=== PATIENT | male | born 1940 | race Caucasian/White ===

== ENCOUNTER 2016-12-11 10:53 | Inpatient (IN) | payer MEDICARE ==
[2016-12-11] MEDS ORDERED: ALBUTEROL SULFATE (0.083%) 2.5 MG/3 ML NEB INH PRN (16:28)
[2016-12-11] MEDS ORDERED: LORAZEPAM 0.5 MG TABLET PO PRN (16:29)
[2016-12-11] MEDS: PANTOPRAZOLE SODIUM 40 MG TABLET PO SCH (17:42)
[2016-12-11] MEDS: GLIPIZIDE 5 MG TABLET PO SCH (17:42)
[2016-12-11] MEDS: SIMVASTATIN 20 MG TABLET PO SCH (22:00)
[2016-12-11] MEDS: DONEPEZIL HCL 5 MG TABLET PO SCH (22:00)
[2016-12-11] MEDS: TEMAZEPAM 15 MG CAPSULE PO PRN (22:06)
[2016-12-12] MEDS: PANTOPRAZOLE SODIUM 40 MG TABLET PO SCH ×2 (06:55→18:24)
[2016-12-12] MEDS: GLIPIZIDE 5 MG TABLET PO SCH ×2 (06:55→18:24)
--- NOTE | 2016-12-12 07:18 | History & Physical ---
History of Present Illness - Date Date of Service for History & Physical: 12/12/16 - History of Present Illness Admitting Diagnosis: Deconditioning due to syncope History of Present Illness: 76 yo male admitted for weakness. PMHx of COPD, a fib, HTN, DM, mild dementia and anxiety. Patient presented to [facility] after syncopal episode. This was thought to be related to orthostatic BP. ECHO performed during admission which demonstrated EF of 60-65 % w/ impaired relaxation. Patient thought to be medically stable, however would benefit from ARMINDA. 12/12/16: This morning, patient feels well. He denies any concerns. No dizziness , confusion, fever, chill, n/v, abd pain, cp, sob, headache, rash, diarrhea, or change in urination. Home: Lives with significant other, Shasha. One story home. three steps into the home with railing. States he has a walk in shower and a tub. Typically stays on the main floor and does not go to the basement. PCP: Tyrone Reyes D.O. General - Cognitive Patterns Orientation: Oriented x3 - Communication Preferred Language?: Spanish Staff Electronic Warfare Officer Required: No Level of Education: Grade 9-11 Preferred Method of Learning: Seeing, Doing Comprehension Ability: No Impairment Able to Read: Yes Able to Write: Yes Select best description of speech pattern: Clear Speech Ability to express ideas and wants: Understood Understanding verbal content: Understands - Psychosocial Well-Being Usual Living Arrangement: Spouse - Physical Functioning Activity Level: Up with assist x1 Turning: With partial assist ROM Ability: Within Normal Limits Assistive Devices: 2 Wheel Walker Ambulation Ability: Needs Assist Bed Mobility: Needs Assist Transfer Ability: Needs Assist Bathing Ability: Needs Assist Personal Hygiene: Needs Assist Dressing Ability: Needs Assist Eating (Feeding) Ability: Needs Assist Toileting Ability: Needs Assist Administer Own Medication: Needs Assist - Continence Bowel Pattern: Normal for Patient - Dental Status Unable to examine: No Broken or loosely fitting full or partial dentures: No No natural teeth or tooth fragment(s) (edentulous): Yes Abnormal mouth tissue (ulcers, masses, oral lesions, etc.): No Obvious or likely cavity or broken natural teeth: No Inflamed or bleeding gums or loose natural teeth: No Mouth/facial pain, discomfort or difficulty chewing: No - Nutrition Screening Poor oral intake > 1 week: No Unplanned weight loss in specified time frame: No Nutrition Support via tube feedings or parenteral nutrition: No Pressure Ulcer: No Significantly underweight define as BMI <18.5 kg/m2: No Albumin <2.5mg/dL: No Persistent nausea/vomiting/diarrhea >3 days: No Difficulty chewing/swallowing/mouth sores: No Admitting Diagnosis: No Nutrition Risk Score: Low Risk Review of Systems Constitutional: Reports: Weakness. Denies: Chills, Fever, Malaise, Night sweats ENT: Reports: Hearing loss. Denies: Congestion, Ear pain Respiratory: Denies: Cough, Dyspnea, Wheezes Cardiovascular: Denies: Chest pain, Dyspnea on exertion, Edema, Palpitations, Paroxysmal nocturnal dyspnea Endocrine: Denies: Fatigue Gastrointestinal: Denies: Abdominal pain, Constipation, Diarrhea, Nausea, Vomiting Genitourinary: Denies: Dysuria, Frequency, Hematuria Musculoskeletal: Denies: Back pain, Joint swelling, Myalgia Skin: Denies: Change in color, Rash Neurological: Denies: Abnormal gait, Confusion, Headache Psychiatric: Denies: Anxiety, Depression Hematological/Lymphatic: Denies: Anemia Past Medical History - SOCIAL HISTORY Smoking Status: Former smoker Alcohol Use: None - SURGICAL HISTORY Past Surgical History: left eye surgery. rt groin stent attempt. prostate surgery - RESPIRATORY Hx Respiratory Disorders: Yes Hx Bronchitis: Yes Hx COPD: Yes Hx Pneumonia: Yes - CARDIOVASCULAR Hx Hypertension: Yes - NEURO Hx Neuro Disorders: Yes Hx Dementia: Yes Hx Neuropathy: Yes Comment:: occasional stutter - GI Hx GI Disorders: Yes Hx Abdominal Pain: Yes Hx Reflux: Yes - Hx Genitourinary Disorders: Yes Hx Prostate Problems: Yes - ENDOCRINE Hx Endocrine Disorders: Yes Hx Diabetes: Yes - MUSCULOSKELETAL Hx Musculoskeletal Disorders: Yes Hx Arthritis: Yes - PSYCH Hx Psych Problems: Yes Hx Depression: Yes - HEMATOLOGY/ONCOLOGY Hx Hematology/Oncology Disorders: No Family Medical History Any Significant Family History?: Yes Hx Alcohol Use: Children Hx Cancer: Mother Hx Diabetes: Grandparents Hx Heart Disease: Father, Mother *Heart Comment: aneurysm Hx Resp Disorders: Grandparents H&P Meds/Allergies - Allergies Allergies: Allergies Allergy/AdvReac Type Severity Reaction Status Date / Time No Known Drug Allergies Allergy Verified 12/11/16 12:52 - Home Medications Home Medications Medication Instructions Recorded Confirmed Last Taken Albuterol Sulfate [Proventil Hfa] 3 ml NEB Q4H PRN 12/11/16 12/11/16 Unknown Aspirin Chewable 81 mg PO DAILY 12/11/16 12/11/16 Unknown Cholecalciferol (Vitamin D3) 2,000 unit PO DAILY 12/11/16 12/11/16 Unknown [Vitamin D3] Donepezil HCl 20 mg PO QHS 12/11/16 12/11/16 Unknown Fluoxetine HCl 20 mg PO DAILY 12/11/16 12/11/16 Unknown Fluticasone/Salmeterol [Advair 2 puff INH BID 12/11/16 12/11/16 Unknown 100-50 Diskus] Fluticasone/Vilanterol 100/25 1 puff INH RESP.DAILY 12/11/16 12/11/16 Unknown [Breo Ellipta 100-25 Mcg INH] Glipizide [Glucotrol] 5 mg PO BIDAC 12/11/16 12/11/16 Unknown Hydrochlorothiazide 25 mg PO DAILY 12/11/16 12/11/16 Unknown Linagliptin [Tradjenta] 5 mg PO DAILY 12/11/16 12/11/16 Unknown Lisinopril [Lisinopril] 2.5 mg PO DAILY 12/11/16 12/11/16 Unknown Lorazepam [Ativan] 0.5 mg PO DAILY 12/11/16 12/11/16 Unknown Omeprazole [Omeprazole] 20 mg PO BIDAC 12/11/16 12/11/16 Unknown Simvastatin [Simvastatin] 40 mg PO QHS 12/11/16 12/11/16 Unknown Sitagliptin Phosphate [Januvia] 100 mg PO DAILY 12/11/16 12/11/16 Unknown Temazepam [Temazepam] 30 mg PO QHS 12/11/16 12/11/16 Unknown Umeclidinium [place] [Incruse 1 puff INH DAILY 12/11/16 12/11/16 Unknown Ellipta] - Active Medications Active Medications: Current Medications Albuterol Sulfate () 2.5 mg INH Q4H PRN PRN Reason: WHEEZING Aspirin (Ecotrin (Ec)) 81 mg PO DAILY ERYN Donepezil HCl (Aricept) 20 mg PO QHS [facility] Last Admin: 12/11/16 22:00 Dose: 20 mg Fluoxetine HCl (Prozac) 20 mg PO DAILY ERYN Glipizide (Glucotrol) 5 mg PO BIDAC [facility] Last Admin: 12/12/16 06:55 Dose: 5 mg Hydrochlorothiazide (Hctz 25mg) 25 mg PO DAILY [facility] Lisinopril (Zestril) 2.5 mg PO DAILY [facility] Lorazepam (Ativan) 0.5 mg PO DAILY PRN PRN Reason: ANXIETY Pantoprazole Sodium (Protonix) 40 mg PO BIDAC [facility] Last Admin: 12/12/16 06:55 Dose: 40 mg Simvastatin (Zocor) 40 mg PO QHS ERYN Last Admin: 12/11/16 22:00 Dose: 40 mg Temazepam (Restoril) 15 mg PO QHS PRN PRN Reason: SLEEP Last Admin: 12/11/16 22:06 Dose: 15 mg Vitamin D (Vitamin D3) 2,000 unit PO DAILY [facility] Physical Exam - Vital Signs Vital Signs: Vital Signs - Last 24 Hrs Temp Pulse Resp BP Pulse Ox 12/11/16 20:00 97.7 F 70 16 131/66 98 12/11/16 16:48 98.0 F 61 16 109/48 99 - General General Appearance: Alert, Oriented x3, Cooperative, No acute distress Limitations: No limitations - Head Head exam: Atraumatic, Normocephalic, Normal inspection - Eye Eye exam: Normal appearance - ENT ENT exam: Normal exam - Neck Neck exam: Normal inspection, Full ROM - Respiratory Respiratory exam: Normal lung sounds bilaterally. negative: Accessory muscle use, Decreased breath sounds, Respiratory distress, Wheezes - Cardiovascular Cardiovascular Exam: Regular rate, Normal rhythm, Normal heart sounds - GI/Abdominal GI/Abdominal exam: Soft, Normal bowel sounds - Rectal Rectal exam: Deferred - exam: Deferred - Extremities Extremities exam: negative: Pedal edema - Back Back exam: Reports: Normal inspection - Neurological Neurological exam: Alert, Oriented X3 - Psychiatric Psychiatric exam: Normal affect, Normal mood H&P Results - Labs Labs Last 24 Hours: Laboratory Results - last 24 hr 12/11/16 12/11/16 12/12/16 17:43 21:50 07:01 POC Glucose 101 105 99 Discharge Potential - Discharge Needs Patient Discharge Plan Description: Return Home Community Services Needed at Discharge: Occupational Therapy, Physical Therapy Discharge Needs Comment: [facility] prior to 2 weeks ago Plan - Swing Bed Certification Initial Certification Due: 12/11/16 14 Day Re-Cert Due: 12/25/16 44 Day Re-Cert Due: 01/24/17 74 Day Re-Cert Due: 02/23/17 - Detailed Diagnosis and Plan (1) Physical deconditioning Current Visit: Yes Status: Acute Base Code: R53.81 - OTHER MALAISE Comment : 12/12/16: - unremarkable CBC, CMP 12/10/16 - continue home medications - PT/OT to help build physical strength and functioning. (2) Full code status Current Visit: Yes Status: Acute Base Code: Z78.9 - OTHER SPECIFIED HEALTH STATUS Comment: 12/12/16: pt is full code
[2016-12-12] MEDS: UMECLIDINIUM BROMIDE (INCRUSE) 62.5MCG IH SCH (09:19)
[2016-12-12] MEDS: BREO (FLUTICASONE/VILANTEROL) 100MCG/25MCG INHALER INH SCH (09:19)
[2016-12-12] MEDS: FLUOXETINE HCL 20 MG CAPSULE PO SCH (09:34)
[2016-12-12] MEDS: HYDROCHLOROTHIAZIDE 25 MG TABLET PO SCH (09:34)
[2016-12-12] MEDS: LISINOPRIL 5 MG TABLET PO SCH (09:34)
[2016-12-12] MEDS: ASPIRIN 81 MG TABEC PO SCH (09:35)
[2016-12-12] MEDS: CHOLECALCIFEROL 1,000 UNIT TABLET PO SCH (09:35)
--- NOTE | 2016-12-12 10:17 | Rehab Evaluation ---
Patient Information - Patient Information Diagnosis: deconditioning due to syncope Ordered Treatment: OT Evaluate and Treat Status: Initial Evaluation Surgery: No History: Detail (Pt admitted to swing bed from [facility] due to deconditioning.) Past Medical/Surgical Hx: PAST MEDICAL/SURGICAL HISTORY Past Surgical History left eye surgery rt groin stent attempt prostate surgery PMH - Respiratory Hx Respiratory Disorders Yes Hx Bronchitis Yes Hx Chronic Obstructive Yes Pulmonary Disease (COPD) Hx Pneumonia Yes PMH - Cardiovascular Hx Hypertension Yes PMH - Neuro Hx Neurological Disorders Yes Hx Dementia Yes Hx Neuropathy Yes Hx Syncope Yes Comment: occasional stutter PMH - GI Hx Gastrointestinal Disorders Yes Hx Abdominal Pain Yes Hx Gastroesophageal Reflux Yes PMH - Hx Genitourinary Disorders Yes Hx Prostate Problems Yes PMH - Endocrine Hx Endocrine Disorders Yes Hx Diabetes Yes PMH - Musculoskeletal Hx Musculoskeletal Disorders Yes Hx Arthritis Yes PMH - Psych Hx Psychiatric Problems Yes Hx Depression Yes PMH - Hematology/Oncology Hx Hematology/Oncology No Disorders Premorbid Status: Detail (Pt reports he lives with his significant other, Shasha. They have a 1 story house with a basement, 3 steps and vdial handrailings at the entrance, a tub/shower combination with a tub seat and grab bar and a standard height toilet with a riser. He has a 4 wheeled walker, 2-2 wheeled walkers, a straight cane and [place] He uses oxygen as needed at home. He reports having assistance from Shasha for dressing and cooking, a home health aide helps him shower 1 x per week and someone who completes yard work.) Precautions: [place], Fall - Time With Patient Total Time Spent With Patient (Min): 40 Treatment Procedures: Detail (OT eval low complexity) Subjective Information - Subjective Information Per Patient Objective Data - Pain Pain Present: No (Pt reports no pain currently although he has low back pain and pain in his toes at times.) - Mental Status Patient Orientation: Oriented x3 - Visual Perception Appears within normal limits for therapeutic activities (Pt reports he wears glasses at all times and 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 a year.) - Transfers Needs Assist (SBA for sit to stand from EOB.) - Balance Balance Sitting: Fair Balance Standing: Fair - Sensation Intact (Pt reports vidal fingertip numbness occasionally.) - Gait Detail (Pt able to ambulate in hallway with 2 wheeled walker and SBA although he became fatigued easily.) - ADL's/IADL's Detail (Nursing assisting with self cares and toileting at this time.) Therapy Assessment - Therapy Assessment Detail (Pt presents with decreased endurance, decreased Ind and safety with self cares and functional mobility needed to return home with S.O.) Problem List - Problem List Occupational Therapy Problem List: Detail (1. Decreased Ind with total body dressing 2. Decreased Ind with showering 3. Decreased endurance needed for safe and Ind self cares 4. Decreased functional mobility needed for safe and Ind self cares) Goals - Goals Occupational Therapy Goals: 1. Pt will be safe and Ind with total body dressing with use of adaptive equipment as needed. 2. Pt will be safe and Ind with showering in sitting with use of grab bars and adaptive equipment as needed. 3. Pt will be safe and Ind with functional mobility needed for self care activities. 4. Pt will demonstrate improved endurance needed for safe ADLs. Prognosis - Prognosis Good Plan - Plan Occupational Therapy Plan: OT 2-4 days per week to address self cares, functional mobility and endurance needed for safe and Ind return home.
--- NOTE | 2016-12-12 10:28 | Rehab Evaluation ---
Patient Information - Patient Information Diagnosis: Deconditioning due to syncope Ordered Treatment: PT Evaluate and Treat Status: Initial Evaluation History: Detail (The patient was transferred to [facility] to [facility] Swing Bed Unit for rehabilitation.) Past Medical/Surgical Hx: PAST MEDICAL/SURGICAL HISTORY Past Surgical History left eye surgery rt groin stent attempt prostate surgery PMH - Respiratory Hx Respiratory Disorders Yes Hx Bronchitis Yes Hx Chronic Obstructive Yes Pulmonary Disease (COPD) Hx Pneumonia Yes PMH - Cardiovascular Hx Hypertension Yes PMH - Neuro Hx Neurological Disorders Yes Hx Dementia Yes Hx Neuropathy Yes Hx Syncope Yes Comment: occasional stutter PMH - GI Hx Gastrointestinal Disorders Yes Hx Abdominal Pain Yes Hx Gastroesophageal Reflux Yes PMH - Hx Genitourinary Disorders Yes Hx Prostate Problems Yes PMH - Endocrine Hx Endocrine Disorders Yes Hx Diabetes Yes PMH - Musculoskeletal Hx Musculoskeletal Disorders Yes Hx Arthritis Yes PMH - Psych Hx Psychiatric Problems Yes Hx Depression Yes PMH - Hematology/Oncology Hx Hematology/Oncology No Disorders Premorbid Status: Detail (The patient was ambulating with wheeled walker and using scooter when in the community.) Social History: Detail (The patient lives with significant other in a one story home with a basement. The home has 3 steps at the enterance with 2 railings. The patient's bathroom has a tub/shower combination with a tub bench and grabs and an elevated toilet seat. The patient has a 4 wheeled walker, 2 wheeled walker, standard cane, scooter and lift chair. The patient has a aide who assist with his bathing one time a week and his assists with putting on his socks and shoes. The patient reports he has boat hoist operator helper for yardwork and housekeeping.) Precautions: [place], Fall - Time With Patient Total Time Spent With Patient (Min): 30 Treatment Procedures: Detail (Initial Evaluation.) Subjective Information - Subjective Information Per Patient (The patient has no current complaints of pain. The patient reports he does have a history of low back pain, bilateral toe pain and intermittent numbness and tingling in bilateral LE's. The patient also complains of LE's "giving out" and occasional falls.) Objective Data - Mental Status Patient Orientation: Oriented x3 - Visual Perception Appears within normal limits for therapeutic activities, Other ( Patient had an accident 41 years ago in which he lost sight in one eye.) - ROM Within normal limits, Not within normal limits (The patient's LE AROM is WNL except for bilateral knee extension which is aproximately -15 degrees ( lacking 15 degrees of full extension).) - Strength/Tone Not within normal limits (The patient's LE strength is 4- to 4/5 throughout.) - Bed Mobility Independent (Independent supine to and from sit transfer.) - Transfers Independent (The patient was independent with sit to stand transfer with increased use of UE's noted .) - Balance Balance Sitting: Good Balance Standing: Fair (The patient's balance using the Tinetti Balance Assessment Tool is 15 which is in the high risk for falls category.) - Gait Detail (The patient ambulated with wheeled walker 100 feet x 1 with CG and minimal shortness of breath. The patient's gait pattern was characterized by occasional R foot drag. LE tremoring was noted with fatigue.) Therapy Assessment - Therapy Assessment Detail (The patient exhibited LE weakness, decreased balance and decreased ability to complete prolonged activity. Feel the patient is a good rehabilitation candidate and anticipate a sucessful discharge to home environment.) Problem List - Problem List Physical Therapy Problem List: Detail (1) Decreased balance 2) Decreased LE strength 3) Decreased ability to complete sustained physical activity.) Goals - Goals Physical Therapy Goals: 1) The patient will ambulate with assistive devices distances of 200 feet plus independently with minimal shortness of breath. 2) The patient will ambulate on stairs with railing and supervision for safety. 3 ) The patient will be independent with all transfers. 4) Increase LE strength 1 /3 muscle grade Plan - Plan Physical Therapy Plan: PT one to two times a day M-F for gait training, transfer training , balance and LE strengthening exercises.
[2016-12-12] MEDS: TEMAZEPAM 15 MG CAPSULE PO PRN (22:02)
[2016-12-12] MEDS: DONEPEZIL HCL 5 MG TABLET PO SCH (22:03)
[2016-12-12] MEDS: SIMVASTATIN 20 MG TABLET PO SCH (22:04)
[2016-12-13] MEDS: PANTOPRAZOLE SODIUM 40 MG TABLET PO SCH ×2 (07:56→17:03)
[2016-12-13] MEDS: GLIPIZIDE 5 MG TABLET PO SCH ×2 (07:56→17:03)
[2016-12-13] MEDS: FLUOXETINE HCL 20 MG CAPSULE PO SCH (09:04)
[2016-12-13] MEDS: LISINOPRIL 5 MG TABLET PO SCH (09:04)
[2016-12-13] MEDS: ASPIRIN 81 MG TABEC PO SCH (09:04)
[2016-12-13] MEDS: HYDROCHLOROTHIAZIDE 25 MG TABLET PO SCH (09:04)
[2016-12-13] MEDS: CHOLECALCIFEROL 1,000 UNIT TABLET PO SCH (09:04)
[2016-12-13] MEDS: UMECLIDINIUM BROMIDE (INCRUSE) 62.5MCG IH SCH (10:02)
[2016-12-13] MEDS: BREO (FLUTICASONE/VILANTEROL) 100MCG/25MCG INHALER INH SCH (10:02)
--- NOTE | 2016-12-13 11:30 | Physical Therapy Tx Note ---
Physical Therapy Tx Note - Treatment Note Tolerated: Good Total Time Spent With Patient: 35 Physical Therapy Tx Note: Detail (Patient states feeling good today. Patient transferred sit to and from stand CGA x1. Patient ambulated 212 feet with wheeled walker SBA x1. Patient performed the following exercises x10-15 reps each: seated heel raises, seated toe raises, seated marching, LAQ, hamstring curls with red theraband, seated hip abduction with red theraband, and adductor squeezes. Patient transferred sit to and from stand x2 CGA x1. Patient performed the following balance exercises x30 seconds: feet together, DLS with eyes closed, and DLS with pertubations. Patient transferred sit to sidelying independently. Patient tolerated treatment well. Patient displays decreased strength and endurance with ambulation, standing balance exercises, and LAQ. Patient displays decreased balance with feet together, and DLS with pertubations. Patient reports fatigued after treatment. Patient was left sidelying in bed with call light within reach.) Physical Therapy Problem List: Detail (1) Decreased balance 2) Decreased LE strength 3) Decreased ability to complete sustained physical activity.) Physical Therapy Goals: 1) The patient will ambulate with assistive devices distances of 200 feet plus independently with minimal shortness of breath. 2) The patient will ambulate on stairs with railing and supervision for safety. 3 ) The patient will be independent with all transfers. 4) Increase LE strength 1 /3 muscle grade Prognosis: Good Physical Therapy Plan: PT one to two times a day M-F for gait training, transfer training , balance and LE strengthening exercises.
--- NOTE | 2016-12-13 14:24 | Physical Therapy Tx Note ---
Physical Therapy Tx Note - Treatment Note Tolerated: Good Total Time Spent With Patient: 30 Physical Therapy Tx Note: Detail (Patient states no new complaints. Patient transferred sit to and from stand CGA x1. Patient ambulated 11 feet with wheeled walker CGA x1. Patient transferred sit to and from stand CGA x1. Patient performed the following exercises x15 reps each with yellow theraband: seated shoulder rowing, shoulder extension, shoulder internal rotation, shoulder external rotation, bicep curls, tricep extension, and shoulder horizontal abduction. Patient transferred sit to and from stand CGA x1. Patient performed the following balance exercises x30 seconds each: DLS with looking side to side, and stride stance bilateral. Patient transferred sit to and from stand CGA x1. Patient ambulated 11 feet with wheeled walker CGA x1. Patient tolerated treatment well. Patient displays decreased strength and endurance with exercises. Patient required rest breaks with standing balance exercises and shoulder exercises due to fatigue. Patient was left seated on edge of bed with call light within reach.) Physical Therapy Problem List: Detail (1) Decreased balance 2) Decreased LE strength 3) Decreased ability to complete sustained physical activity.) Physical Therapy Goals: 1) The patient will ambulate with assistive devices distances of 200 feet plus independently with minimal shortness of breath. 2) The patient will ambulate on stairs with railing and supervision for safety. 3 ) The patient will be independent with all transfers. 4) Increase LE strength 1 /3 muscle grade Prognosis: Good Physical Therapy Plan: PT one to two times a day M-F for gait training, transfer training , balance and LE strengthening exercises.
[2016-12-13] MEDS: TEMAZEPAM 15 MG CAPSULE PO PRN (22:01)
[2016-12-13] MEDS: DONEPEZIL HCL 5 MG TABLET PO SCH (22:02)
[2016-12-13] MEDS: SIMVASTATIN 20 MG TABLET PO SCH (22:02)
[2016-12-14] MEDS: GLIPIZIDE 5 MG TABLET PO SCH ×2 (07:33→17:13)
[2016-12-14] MEDS: PANTOPRAZOLE SODIUM 40 MG TABLET PO SCH ×2 (07:33→17:13)
[2016-12-14] MEDS: ASPIRIN 81 MG TABEC PO SCH (10:15)
[2016-12-14] MEDS: CHOLECALCIFEROL 1,000 UNIT TABLET PO SCH (10:15)
[2016-12-14] MEDS: HYDROCHLOROTHIAZIDE 25 MG TABLET PO SCH (10:15)
[2016-12-14] MEDS: FLUOXETINE HCL 20 MG CAPSULE PO SCH (10:15)
[2016-12-14] MEDS: LISINOPRIL 5 MG TABLET PO SCH (10:16)
[2016-12-14] MEDS: UMECLIDINIUM BROMIDE (INCRUSE) 62.5MCG IH SCH (10:19)
[2016-12-14] MEDS: BREO (FLUTICASONE/VILANTEROL) 100MCG/25MCG INHALER INH SCH (10:20)
--- NOTE | 2016-12-14 10:30 | Occupational Therapy Tx Note ---
Occupational Therapy Tx Note - Treatment Note Tolerated: Good Total Time Spent With Patient: 50 (ther ex) Occupational Therapy Treatment Note: Detail (S: Pt pleasant and ready for therapy. O: Sit to stand from EOB Ind and amb from room to waiting room with 2 wheeled walker and SBA. Pt reports his arms became fatigued. He was able to propel the remaining distance to the rehab gym. Pt completed louis UE strengthening/endurance activities including resisted clothespins with 1# wrist weight (all on right, yellow-blue on left). Tooth Polisher test - right 55#, 62#, left 52 #, 48#. Provided red theraband and written HEP - pt completed 10 reps each louis shoulder flexion, horiz. abduction, elbow flexion and elbow extension. Pt provided green theraputty and written HEP and completed 5 min of potato seed cutter strengthening. Pt transported back to room and left up in wheelchair. A: Pt will require ongoing teaching for HEP, arms were fatigued after exercise, victor hugo shoulders.) Occupational Therapy Problem List: Detail (1. Decreased Ind with total body dressing 2. Decreased Ind with showering 3. Decreased endurance needed for safe and Ind self cares 4. Decreased functional mobility needed for safe and Ind self cares) Occupational Therapy Goals: 1. Pt will be safe and Ind with total body dressing with use of adaptive equipment as needed. 2. Pt will be safe and Ind with showering in sitting with use of grab bars and adaptive equipment as needed. 3. Pt will be safe and Ind with functional mobility needed for self care activities. 4. Pt will demonstrate improved endurance needed for safe ADLs. Prognosis: Good Occupational Therapy Plan: OT 2-4 days per week to address self cares, functional mobility and endurance needed for safe and Ind return home.
[2016-12-14] MEDS: ACETAMINOPHEN 500 MG TABLET PO PRN (12:57)
--- NOTE | 2016-12-14 14:29 | Physical Therapy Tx Note ---
Physical Therapy Tx Note - Treatment Note Tolerated: Good Total Time Spent With Patient: 30 Physical Therapy Tx Note: Detail (The patient was in bed, sleeping when PT arrived. The patient complained of fatigue.The patient completed LE strengthening exercises including: gluteal sets, ankle pumps, hip marching, hip adductor sets, Band Exercises: LAQ, hip abduction all x 10 reps. The patient completed balance exercises: standing with varying bases of support, reaching for objects in both sitting and standing, with support of walker squats x 10. The patient had increased LE tremoring today.) Physical Therapy Problem List: Detail (1) Decreased balance 2) Decreased LE strength 3) Decreased ability to complete sustained physical activity.) Physical Therapy Goals: 1) The patient will ambulate with assistive devices distances of 200 feet plus independently with minimal shortness of breath. 2) The patient will ambulate on stairs with railing and supervision for safety. 3 ) The patient will be independent with all transfers. 4) Increase LE strength 1 /3 muscle grade Physical Therapy Plan: PT one to two times a day M-F for gait training, transfer training , balance and LE strengthening exercises.
[2016-12-14] MEDS: SIMVASTATIN 20 MG TABLET PO SCH (21:35)
[2016-12-14] MEDS: TEMAZEPAM 15 MG CAPSULE PO PRN (21:35)
[2016-12-14] MEDS: DONEPEZIL HCL 5 MG TABLET PO SCH (21:36)
[2016-12-15] MEDS: PANTOPRAZOLE SODIUM 40 MG TABLET PO SCH ×2 (06:36→16:41)
[2016-12-15] MEDS: GLIPIZIDE 5 MG TABLET PO SCH ×2 (06:36→16:42)
[2016-12-15] MEDS: ACETAMINOPHEN 500 MG TABLET PO PRN ×2 (08:31→16:42)
[2016-12-15] MEDS: UMECLIDINIUM BROMIDE (INCRUSE) 62.5MCG IH SCH (09:25)
[2016-12-15] MEDS: BREO (FLUTICASONE/VILANTEROL) 100MCG/25MCG INHALER INH SCH (09:26)
[2016-12-15] MEDS: ASPIRIN 81 MG TABEC PO SCH (09:39)
[2016-12-15] MEDS: HYDROCHLOROTHIAZIDE 25 MG TABLET PO SCH (09:39)
[2016-12-15] MEDS: CHOLECALCIFEROL 1,000 UNIT TABLET PO SCH (09:40)
[2016-12-15] MEDS: FLUOXETINE HCL 20 MG CAPSULE PO SCH (09:40)
[2016-12-15] MEDS: LISINOPRIL 5 MG TABLET PO SCH (09:41)
[2016-12-15] MEDS: DONEPEZIL HCL 5 MG TABLET PO SCH (21:04)
[2016-12-15] MEDS: SIMVASTATIN 20 MG TABLET PO SCH (21:05)
[2016-12-15] MEDS: TEMAZEPAM 15 MG CAPSULE PO PRN (21:05)
[2016-12-16] MEDS: GLIPIZIDE 5 MG TABLET PO SCH ×2 (06:37→16:49)
[2016-12-16] MEDS: PANTOPRAZOLE SODIUM 40 MG TABLET PO SCH ×2 (06:37→16:49)
[2016-12-16] MEDS: ACETAMINOPHEN 500 MG TABLET PO PRN ×2 (08:31→20:11)
[2016-12-16] MEDS: CHOLECALCIFEROL 1,000 UNIT TABLET PO SCH (09:18)
[2016-12-16] MEDS: LISINOPRIL 5 MG TABLET PO SCH (09:19)
[2016-12-16] MEDS: ASPIRIN 81 MG TABEC PO SCH (09:19)
[2016-12-16] MEDS: HYDROCHLOROTHIAZIDE 25 MG TABLET PO SCH (09:19)
[2016-12-16] MEDS: FLUOXETINE HCL 20 MG CAPSULE PO SCH (09:19)
[2016-12-16] MEDS: UMECLIDINIUM BROMIDE (INCRUSE) 62.5MCG IH SCH (10:00)
[2016-12-16] MEDS: BREO (FLUTICASONE/VILANTEROL) 100MCG/25MCG INHALER INH SCH (10:01)
[2016-12-16] MEDS: SIMVASTATIN 20 MG TABLET PO SCH (22:27)
[2016-12-16] MEDS: DONEPEZIL HCL 5 MG TABLET PO SCH (22:27)
[2016-12-16] MEDS: TEMAZEPAM 15 MG CAPSULE PO PRN (22:27)
[2016-12-17 06:22] LABS: HEMATOCRIT 37.9 % (42.0-52.0); HEMOGLOBIN 12.9 gm/dl (14.0-18.0); MEAN CELL VOLUME 92.7 fl (81-97); MEAN CORPUSCULAR HEMOGLOBIN 31.5 pg (27-33); MEAN PLATELET VOLUME 9.8 fl (7.4-10.4); PLATELET COUNT 228 K/uL (130-400); RED BLOOD COUNT 4.09 M/uL (4.40-5.70); WHITE BLOOD COUNT W/O DIFF 9.7 K/uL (4.2-12.2)
[2016-12-17 06:38] LABS: ALB/GLOB RATIO 1.2 (1.1-1.8); ALBUMIN 3.6 gm/dL (3.5-5.0); ANION GAP 9.5 (7-16); BILIRUBIN,TOTAL 0.77 mg/dL (0.2-1.3); CARBON DIOXIDE 26.5 mmol/L (22-30); CREATININE 1.3 mg/dL (0.66-1.25); TOTAL PROTEIN 6.7 gm/dL (6.3-8.2)
[2016-12-17] MEDS: GLIPIZIDE 5 MG TABLET PO SCH ×2 (06:38→16:42)
[2016-12-17] MEDS: PANTOPRAZOLE SODIUM 40 MG TABLET PO SCH ×2 (06:38→16:42)
[2016-12-17] MEDS: ACETAMINOPHEN 500 MG TABLET PO PRN ×2 (09:51→16:44)
[2016-12-17] MEDS: CHOLECALCIFEROL 1,000 UNIT TABLET PO SCH (09:51)
[2016-12-17] MEDS: FLUOXETINE HCL 20 MG CAPSULE PO SCH (09:51)
[2016-12-17] MEDS: LISINOPRIL 5 MG TABLET PO SCH (09:51)
[2016-12-17] MEDS: ASPIRIN 81 MG TABEC PO SCH (09:52)
[2016-12-17] MEDS: HYDROCHLOROTHIAZIDE 25 MG TABLET PO SCH (09:52)
[2016-12-17] MEDS: UMECLIDINIUM BROMIDE (INCRUSE) 62.5MCG IH SCH (10:45)
[2016-12-17] MEDS: BREO (FLUTICASONE/VILANTEROL) 100MCG/25MCG INHALER INH SCH (10:46)
--- NOTE | 2016-12-17 11:21 | Occupational Therapy Tx Note ---
Occupational Therapy Tx Note - Treatment Note Tolerated: Fair Total Time Spent With Patient: 45 (ADL) Occupational Therapy Treatment Note: Detail (S: Pt up in chair, ready for showering. O: Sit to stand with min assist to walker. Amb to shower bench with 2 wheeled walker and SBA. Doffed shorts, briefs, slippers and shirt Indly in sitting and standing. Pt sat on bench and completed showering with min assist and use of grab bars and walker for standing, while wash buttocks and cody area. Pt dried self Indly. Min assist for sit to stand and amb to toilet with walker. Toileted in standing and amb to chair with 2 wheeled walker and SBA. Pt donned shirt with min assist to orient correctly, briefs, shorts and slippers Indly with min assist for sit to stand when pulling up pants. A: Pt c /o back pain and was short of breath with showering and dressing activity. Min assist needed for sit to stand, victor hugo from lower surface.) Occupational Therapy Problem List: Detail (1. Decreased Ind with total body dressing 2. Decreased Ind with showering 3. Decreased endurance needed for safe and Ind self cares 4. Decreased functional mobility needed for safe and Ind self cares) Occupational Therapy Goals: 1. Pt will be safe and Ind with total body dressing with use of adaptive equipment as needed. 2. Pt will be safe and Ind with showering in sitting with use of grab bars and adaptive equipment as needed. 3. Pt will be safe and Ind with functional mobility needed for self care activities. 4. Pt will demonstrate improved endurance needed for safe ADLs. Prognosis: Good Occupational Therapy Plan: OT 2-4 days per week to address self cares, functional mobility and endurance needed for safe and Ind return home.
--- NOTE | 2016-12-17 17:00 | Physical Therapy Tx Note ---
Physical Therapy Tx Note - Treatment Note Tolerated: Good Total Time Spent With Patient: 35 Physical Therapy Tx Note: Detail (The patient was ambulating with wheeled walker to bathroom when PT arrived. The patient was independent with toilet transfer with use of grab bar. The patient ambulated on 3 steps with 2 railings and CG of 1 for safety x 2. The patient used his feet to feel for the steps.( Patient reported he could see depth of steps.) The patient completed balance exercises including standing with varying bases of support and standing on a foam surface. The patient requires CG when standing with narrow base of support. The patient completed the following LE strengthening exercises: standing squats, standing hip extension x 10 reps, seated with red band marching , hip abduction both x 15 reps, LAQ, hamstring curls x10 reps and hip adductor squeezes. The patient ambulated back to bed with wheeled walker 13 feet x1 with supervision. The patient required moderate PA of 1 for sit to stand from lower surface and verbal cues to turn and sit with walker and not leave walker to the side.) Physical Therapy Problem List: Detail (1) Decreased balance 2) Decreased LE strength 3) Decreased ability to complete sustained physical activity.) Physical Therapy Goals: 1) The patient will ambulate with assistive devices distances of 200 feet plus independently with minimal shortness of breath. 2) The patient will ambulate on stairs with railing and supervision for safety. 3 ) The patient will be independent with all transfers. 4) Increase LE strength 1 /3 muscle grade Physical Therapy Plan: PT one to two times a day M-F for gait training, transfer training , balance and LE strengthening exercises.
[2016-12-17] MEDS: DONEPEZIL HCL 5 MG TABLET PO SCH (22:43)
[2016-12-17] MEDS: TEMAZEPAM 15 MG CAPSULE PO PRN (22:44)
[2016-12-17] MEDS: SIMVASTATIN 20 MG TABLET PO SCH (22:45)
[2016-12-18] MEDS: GLIPIZIDE 5 MG TABLET PO SCH ×2 (06:48→16:52)
[2016-12-18] MEDS: PANTOPRAZOLE SODIUM 40 MG TABLET PO SCH ×2 (06:48→16:52)
[2016-12-18] MEDS: ACETAMINOPHEN 500 MG TABLET PO PRN (07:51)
[2016-12-18] MEDS: BREO (FLUTICASONE/VILANTEROL) 100MCG/25MCG INHALER INH SCH (09:34)
[2016-12-18] MEDS: UMECLIDINIUM BROMIDE (INCRUSE) 62.5MCG IH SCH (09:35)
--- NOTE | 2016-12-18 09:43 | Physical Therapy Tx Note ---
Physical Therapy Tx Note - Treatment Note Tolerated: Good Total Time Spent With Patient: 30 Physical Therapy Tx Note: Detail (The patient was sitting in chair when PT arrived. The patient ambulated with wheeled walker 13 feet x 1 with supervision for safety. The patient completed a tub transfer to tub chair with minimal assistance to lift LE's over tub . The patient was unable to stand and step over but was able to sit on tub chair and then lift LE's with assistance. The patient then ambulated with wheeled walker 27 feet x 1 with supervision. Patient completed toilet transfer with supervision. The patient completed the following exercises: seated hip marching until fatigued, hip adductor squeezes, LAQ, with red band hamstring curls, hip abduction all x 15 reps, standing squats x 10 reps, standing balance with normal base of support, reaching for objects, lifting arms overhead, marching in place with support of walker , passive hamstring stretch, seated. The patient states he still feels a little shaky at times. The patient ambulates with increased trunk flexion but is able to stand tall when cued.) Physical Therapy Problem List: Detail (1) Decreased balance 2) Decreased LE strength 3) Decreased ability to complete sustained physical activity.) Physical Therapy Goals: 1) The patient will ambulate with assistive devices distances of 200 feet plus independently with minimal shortness of breath. 2) The patient will ambulate on stairs with railing and supervision for safety. 3 ) The patient will be independent with all transfers. 4) Increase LE strength 1 /3 muscle grade Physical Therapy Plan: PT one to two times a day M-F for gait training, transfer training , balance and LE strengthening exercises.
[2016-12-18] MEDS: CHOLECALCIFEROL 1,000 UNIT TABLET PO SCH (09:44)
[2016-12-18] MEDS: ASPIRIN 81 MG TABEC PO SCH (09:44)
[2016-12-18] MEDS: FLUOXETINE HCL 20 MG CAPSULE PO SCH (09:44)
[2016-12-18] MEDS: HYDROCHLOROTHIAZIDE 25 MG TABLET PO SCH (09:44)
[2016-12-18] MEDS: LISINOPRIL 5 MG TABLET PO SCH (09:45)
--- NOTE | 2016-12-18 14:10 | Occupational Therapy Tx Note ---
Occupational Therapy Tx Note - Treatment Note Tolerated: Good Total Time Spent With Patient: 50 (ther ex) Occupational Therapy Treatment Note: Detail (S: Pt resting in room, ready for therapy. O: Supine to sit Indly, sit to stand and amb to rehab gym with 2 wheeled walker and SBA. Pt reports shoulder fatigue due to pushing on walker. Pt completed vidal hand strengthening with blue theraputty x 5 min, vidal UE strengthening with 5# free weights for biceps, shoulder flexion, shoulder abduction - 10 reps x 2 sets. Vidal overhead reaching activity with resisted clothespins, all completed with right UE, 12 completed with left due to fatigue. Walker height lowered 1 notch and pt amb with less c/o shoulder discomfort. Pt transported back to room via wheelchair and left up with S/O. A : UE strength/endurance improving although weakness continues left worse than right) Occupational Therapy Problem List: Detail (1. Decreased Ind with total body dressing 2. Decreased Ind with showering 3. Decreased endurance needed for safe and Ind self cares 4. Decreased functional mobility needed for safe and Ind self cares) Occupational Therapy Goals: 1. Pt will be safe and Ind with total body dressing with use of adaptive equipment as needed. 2. Pt will be safe and Ind with showering in sitting with use of grab bars and adaptive equipment as needed. 3. Pt will be safe and Ind with functional mobility needed for self care activities. 4. Pt will demonstrate improved endurance needed for safe ADLs. Prognosis: Good Occupational Therapy Plan: OT 2-4 days per week to address self cares, functional mobility and endurance needed for safe and Ind return home.
[2016-12-18] MEDS: TEMAZEPAM 15 MG CAPSULE PO PRN (21:55)
[2016-12-18] MEDS: SIMVASTATIN 20 MG TABLET PO SCH (21:56)
[2016-12-18] MEDS: DONEPEZIL HCL 5 MG TABLET PO SCH (21:56)
[2016-12-19] MEDS: PANTOPRAZOLE SODIUM 40 MG TABLET PO SCH ×2 (06:52→17:05)
[2016-12-19] MEDS: GLIPIZIDE 5 MG TABLET PO SCH ×2 (06:52→17:05)
[2016-12-19] MEDS: UMECLIDINIUM BROMIDE (INCRUSE) 62.5MCG IH SCH (09:18)
[2016-12-19] MEDS: BREO (FLUTICASONE/VILANTEROL) 100MCG/25MCG INHALER INH SCH (09:19)
[2016-12-19] MEDS: HYDROCHLOROTHIAZIDE 25 MG TABLET PO SCH (09:57)
[2016-12-19] MEDS: ASPIRIN 81 MG TABEC PO SCH (09:57)
[2016-12-19] MEDS: CHOLECALCIFEROL 1,000 UNIT TABLET PO SCH (09:57)
[2016-12-19] MEDS: FLUOXETINE HCL 20 MG CAPSULE PO SCH (09:57)
[2016-12-19] MEDS: LISINOPRIL 5 MG TABLET PO SCH (09:58)
--- NOTE | 2016-12-19 11:07 | Physical Therapy Tx Note ---
Physical Therapy Tx Note - Treatment Note Tolerated: Good Total Time Spent With Patient: 45 Physical Therapy Tx Note: Detail (The patient ambulated with wheeled walker with supervision 75 feet x 1. The patient complained of upper back and right shoulder pain and requested to rest. The patient was taken to the PT department in a wheelchair and completed the following exercises: Nu step (LE's only) x 5 minutes, bridging , resisted hip abduction, adduction and bilateral SAQ all x 10 reps. Lower back stretching exercises: trunk rotation, knee to chest stretch, hamstring stretch all supine 2-5 reps , 15 to 30 second holds, seated anterior/posterior tilt x 5 reps, prayer stretch one repetition for 30 seconds. The patent also ambulated with wheeled walker in Rehab Gym x 60 feet with supervision for safety. The patient complained of LE fatigue following exercises.) Physical Therapy Problem List: Detail (1) Decreased balance 2) Decreased LE strength 3) Decreased ability to complete sustained physical activity.) Physical Therapy Goals: 1) The patient will ambulate with assistive devices distances of 200 feet plus independently with minimal shortness of breath. 2) The patient will ambulate on stairs with railing and supervision for safety. 3 ) The patient will be independent with all transfers. 4) Increase LE strength 1 /3 muscle grade Physical Therapy Plan: PT one to two times a day M-F for gait training, transfer training , balance and LE strengthening exercises.
--- NOTE | 2016-12-19 11:31 | Physician Progress Note ---
Subjective - Date Date of Progress Note: 12/19/16 - Admitting Diagnosis Diagnosis: Not able to be as active as once was - Subjective Events since last encounter: Care conference today. Therapy reports in amb 300 ft independently but still needs assist with tub transfer and stairs. Does have diabetic neuropathy and has a hard time feeling the stairs beneath his feet. 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 Complains of chronic back pain from an injury in the 60's. Pain has been worse since beginning therapy, unable to stand for long periods of time without needing to sit down due to pain. Pain radiates down right leg, mild numbness. reports he has taken Lyrica before for back pain and had side effects of dizziness, change cognition. Feet feel tingly and as if being stung by bees. Has had a 2lb weight loss in 6 days but reports has been more active since admission as compared to his usual activity at home. Dietary to increase his caloir intake and add bedtime snack, will weight twice weekly to monitor. Vitals review shows trending low BP, is asymptomatic Nursing Care Plan Problem List Activity Intolerance (Swing Bed) Start: 12/11/16 12: 49 Freq: Status: Active Created 12/11/16 12:49 [facility] (Rec: 12/11/16 12:49 [facility] [id number]) Knowledge Deficit (Swing Bed) Start: 12/11/16 12: 49 Freq: Status: Active Created 12/11/16 12:49 [facility] (Rec: 12/11/16 12:49 [facility] [id number]) Pain (Swing Bed) Start: 12/11/16 16: 29 Freq: Status: Active Created 12/11/16 16:29 [facility] (Rec: 12/11/16 16:29 [facility] [id number]) Risk For Falls (Swing Bed) Start: 12/11/16 12: 49 Freq: Status: Active Created 12/11/16 12:49 [facility] (Rec: 12/11/16 12:49 [facility] [id number]) General - Cognitive Patterns Speech: Normal Thought Process: Intact Thought Content: Normal - Communication Select best description of speech pattern: Clear Speech Ability to express ideas and wants: Understood Understanding verbal content: Understands - Mood and Behavior Patterns Appearance: Well Groomed Mood: Normal Attitude: Cooperative Motor Activity: Calm Affect: Appropriate Hallucinations: Denies - Physical Functioning Activity Level: Up with assist x1 Turning: With partial assist ROM Ability: Moves all extremities Assistive Devices: 2 Wheel Walker Ambulation Ability: Needs Assist Bed Mobility: Needs Assist Transfer Ability: Independent Bathing Ability: Independent Personal Hygiene: Independent Dressing Ability: Independent Eating (Feeding) Ability: Independent Toileting Ability: Independent Administer Own Medication: Needs Assist - Continence Bowel Pattern: Normal for Patient Bladder Pattern: Dribbling Meds/Allergies - Allergies Allergies Allergy/AdvReac Type Severity Reaction Status Date / Time No Known Drug Allergies Allergy Verified 12/11/16 12:52 - Active Medications Current Medications Acetaminophen (Tylenol 500mg Tab) 1,000 mg PO Q8H PRN PRN Reason: Pain - Mild (1-4) Last Admin: 12/18/16 07:51 Dose: 1,000 mg Albuterol Sulfate () 2.5 mg INH Q4H PRN PRN Reason: WHEEZING Aspirin (Ecotrin (Ec)) 81 mg PO DAILY COUNTS INCLUDE 234 BEDS AT THE [facility] Last Admin: 12/19/16 09:57 Dose: 81 mg Donepezil HCl (Aricept) 20 mg PO QHS COUNTS INCLUDE 234 BEDS AT THE [facility] Last Admin: 12/18/16 21:56 Dose: 20 mg Fluoxetine HCl (Prozac) 20 mg PO DAILY COUNTS INCLUDE 234 BEDS AT THE [facility] Last Admin: 12/19/16 09:57 Dose: 20 mg Glipizide (Glucotrol) 5 mg PO BIDAC COUNTS INCLUDE 234 BEDS AT THE [facility] Last Admin: 12/19/16 06:52 Dose: 5 mg Hydrochlorothiazide (Hctz 12.5mg) 12.5 mg PO DAILY COUNTS INCLUDE 234 BEDS AT THE [facility] Lisinopril (Zestril) 2.5 mg PO DAILY COUNTS INCLUDE 234 BEDS AT THE [facility] Last Admin: 12/19/16 09:58 Dose: Not Given Lorazepam (Ativan) 0.5 mg PO DAILY PRN PRN Reason: ANXIETY Pantoprazole Sodium (Protonix) 40 mg PO BIDAC COUNTS INCLUDE 234 BEDS AT THE [facility] Last Admin: 12/19/16 06:52 Dose: 40 mg Simvastatin (Zocor) 40 mg PO QHS COUNTS INCLUDE 234 BEDS AT THE [facility] Last Admin: 12/18/16 21:56 Dose: 40 mg Temazepam (Restoril) 15 mg PO QHS PRN PRN Reason: SLEEP Last Admin: 12/18/16 21:55 Dose: 15 mg Tramadol HCl (Ultram) 50 mg PO Q6H PRN PRN Reason: Pain - Moderate (5-7) Vitamin D (Vitamin D3) 2,000 unit PO DAILY COUNTS INCLUDE 234 BEDS AT THE [facility] Last Admin: 12/19/16 09:57 Dose: 2,000 unit Objective - Vital Signs Vital Signs: Vital Signs - Last 24 Hrs Temp Pulse Pulse Resp BP BP Pulse Ox 12/19/16 09:48 103/55 12/19/16 09:20 67 15 97 12/19/16 08:27 97.7 F 129/61 12/19/16 08:00 70 16 98/53 97 12/18/16 20:00 97.7 F 90 18 129/61 95 - General General Appearance: Alert, Oriented x3, Cooperative, No acute distress Limitations: No limitations - Head Head exam: Atraumatic, Normocephalic, Normal inspection - Eye Eye exam: Normal appearance - ENT ENT exam: Normal exam - Neck Neck exam: Normal inspection, Full ROM - Respiratory Respiratory exam: Normal lung sounds bilaterally. negative: Accessory muscle use, Decreased breath sounds, Respiratory distress, Wheezes - Cardiovascular Cardiovascular Exam: Regular rate, Normal rhythm, Normal heart sounds Peripheral Pulses: 2+: Dorsalis Pedis (R), Dorsalis Pedis (L) - GI/Abdominal GI/Abdominal exam: Soft, Normal bowel sounds - Rectal Rectal exam: Deferred - exam: Deferred - Extremities Extremities exam: Normal inspection, Normal capillary refill. negative: Pedal edema - Back Back exam: Reports: Normal inspection, Tenderness (right lumbar paraspinal musculature) - Neurological Neurological exam: Alert, Oriented X3 - Psychiatric Psychiatric exam: Normal affect, Normal mood - Other Other Exam Information: decrease in light sensation bilat plantar aspects of feet, + sharp sensation intact H&P Results - Labs Result Diagrams: 12/17/16 06:10 12/17/16 06:10 Labs Last 24 Hours: Laboratory Results - last 24 hr 12/18/16 12/19/16 16:33 07:04 POC Glucose 115 H 97 Discharge Potential - Discharge Needs Community Services Used Prior to Admission: Home Health Nurse Patient Discharge Plan Description: Return Home, Visiting Nurse Community Services Needed at Discharge: Home Health Aide, Home Health Nurse, Occupational Therapy, Physical Therapy Discharge Needs Comment: [facility] prior to 2 weeks ago Plan - Swing Bed Certification Initial Certification Due: 12/11/16 14 Day Re-Cert Due: 12/25/16 44 Day Re-Cert Due: 01/24/17 74 Day Re-Cert Due: 02/23/17 - Detailed Diagnosis and Plan (1) Physical deconditioning Current Visit: Yes Status: Acute Base Code: R53.81 - OTHER MALAISE Comment : 12/19/16: - repeat CBC/CMP in 2 days to trend slight anemia and decreased renal function - continue home medications - lower than usual BP, is still having some weakness, will decrease HCTZ to 12.5mg QD - PT/OT to help build physical strength and functioning, doing well working towards discharge goals (2) Chronic low back pain Current Visit: Yes Status: Acute Base Code: M54.5 - LOW BACK PAIN; G89.29 - OTHER CHRONIC PAIN Comment: 12/19/16- acute on chronic low back pain - continue Tylenol as needed for pain - Ultram added for breakthrough pain or pain not relieved by Tylenol - continue PT/OT (3) Diabetic neuropathy Current Visit: Yes Status: Acute Base Code: E11.40 - TYPE 2 DIABETES MELLITUS WITH DIABETIC NEUROPATHY, UNSP Comment: 12/19/16- blood sugars controlled, 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 Sensation to feet intact to sharp object, decreased sensation with light pressure/touch - Pt continue to work on stair management and safety - Did not previously tolerate Lyrica - Will manage with PRN Ultram (4) Full code status Current Visit: Yes Status: Acute Base Code: Z78.9 - OTHER SPECIFIED HEALTH STATUS Comment: 12/19/16: pt is full code
[2016-12-19] MEDS: TRAMADOL HCL 50 MG TABLET PO PRN ×2 (11:51→22:30)
--- NOTE | 2016-12-19 15:05 | Occupational Therapy Tx Note ---
Occupational Therapy Tx Note - Treatment Note Tolerated: Good Total Time Spent With Patient: 35 (ADL) Occupational Therapy Treatment Note: Detail (S: Pt feeling good, hoping to shower. O: Supine to sit Indly, amb to shower with 2 wheeled walker and SBA. Pt doffed shirt, shorts, briefs and slippers Indly although had difficulty with doffing slippers due to sitting on higher surface. Pt completed shower in sitting and standing with hand held shower and use of grab bars. Pt required CG assist for static standing and with use of grab bars. Pt dried self Indly. Pt donned shirt with min assist to orient shirt due to decreased vision, Ind with donning brief, shorts and slippers in sitting at EOB. Sit to supine Indly. A: Pt reports back pain during ADLs, fatigue and increased tremors noted, LE weakness continues with static standing.) Occupational Therapy Problem List: Detail (1. Decreased Ind with total body dressing 2. Decreased Ind with showering 3. Decreased endurance needed for safe and Ind self cares 4. Decreased functional mobility needed for safe and Ind self cares) Occupational Therapy Goals: 1. Pt will be safe and Ind with total body dressing with use of adaptive equipment as needed. 2. Pt will be safe and Ind with showering in sitting with use of grab bars and adaptive equipment as needed. 3. Pt will be safe and Ind with functional mobility needed for self care activities. 4. Pt will demonstrate improved endurance needed for safe ADLs. Prognosis: Good Occupational Therapy Plan: OT 2-4 days per week to address self cares, functional mobility and endurance needed for safe and Ind return home.
[2016-12-19] MEDS: SIMVASTATIN 20 MG TABLET PO SCH (22:29)
[2016-12-19] MEDS: DONEPEZIL HCL 5 MG TABLET PO SCH (22:30)
[2016-12-19] MEDS: TEMAZEPAM 15 MG CAPSULE PO PRN (22:30)
[2016-12-20] MEDS: GLIPIZIDE 5 MG TABLET PO SCH ×2 (08:07→17:40)
[2016-12-20] MEDS: TRAMADOL HCL 50 MG TABLET PO PRN ×3 (08:07→21:34)
[2016-12-20] MEDS: PANTOPRAZOLE SODIUM 40 MG TABLET PO SCH ×2 (08:07→17:40)
[2016-12-20] MEDS: UMECLIDINIUM BROMIDE (INCRUSE) 62.5MCG IH SCH (10:25)
[2016-12-20] MEDS: BREO (FLUTICASONE/VILANTEROL) 100MCG/25MCG INHALER INH SCH (10:25)
[2016-12-20] MEDS: ASPIRIN 81 MG TABEC PO SCH (10:39)
[2016-12-20] MEDS: FLUOXETINE HCL 20 MG CAPSULE PO SCH (10:39)
[2016-12-20] MEDS: CHOLECALCIFEROL 1,000 UNIT TABLET PO SCH (10:39)
[2016-12-20] MEDS: LISINOPRIL 5 MG TABLET PO SCH (10:39)
[2016-12-20] MEDS: HYDROCHLOROTHIAZIDE 12.5 MG CAPSULE PO SCH (10:39)
--- NOTE | 2016-12-20 13:10 | Physical Therapy Tx Note ---
Physical Therapy Tx Note - Treatment Note Tolerated: Fair Total Time Spent With Patient: 20 Physical Therapy Tx Note: Detail (Patient states entire body is achy today, and nauseated. Patient reports feeling more nausous with attempting to transfer supine to sit. Patient performed the following exercises x10 reps each supine in bed: ankle pumps, quad sets, glut squeezes, bridges, hip abduction with red theraband, isometric hip adduction, and bent knee leg lifts. Patient reports continued nausea with exercises, feels like he's going to vomit. Patient was left supine in bed with call light within reach.) Physical Therapy Problem List: Detail (1) Decreased balance 2) Decreased LE strength 3) Decreased ability to complete sustained physical activity.) Physical Therapy Goals: 1) The patient will ambulate with assistive devices distances of 200 feet plus independently with minimal shortness of breath. 2) The patient will ambulate on stairs with railing and supervision for safety. 3 ) The patient will be independent with all transfers. 4) Increase LE strength 1 /3 muscle grade Prognosis: Good Physical Therapy Plan: PT one to two times a day M-F for gait training, transfer training , balance and LE strengthening exercises.
--- NOTE | 2016-12-20 14:30 | Physical Therapy Tx Note ---
Physical Therapy Tx Note - Treatment Note Tolerated: Good Total Time Spent With Patient: 40 Physical Therapy Tx Note: Detail (Patient states right LE and UEs still painful this afternoon. Patient transferred supine to sit independently. Patient transferred sit to and from stand SBA x1. Patient ambulated 7.5 feet x2 with wheeled walker SBA x1. Patient performed the following exercises x10 reps each : seated marching, LAQ, hamstring curls with red theraband, seated hip abduction with red theraband, seated isometric hip adduction, standing heel raises, standing toe raises, standing marching, bicep curls with red theraband, rowing with red theraband, shoulder extension with red theraband, shoulder flexion, shoulder external rotation with red theraband, and shoulder horiztonal abduction with red theraband. Patient transferred sit to and from stand SBA x1. Patient ambulated 5 feet with wheeled walker SBA x1. Patient transferred sit to supine independently. Patient tolerated treatment well. Patient displays decreased strength and endurance with standing marching, standing toe raises, standing heel raises, shoulder flexion, shoulder external rotation with theraband, shoulder horizontal abduction with theraband, and ambulation. Patient reports fatigued after treatment. Patient was left supine in bed with call light within reach.) Physical Therapy Problem List: Detail (1) Decreased balance 2) Decreased LE strength 3) Decreased ability to complete sustained physical activity.) Physical Therapy Goals: 1) The patient will ambulate with assistive devices distances of 200 feet plus independently with minimal shortness of breath. 2) The patient will ambulate on stairs with railing and supervision for safety. 3 ) The patient will be independent with all transfers. 4) Increase LE strength 1 /3 muscle grade Prognosis: Good Physical Therapy Plan: PT one to two times a day M-F for gait training, transfer training , balance and LE strengthening exercises.
[2016-12-20] MEDS: DONEPEZIL HCL 5 MG TABLET PO SCH (21:34)
[2016-12-20] MEDS: TEMAZEPAM 15 MG CAPSULE PO PRN (21:35)
[2016-12-20] MEDS: SIMVASTATIN 20 MG TABLET PO SCH (21:35)
[2016-12-21] MEDS: GLIPIZIDE 5 MG TABLET PO SCH ×2 (06:25→16:59)
[2016-12-21] MEDS: TRAMADOL HCL 50 MG TABLET PO PRN ×2 (06:25→21:32)
[2016-12-21 06:26] LABS: ALB/GLOB RATIO 1.2 (1.1-1.8); ALBUMIN 3.7 gm/dL (3.5-5.0); ANION GAP 9.5 (7-16); BILIRUBIN,TOTAL 1.07 mg/dL (0.2-1.3); CARBON DIOXIDE 26.5 mmol/L (22-30); CREATININE 1.4 mg/dL (0.66-1.25); TOTAL PROTEIN 6.7 gm/dL (6.3-8.2)
[2016-12-21] MEDS: PANTOPRAZOLE SODIUM 40 MG TABLET PO SCH ×2 (06:26→16:59)
[2016-12-21 07:29] LABS: HEMATOCRIT 39.1 % (42.0-52.0); MEAN CELL VOLUME 93.5 fl (81-97); MEAN CORPUSCULAR HEMOGLOBIN 31.1 pg (27-33); MEAN CORPUSCULAR HGB CONC 33.2 g/dl (32-36); PLATELET COUNT 214 K/uL (130-400); RED BLOOD COUNT 4.18 M/uL (4.40-5.70); RED CELL DISTRIBUTION WIDTH 14.9 % (11.5-14.5); WHITE BLOOD COUNT W/O DIFF 10.2 K/uL (4.2-12.2)
[2016-12-21 07:31] LABS: PLATELET ESTIMATE NORMAL (NORMAL)
[2016-12-21] MEDS: ONDANSETRON 4 MG ODT TABLET SL PRN (08:41)
[2016-12-21] MEDS: ASPIRIN 81 MG TABEC PO SCH (09:21)
[2016-12-21] MEDS: HYDROCHLOROTHIAZIDE 12.5 MG CAPSULE PO SCH (09:22)
[2016-12-21] MEDS: CHOLECALCIFEROL 1,000 UNIT TABLET PO SCH (09:22)
[2016-12-21] MEDS: FLUOXETINE HCL 20 MG CAPSULE PO SCH (09:22)
[2016-12-21] MEDS: LISINOPRIL 5 MG TABLET PO SCH (09:23)
[2016-12-21] MEDS: MAGNESIUM HYDROXIDE 30 ML UDC PO PRN (09:24)
[2016-12-21] MEDS: UMECLIDINIUM BROMIDE (INCRUSE) 62.5MCG IH SCH (09:58)
[2016-12-21] MEDS: BREO (FLUTICASONE/VILANTEROL) 100MCG/25MCG INHALER INH SCH (09:58)
--- NOTE | 2016-12-21 11:00 | Physical Therapy Tx Note ---
Physical Therapy Tx Note - Treatment Note Tolerated: Good Total Time Spent With Patient: 15 Physical Therapy Tx Note: Detail (The patient was feeling nauseated and lightheaded. The patient refused to ambulate. The patient transferred from bed to chair with use of walker with CG of 1 for safety. The patient completed LE strengthening exercises including seated: marching, knee raises/toe raises, LAQ , hip adductor squeezes, red T-band hamstring curls, hip abduction all x 10 to 15 reps. The patient was reclined in chair ,call light and water within reach. Nursing staff was notified.) Physical Therapy Problem List: Detail (1) Decreased balance 2) Decreased LE strength 3) Decreased ability to complete sustained physical activity.) Physical Therapy Goals: 1) The patient will ambulate with assistive devices distances of 200 feet plus independently with minimal shortness of breath. 2) The patient will ambulate on stairs with railing and supervision for safety. 3 ) The patient will be independent with all transfers. 4) Increase LE strength 1 /3 muscle grade Physical Therapy Plan: PT one to two times a day M-F for gait training, transfer training , balance and LE strengthening exercises.
--- NOTE | 2016-12-21 13:19 | Occupational Therapy Tx Note ---
Occupational Therapy Tx Note - Treatment Note Occupational Therapy Treatment Note: Detail (Pt not feeling well this afternoon and requesting to hold OT today. Reminded pt to complete theraputty and theraband exercises on his own, he is agreeable.) Occupational Therapy Problem List: Detail (1. Decreased Ind with total body dressing 2. Decreased Ind with showering 3. Decreased endurance needed for safe and Ind self cares 4. Decreased functional mobility needed for safe and Ind self cares) Occupational Therapy Goals: 1. Pt will be safe and Ind with total body dressing with use of adaptive equipment as needed. 2. Pt will be safe and Ind with showering in sitting with use of grab bars and adaptive equipment as needed. 3. Pt will be safe and Ind with functional mobility needed for self care activities. 4. Pt will demonstrate improved endurance needed for safe ADLs. Occupational Therapy Plan: OT 2-4 days per week to address self cares, functional mobility and endurance needed for safe and Ind return home.
[2016-12-21] MEDS: SIMVASTATIN 20 MG TABLET PO SCH (21:32)
[2016-12-21] MEDS: DOCUSATE SODIUM 100 MG CAPSULE PO SCH (21:32)
[2016-12-21] MEDS: DONEPEZIL HCL 5 MG TABLET PO SCH (21:33)
[2016-12-22] MEDS ORDERED: ZINC OXIDE 28.35 GM TUBE TOP PRN (03:12)
[2016-12-22] MEDS: ONDANSETRON 4 MG ODT TABLET SL PRN (03:49)
[2016-12-22] MEDS: GLIPIZIDE 5 MG TABLET PO SCH ×2 (06:50→16:54)
[2016-12-22] MEDS: PANTOPRAZOLE SODIUM 40 MG TABLET PO SCH ×2 (06:50→16:54)
[2016-12-22] MEDS: UMECLIDINIUM BROMIDE (INCRUSE) 62.5MCG IH SCH (09:51)
[2016-12-22] MEDS: BREO (FLUTICASONE/VILANTEROL) 100MCG/25MCG INHALER INH SCH (09:51)
[2016-12-22] MEDS: CHOLECALCIFEROL 1,000 UNIT TABLET PO SCH (10:03)
[2016-12-22] MEDS: HYDROCHLOROTHIAZIDE 12.5 MG CAPSULE PO SCH (10:03)
[2016-12-22] MEDS: FLUOXETINE HCL 20 MG CAPSULE PO SCH (10:03)
[2016-12-22] MEDS: LISINOPRIL 5 MG TABLET PO SCH (10:03)
[2016-12-22] MEDS: ASPIRIN 81 MG TABEC PO SCH (10:03)
[2016-12-22] MEDS: DOCUSATE SODIUM 100 MG CAPSULE PO SCH ×2 (10:09→21:27)
[2016-12-22] MEDS: DONEPEZIL HCL 5 MG TABLET PO SCH (21:26)
[2016-12-22] MEDS: SIMVASTATIN 20 MG TABLET PO SCH (21:27)
[2016-12-22] MEDS: TEMAZEPAM 15 MG CAPSULE PO PRN (22:13)
[2016-12-23] MEDS: GLIPIZIDE 5 MG TABLET PO SCH ×2 (06:54→17:15)
[2016-12-23] MEDS: PANTOPRAZOLE SODIUM 40 MG TABLET PO SCH ×2 (06:54→17:15)
[2016-12-23] MEDS: TRAMADOL HCL 50 MG TABLET PO PRN ×2 (07:40→10:14)
[2016-12-23] MEDS: LISINOPRIL 5 MG TABLET PO SCH (10:04)
[2016-12-23] MEDS: DOCUSATE SODIUM 100 MG CAPSULE PO SCH ×2 (10:05→21:10)
[2016-12-23] MEDS: ASPIRIN 81 MG TABEC PO SCH (10:05)
[2016-12-23] MEDS: MAGNESIUM HYDROXIDE 30 ML UDC PO PRN (10:05)
[2016-12-23] MEDS: FLUOXETINE HCL 20 MG CAPSULE PO SCH (10:05)
[2016-12-23] MEDS: CHOLECALCIFEROL 1,000 UNIT TABLET PO SCH (10:05)
[2016-12-23] MEDS: HYDROCHLOROTHIAZIDE 12.5 MG CAPSULE PO SCH (10:05)
[2016-12-23] MEDS: UMECLIDINIUM BROMIDE (INCRUSE) 62.5MCG IH SCH (10:13)
[2016-12-23] MEDS: BREO (FLUTICASONE/VILANTEROL) 100MCG/25MCG INHALER INH SCH (10:13)
[2016-12-23] MEDS: DONEPEZIL HCL 5 MG TABLET PO SCH (21:10)
[2016-12-23] MEDS: SIMVASTATIN 20 MG TABLET PO SCH (21:10)
[2016-12-23 23:32] LABS: URINE APPEARANCE CLEAR; URINE BILIRUBIN NEGATIVE (NEGATIVE); URINE BLOOD NEGATIVE (NEGATIVE); URINE COLOR YELLOW; URINE GLUCOSE (UA) NEGATIVE (NEGATIVE); URINE KETONE NEGATIVE (NEGATIVE); URINE LEUKOCYTE ESTERASE NEGATIVE (NEGATIVE); URINE NITRITE NEGATIVE (NEGATIVE); URINE PROTEIN NEGATIVE (NEGATIVE); URINE UROBILINOGEN 0.2 E.U./dL (0.20 - 1.00)
[2016-12-24] MEDS: PANTOPRAZOLE SODIUM 40 MG TABLET PO SCH ×2 (06:52→16:37)
[2016-12-24] MEDS: GLIPIZIDE 5 MG TABLET PO SCH ×2 (06:52→16:37)
[2016-12-24] MEDS: ASPIRIN 81 MG TABEC PO SCH (10:05)
[2016-12-24] MEDS: DOCUSATE SODIUM 100 MG CAPSULE PO SCH ×2 (10:05→21:13)
[2016-12-24] MEDS: CHOLECALCIFEROL 1,000 UNIT TABLET PO SCH (10:06)
[2016-12-24] MEDS: BREO (FLUTICASONE/VILANTEROL) 100MCG/25MCG INHALER INH SCH (10:06)
[2016-12-24] MEDS: FLUOXETINE HCL 20 MG CAPSULE PO SCH (10:06)
[2016-12-24] MEDS: HYDROCHLOROTHIAZIDE 12.5 MG CAPSULE PO SCH (10:06)
[2016-12-24] MEDS: UMECLIDINIUM BROMIDE (INCRUSE) 62.5MCG IH SCH (10:06)
[2016-12-24] MEDS: LISINOPRIL 5 MG TABLET PO SCH (10:07)
[2016-12-24 10:14] LABS: HEMATOCRIT 39.2 % (42.0-52.0); HEMOGLOBIN 13.2 gm/dl (14.0-18.0); MEAN CELL VOLUME 94.2 fl (81-97); MEAN CORPUSCULAR HEMOGLOBIN 31.7 pg (27-33); MEAN CORPUSCULAR HGB CONC 33.7 g/dl (32-36); MEAN PLATELET VOLUME 9.7 fl (7.4-10.4); PLATELET COUNT 243 K/uL (130-400); RED BLOOD COUNT 4.16 M/uL (4.40-5.70); RED CELL DISTRIBUTION WIDTH 14.9 % (11.5-14.5); WHITE BLOOD COUNT W/O DIFF 11.3 K/uL (4.2-12.2)
[2016-12-24 10:32] LABS: PLATELET ESTIMATE NORMAL (NORMAL)
--- NOTE | 2016-12-24 10:46 | RADIOLOGY REPORT ---
EXAM: CHEST, TWO VIEWS HISTORY: COUGH. TECHNIQUE: Frontal and lateral views of the chest were performed. FINDINGS: The heart size is normal. The lungs are hyperinflated. There is chronic underlying interstitial lung disease. IMPRESSION: HYPERINFLATED LUNGS. CHRONIC UNDERLYING INTERSTITIAL LUNG DISEASE. NO SUPERIMPOSED INFILTRATE OR PLEURAL EFFUSION. JOB NUMBER: [id number] MTDD
--- NOTE | 2016-12-24 11:26 | Occupational Therapy Tx Note ---
Occupational Therapy Tx Note - Treatment Note Tolerated: Fair Total Time Spent With Patient: 35 (ther ex) Occupational Therapy Treatment Note: Detail (S: Pt up in chair, not feeling well all weekend. O: Sit to stand with min assist x 1 and amb to bathroom with 2 wheeled walker and CG assist. Pt toileted with SBA to pull down/up pants and briefs. Pt amb 25 feet with 2 wheeled walker and CG assist. Pt fatigued very easily. Propelled self 50 feet in wheelchair and then complained of shoulder fatigue. Transported to rehab gym and completed louis UE strengthening with resistive clothespins, right able to complete all, left fatigued after 6 clothespins. Pt transported to x-ray. A: Pt more fatigued today and complains of stomach not feeling well.) Occupational Therapy Problem List: Detail (1. Decreased Ind with total body dressing 2. Decreased Ind with showering 3. Decreased endurance needed for safe and Ind self cares 4. Decreased functional mobility needed for safe and Ind self cares) Occupational Therapy Goals: 1. Pt will be safe and Ind with total body dressing with use of adaptive equipment as needed. 2. Pt will be safe and Ind with showering in sitting with use of grab bars and adaptive equipment as needed. 3. Pt will be safe and Ind with functional mobility needed for self care activities. 4. Pt will demonstrate improved endurance needed for safe ADLs. Prognosis: Good Occupational Therapy Plan: OT 2-4 days per week to address self cares, functional mobility and endurance needed for safe and Ind return home.
--- NOTE | 2016-12-24 14:05 | Physical Therapy Tx Note ---
Physical Therapy Tx Note - Treatment Note Tolerated: Good Total Time Spent With Patient: 35 Physical Therapy Tx Note: Detail (Patient states bilateral feet painful today. Patient transferred sit to and from stand SBA x1. Patient ambulated 100 feet with wheeled walker SBA x1. Patient transferred sit to and from stand SBA x1. Patient ambulated 15 feet with wheeled walker SBA x1. Patient performed the following exercises x10 reps each: seated marching, LAQ, hamstring curls with red theraband, seated hip abduction with red theraband, isometric hip adduction , abdominal isometrics, glut squeezes, squats, and standing marching. Patient tolerated treatment well. Patient displays decreased strength and endurance with standing marching, squats, and ambulation. Patient displayed some loss of balance with ambulation. Patient reports fatigued after treatment. Patient was left seated in chair with call light within reach.) Physical Therapy Problem List: Detail (1) Decreased balance 2) Decreased LE strength 3) Decreased ability to complete sustained physical activity.) Physical Therapy Goals: 1) The patient will ambulate with assistive devices distances of 200 feet plus independently with minimal shortness of breath. 2) The patient will ambulate on stairs with railing and supervision for safety. 3 ) The patient will be independent with all transfers. 4) Increase LE strength 1 /3 muscle grade Prognosis: Good Physical Therapy Plan: PT one to two times a day M-F for gait training, transfer training , balance and LE strengthening exercises.
[2016-12-24] MEDS: SIMVASTATIN 20 MG TABLET PO SCH (21:10)
[2016-12-24] MEDS: DONEPEZIL HCL 5 MG TABLET PO SCH (21:12)
[2016-12-24] MEDS: TEMAZEPAM 15 MG CAPSULE PO PRN (21:12)
[2016-12-24] MEDS: POLYETHYLENE GLY 17 GM PACKET PO SCH (21:13)
[2016-12-25] MEDS: PANTOPRAZOLE SODIUM 40 MG TABLET PO SCH ×2 (06:43→17:08)
[2016-12-25] MEDS: GLIPIZIDE 5 MG TABLET PO SCH ×2 (06:43→17:07)
[2016-12-25] MEDS: UMECLIDINIUM BROMIDE (INCRUSE) 62.5MCG IH SCH (09:48)
[2016-12-25] MEDS: BREO (FLUTICASONE/VILANTEROL) 100MCG/25MCG INHALER INH SCH (09:48)
[2016-12-25] MEDS: DOCUSATE SODIUM 100 MG CAPSULE PO SCH ×2 (10:03→21:47)
[2016-12-25] MEDS: HYDROCHLOROTHIAZIDE 12.5 MG CAPSULE PO SCH (10:03)
[2016-12-25] MEDS: LISINOPRIL 5 MG TABLET PO SCH (10:03)
[2016-12-25] MEDS: FLUOXETINE HCL 20 MG CAPSULE PO SCH (10:03)
[2016-12-25] MEDS: ASPIRIN 81 MG TABEC PO SCH (10:04)
[2016-12-25] MEDS: CHOLECALCIFEROL 1,000 UNIT TABLET PO SCH (10:06)
[2016-12-25] MEDS: POLYETHYLENE GLY 17 GM PACKET PO SCH ×2 (10:08→21:47)
--- NOTE | 2016-12-25 11:01 | Physical Therapy Tx Note ---
Physical Therapy Tx Note - Treatment Note Tolerated: Good Total Time Spent With Patient: 35 Physical Therapy Tx Note: Detail (The patient reported he felt better today. The patient ambulated with wheeled walker a distance of 315 feet with supervision for safety. The patient ambulated on 3 steps with use of 2 railings with supervision/CG of 1 for safety. The patient felt with feet when going down stairs. The patient completed balance exercises : standing on blue, standing with varying bases of support and LE strengthening exercises: squats, hip abduction and hip extension all x 10 reps. The patient did well this am. The patient was independent with sit to stand transfer from both high and low surfaces.) Physical Therapy Problem List: Detail (1) Decreased balance 2) Decreased LE strength 3) Decreased ability to complete sustained physical activity.) Physical Therapy Goals: 1) The patient will ambulate with assistive devices distances of 200 feet plus independently with minimal shortness of breath. 2) The patient will ambulate on stairs with railing and supervision for safety. 3 ) The patient will be independent with all transfers. 4) Increase LE strength 1 /3 muscle grade Physical Therapy Plan: PT one to two times a day M-F for gait training, transfer training , balance and LE strengthening exercises.
--- NOTE | 2016-12-25 14:22 | Physical Therapy Tx Note ---
Physical Therapy Tx Note - Treatment Note Tolerated: Good Total Time Spent With Patient: 35 Physical Therapy Tx Note: Detail (Pt was seated in chair upon arrival and alert and eager to do PT this afternoon. Pt states legs feel weak but no pain. Pt ambulated with wheeled walker x 340 ft. from room to elevator and then to exercise bikes with contact guard assist. Pt was independent with all transfers with contact guard. Pt completed ex's of HS curl, seated marches, seated ankle DF and PF, hip adduction with ball, hip abduction with theraband (green). all x 10 bilaterally each. Standing squats at rail x 10. Pt was wheeled in wheelchair back to room and transferred to chair independently. Pt was left with call light and assembler billiard table in room to do an assessment. Pt states fatigued after treatment but states no pain.) Physical Therapy Problem List: Detail (1) Decreased balance 2) Decreased LE strength 3) Decreased ability to complete sustained physical activity.) Physical Therapy Goals: 1) The patient will ambulate with assistive devices distances of 200 feet plus independently with minimal shortness of breath. 2) The patient will ambulate on stairs with railing and supervision for safety. 3 ) The patient will be independent with all transfers. 4) Increase LE strength 1 /3 muscle grade Prognosis: Good Physical Therapy Plan: PT one to two times a day M-F for gait training, transfer training , balance and LE strengthening exercises.
[2016-12-25] MEDS: SIMVASTATIN 20 MG TABLET PO SCH (21:45)
[2016-12-25] MEDS: DONEPEZIL HCL 5 MG TABLET PO SCH (21:45)
[2016-12-25] MEDS: TEMAZEPAM 15 MG CAPSULE PO PRN (21:45)
[2016-12-26] MEDS: ONDANSETRON 4 MG ODT TABLET SL PRN (04:43)
[2016-12-26] MEDS: PANTOPRAZOLE SODIUM 40 MG TABLET PO SCH ×2 (06:27→21:06)
[2016-12-26] MEDS: GLIPIZIDE 5 MG TABLET PO SCH ×2 (06:28→21:06)
[2016-12-26] MEDS: DOCUSATE SODIUM 100 MG CAPSULE PO SCH ×2 (10:48→21:11)
[2016-12-26] MEDS: ASPIRIN 81 MG TABEC PO SCH (10:54)
[2016-12-26] MEDS: FLUOXETINE HCL 20 MG CAPSULE PO SCH (10:54)
--- NOTE | 2016-12-26 10:54 | Physical Therapy Tx Note ---
Physical Therapy Tx Note - Treatment Note Tolerated: Good Total Time Spent With Patient: 35 Physical Therapy Tx Note: Detail (The patient complained of right knee pain and LE weakness. The patient was taken to rehab department. The patient completed the following LE exercises: Nu step x 8 minutes,(without arms), standing squats x 10, seated hip abduction and hamstring curls with green theraband x 15 reps, hip adductor squeezes and marching x 15 reps, LAQ x 10 reps, heel toe raises x 15 reps. The patient aslo stood with varying bases of support. The patient required minimal assist to stand from lower surfaces today.) Physical Therapy Problem List: Detail (1) Decreased balance 2) Decreased LE strength 3) Decreased ability to complete sustained physical activity.) Physical Therapy Goals: 1) The patient will ambulate with assistive devices distances of 200 feet plus independently with minimal shortness of breath. 2) The patient will ambulate on stairs with railing and supervision for safety. 3 ) The patient will be independent with all transfers. 4) Increase LE strength 1 /3 muscle grade Physical Therapy Plan: PT one to two times a day M-F for gait training, transfer training , balance and LE strengthening exercises.
[2016-12-26] MEDS: CHOLECALCIFEROL 1,000 UNIT TABLET PO SCH (10:55)
[2016-12-26] MEDS: POLYETHYLENE GLY 17 GM PACKET PO SCH ×2 (10:55→21:12)
[2016-12-26] MEDS: BREO (FLUTICASONE/VILANTEROL) 100MCG/25MCG INHALER INH SCH (10:59)
[2016-12-26] MEDS: UMECLIDINIUM BROMIDE (INCRUSE) 62.5MCG IH SCH (11:00)
[2016-12-26] MEDS: HYDROCHLOROTHIAZIDE 12.5 MG CAPSULE PO SCH (11:21)
[2016-12-26] MEDS: LISINOPRIL 5 MG TABLET PO SCH (11:21)
--- NOTE | 2016-12-26 12:04 | Discharge Summary ---
Providers Discharge Summary Date: 12/26/16 Date of admission: 12/11/16 16:10 Expected Date of Discharge: 12/26/16 Attending physician: MARTA HAHN Primary care physician: JAGJIT HYLTON D.O. Physical Exam - Vital Signs Vital Signs: Vital Signs - Last 24 Hrs Temp Pulse Pulse Resp BP Pulse Ox 12/26/16 11:04 75 15 95 12/25/16 19:49 98.1 F 65 12 121/71 94 L - General General Appearance: Alert, Oriented x3, Cooperative, No acute distress Limitations: No limitations - Head Head exam: Atraumatic, Normocephalic, Normal inspection - Eye Eye exam: Normal appearance - ENT ENT exam: Normal exam - Neck Neck exam: Normal inspection, Full ROM - Respiratory Respiratory exam: Normal lung sounds bilaterally. negative: Accessory muscle use, Decreased breath sounds, Respiratory distress, Wheezes - Cardiovascular Cardiovascular Exam: Regular rate, Normal rhythm, Normal heart sounds Peripheral Pulses: 2+: Dorsalis Pedis (R), Dorsalis Pedis (L) - GI/Abdominal GI/Abdominal exam: Soft, Normal bowel sounds - Rectal Rectal exam: Deferred - exam: Deferred - Extremities Extremities exam: Normal inspection, Normal capillary refill. negative: Pedal edema - Back Back exam: Reports: Normal inspection, Tenderness (right lumbar paraspinal musculature) - Neurological Neurological exam: Alert, Oriented X3 - Psychiatric Psychiatric exam: Normal affect, Normal mood Hospitalization - Hospitalization Admission Diagnosis: Not able to be as active as once was - Problem List (1) Physical deconditioning Current Visit: Yes Status: Acute Base Code: R53.81 - OTHER MALAISE Comment : 12/26/16: - repeat CBC/CMP in 2 days to trend slight anemia and decreased renal function - continue home medications - lower than usual BP, is still having some weakness, will decrease HCTZ to 12.5mg QD - PT/OT to help build physical strength and functioning, doing well working towards discharge goals (2) Chronic low back pain Current Visit: Yes Status: Acute Base Code: M54.5 - LOW BACK PAIN; G89.29 - OTHER CHRONIC PAIN Comment: 12/19/16- acute on chronic low back pain - continue Tylenol as needed for pain - Ultram added for breakthrough pain or pain not relieved by Tylenol - continue PT/OT (3) Diabetic neuropathy Current Visit: Yes Status: Acute Base Code: E11.40 - TYPE 2 DIABETES MELLITUS WITH DIABETIC NEUROPATHY, UNSP Comment: 12/19/16- blood sugars controlled, 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 Sensation to feet intact to sharp object, decreased sensation with light pressure/touch - Pt continue to work on stair management and safety - Did not previously tolerate Lyrica - Will manage with PRN Ultram (4) Full code status Current Visit: Yes Status: Acute Base Code: Z78.9 - OTHER SPECIFIED HEALTH STATUS Comment: 12/26/16: pt is full code - Hospitalization Course Procedures: Imaging and X-Rays 12/24/16 09:00 CHEST 2 VIEWS [RAD] Stat Abnormal Labs: Abnormal Lab Results 12/12/16 12/13/16 12/14/16 Range/Units 18:01 17:00 17:20 RBC (4.40-5.70) M/uL Hgb (14.0-18.0) gm/dl Hct (42.0-52.0) % RDW (11.5-14.5) % Monocytes (0-9) % Eosinophil Count (0-6) % BUN (9-20) mg/dL Creatinine (0.66-1.25) mg/dL POC Glucose 126 H 162 H 148 H (70-110) mg/dL 12/15/16 12/16/16 12/16/16 Range/Units 16:58 06:41 17:00 RBC (4.40-5.70) M/uL Hgb (14.0-18.0) gm/dl Hct (42.0-52.0) % RDW (11.5-14.5) % Monocytes (0-9) % Eosinophil Count (0-6) % BUN (9-20) mg/dL Creatinine (0.66-1.25) mg/dL POC Glucose 134 H 112 H 152 H (70-110) mg/dL 12/17/16 12/17/16 12/18/16 Range/Units 06:10 06:10 16:33 RBC 4.09 L (4.40-5.70) M/uL Hgb 12.9 L (14.0-18.0) gm/dl Hct 37.9 L (42.0-52.0) % RDW 15.0 H (11.5-14.5) % Monocytes (0-9) % Eosinophil Count 21.0 H (0-6) % BUN 22 H (9-20) mg/dL Creatinine 1.3 H (0.66-1.25) mg/dL POC Glucose 115 H (70-110) mg/dL 12/20/16 12/20/16 12/21/16 Range/Units 07:18 16:51 06:08 RBC 4.18 L (4.40-5.70) M/uL Hgb 13.0 L (14.0-18.0) gm/dl Hct 39.1 L (42.0-52.0) % RDW 14.9 H (11.5-14.5) % Monocytes (0-9) % Eosinophil Count 13.0 H (0-6) % BUN (9-20) mg/dL Creatinine (0.66-1.25) mg/dL POC Glucose 122 H 120 H (70-110) mg/dL 12/21/16 12/21/16 12/22/16 Range/Units 06:08 16:45 16:42 RBC (4.40-5.70) M/uL Hgb (14.0-18.0) gm/dl Hct (42.0-52.0) % RDW (11.5-14.5) % Monocytes (0-9) % Eosinophil Count (0-6) % BUN (9-20) mg/dL Creatinine 1.4 H (0.66-1.25) mg/dL POC Glucose 144 H 111 H (70-110) mg/dL 12/24/16 12/24/16 12/25/16 Range/Units 10:04 16:35 16:30 RBC 4.16 L (4.40-5.70) M/uL Hgb 13.2 L (14.0-18.0) gm/dl Hct 39.2 L (42.0-52.0) % RDW 14.9 H (11.5-14.5) % Monocytes 11.0 H (0-9) % Eosinophil Count 14.0 H (0-6) % BUN (9-20) mg/dL Creatinine (0.66-1.25) mg/dL POC Glucose 155 H 156 H (70-110) mg/dL Discharge Medications - Discharge Medications Home Medications: Ambulatory Orders Albuterol Sulfate [Proventil Hfa] 3 ml NEB Q4H PRN 12/11/16 [Last Taken Unknown] Aspirin Chewable 81 mg PO DAILY 12/11/16 [Last Taken Unknown] Cholecalciferol (Vitamin D3) [Vitamin D3] 2,000 unit PO DAILY 12/11/16 [Last Taken Unknown] Donepezil HCl 20 mg PO QHS 12/11/16 [Last Taken Unknown] Fluoxetine HCl 20 mg PO DAILY 12/11/16 [Last Taken Unknown] Fluticasone/Vilanterol 100/25 [Breo Ellipta 100-25 Mcg INH] 1 puff INH RESP.DAILY 12/11/16 [Last Taken Unknown] Glipizide [Glucotrol] 5 mg PO BIDAC 12/11/16 [Last Taken Unknown] Hydrochlorothiazide 25 mg PO DAILY 12/11/16 [Last Taken Unknown] Linagliptin [Tradjenta] 5 mg PO DAILY 12/11/16 [Last Taken Unknown] Lisinopril [Lisinopril] 2.5 mg PO DAILY 12/11/16 [Last Taken Unknown] Lorazepam [Ativan] 0.5 mg PO DAILY 12/11/16 [Last Taken Unknown] Omeprazole [Omeprazole] 20 mg PO BIDAC 12/11/16 [Last Taken Unknown] Simvastatin [Simvastatin] 40 mg PO QHS 12/11/16 [Last Taken Unknown] Sitagliptin Phosphate [Januvia] 100 mg PO DAILY 12/11/16 [Last Taken Unknown] Temazepam [Temazepam] 30 mg PO QHS 12/11/16 [Last Taken Unknown] Umeclidinium [place] [Incruse Ellipta] 1 puff INH DAILY 12/11/16 [Last Taken Unknown] Discharge Plan - Discharge Instructions Additional Instructions: Follow up with Dr. Jagjit Hylton, [address] [place] [address]; [phone] in 1 week following discharge from [place].
[2016-12-26] MEDS ORDERED: RANITIDINE HCL 150 MG TABLET PO PRN (12:20)
--- NOTE | 2016-12-26 12:24 | Physician Progress Note ---
Subjective - Date Date of Progress Note: 12/26/16 - Admitting Diagnosis Diagnosis: Not able to be as active as once was - Subjective Nursing Care Plan Problem List Activity Intolerance (Swing Bed) Start: 12/11/16 12: 49 Freq: Status: Active Created 12/11/16 12:49 [facility] (Rec: 12/11/16 12:49 [facility] [id number]) Knowledge Deficit (Swing Bed) Start: 12/11/16 12: 49 Freq: Status: Complete Created 12/11/16 12:49 [facility] (Rec: 12/11/16 12:49 [facility] [id number]) Edit Status 12/20/16 11:24 [facility] (Rec: 12/20/16 11:24 [facility] [id number]) Active=>Complete Pain (Swing Bed) Start: 12/11/16 16: 29 Freq: Status: Active Created 12/11/16 16:29 [facility] (Rec: 12/11/16 16:29 [facility] [id number]) Risk For Falls (Swing Bed) Start: 12/11/16 12: 49 Freq: Status: Complete Created 12/11/16 12:49 [facility] (Rec: 12/11/16 12:49 [facility] [id number]) Edit Status 12/20/16 11:24 [facility] (Rec: 12/20/16 11:24 [facility] [id number]) Active=>Complete Subjective: 12/26/16- patient sates he is feeling pretty good overall. he has had some heartburn in the morning for the past few days but otherwise is doing well. still tolerating normal diet and having normal BM. appetite has been good. Says he is doing well in PT/OT and plan is to go home on Saturday the General - Cognitive Patterns Speech: Normal Thought Process: Intact Thought Content: Normal - Communication Select best description of speech pattern: Clear Speech Ability to express ideas and wants: Understood Understanding verbal content: Understands - Mood and Behavior Patterns Appearance: Well Groomed Mood: Normal Attitude: Cooperative Motor Activity: Calm Affect: Appropriate Hallucinations: Denies - Physical Functioning Activity Level: Up with assist x1 Turning: With partial assist ROM Ability: Moves all extremities Assistive Devices: 2 Wheel Walker Activity Level Comment: pt up in recliner Ambulation Ability: Needs Assist Bed Mobility: Needs Assist Transfer Ability: Needs Assist Bathing Ability: Needs Assist Personal Hygiene: Needs Assist Dressing Ability: Needs Assist Eating (Feeding) Ability: Independent Toileting Ability: Needs Assist Administer Own Medication: Needs Assist - Continence Bowel Pattern: Normal for Patient, Constipated Bladder Pattern: Normal, Dribbling Urinary Incontinence: Urge Meds/Allergies - Allergies Allergies Allergy/AdvReac Type Severity Reaction Status Date / Time No Known Drug Allergies Allergy Verified 12/11/16 12:52 - Active Medications Current Medications Acetaminophen (Tylenol 500mg Tab) 1,000 mg PO Q8H PRN PRN Reason: Pain - Mild (1-4) Last Admin: 12/18/16 07:51 Dose: 1,000 mg Albuterol Sulfate () 2.5 mg INH Q4H PRN PRN Reason: WHEEZING Aspirin (Ecotrin (Ec)) 81 mg PO DAILY [facility] Last Admin: 12/26/16 10:54 Dose: 81 mg Docusate Sodium (Colace) 100 mg PO BID [facility] Last Admin: 12/26/16 10:48 Dose: Not Given Donepezil HCl (Aricept) 20 mg PO QHS [facility] Last Admin: 12/25/16 21:45 Dose: 20 mg Fluoxetine HCl (Prozac) 20 mg PO DAILY [facility] Last Admin: 12/26/16 10:54 Dose: 20 mg Glipizide (Glucotrol) 5 mg PO BIDAC [facility] Last Admin: 12/26/16 06:28 Dose: 5 mg Hydrochlorothiazide (Hctz 12.5mg) 12.5 mg PO DAILY [facility] Last Admin: 12/26/16 11:21 Dose: 12.5 mg Lisinopril (Zestril) 2.5 mg PO DAILY [facility] Last Admin: 12/26/16 11:21 Dose: 2.5 mg Lorazepam (Ativan) 0.5 mg PO DAILY PRN PRN Reason: ANXIETY Ondansetron HCl (Zofran Odt) 4 mg SL Q8H PRN PRN Reason: NAUSEA/VOMITING Last Admin: 12/26/16 04:43 Dose: 4 mg Pantoprazole Sodium (Protonix) 40 mg PO BIDAC [facility] Last Admin: 12/26/16 06:27 Dose: 40 mg Polyethylene Glycol (Miralax) 17 gm PO BID [facility] Last Admin: 12/26/16 10:55 Dose: Not Given Simvastatin (Zocor) 40 mg PO QHS [facility] Last Admin: 12/25/16 21:45 Dose: 40 mg Temazepam (Restoril) 15 mg PO QHS PRN PRN Reason: SLEEP Last Admin: 12/25/16 21:45 Dose: 15 mg Tramadol HCl (Ultram) 50 mg PO Q6H PRN PRN Reason: Pain - Moderate (5-7) Last Admin: 12/23/16 07:40 Dose: 50 mg Vitamin D (Vitamin D3) 2,000 unit PO DAILY [facility] Last Admin: 12/26/16 10:55 Dose: 2,000 unit Zinc Oxide (Desitin) 28.35 gm TOP BID PRN PRN Reason: RASH Last Admin: 12/22/16 03:49 Dose: 28.35 gm Objective - Vital Signs Vital Signs: Vital Signs - Last 24 Hrs Temp Pulse Pulse Resp BP Pulse Ox 12/26/16 11:04 75 15 95 12/25/16 19:49 98.1 F 65 12 121/71 94 L - General General Appearance: Alert, Oriented x3, Cooperative, No acute distress Limitations: No limitations - Head Head exam: Atraumatic, Normocephalic, Normal inspection - Eye Eye exam: Normal appearance - ENT ENT exam: Normal exam - Neck Neck exam: Normal inspection, Full ROM - Respiratory Respiratory exam: Normal lung sounds bilaterally. negative: Accessory muscle use, Decreased breath sounds, Respiratory distress, Wheezes - Cardiovascular Cardiovascular Exam: Regular rate, Normal rhythm, Normal heart sounds Peripheral Pulses: 2+: Dorsalis Pedis (R), Dorsalis Pedis (L) - GI/Abdominal GI/Abdominal exam: Soft, Normal bowel sounds - Rectal Rectal exam: Deferred - exam: Deferred - Extremities Extremities exam: Normal inspection, Normal capillary refill. negative: Pedal edema - Back Back exam: Reports: Normal inspection, Tenderness (right lumbar paraspinal musculature) - Neurological Neurological exam: Alert, Oriented X3 - Psychiatric Psychiatric exam: Normal affect, Normal mood H&P Results - Labs Result Diagrams: 12/24/16 10:04 12/21/16 06:08 Labs Last 24 Hours: Laboratory Results - last 24 hr 12/25/16 16:30 POC Glucose 156 H Discharge Potential - Discharge Needs Community Services Used Prior to Admission: Home Health Nurse Patient Discharge Plan Description: Return Home, Visiting Nurse Community Services Needed at Discharge: Home Health Aide, Home Health Nurse, Occupational Therapy, Physical Therapy Discharge Needs Comment: [facility] prior to 2 weeks ago Plan - Swing Bed Certification Initial Certification Due: 12/11/16 14 Day Re-Cert Due: 12/25/16 44 Day Re-Cert Due: 01/24/17 74 Day Re-Cert Due: 02/23/17 - Detailed Diagnosis and Plan (1) Physical deconditioning Current Visit: Yes Status: Acute Base Code: R53.81 - OTHER MALAISE Comment : 12/26/16: - repeat CBC/CMP to trend slight anemia and decreased renal function - continue home medications - continue to monitor BP and consider discontinuing the HCTZ since BP has been very well controlled - PT/OT to help build physical strength and functioning, doing well working towards discharge goals (2) Chronic low back pain Current Visit: Yes Status: Acute Base Code: M54.5 - LOW BACK PAIN; G89.29 - OTHER CHRONIC PAIN Comment: 12/26/16- acute on chronic low back pain - continue Tylenol as needed for pain - Ultram added for breakthrough pain or pain not relieved by Tylenol. 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 Sensation to feet intact to sharp object, decreased sensation with light pressure/touch - Pt continue to work on stair management and safety - Did not previously tolerate Lyrica - Will manage with PRN Ultram (4) Full code status Current Visit: Yes Status: Acute Base Code: Z78.9 - OTHER SPECIFIED HEALTH STATUS Comment: 12/26/16: pt is full code
--- NOTE | 2016-12-26 16:10 | Occupational Therapy Tx Note ---
Occupational Therapy Tx Note - Treatment Note Tolerated: Good Total Time Spent With Patient: 45 Occupational Therapy Treatment Note: Detail (Pt SS EOB w/ nsg upon arrival. Not wanting to ambulate to rehab gym but willing to go if pushed in w/c. Pt completed resistive clothes pins (all) table top level Vidal hands. Completed hand helper 1R 2G rubber bands 35x each hand. Bicep curls vidal 25x w/ 3# weight. Pt taken outside for a little while per pt request. Asked for help filling out menu for tomorrow and was assited in completing the form.) Occupational Therapy Problem List: Detail (1. Decreased Ind with total body dressing 2. Decreased Ind with showering 3. Decreased endurance needed for safe and Ind self cares 4. Decreased functional mobility needed for safe and Ind self cares) Occupational Therapy Goals: 1. Pt will be safe and Ind with total body dressing with use of adaptive equipment as needed. 2. Pt will be safe and Ind with showering in sitting with use of grab bars and adaptive equipment as needed. 3. Pt will be safe and Ind with functional mobility needed for self care activities. 4. Pt will demonstrate improved endurance needed for safe ADLs. Prognosis: Good Occupational Therapy Plan: OT 2-4 days per week to address self cares, functional mobility and endurance needed for safe and Ind return home.
[2016-12-26] MEDS: SIMVASTATIN 20 MG TABLET PO SCH (21:05)
[2016-12-26] MEDS: DONEPEZIL HCL 5 MG TABLET PO SCH (21:05)
[2016-12-26] MEDS: TEMAZEPAM 15 MG CAPSULE PO PRN (22:30)
[2016-12-27] MEDS: PANTOPRAZOLE SODIUM 40 MG TABLET PO SCH ×2 (06:33→17:59)
[2016-12-27] MEDS: GLIPIZIDE 5 MG TABLET PO SCH ×2 (06:33→17:59)
[2016-12-27 06:55] LABS: HEMATOCRIT 37.2 % (42.0-52.0); HEMOGLOBIN 12.2 gm/dl (14.0-18.0); MEAN CELL VOLUME 94.4 fl (81-97); MEAN CORPUSCULAR HGB CONC 32.8 g/dl (32-36); MEAN PLATELET VOLUME 9.8 fl (7.4-10.4); PLATELET COUNT 256 K/uL (130-400); RED BLOOD COUNT 3.94 M/uL (4.40-5.70); RED CELL DISTRIBUTION WIDTH 14.7 % (11.5-14.5); WHITE BLOOD COUNT W/O DIFF 9.2 K/uL (4.2-12.2)
[2016-12-27 07:06] LABS: MEAN CORPUSCULAR HEMOGLOBIN 30.9 pg (27-33)
[2016-12-27 07:10] LABS: ALB/GLOB RATIO 1.3 (1.1-1.8); ALBUMIN 3.5 gm/dL (3.5-5.0); ANION GAP 10.4 (7-16); BILIRUBIN,TOTAL 0.66 mg/dL (0.2-1.3); CARBON DIOXIDE 27.6 mmol/L (22-30); CREATININE 1.3 mg/dL (0.66-1.25); TOTAL PROTEIN 6.3 gm/dL (6.3-8.2)
[2016-12-27 08:31] LABS: PLATELET ESTIMATE NORMAL (NORMAL)
[2016-12-27] MEDS: UMECLIDINIUM BROMIDE (INCRUSE) 62.5MCG IH SCH (09:40)
[2016-12-27] MEDS: BREO (FLUTICASONE/VILANTEROL) 100MCG/25MCG INHALER INH SCH (09:41)
[2016-12-27] MEDS: ASPIRIN 81 MG TABEC PO SCH (09:57)
[2016-12-27] MEDS: CHOLECALCIFEROL 1,000 UNIT TABLET PO SCH (09:57)
[2016-12-27] MEDS: DOCUSATE SODIUM 100 MG CAPSULE PO SCH ×2 (09:57→22:39)
[2016-12-27] MEDS: HYDROCHLOROTHIAZIDE 12.5 MG CAPSULE PO SCH (09:57)
[2016-12-27] MEDS: FLUOXETINE HCL 20 MG CAPSULE PO SCH (09:57)
[2016-12-27] MEDS: LISINOPRIL 5 MG TABLET PO SCH (09:57)
[2016-12-27] MEDS: POLYETHYLENE GLY 17 GM PACKET PO SCH ×2 (10:00→22:00)
--- NOTE | 2016-12-27 11:55 | Physical Therapy Tx Note ---
Physical Therapy Tx Note - Treatment Note Tolerated: Good Total Time Spent With Patient: 40 Physical Therapy Tx Note: Detail (Patient states feeling good today. Patient transferred sit to and from stand SBA x1. Patient ambulated 341 feet with wheeled walker SBA x1. Patient performed the following exercises x15 reps each : seated marching, LAQ, hamstring curls with red theraband, seated heel raises, and seated toe raises. Patient transferred sit to supine independently. Patient performed physioball DKTC with quad set x10 reps, LTR with physioball x10 reps, SLR x10, and bridges x10 reps. Patient transferred supine to sit min assist x1. Patient transferred sit to and from stand SBA x1. Patient tolerated treatment well. Patient displays decreased strength and endurance with SLR, bridges, and LAQ. Patient displays decreased knee extension ROM with physioball DKTC. Patient reports tired after treatment. Patient was left seated in chair with call light within reach.) Physical Therapy Problem List: Detail (1) Decreased balance 2) Decreased LE strength 3) Decreased ability to complete sustained physical activity.) Physical Therapy Goals: 1) The patient will ambulate with assistive devices distances of 200 feet plus independently with minimal shortness of breath. 2) The patient will ambulate on stairs with railing and supervision for safety. 3 ) The patient will be independent with all transfers. 4) Increase LE strength 1 /3 muscle grade Prognosis: Good Physical Therapy Plan: PT one to two times a day M-F for gait training, transfer training , balance and LE strengthening exercises.
--- NOTE | 2016-12-27 14:24 | Physical Therapy Tx Note ---
Physical Therapy Tx Note - Treatment Note Tolerated: Good Total Time Spent With Patient: 35 Physical Therapy Tx Note: Detail (Patient states tired this afternoon. Patient transferred supine to sit independently. Patient transferred sit to and from stand SBA x1. Patient ambulated 332 feet with wheeled walker SBA x1. Patient transferred sit to and from stand SBA x1. Patient ambulated 13 feet with wheeled walker SBA x1 Patient performed the following exercises x10-15 reps each: seated marching with red theraband, seated hip abduction with red theraband, hamstring curls with red theraband, bicep curls with red theraband, shoulder horizontal abduction, shoulder PNF D1 and D2 flexion diagonals with red theraband, standing marching, standing hip abduction, standing hip abduction , and standing hamstring curls. Patient tolerated treatment well. Patient displays decreased strength and endurance with standing marching, standing hip abduction, standing hip extension, standing hamstring curls, shoulder PNF D1 and D2 diagonals, and shoulder horizontal abduction. Patient reports fatigued after treatment. Patient was left seated in chair with call light within reach. ) Physical Therapy Problem List: Detail (1) Decreased balance 2) Decreased LE strength 3) Decreased ability to complete sustained physical activity.) Physical Therapy Goals: 1) The patient will ambulate with assistive devices distances of 200 feet plus independently with minimal shortness of breath. 2) The patient will ambulate on stairs with railing and supervision for safety. 3 ) The patient will be independent with all transfers. 4) Increase LE strength 1 /3 muscle grade Prognosis: Good Physical Therapy Plan: PT one to two times a day M-F for gait training, transfer training , balance and LE strengthening exercises.
[2016-12-27] MEDS: DONEPEZIL HCL 5 MG TABLET PO SCH (22:38)
[2016-12-27] MEDS: TEMAZEPAM 15 MG CAPSULE PO PRN (22:38)
[2016-12-27] MEDS: SIMVASTATIN 20 MG TABLET PO SCH (22:39)
[2016-12-28] MEDS: GLIPIZIDE 5 MG TABLET PO SCH ×2 (07:05→17:16)
[2016-12-28] MEDS: PANTOPRAZOLE SODIUM 40 MG TABLET PO SCH ×2 (07:05→17:16)
[2016-12-28] MEDS: BREO (FLUTICASONE/VILANTEROL) 100MCG/25MCG INHALER INH SCH (09:00)
[2016-12-28] MEDS: UMECLIDINIUM BROMIDE (INCRUSE) 62.5MCG IH SCH (09:00)
--- NOTE | 2016-12-28 10:07 | Physical Therapy Tx Note ---
Physical Therapy Tx Note - Treatment Note Tolerated: Good Total Time Spent With Patient: 35 Physical Therapy Tx Note: Detail (The patient was up in chair when PT arrived. The patient ambulated 250 feet with wheeled walker and supervision for safety. The patient's LE strength was generally 4 to 4+/5 . The patient completed Nu step, LE's only x 6 minutes, balance exercises: standing with varying bases of support on regular floor and foam and squats while hanging onto bar for support x 10. Patient at times required verbal cues for sit to stand ie: not turning walker to sit down.) Physical Therapy Problem List: Detail (1) Decreased balance 2) Decreased LE strength 3) Decreased ability to complete sustained physical activity.) Physical Therapy Goals: 1) The patient will ambulate with assistive devices distances of 200 feet plus independently with minimal shortness of breath. 2) The patient will ambulate on stairs with railing and supervision for safety. 3 ) The patient will be independent with all transfers. 4) Increase LE strength 1 /3 muscle grade Physical Therapy Plan: PT one to two times a day M-F for gait training, transfer training , balance and LE strengthening exercises.
[2016-12-28] MEDS: HYDROCHLOROTHIAZIDE 12.5 MG CAPSULE PO SCH (10:13)
[2016-12-28] MEDS: FLUOXETINE HCL 20 MG CAPSULE PO SCH (10:13)
[2016-12-28] MEDS: LISINOPRIL 5 MG TABLET PO SCH (10:13)
[2016-12-28] MEDS: DOCUSATE SODIUM 100 MG CAPSULE PO SCH ×2 (10:13→22:15)
[2016-12-28] MEDS: ASPIRIN 81 MG TABEC PO SCH (10:14)
[2016-12-28] MEDS: CHOLECALCIFEROL 1,000 UNIT TABLET PO SCH (10:14)
[2016-12-28] MEDS: POLYETHYLENE GLY 17 GM PACKET PO SCH ×2 (10:16→22:17)
--- NOTE | 2016-12-28 13:53 | Physical Therapy Tx Note ---
Physical Therapy Tx Note - Treatment Note Tolerated: Good Total Time Spent With Patient: 30 Physical Therapy Tx Note: Detail (Patient states doing good this afternoon. Patient transferred sit to and from stand x3 SBA x1. Patient ambulated 93 feet , 115 feet, and 208 feet with wheeled walker SBA x1. Patient performed the following exercises x15 reps each: LAQ, hamstring curls with red theraband, seated hip abduction with red theraband, seated marching, seated heel raises, and seated toe raises. Patient tolerated treatment well. Patient required several seated rest breaks with ambulation due to fatigue. Patient reports fatigued after treatment. Patient was left seated in chair with call light within reach.) Physical Therapy Problem List: Detail (1) Decreased balance 2) Decreased LE strength 3) Decreased ability to complete sustained physical activity.) Physical Therapy Goals: 1) The patient will ambulate with assistive devices distances of 200 feet plus independently with minimal shortness of breath. 2) The patient will ambulate on stairs with railing and supervision for safety. 3 ) The patient will be independent with all transfers. 4) Increase LE strength 1 /3 muscle grade Prognosis: Good Physical Therapy Plan: PT one to two times a day M-F for gait training, transfer training , balance and LE strengthening exercises.
[2016-12-28] MEDS: SIMVASTATIN 20 MG TABLET PO SCH (22:13)
[2016-12-28] MEDS: TEMAZEPAM 15 MG CAPSULE PO PRN (22:14)
[2016-12-28] MEDS: DONEPEZIL HCL 5 MG TABLET PO SCH (22:15)
[2016-12-29] MEDS: PANTOPRAZOLE SODIUM 40 MG TABLET PO SCH ×2 (06:40→17:22)
[2016-12-29] MEDS: GLIPIZIDE 5 MG TABLET PO SCH ×2 (06:41→17:22)
[2016-12-29] MEDS: BREO (FLUTICASONE/VILANTEROL) 100MCG/25MCG INHALER INH SCH (09:08)
[2016-12-29] MEDS: UMECLIDINIUM BROMIDE (INCRUSE) 62.5MCG IH SCH (09:09)
[2016-12-29] MEDS: ASPIRIN 81 MG TABEC PO SCH (10:10)
[2016-12-29] MEDS: DOCUSATE SODIUM 100 MG CAPSULE PO SCH ×2 (10:10→22:11)
[2016-12-29] MEDS: HYDROCHLOROTHIAZIDE 12.5 MG CAPSULE PO SCH (10:10)
[2016-12-29] MEDS: FLUOXETINE HCL 20 MG CAPSULE PO SCH (10:11)
[2016-12-29] MEDS: CHOLECALCIFEROL 1,000 UNIT TABLET PO SCH (10:11)
[2016-12-29] MEDS: LISINOPRIL 5 MG TABLET PO SCH (10:11)
[2016-12-29] MEDS: POLYETHYLENE GLY 17 GM PACKET PO SCH ×2 (10:12→22:00)
[2016-12-29] MEDS: TEMAZEPAM 15 MG CAPSULE PO PRN (22:11)
[2016-12-29] MEDS: DONEPEZIL HCL 5 MG TABLET PO SCH (22:11)
[2016-12-29] MEDS: SIMVASTATIN 20 MG TABLET PO SCH (22:12)
[2016-12-30] MEDS: PANTOPRAZOLE SODIUM 40 MG TABLET PO SCH ×2 (06:45→17:26)
[2016-12-30] MEDS: GLIPIZIDE 5 MG TABLET PO SCH ×2 (06:45→17:26)
[2016-12-30] MEDS: CHOLECALCIFEROL 1,000 UNIT TABLET PO SCH (09:48)
[2016-12-30] MEDS: POLYETHYLENE GLY 17 GM PACKET PO SCH ×2 (09:48→22:30)
[2016-12-30] MEDS: ASPIRIN 81 MG TABEC PO SCH (09:48)
[2016-12-30] MEDS: LISINOPRIL 5 MG TABLET PO SCH (09:49)
[2016-12-30] MEDS: HYDROCHLOROTHIAZIDE 12.5 MG CAPSULE PO SCH (09:49)
[2016-12-30] MEDS: FLUOXETINE HCL 20 MG CAPSULE PO SCH (09:49)
[2016-12-30] MEDS: DOCUSATE SODIUM 100 MG CAPSULE PO SCH ×2 (09:49→22:23)
[2016-12-30] MEDS: UMECLIDINIUM BROMIDE (INCRUSE) 62.5MCG IH SCH (10:08)
[2016-12-30] MEDS: BREO (FLUTICASONE/VILANTEROL) 100MCG/25MCG INHALER INH SCH (10:09)
[2016-12-30] MEDS: TEMAZEPAM 15 MG CAPSULE PO PRN (22:23)
[2016-12-30] MEDS: SIMVASTATIN 20 MG TABLET PO SCH (22:24)
[2016-12-30] MEDS: DONEPEZIL HCL 5 MG TABLET PO SCH (22:24)
[2016-12-31] MEDS: PANTOPRAZOLE SODIUM 40 MG TABLET PO SCH (08:12)
[2016-12-31] MEDS: GLIPIZIDE 5 MG TABLET PO SCH (08:13)
[2016-12-31] MEDS: BREO (FLUTICASONE/VILANTEROL) 100MCG/25MCG INHALER INH SCH (09:03)
[2016-12-31] MEDS: UMECLIDINIUM BROMIDE (INCRUSE) 62.5MCG IH SCH (09:04)
--- NOTE | 2016-12-31 09:40 | Discharge Summary ---
Providers Discharge Summary Date: 12/31/16 Date of admission: 12/11/16 16:10 Expected Date of Discharge: 12/31/16 Attending physician: MARTA HAHN Primary care physician: JAGJIT HYLTON D.O. Physical Exam - Vital Signs Vital Signs: Vital Signs - Last 24 Hrs Temp Pulse Resp BP Pulse Ox 12/31/16 08:00 98.7 F 60 18 120/60 98 12/30/16 20:00 98.7 F 74 19 117/68 95 - General General Appearance: Alert, Oriented x3, Cooperative, No acute distress Limitations: No limitations - Head Head exam: Atraumatic, Normocephalic, Normal inspection - Eye Eye exam: Normal appearance - ENT ENT exam: Normal exam - Neck Neck exam: Normal inspection, Full ROM - Respiratory Respiratory exam: Normal lung sounds bilaterally. negative: Accessory muscle use, Decreased breath sounds, Respiratory distress, Wheezes - Cardiovascular Cardiovascular Exam: Regular rate, Normal rhythm, Normal heart sounds Peripheral Pulses: 2+: Dorsalis Pedis (R), Dorsalis Pedis (L) - GI/Abdominal GI/Abdominal exam: Soft, Normal bowel sounds - Rectal Rectal exam: Deferred - exam: Deferred - Extremities Extremities exam: Normal inspection, Normal capillary refill. negative: Pedal edema - Back Back exam: Reports: Normal inspection, Tenderness (right lumbar paraspinal musculature) - Neurological Neurological exam: Alert, Oriented X3 - Psychiatric Psychiatric exam: Normal affect, Normal mood Hospitalization - Hospitalization Admission Diagnosis: Not able to be as active as once was - Problem List (1) Physical deconditioning Current Visit: Yes Status: Acute Base Code: R53.81 - OTHER MALAISE Comment : 12/31/16- Patient's strength and physical funcntioning improved following ARMINDA therapy. - patient will continue home therapy with home healht set up by Social work - continue home medications. BP and blood glucose very well controlled. -hgb and renal function stable. will just need outpatient monitoring periodically. has follow up with pcp scheduled for 01/07/17 (2) Chronic low back pain Current Visit: Yes Status: Acute Base Code: M54.5 - LOW BACK PAIN; G89.29 - OTHER CHRONIC PAIN Comment: 12/31/16- acute on chronic low back pain - continue Tylenol as needed for pain - will do script for tramadol 50mg po qdaily as needed for severe pain. Patient states he has only needed to use this medication once in the past 5 days. Says it is nice to have just in case his pain gets severe. -continue pt/ot (3) Full code status Current Visit: Yes Status: Acute Base Code: Z78.9 - OTHER SPECIFIED HEALTH STATUS Comment: 12/31/16: pt is full code - Hospitalization Course Disposition: Home Health Service Hospital Course: 76 yo male admitted for weakness. PMHx of COPD, a fib, HTN, DM, mild dementia and anxiety. Patient presented to [facility] after syncopal episode. This was thought to be related to orthostatic BP. ECHO performed during admission which demonstrated EF of 60-65 % w/ impaired relaxation. Patient thought to be medically stable, however would benefit from ARMINDA. 12/12/16: This morning, patient feels well. He denies any concerns. No dizziness , confusion, fever, chill, n/v, abd pain, cp, sob, headache, rash, diarrhea, or change in urination. Home: Lives with significant other, Shasha. One story home. three steps into the home with railing. States he has a walk in shower and a tub. Typically stays on the main floor and does not go to the basement. 12/19/16- Care conference today. Therapy reports in amb 300 ft independently but still needs assist with tub transfer and stairs. Does have diabetic neuropathy and has a hard time feeling the stairs beneath his feet. 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 Complains of chronic back pain from an injury in the 60's. Pain has been worse since beginning therapy, unable to stand for long periods of time without needing to sit down due to pain. Pain radiates down right leg, mild numbness. reports he has taken Lyrica before for back pain and had side effects of dizziness, change cognition. Feet feel tingly and as if being stung by bees. Has had a 2lb weight loss in 6 days but reports has been more active since admission as compared to his usual activity at home. Dietary to increase his caloir intake and add bedtime snack, will weight twice weekly to monitor. Vitals review shows trending low BP, is asymptomatic 12/26/16- patient sates he is feeling pretty good overall. he has had some heartburn in the morning for the past few days but otherwise is doing well. still tolerating normal diet and having normal BM. appetite has been good. Says he is doing well in PT/OT and plan is to go home on Saturday the 12/31/16- Patient states he continues to do well. His back pain has been controlled with tylenol. He has had to use the ultram once for break through pain in the last 5 days. He says that did seem to help. PT/OT seems to be helping as well. He will have home therapy set up and has follow up with his pcp set up in 1 week. Procedures: Imaging and X-Rays 12/24/16 09:00 CHEST 2 VIEWS [RAD] Stat Abnormal Labs: Abnormal Lab Results 12/12/16 12/13/16 12/14/16 Range/Units 18:01 17:00 17:20 RBC (4.40-5.70) M/uL Hgb (14.0-18.0) gm/dl Hct (42.0-52.0) % RDW (11.5-14.5) % Monocytes (0-9) % Eosinophil Count (0-6) % BUN (9-20) mg/dL Creatinine (0.66-1.25) mg/dL POC Glucose 126 H 162 H 148 H (70-110) mg/dL AST (17-59) U/L 12/15/16 12/16/16 12/16/16 Range/Units 16:58 06:41 17:00 RBC (4.40-5.70) M/uL Hgb (14.0-18.0) gm/dl Hct (42.0-52.0) % RDW (11.5-14.5) % Monocytes (0-9) % Eosinophil Count (0-6) % BUN (9-20) mg/dL Creatinine (0.66-1.25) mg/dL POC Glucose 134 H 112 H 152 H (70-110) mg/dL AST (17-59) U/L 12/17/16 12/17/16 12/18/16 Range/Units 06:10 06:10 16:33 RBC 4.09 L (4.40-5.70) M/uL Hgb 12.9 L (14.0-18.0) gm/dl Hct 37.9 L (42.0-52.0) % RDW 15.0 H (11.5-14.5) % Monocytes (0-9) % Eosinophil Count 21.0 H (0-6) % BUN 22 H (9-20) mg/dL Creatinine 1.3 H (0.66-1.25) mg/dL POC Glucose 115 H (70-110) mg/dL AST (17-59) U/L 12/20/16 12/20/16 12/21/16 Range/Units 07:18 16:51 06:08 RBC 4.18 L (4.40-5.70) M/uL Hgb 13.0 L (14.0-18.0) gm/dl Hct 39.1 L (42.0-52.0) % RDW 14.9 H (11.5-14.5) % Monocytes (0-9) % Eosinophil Count 13.0 H (0-6) % BUN (9-20) mg/dL Creatinine (0.66-1.25) mg/dL POC Glucose 122 H 120 H (70-110) mg/dL AST (17-59) U/L 12/21/16 12/21/16 12/22/16 Range/Units 06:08 16:45 16:42 RBC (4.40-5.70) M/uL Hgb (14.0-18.0) gm/dl Hct (42.0-52.0) % RDW (11.5-14.5) % Monocytes (0-9) % Eosinophil Count (0-6) % BUN (9-20) mg/dL Creatinine 1.4 H (0.66-1.25) mg/dL POC Glucose 144 H 111 H (70-110) mg/dL AST (17-59) U/L 12/24/16 12/24/16 12/25/16 Range/Units 10:04 16:35 16:30 RBC 4.16 L (4.40-5.70) M/uL Hgb 13.2 L (14.0-18.0) gm/dl Hct 39.2 L (42.0-52.0) % RDW 14.9 H (11.5-14.5) % Monocytes 11.0 H (0-9) % Eosinophil Count 14.0 H (0-6) % BUN (9-20) mg/dL Creatinine (0.66-1.25) mg/dL POC Glucose 155 H 156 H (70-110) mg/dL AST (17-59) U/L 12/27/16 12/27/16 12/27/16 Range/Units 06:24 06:24 16:30 RBC 3.94 L (4.40-5.70) M/uL Hgb 12.2 L (14.0-18.0) gm/dl Hct 37.2 L (42.0-52.0) % RDW 14.7 H (11.5-14.5) % Monocytes (0-9) % Eosinophil Count 23.0 H (0-6) % BUN 21 H (9-20) mg/dL Creatinine 1.3 H (0.66-1.25) mg/dL POC Glucose 160 H (70-110) mg/dL AST 15 L (17-59) U/L 12/29/16 12/29/16 12/29/16 Range/Units 06:33 17:00 21:44 RBC (4.40-5.70) M/uL Hgb (14.0-18.0) gm/dl Hct (42.0-52.0) % RDW (11.5-14.5) % Monocytes (0-9) % Eosinophil Count (0-6) % BUN (9-20) mg/dL Creatinine (0.66-1.25) mg/dL POC Glucose 126 H 171 H 160 H (70-110) mg/dL AST (17-59) U/L 12/30/16 12/30/16 Range/Units 06:48 16:45 RBC (4.40-5.70) M/uL Hgb (14.0-18.0) gm/dl Hct (42.0-52.0) % RDW (11.5-14.5) % Monocytes (0-9) % Eosinophil Count (0-6) % BUN (9-20) mg/dL Creatinine (0.66-1.25) mg/dL POC Glucose 117 H 131 H (70-110) mg/dL AST (17-59) U/L Condition at Discharge: (2) Stable Discharge Medications - Discharge Medications Prescriptions: Tramadol HCl [Ultram] 50 mg PO DAILY PRN #15 tab PRN Reason: Pain - Moderate (5-7) Home Medications: Ambulatory Orders Albuterol Sulfate [Proventil Hfa] 3 ml NEB Q4H PRN 12/11/16 [Last Taken Unknown] Aspirin Chewable 81 mg PO DAILY 12/11/16 [Last Taken Unknown] Cholecalciferol (Vitamin D3) [Vitamin D3] 2,000 unit PO DAILY 12/11/16 [Last Taken Unknown] Donepezil HCl 20 mg PO QHS 12/11/16 [Last Taken Unknown] Fluoxetine HCl 20 mg PO DAILY 12/11/16 [Last Taken Unknown] Fluticasone/Vilanterol 100/25 [Breo Ellipta 100-25 Mcg INH] 1 puff INH RESP.DAILY 12/11/16 [Last Taken Unknown] Glipizide [Glucotrol] 5 mg PO BIDAC 12/11/16 [Last Taken Unknown] Linagliptin [Tradjenta] 5 mg PO DAILY 12/11/16 [Last Taken Unknown] Lisinopril 2.5 mg PO DAILY 12/11/16 [Last Taken Unknown] Lorazepam [Ativan] 0.5 mg PO DAILY 12/11/16 [Last Taken Unknown] Omeprazole 20 mg PO BIDAC 12/11/16 [Last Taken Unknown] Simvastatin 40 mg PO QHS 12/11/16 [Last Taken Unknown] Sitagliptin Phosphate [Januvia] 100 mg PO DAILY 12/11/16 [Last Taken Unknown] Temazepam 30 mg PO QHS 12/11/16 [Last Taken Unknown] Umeclidinium [place] [Incruse Ellipta] 1 puff INH DAILY 12/11/16 [Last Taken Unknown] Hydrochlorothiazide 12.5 mg PO DAILY #0 12/31/16 [Last Taken Unknown] Tramadol HCl [Ultram] 50 mg PO DAILY PRN #15 tab 12/31/16 [Last Taken Unknown] Discharge Plan - Discharge Instructions Activity at Discharge: As Per Physical Therapy Diet at Discharge: Diabetic Diet Additional Instructions: Follow up with Dr. Jagjit Hylton, [address] [place] [address]; [phone] in 1 week following discharge from [place].....January Continue home therapy with home health services May use tramadol 50mg up to once daily for severe pain uncontrolled with tylenol Please call with any questions or concerns
[2016-12-31] MEDS: LISINOPRIL 5 MG TABLET PO SCH (09:46)
[2016-12-31] MEDS: DOCUSATE SODIUM 100 MG CAPSULE PO SCH (09:46)
[2016-12-31] MEDS: HYDROCHLOROTHIAZIDE 12.5 MG CAPSULE PO SCH (09:46)
[2016-12-31] MEDS: FLUOXETINE HCL 20 MG CAPSULE PO SCH (09:46)
[2016-12-31] MEDS: CHOLECALCIFEROL 1,000 UNIT TABLET PO SCH (09:46)
[2016-12-31] MEDS: ASPIRIN 81 MG TABEC PO SCH (09:46)
[2016-12-31] MEDS: POLYETHYLENE GLY 17 GM PACKET PO SCH (09:48)
--- NOTE | 2016-12-31 10:09 | Rehab Discharge Summary ---
Patient Information - Patient Information Diagnosis: Deconditioning due to syncope Ordered Treatment: PT Evaluate and Treat Surgery: No History: Detail (The patient was transferred to [facility] to [facility] Swing Bed Unit for rehabilitation.) Past Medical/Surgical Hx: PAST MEDICAL/SURGICAL HISTORY Past Surgical History left eye surgery rt groin stent attempt prostate surgery PMH - Respiratory Hx Respiratory Disorders Yes Hx Bronchitis Yes Hx Chronic Obstructive Yes Pulmonary Disease (COPD) Hx Pneumonia Yes PMH - Cardiovascular Hx Hypertension Yes PMH - Neuro Hx Neurological Disorders Yes Hx Dementia Yes Hx Neuropathy Yes Hx Syncope Yes Comment: occasional stutter PMH - GI Hx Gastrointestinal Disorders Yes Hx Abdominal Pain Yes Hx Gastroesophageal Reflux Yes PMH - Hx Genitourinary Disorders Yes Hx Prostate Problems Yes PMH - Endocrine Hx Endocrine Disorders Yes Hx Diabetes Yes PMH - Musculoskeletal Hx Musculoskeletal Disorders Yes Hx Arthritis Yes PMH - Psych Hx Psychiatric Problems Yes Hx Depression Yes PMH - Hematology/Oncology Hx Hematology/Oncology No Disorders Premorbid Status: Detail (The patient was ambulating with wheeled walker and using scooter when in the community.) Social History: Detail (The patient lives with significant other in a one story home with a basement. The home has 3 steps at the enterance with 2 railings. The patient's bathroom has a tub/shower combination with a tub bench and grabs and an elevated toilet seat. The patient has a 4 wheeled walker, 2 wheeled walker, standard cane, scooter and lift chair. The patient has a aide who assist with his bathing one time a week and his assists with putting on his socks and shoes. The patient reports he has dye room helper for yardwork and housekeeping.) Precautions: [place], Fall Subjective Information - Subjective Information Per Patient (The patient has occasional complaints of lower back pain. The patient continues to complain of LE weakness.) Objective Data - Mental Status Patient Orientation: Oriented x3 - Visual Perception Deficit (The patient has visual deficits especially noted when descending the stairs ( patient feels for step with his foot.)) - ROM Not within normal limits (The patient continues to have limitations with full knee extension bilaterally ( aprox 10 to 15 degrees from neutral).) - Strength/Tone Not within normal limits (The patient's LE strength is generally 4 to 4+/5. With weakness noted in L hip flexors, bilateral quads and hamstrings ( all 4/5). ) - Bed Mobility Independent (The patient is independent with bed mobility ie: supine to and from sit and scooting up in bed.) - Transfers Independent (The patient was independent with sit to and from stand transfer, with occasional minimal PA from a low surface. The patient was independent with toilet transfer. The patient required minimal PA to lift LE's for tub transfer using a tub chair.) - Balance Balance Sitting: Good Balance Standing: Fair (The patient's balance using the [place] Balance Scale was 18/28 which is still in the high risk for fall category. ( Initially the patient's balance was 15/28).) - Gait Detail (The patient ambulated with wheeled walker 300 feet plus independently. The patient ambulated on 3 steps with use of 2 railings with supervision for safety. The patient feels with his feet for step when descending stairs.) Therapy Assessment - Therapy Assessment Detail (The patient has improved LE strength and increased independence with mobility. Ongoing home PT is recommended for assessment of patient's mobility in home environment and continued balance and LE stregtheing exercises.) Patient Education - Patient Education Teaching Topic: Exercise/Activity (LE strengthening exercises.) Response: Return Demonstration Teaching Method: Handout Teaching Recipient: Patient Barriers To Learning: Age Related Problem List - Problem List Physical Therapy Problem List: Detail (1) Decreased balance 2) Decreased LE strength 3) Decreased ability to complete sustained physical activity.) Occupational Therapy Problem List: Detail (1. Decreased Ind with total body dressing 2. Decreased Ind with showering 3. Decreased endurance needed for safe and Ind self cares 4. Decreased functional mobility needed for safe and Ind self cares) Goals - Goals Physical Therapy Goals: GOALS MET: 1) The patient will ambulate with assistive devices distances of 200 feet plus independently with minimal shortness of breath. 2) The patient will ambulate on stairs with railing and supervision for safety. 3) The patient will be independent with all transfers. 4) Increase LE strength 1/3 muscle grade Occupational Therapy Goals: 1. Pt will be safe and Ind with total body dressing with use of adaptive equipment as needed. 2. Pt will be safe and Ind with showering in sitting with use of grab bars and adaptive equipment as needed. 3. Pt will be safe and Ind with functional mobility needed for self care activities. 4. Pt will demonstrate improved endurance needed for safe ADLs. Plan - Plan Physical Therapy Plan: The patient is discharged from [facility] to home and is to receive home OT and PT for evaluation of safety in home environment. Occupational Therapy Plan: OT 2-4 days per week to address self cares, functional mobility and endurance needed for safe and Ind return home.
--- NOTE | 2016-12-31 13:37 | Rehab Discharge Summary ---
Patient Information - Patient Information Diagnosis: Deconditioning due to syncope Ordered Treatment: OT Evaluate and Treat Surgery: No History: Detail (The patient was transferred to [facility] to [facility] Swing Bed Unit for rehabilitation.) Past Medical/Surgical Hx: PAST MEDICAL/SURGICAL HISTORY Past Surgical History left eye surgery rt groin stent attempt prostate surgery PMH - Respiratory Hx Respiratory Disorders Yes Hx Bronchitis Yes Hx Chronic Obstructive Yes Pulmonary Disease (COPD) Hx Pneumonia Yes PMH - Cardiovascular Hx Hypertension Yes PMH - Neuro Hx Neurological Disorders Yes Hx Dementia Yes Hx Neuropathy Yes Hx Syncope Yes Comment: occasional stutter PMH - GI Hx Gastrointestinal Disorders Yes Hx Abdominal Pain Yes Hx Gastroesophageal Reflux Yes PMH - Hx Genitourinary Disorders Yes Hx Prostate Problems Yes PMH - Endocrine Hx Endocrine Disorders Yes Hx Diabetes Yes PMH - Musculoskeletal Hx Musculoskeletal Disorders Yes Hx Arthritis Yes PMH - Psych Hx Psychiatric Problems Yes Hx Depression Yes PMH - Hematology/Oncology Hx Hematology/Oncology No Disorders Premorbid Status: Detail (The patient was ambulating with wheeled walker and using scooter when in the community.) Social History: Detail (Pt reports he lives with his significant other, Shasha. They have a 1 story house with a basement, 3 steps and vidal handrailings at the entrance, a tub/shower combination with a tub seat and a grab bar and a standard height toilet with a riser. He has a 4 wheeled walker, 2-2 wheeled walkers, a straight cane and [place] He uses oxygen as needed at home. 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 He does demonstrate decreased depth perception at times due to loss of eye.) - ROM Within normal limits (Vidal UE AROM WNL) - Strength/Tone Within normal limits (Vidal UE MMT grossly 4 to 4+/5 throughout. Overall UE endurance is improved and functional for ADLs.) - Coordination Appears within normal limits for therapeutic activities - Bed Mobility Independent - Transfers Independent - Balance Balance Sitting: Good Balance Standing: Fair - Sensation Intact - Gait Detail (Ambulating household distances with 2 wheeled walker.) - ADL's/IADL's Detail (Pt Ind with total body dressing, grooming/hygiene, he is able to shower in sitting and standing with SBA for standing.) Therapy Assessment - Therapy Assessment Detail (Pt demonstrates Ind with functional mobility, he requires SBA for standing for showering but is otherwise Ind with self cares.) Problem List - Problem List Physical Therapy Problem List: Detail (1) Decreased balance 2) Decreased LE strength 3) Decreased ability to complete sustained physical activity.) Occupational Therapy Problem List: Detail (1. Decreased Ind with total body dressing 2. Decreased Ind with showering 3. Decreased endurance needed for safe and Ind self cares 4. Decreased functional mobility needed for safe and Ind self cares) Goals - Goals Physical Therapy Goals: GOALS MET: 1) The patient will ambulate with assistive devices distances of 200 feet plus independently with minimal shortness of breath. 2) The patient will ambulate on stairs with railing and supervision for safety. 3) The patient will be independent with all transfers. 4) Increase LE strength 1/3 muscle grade Occupational Therapy Goals: Goals Met: 1. Pt will be safe and Ind with total body dressing with use of adaptive equipment as needed. 4. Pt will demonstrate improved endurance needed for safe ADLs. Goals Partially met: 2. Pt will be safe and Ind with showering in sitting with use of grab bars and adaptive equipment as needed. 3. Pt will be safe and Ind with functional mobility needed for self care activities. Prognosis - Prognosis Good Plan - Plan Physical Therapy Plan: The patient is discharged from [facility] to home and is to receive home OT and PT for evaluation of safety in home environment. Occupational Therapy Plan: Pt discharged home with home OT and PT to assess needs in the home setting.
== END 2016-12-31 13:30 | disposition home health service (06) | DRG 948 ==
LOC: MEDSURG 16:10
PROVIDERS: ADMIT Family Medicine; ATTEND Family Medicine
DX: R53.81 Other malaise (principal); M54.5 Low back pain; E11.40 Type 2 diabetes mellitus with diabetic neuropathy, unspecified; I48.2 Chronic atrial fibrillation; I10 Essential (primary) hypertension
CPT/HCPCS: 36416; 71020; 80053; 81003; 82948; 85027; 94640; 97110; 97165; 97530; 97535; 99306; 99309; 99316

== ENCOUNTER 2017-02-21 12:05 | Inpatient (IN) | payer MEDICARE ==
[2017-02-21] MEDS ORDERED: PNEUM 23-VAL ADULT IM ONE (16:14)
[2017-02-21] MEDS ORDERED: FLU VAC QS 2017-18 (INPT, 6MO+) 60MCG/0.5ML IM ONE (16:14)
[2017-02-21] MEDS ORDERED: ALBUTEROL SULFATE (0.083%) 2.5 MG/3 ML NEB INH PRN (16:19)
[2017-02-21] MEDS ORDERED: GLIPIZIDE 5 MG TABLET PO SCH (16:30)
[2017-02-21] MEDS: PANTOPRAZOLE SODIUM 40 MG TABLET PO SCH (17:35)
[2017-02-21] MEDS: TEMAZEPAM 15 MG CAPSULE PO PRN (21:05)
[2017-02-21] MEDS: DONEPEZIL HCL 5 MG TABLET PO SCH (21:06)
[2017-02-21] MEDS ORDERED: CIPROFLOXACIN HCL 500 MG TABLET PO SCH (22:00)
[2017-02-22] MEDS: PANTOPRAZOLE SODIUM 40 MG TABLET PO SCH ×2 (06:07→16:50)
[2017-02-22] MEDS: GLIPIZIDE 5 MG TABLET PO SCH ×2 (08:35→16:50)
[2017-02-22] MEDS: BREO (FLUTICASONE/VILANTEROL) 100MCG/25MCG INHALER INH SCH (09:31)
[2017-02-22] MEDS: UMECLIDINIUM BROMIDE (INCRUSE) 62.5MCG IH SCH (09:32)
[2017-02-22] MEDS: DOXYCYCLINE HYCLATE 100 MG CAPSULE PO SCH ×2 (10:13→21:33)
[2017-02-22] MEDS: CHOLECALCIFEROL 1,000 UNIT TABLET PO SCH (10:14)
[2017-02-22] MEDS: ASPIRIN 81 MG TABEC PO SCH (10:14)
[2017-02-22] MEDS: LORAZEPAM 0.5 MG TABLET PO SCH (10:14)
[2017-02-22] MEDS: FLUOXETINE HCL 20 MG CAPSULE PO SCH (10:15)
[2017-02-22] MEDS: LEVOFLOXACIN 500 MG TABLET PO SCH (10:15)
--- NOTE | 2017-02-22 10:18 | Rehab Evaluation ---
Patient Information - Patient Information Diagnosis: Deconditioning due to COPD exacerbation Ordered Treatment: OT Evaluate and Treat Status: Initial Evaluation Surgery: No History: Detail (Pt was here recently in December and familiar with [facility] pgm. He reports being in the bathroom and feeling like his knees were going to give out. Pt's significant other called ambulance and he was taken to [facility]. Pt was admitted to [facility] on 02/21/17.) Past Medical/Surgical Hx: PAST MEDICAL/SURGICAL HISTORY Past Surgical History left eye surgery rt groin stent attempt prostate surgery PMH - Respiratory Hx Respiratory Disorders Yes Hx Bronchitis Yes Hx Chronic Obstructive Yes Pulmonary Disease (COPD) Hx Pneumonia Yes PMH - Cardiovascular Hx Hypertension Yes PMH - Neuro Hx Neurological Disorders Yes Hx Dementia Yes Hx Neuropathy Yes Hx Syncope Yes Comment: occasional stutter PMH - GI Hx Gastrointestinal Disorders Yes Hx Abdominal Pain Yes Hx Gastroesophageal Reflux Yes PMH - Hx Genitourinary Disorders Yes Hx Prostate Problems Yes PMH - Endocrine Hx Endocrine Disorders Yes Hx Diabetes Yes PMH - Musculoskeletal Hx Musculoskeletal Disorders Yes Hx Arthritis Yes PMH - Psych Hx Psychiatric Problems Yes Hx Depression Yes PMH - Hematology/Oncology Hx Hematology/Oncology No Disorders Premorbid Status: Detail (Pt has help for dressing (shoes and socks when his lower back has increased pain) and cooking from his significant other, Shasha. Pt also has a home health aide that assists in showers 1x/week. Pt has helper animal laboratory for yard work.) Social History: Detail (Pt lives in a 1-story house with a basement, 3-steps and vidal hand railings at entrance. He has a tub/shower combination with tub seat and grab bars and a standard height toilet seat w/ riser. Grab bars also around toilet. Available equipment includes: 4WW, (2) 2WW, straight cane, and a scooter that is used at [employer]. Pt does not have a manager reporting but states "I might need one." Wears proctologist socks at home not shoes. Pt reports that when back is in increased pain, he needs assist w/ socks and shoes, otherwise he is able to don these Ind.) Precautions: [place], Fall - Time With Patient Total Time Spent With Patient (Min): 25 (Eval completed w/ PT) Treatment Procedures: Detail (OT eval LOW) Subjective Information - Subjective Information Per Patient Objective Data - Pain Pain Present: Yes Pain Intensity: 7 (Lower back) Pain Scale Used: Numeric (1 - 10) - Mental Status Patient Orientation: Oriented x3 - Visual Perception Appears within normal limits for therapeutic activities (Pt wears glasses. He lost his left eye 41 years ago.) - ROM Within normal limits (Vidal UE AROM WNL. Vidal shld flex/abd to 150 deg.) - Strength/Tone Within normal limits (grossly 4+/5 MMT Vidal UE's. Decreased endurance as evidenced by muscle shaking during sit<>stand t/f. Weakness greatest in Vidal triceps. Pt reports Vidal shld soreness/pain when using walker for ambulation.) - Coordination Appears within normal limits for therapeutic activities - Bed Mobility Independent - Transfers Independent - Sensation Deficit (Numbness and tingling all digits bilaterally due to diabetic neuropathy.) - ADL's/IADL's Detail (Nsg assisting w/ toileting and self care at this time.) Therapy Assessment - Therapy Assessment Detail (Patient presents w/ weakness BUE's, decreased ind. w/ self care, and decreased knowledge of ADL equipment for ind w/ drsg during periods of increased back pain. Pt shows decreased endurance and fatigue w/ ambulating household distances.) Problem List - Problem List Occupational Therapy Problem List: Detail (1. Decreased ind. with LB drsg 2. Decreased knowledge of ADL equipment for Ind with drsg. 3. Decreased endurance for self care and amb household distances safely.) Goals - Goals Occupational Therapy Goals: 1. Pt to be ind. w/ LB drsg using ADL equipment if needed. 2. Pt to be able to verbalize & demonstrate drsg technique using manager reporting to don underpants/pants ind. 3. Pt will present w/ increased endurance for self care and for ambulating household distances safely. Prognosis - Prognosis Good Plan - Plan Occupational Therapy Plan: OT to treat 2-4x per week M-F to address decreased ind. w/ self cares, instruction on ADL equipment, and for increased endurance needed for functional mobility.
--- NOTE | 2017-02-22 12:20 | History & Physical ---
History of Present Illness - Date Date of Service for History & Physical: 02/22/17 - History of Present Illness Admitting Diagnosis: Deconditioning d/t COPD Exac History of Present Illness: 76yo male admitted to [facility] for deconditioning, generalized weakness. He has history of COPD, dementia, t2dm, htn, bph, hld, and arthritis. He has a 60 pack year smoking history as well. Patient has had several hospital admissions in the past few months for recurring COPD exacerbations. He presented to [facility] on 02/18/17 with generalized weakness, dyspnea and hiccups. He had head CT of the head, neck, chest and upper abdomen. CT chest revealed mucus plug vs neoplasm. No other neurologic etiology found for generalized weakness. He was found to have B12 deficiency and was started on injections. Statin was discontinued and PT was initiated for the weakness. Pulmonary team was consulted for bronchoscopy which revealed a lesion in the superior segment of the right upper lobe. Biopsy was sent to pathology. 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 His antibiotics were transitioned to levaquin 750mg daily and doxycycline 100mg bid. He had improvement in weakness in dyspnea and was discharged to [facility]. 02/22/17- patient states he is feeling better overall. He says his shortness of breath has improved significantly since being admitted this past saturday to [facility]. Says he is no longer short of breath at rest. Only gets winded with prolonged activity. feels like albuterol treatments are working well. He denies chest pain , worsening cough. Says his weakness has improved some since being admitted but continues to feel easily fatigued. Patient is supposed to follow up with Dr. Schilling, pulmonology, in 2-3 weeks and with oncology when biopsy results are available. Pulmonary also felt he would benefit from outpatient PFT and pulmonary rehab. pcp: Dr. Reyes General - Cognitive Patterns Orientation: Oriented x3 - Communication Preferred Language?: Dutch Sample Tailor Required: No Level of Education: Grade 9-11 Preferred Method of Learning: Seeing, Doing Comprehension Ability: No Impairment Able to Read: Yes Able to Write: Yes Select best description of speech pattern: Clear Speech Ability to express ideas and wants: Understood Understanding verbal content: Understands - Psychosocial Well-Being Usual Living Arrangement: Spouse - Physical Functioning Activity Level: Up with assist x1 Turning: With partial assist ROM Ability: Moves all extremities Assistive Devices: 2 Wheel Walker Ambulation Ability: Needs Assist Bed Mobility: Needs Assist Transfer Ability: Needs Assist Bathing Ability: Needs Assist Personal Hygiene: Needs Assist Dressing Ability: Needs Assist Eating (Feeding) Ability: Independent Toileting Ability: Needs Assist Administer Own Medication: Needs Assist - Continence Bowel Pattern: Normal for Patient Bladder Pattern: Normal - Dental Status Unable to examine: No Broken or loosely fitting full or partial dentures: No No natural teeth or tooth fragment(s) (edentulous): Yes Abnormal mouth tissue (ulcers, masses, oral lesions, etc.): No Obvious or likely cavity or broken natural teeth: No Inflamed or bleeding gums or loose natural teeth: No Mouth/facial pain, discomfort or difficulty chewing: No - Nutrition Screening Poor oral intake > 1 week: No Unplanned weight loss in specified time frame: No Nutrition Support via tube feedings or parenteral nutrition: No Pressure Ulcer: No Significantly underweight define as BMI <18.5 kg/m2: No Albumin <2.5mg/dL: No Persistent nausea/vomiting/diarrhea >3 days: No Difficulty chewing/swallowing/mouth sores: No Admitting Diagnosis: Yes Nutrition Risk Score: Low Risk Past Medical History - SOCIAL HISTORY Smoking Status: Former smoker - SURGICAL HISTORY Past Surgical History: left eye surgery. rt groin stent attempt. prostate surgery - RESPIRATORY Hx Respiratory Disorders: Yes Hx Bronchitis: Yes Hx COPD: Yes Hx Pneumonia: Yes - CARDIOVASCULAR Hx Hypertension: Yes - NEURO Hx Neuro Disorders: Yes Hx Dementia: Yes Hx Neuropathy: Yes Comment:: occasional stutter - GI Hx GI Disorders: Yes Hx Abdominal Pain: Yes Hx Reflux: Yes - Hx Genitourinary Disorders: Yes Hx Prostate Problems: Yes - ENDOCRINE Hx Endocrine Disorders: Yes Hx Diabetes: Yes - MUSCULOSKELETAL Hx Musculoskeletal Disorders: Yes Hx Arthritis: Yes - PSYCH Hx Psych Problems: Yes Hx Depression: Yes - HEMATOLOGY/ONCOLOGY Hx Hematology/Oncology Disorders: No Family Medical History Any Significant Family History?: Yes Hx Alcohol Use: Children Hx Cancer: Mother Hx Diabetes: Grandparents Hx Heart Disease: Father, Mother *Heart Comment: aneurysm Hx Resp Disorders: Grandparents H&P Meds/Allergies - Allergies Allergies: Allergies Allergy/AdvReac Type Severity Reaction Status Date / Time No Known Drug Allergies Allergy Verified 12/11/16 12:52 - Home Medications Previous Rx's Medication Instructions Recorded Hydrochlorothiazide 12.5 mg PO DAILY #0 12/31/16 Tramadol HCl [Ultram] 50 mg PO DAILY PRN #15 tab 12/31/16 - Active Medications Active Medications: Current Medications Albuterol Sulfate () 2.5 mg INH Q4H PRN PRN Reason: SHORTNESS OF BREATH Aspirin (Ecotrin (Ec)) 81 mg PO DAILY [facility] Last Admin: 02/22/17 10:14 Dose: 81 mg Donepezil HCl (Aricept) 20 mg PO QHS [facility] Last Admin: 02/21/17 21:06 Dose: 20 mg Doxycycline Hyclate (Vibramycin) 100 mg PO BID [facility] Stop: 02/28/17 22:01 Last Admin: 02/22/17 10:13 Dose: 100 mg Fluoxetine HCl (Prozac) 20 mg PO DAILY [facility] Last Admin: 02/22/17 10:15 Dose: 20 mg Glipizide (Glucotrol) 5 mg PO 0730,1630 [facility] Last Admin: 02/22/17 08:35 Dose: 5 mg Levofloxacin (Levaquin Tab) 750 mg PO DAILY [facility] Stop: 02/28/17 10:01 Last Admin: 02/22/17 10:15 Dose: 750 mg Lorazepam (Ativan) 0.5 mg PO DAILY [facility] Last Admin: 02/22/17 10:14 Dose: 0.5 mg Pantoprazole Sodium (Protonix) 40 mg PO BIDAC [facility] Last Admin: 02/22/17 06:07 Dose: 40 mg Temazepam (Restoril) 15 mg PO QHS PRN PRN Reason: INSOMNIA Last Admin: 02/21/17 21:05 Dose: 15 mg Vitamin D (Vitamin D3) 3,000 unit PO DAILY [facility] Last Admin: 02/22/17 10:14 Dose: 3,000 unit Physical Exam - Vital Signs Vital Signs: Vital Signs - Last 24 Hrs Temp Pulse Resp BP BP Pulse Ox 02/22/17 10:30 97.5 F L 107/72 02/22/17 08:00 97.5 F L 67 18 107/72 94 L 02/21/17 20:00 97.5 F L 60 16 107/50 93 L 02/21/17 16:29 98.2 F 72 18 120/58 95 - General General Appearance: Alert, Oriented x3, Cooperative, No acute distress - Head Head exam: Normal inspection - Respiratory Respiratory exam: Decreased breath sounds (throughout). negative: Accessory muscle use - Cardiovascular Cardiovascular Exam: Regular rate, Normal rhythm, Normal heart sounds - GI/Abdominal GI/Abdominal exam: Soft, Normal bowel sounds. negative: Tenderness - Extremities Extremities exam: Normal inspection, Full ROM, Normal capillary refill. negative: Tenderness - Neurological Neurological exam: Alert, Oriented X3, Reflexes normal - Psychiatric Psychiatric exam: Normal affect, Normal mood H&P Results - Labs Result Diagrams: 02/23/17 06:05 02/23/17 06:05 Labs Last 24 Hours: Laboratory Results - last 24 hr 02/21/17 02/22/17 02/22/17 21:10 07:50 11:50 POC Glucose 107 89 101 Discharge Potential - Discharge Needs Community Services Used Prior to Admission: None Patient Discharge Plan Description: Return Home Community Services Needed at Discharge: Occupational Therapy, Physical Therapy Plan - Swing Bed Certification Initial Certification Due: 02/21/17 14 Day Re-Cert Due: 03/07/17 44 Day Re-Cert Due: 04/06/17 74 Day Re-Cert Due: 05/06/17 - Detailed Diagnosis and Plan (1) Physical deconditioning Current Visit: No Status: Acute Base Code: R53.81 - OTHER MALAISE Comment : 02/22/17- deconditioned 2/2 prolonged hospitalizations for COPD. - pt/ot M-F to improve strenght and physical functioning (2) COPD exacerbation Current Visit: Yes Status: Acute Base Code: J44.1 - CHRONIC OBSTRUCTIVE PULMONARY DISEASE W (ACUTE) EXACERBATION Comment: 02/22/17- Patient completed steroid course and had bronchial culture positive for pseudomonas. -complete course of doxycycline 100mg po bid through 02/26/17 -complete levaquin 750mg po daily through 03/01/17 -continue albuterol q4H prn SOB -continue home medications/inhalers (3) Lesion of bronchus Current Visit: Yes Status: Acute Base Code: J98.09 - OTHER DISEASES OF BRONCHUS, NOT ELSEWHERE CLASSIFIED Comment: 02/22/17- bronchoscopy done on 02/21 at [facility] by pulm team showed endobronchial lesion in the superior segment of the right upper lobe. -patient is supposed to follow up with oncology once biopsy results are available. -will need to contact [facility] next week (02/25/17) to check on path results (4) Diabetes Current Visit: Yes Status: Acute Qualifiers: Diabetes mellitus type: type 2 Diabetes mellitus complication status: with unspecified complications Diabetes mellitus senior living insulin use: without senior living use Qualified Code(s): E11.8 - Type 2 diabetes mellitus with unspecified complications Base Code: E11.9 - TYPE 2 DIABETES MELLITUS WITHOUT COMPLICATIONS Comment: - Patient's blood glucose very well controlled at 102 with glucotrol 5mg po bid. He is not currently on the ADA diet. -will continue accuchecks and may discontinue the glucotrol if BG remains low. -will continue regular diet for now. had expressed concerns that he was losing a good deal of weight on the ADA diet (5) Hypertension Current Visit: Yes Status: Acute Base Code: I10 - ESSENTIAL (PRIMARY) HYPERTENSION Comment: 02/22/17- had previously been on lisinopril for HTN. BP has been normal to low without medication that was discontinued while at [facility] -will continue monitoring blood pressure and holding lisinopril for now (6) Full code status Current Visit: No Status: Acute Base Code: Z78.9 - OTHER SPECIFIED HEALTH STATUS Comment: 02/22/17: pt is full code
--- NOTE | 2017-02-22 13:20 | Rehab Evaluation ---
Patient Information - Patient Information Diagnosis: Deconditioning due to COPD exacerbation Ordered Treatment: PT Evaluate and Treat Status: Initial Evaluation Surgery: No History: Detail (Pt was here recently in December and familiar with [facility]. He reports being in the bathroom and feeling like his knees were going to give out. Pt's significant other called ambulance and he was taken to [facility]. Pt was admitted to [facility] on 02/21/17.) Past Medical/Surgical Hx: PAST MEDICAL/SURGICAL HISTORY Past Surgical History left eye surgery rt groin stent attempt prostate surgery PMH - Respiratory Hx Respiratory Disorders Yes Hx Bronchitis Yes Hx Chronic Obstructive Yes Pulmonary Disease (COPD) Hx Pneumonia Yes PMH - Cardiovascular Hx Hypertension Yes PMH - Neuro Hx Neurological Disorders Yes Hx Dementia Yes Hx Neuropathy Yes Hx Syncope Yes Comment: occasional stutter PMH - GI Hx Gastrointestinal Disorders Yes Hx Abdominal Pain Yes Hx Gastroesophageal Reflux Yes PMH - Hx Genitourinary Disorders Yes Hx Prostate Problems Yes PMH - Endocrine Hx Endocrine Disorders Yes Hx Diabetes Yes PMH - Musculoskeletal Hx Musculoskeletal Disorders Yes Hx Arthritis Yes PMH - Psych Hx Psychiatric Problems Yes Hx Depression Yes PMH - Hematology/Oncology Hx Hematology/Oncology No Disorders Premorbid Status: Detail (Pt has help for dressing (shoes and socks when his lower back has increased pain) and cooking from his significant other, Shasha. Pt also has a home health aide that assists in showers 1x/week. Pt has ship painter helper for yard work.) Social History: Detail (Pt lives in a 1-story house with a basement, 3-steps and louis hand railings at entrance. He has a tub/shower combination with tub seat and grab bars and a standard height toilet seat w/ riser. Grab bars also around toilet. Available equipment includes: 4WW, (2) 2WW, straight cane, and a scooter that is used at [employer]. Pt does not have a thermal engineer but states "I might need one." Wears clammer socks at home not shoes. Pt reports that when back is in increased pain, he needs assist w/ socks and shoes, otherwise he is able to don these Ind.) Precautions: [place], Fall - Time With Patient Total Time Spent With Patient (Min): 30 Treatment Procedures: Detail (Initial Evaluation) Subjective Information - Subjective Information Per Patient (The patient had complaints of lower back pain.) Objective Data - Pain Pain Present: Yes Pain Intensity: 7 Pain Scale Used: Numeric (1 - 10) - Mental Status Patient Orientation: Oriented x3 - Visual Perception Deficit - ROM Within normal limits (LE AROM was WNL in hips and ankles.), Not within normal limits (bilateral knee extension aproximately -15 degrees( lacking 15 degrees of extension).) - Strength/Tone Not within normal limits (The patient's LE hip strength bilaterally is 4+ to 5/5 , knee extensors R 4-/5, L 4/5, bilateral knee flexors 4/5, R ankle musculature 4-/5, L 4 to 4+/5.) - Bed Mobility Independent (Independent supine to and from sit transfer.) - Transfers Independent (Independent sit to and from stand transfer.) - Balance Balance Sitting: Good Balance Standing: Fair (The patient scored 19/28 using the Tinetti Assessment Tool wihich is in the moderate for at risk fall category.) - Gait Detail (The patient ambulates with wheeled walker a distance 134 feet x 1 with supervision for safety. The patient exhibits R foot drop with fatigue. The patient had shortness of breath with ambulation.) Therapy Assessment - Therapy Assessment Detail (The patient exhibits decreased ability to complete sustained physical activity and decreased balance as measured by the Tinetti Assessment Tool. The patient exhibits R foot drop with ambulation with fatigue. Feel the patient will do well with short term rehab.) Problem List - Problem List Physical Therapy Problem List: Detail (1) Decreased standing balance, moderate risk for fall as rated by the Tinetti assessment Tool. 2) Decreased ability to complete sustained physical activity. 3) shortness of breath and R foot drop when fatigued.) Occupational Therapy Problem List: Detail (1. Decreased ind. with LB drsg 2. Decreased knowledge of ADL equipment for Ind with drsg. 3. Decreased endurance for self care and amb household distances safely.) Goals - Goals Physical Therapy Goals: 1) The patient will ambulate on stairs with supervision for safety only. 2) The patient will tolerate 30 minutes of physical activity with one rest period. 3) The patient's balance will improve 3 to 4 points using Tinetti Assessment Tool. 4) The patient will ambulate 200 feet plus with assistive device with minimal to nor shortness of breat and no R foot drop. 4) Occupational Therapy Goals: 1. Pt to be ind. w/ LB drsg using ADL equipment if needed. 2. Pt to be able to verbalize & demonstrate drsg technique using thermal engineer to don underpants/pants ind. 3. Pt will present w/ increased endurance for self care and for ambulating household distances safely. Plan - Plan Occupational Therapy Plan: OT to treat 2-4x per week M-F to address decreased ind. w/ self cares, instruction on ADL equipment, and for increased endurance needed for functional mobility.
[2017-02-22] MEDS: CYANOCOBALAMIN 1000 MCG/ML VIAL SC SCH (15:07)
[2017-02-22] MEDS: DONEPEZIL HCL 5 MG TABLET PO SCH (21:32)
[2017-02-22] MEDS: TEMAZEPAM 15 MG CAPSULE PO PRN (21:33)
[2017-02-23 06:18] LABS: HEMATOCRIT 38.6 % (42.0-52.0); HEMOGLOBIN 13.3 gm/dl (14.0-18.0); MEAN CELL VOLUME 92.8 fl (81-97); MEAN CORPUSCULAR HGB CONC 34.5 g/dl (32-36); MEAN PLATELET VOLUME 9.4 fl (7.4-10.4); PLATELET COUNT 272 K/uL (130-400); RED BLOOD COUNT 4.16 M/uL (4.40-5.70); RED CELL DISTRIBUTION WIDTH 13.1 % (11.5-14.5); WHITE BLOOD COUNT W/O DIFF 12.5 K/uL (4.2-12.2)
[2017-02-23 06:26] LABS: MEAN CORPUSCULAR HEMOGLOBIN 31.9 pg (27-33)
[2017-02-23 06:30] LABS: ALB/GLOB RATIO 1.4 (1.1-1.8); ALBUMIN 3.4 g/dL (4.0-5.0); ALKALINE PHOSPHATASE 67 U/L (40-129); ALT/SGPT 29 U/L (<41); AST/SGOT 14 U/L (10.0-50.0); BLOOD UREA NITROGEN 23 mg/dL (8-23); CREATININE 1.2 mg/dL (0.7-1.2); EST GLOMERULAR FILTRATION RATE > 60 mL/min; GLUCOSE,RANDOM 113 mg/dL (74-109); TOTAL PROTEIN 5.9 g/dL (6.6-8.7)
[2017-02-23 06:47] LABS: PLATELET ESTIMATE NORMAL (NORMAL)
[2017-02-23] MEDS: PANTOPRAZOLE SODIUM 40 MG TABLET PO SCH ×2 (06:57→17:13)
[2017-02-23] MEDS: GLIPIZIDE 5 MG TABLET PO SCH ×2 (06:57→17:14)
[2017-02-23] MEDS: UMECLIDINIUM BROMIDE (INCRUSE) 62.5MCG IH SCH (09:26)
[2017-02-23] MEDS: BREO (FLUTICASONE/VILANTEROL) 100MCG/25MCG INHALER INH SCH (09:28)
[2017-02-23] MEDS: LEVOFLOXACIN 500 MG TABLET PO SCH (10:01)
[2017-02-23] MEDS: CHOLECALCIFEROL 1,000 UNIT TABLET PO SCH (10:01)
[2017-02-23] MEDS: FLUOXETINE HCL 20 MG CAPSULE PO SCH (10:01)
[2017-02-23] MEDS: DOXYCYCLINE HYCLATE 100 MG CAPSULE PO SCH ×2 (10:02→21:59)
[2017-02-23] MEDS: LORAZEPAM 0.5 MG TABLET PO SCH (10:02)
[2017-02-23] MEDS: ASPIRIN 81 MG TABEC PO SCH (10:02)
[2017-02-23] MEDS: CYANOCOBALAMIN 1000 MCG/ML VIAL SC SCH (10:02)
[2017-02-23] MEDS: TEMAZEPAM 15 MG CAPSULE PO PRN (21:58)
[2017-02-23] MEDS: DONEPEZIL HCL 5 MG TABLET PO SCH (21:59)
[2017-02-24] MEDS: GLIPIZIDE 5 MG TABLET PO SCH ×2 (07:38→17:37)
[2017-02-24] MEDS: PANTOPRAZOLE SODIUM 40 MG TABLET PO SCH ×2 (07:38→17:37)
[2017-02-24] MEDS: BREO (FLUTICASONE/VILANTEROL) 100MCG/25MCG INHALER INH SCH (09:21)
[2017-02-24] MEDS: UMECLIDINIUM BROMIDE (INCRUSE) 62.5MCG IH SCH (09:22)
[2017-02-24] MEDS: ASPIRIN 81 MG TABEC PO SCH (09:25)
[2017-02-24] MEDS: DOXYCYCLINE HYCLATE 100 MG CAPSULE PO SCH ×2 (09:25→21:34)
[2017-02-24] MEDS: LORAZEPAM 0.5 MG TABLET PO SCH (09:25)
[2017-02-24] MEDS: FLUOXETINE HCL 20 MG CAPSULE PO SCH (09:25)
[2017-02-24] MEDS: LEVOFLOXACIN 500 MG TABLET PO SCH (09:25)
[2017-02-24] MEDS: CHOLECALCIFEROL 1,000 UNIT TABLET PO SCH (09:25)
[2017-02-24] MEDS: CYANOCOBALAMIN 1000 MCG/ML VIAL SC SCH (09:26)
[2017-02-24] MEDS: DONEPEZIL HCL 5 MG TABLET PO SCH (21:34)
[2017-02-24] MEDS: TEMAZEPAM 15 MG CAPSULE PO PRN (21:36)
[2017-02-25] MEDS: PANTOPRAZOLE SODIUM 40 MG TABLET PO SCH ×2 (06:25→18:36)
[2017-02-25] MEDS: GLIPIZIDE 5 MG TABLET PO SCH ×2 (07:19→17:51)
[2017-02-25] MEDS: LEVOFLOXACIN 500 MG TABLET PO SCH (09:47)
[2017-02-25] MEDS: DOXYCYCLINE HYCLATE 100 MG CAPSULE PO SCH ×2 (09:48→22:06)
[2017-02-25] MEDS: CHOLECALCIFEROL 1,000 UNIT TABLET PO SCH (09:48)
[2017-02-25] MEDS: ASPIRIN 81 MG TABEC PO SCH (09:49)
[2017-02-25] MEDS: FLUOXETINE HCL 20 MG CAPSULE PO SCH (09:49)
[2017-02-25] MEDS: CYANOCOBALAMIN 1000 MCG/ML VIAL SC SCH (09:49)
[2017-02-25] MEDS: LORAZEPAM 0.5 MG TABLET PO SCH (09:49)
[2017-02-25] MEDS: BREO (FLUTICASONE/VILANTEROL) 100MCG/25MCG INHALER INH SCH (09:53)
[2017-02-25] MEDS: UMECLIDINIUM BROMIDE (INCRUSE) 62.5MCG IH SCH (09:54)
--- NOTE | 2017-02-25 12:15 | Occupational Therapy Tx Note ---
Occupational Therapy Tx Note - Treatment Note Tolerated: Good Total Time Spent With Patient: 40 Occupational Therapy Treatment Note: Detail (Pt toileting in bathroom w/ nsg upon arrival. CGA amb into shower w/ 2WW. Pt completed showering w/ setup and max A for feet and back washing. Pt ind. w/ arms, perineal area, abdomen, hair, and BLE's down to ankle. Pt did demonstrate unsteadiness when standing to clean buttocks area. Pt refused donning glasses and required assistance when ends of shirt for don over head. Ind after this to don shirt. Max A to thread briefs/shorts over feet then ind to pull above knee. SBA t/f sit<> stand for pulling pants over hip ind. Amb from bathroom to bedside chair with CGA. Ind. don of deodorant once in sitting. Pt currently receiving help from health aid at home 1x a week and do not anticipate much change in showering status. Due to this, focus of OT will be on strengthening BUE's and increasing endurance in order for safe completion of ADLs.) Occupational Therapy Problem List: Detail (1. Decreased ind. with LB drsg 2. Decreased knowledge of ADL equipment for Ind with drsg. 3. Decreased endurance for self care and amb household distances safely.) Occupational Therapy Goals: 1. Pt to be ind. w/ LB drsg using ADL equipment if needed. 2. Pt to be able to verbalize & demonstrate drsg technique using carpet cleaner to don underpants/pants ind. 3. Pt will present w/ increased endurance for self care and for ambulating household distances safely. Prognosis: Good Occupational Therapy Plan: OT to treat 2-4x per week M-F to address decreased ind. w/ self cares, instruction on ADL equipment, and for increased endurance needed for functional mobility.
--- NOTE | 2017-02-25 17:09 | Physical Therapy Tx Note ---
Physical Therapy Tx Note - Treatment Note Tolerated: Fair Total Time Spent With Patient: 30 Physical Therapy Tx Note: Detail (The patient ambulated with wheeled walker a distance of 67 feet x 1 with CG for safety. The patient also ambulated on 3 steps with use of one railing, stepping sideways with CG of one. The patient experienced shortness of breath with stairclimbing and was returned to his room via wheelchair. The patient completed LE strengthening exercises seated: with red T-band LAQ, hamstring curls, hip abduction all x 15 reps, hip adductor squeezes x 15 reps.) Physical Therapy Problem List: Detail (1) Decreased standing balance, moderate risk for fall as rated by the Tinetti assessment Tool. 2) Decreased ability to complete sustained physical activity. 3) shortness of breath and R foot drop when fatigued.) Physical Therapy Goals: 1) The patient will ambulate on stairs with supervision for safety only. 2) The patient will tolerate 30 minutes of physical activity with one rest period. 3) The patient's balance will improve 3 to 4 points using Tinetti Assessment Tool. 4) The patient will ambulate 200 feet plus with assistive device with minimal to nor shortness of breat and no R foot drop. 4)
--- NOTE | 2017-02-25 21:23 | Physician Progress Note ---
Subjective - Date Date of Progress Note: 02/25/17 - Admitting Diagnosis Diagnosis: Deconditioning d/t COPD Exac - Subjective Nursing Care Plan Problem List Activity Intolerance (Swing Bed) Start: 02/21/17 16: 13 Freq: Status: Active Created 02/21/17 16:14 KM (Rec: 02/21/17 16:14 [facility] [id number]) Anxiety Start: 02/21/17 16: 58 Freq: Status: Active Created 02/21/17 16:58 KM (Rec: 02/21/17 16:58 [facility] [id number]) Ineffective Breathing Pattern Start: 02/21/17 16: 58 Freq: Status: Active Created 02/21/17 16:58 [facility] (Rec: 02/21/17 [id number] Knowledge Deficit (Swing Bed) Start: 02/21/17 16: 14 Freq: Status: Active Created 02/21/17 16:14 KM (Rec: 02/21/17 16:14 [facility] [id number]) Pain (Swing Bed) Start: 02/21/17 16: 14 Freq: Status: Active Created 02/21/17 16:14 KM (Rec: 02/21/17 16:14 [facility] [id number]) Subjective: 02/25/17- Patient states he is feeling ok today. he worked with Pt/ot and was a little fatigued. His appetite has been good. He denies any worsening shortness of breath or cough. Overall, feels much better since admission at [facility] General - Cognitive Patterns Speech: Normal Thought Process: Intact Thought Content: Normal - Communication Select best description of speech pattern: Clear Speech Ability to express ideas and wants: Understood Understanding verbal content: Understands - Mood and Behavior Patterns Appearance: Disheveled Mood: Normal Attitude: Cooperative Motor Activity: Calm Affect: Appropriate Hallucinations: Denies - Physical Functioning Activity Level: Up with assist x1 Turning: With partial assist ROM Ability: Moves all extremities Assistive Devices: 2 Wheel Walker Ambulation Ability: Needs Assist Bed Mobility: Needs Assist Transfer Ability: Needs Assist Bathing Ability: Needs Assist Personal Hygiene: Needs Assist Dressing Ability: Needs Assist Eating (Feeding) Ability: Independent Toileting Ability: Needs Assist Administer Own Medication: Needs Assist - Continence Bowel Pattern: Normal for Patient Bladder Pattern: Normal Meds/Allergies - Allergies Allergies Allergy/AdvReac Type Severity Reaction Status Date / Time No Known Drug Allergies Allergy Verified 12/11/16 12:52 - Active Medications Current Medications Albuterol Sulfate () 2.5 mg INH Q4H PRN PRN Reason: SHORTNESS OF BREATH Aspirin (Ecotrin (Ec)) 81 mg PO DAILY [facility] Last Admin: 02/25/17 09:49 Dose: 81 mg Cyanocobalamin (Vitamin B-12) 1,000 mcg SC DAILY [facility] Stop: 03/06/17 13:01 Last Admin: 02/25/17 09:49 Dose: 1,000 mcg Donepezil HCl (Aricept) 20 mg PO QHS [facility] Last Admin: 02/24/17 21:34 Dose: 20 mg Doxycycline Hyclate (Vibramycin) 100 mg PO BID [facility] Stop: 02/28/17 22:01 Last Admin: 02/25/17 09:48 Dose: 100 mg Fluoxetine HCl (Prozac) 20 mg PO DAILY [facility] Last Admin: 02/25/17 09:49 Dose: 20 mg Glipizide (Glucotrol) 5 mg PO 0730,1630 [facility] Last Admin: 02/25/17 17:51 Dose: 5 mg Levofloxacin (Levaquin Tab) 750 mg PO DAILY [facility] Stop: 02/28/17 10:01 Last Admin: 02/25/17 09:47 Dose: 750 mg Loperamide HCl (Immodium) 2 mg PO Q4H PRN PRN Reason: Diarrhea Lorazepam (Ativan) 0.5 mg PO DAILY [facility] Last Admin: 02/25/17 09:49 Dose: 0.5 mg Pantoprazole Sodium (Protonix) 40 mg PO BIDAC [facility] Last Admin: 02/25/17 18:36 Dose: 40 mg Temazepam (Restoril) 15 mg PO QHS PRN PRN Reason: INSOMNIA Last Admin: 02/24/17 21:36 Dose: 15 mg Vitamin D (Vitamin D3) 3,000 unit PO DAILY [facility] Last Admin: 02/25/17 09:48 Dose: 3,000 unit Objective - Vital Signs Vital Signs: Vital Signs - Last 24 Hrs Temp Pulse Resp BP BP Pulse Ox 02/25/17 09:29 98.3 F 126/74 02/25/17 07:49 98.3 F 65 16 126/74 94 L - General General Appearance: Alert, Oriented x3, Cooperative, No acute distress - Respiratory Respiratory exam: Decreased breath sounds (throughout). negative: Wheezes - Cardiovascular Cardiovascular Exam: Regular rate, Normal rhythm, Normal heart sounds - Extremities Extremities exam: Normal inspection, Full ROM, Normal capillary refill. negative: Tenderness H&P Results - Labs Result Diagrams: 02/23/17 06:05 02/23/17 06:05 Labs Last 24 Hours: Laboratory Results - last 24 hr 02/24/17 02/25/17 02/25/17 21:51 06:51 16:45 POC Glucose 123 H 116 H 189 H Discharge Potential - Discharge Needs Community Services Used Prior to Admission: None Patient Discharge Plan Description: Return Home Community Services Needed at Discharge: Occupational Therapy, Physical Therapy Discharge Needs Comment: Current with [facility], will need order to continue services. Plan - Swing Bed Certification Initial Certification Due: 02/21/17 14 Day Re-Cert Due: 03/07/17 44 Day Re-Cert Due: 04/06/17 74 Day Re-Cert Due: 05/06/17 - Detailed Diagnosis and Plan (1) Physical deconditioning Current Visit: No Status: Acute Base Code: R53.81 - OTHER MALAISE Comment : 02/25/17- deconditioned 2/2 prolonged hospitalizations for COPD. - pt/ot M-F to improve strenght and physical functioning (2) COPD exacerbation Current Visit: Yes Status: Acute Base Code: J44.1 - CHRONIC OBSTRUCTIVE PULMONARY DISEASE W (ACUTE) EXACERBATION Comment: 02/25/17- Improving. Patient completed steroid course and had bronchial culture positive for pseudomonas. -complete course of doxycycline 100mg po bid through 02/26/17 -complete levaquin 750mg po daily through 03/01/17 -continue albuterol q4H prn SOB -continue home medications/inhalers (3) Lesion of bronchus Current Visit: Yes Status: Acute Base Code: J98.09 - OTHER DISEASES OF BRONCHUS, NOT ELSEWHERE CLASSIFIED Comment: 02/25/17- bronchoscopy done on 02/21 at [facility] by pulm team showed endobronchial lesion in the superior segment of the right upper lobe. Biopsy results returned today consistent with Squamous Cell Carcinoma -patient is scheduled with oncology on 03/11/17 to follow up these results -I spent 30 minutes discussing these results with patient and significant other. I did offer to place referral for further counseling which patient will think about. (4) Diabetes Current Visit: Yes Status: Acute Qualifiers: Diabetes mellitus type: type 2 Diabetes mellitus complication status: with unspecified complications Diabetes mellitus long-term insulin use: without long-term use Qualified Code(s): E11.8 - Type 2 diabetes mellitus with unspecified complications Base Code: E11.9 - TYPE 2 DIABETES MELLITUS WITHOUT COMPLICATIONS Comment: - Patient's blood glucose remains well controlled with glucotrol 5mg po bid. -will continue accuchecks -will continue regular diet for now. had expressed concerns that he was losing a good deal of weight on the ADA diet. May consult nutrition once he has seen oncology and treatment plan is established (5) Hypertension Current Visit: Yes Status: Acute Qualifiers: Hypertension type: essential hypertension Qualified Code(s): I10 - Essential (primary) hypertension Base Code: I10 - ESSENTIAL (PRIMARY) HYPERTENSION Comment: 02/25/17- BP has been normal to low without medication that was discontinued while at [facility] [place] -will continue monitoring blood pressure and holding lisinopril for now (6) Full code status Current Visit: No Status: Acute Base Code: Z78.9 - OTHER SPECIFIED HEALTH STATUS Comment: 02/25/17: pt is full code
[2017-02-25] MEDS: TEMAZEPAM 15 MG CAPSULE PO PRN (22:06)
[2017-02-25] MEDS: DONEPEZIL HCL 5 MG TABLET PO SCH (22:07)
[2017-02-26] MEDS: PANTOPRAZOLE SODIUM 40 MG TABLET PO SCH ×2 (06:43→15:59)
[2017-02-26] MEDS: GLIPIZIDE 5 MG TABLET PO SCH ×2 (06:43→15:58)
[2017-02-26] MEDS: BREO (FLUTICASONE/VILANTEROL) 100MCG/25MCG INHALER INH SCH (09:51)
[2017-02-26] MEDS: UMECLIDINIUM BROMIDE (INCRUSE) 62.5MCG IH SCH (09:51)
[2017-02-26] MEDS: DOXYCYCLINE HYCLATE 100 MG CAPSULE PO SCH ×2 (10:04→22:24)
[2017-02-26] MEDS: LEVOFLOXACIN 500 MG TABLET PO SCH (10:04)
[2017-02-26] MEDS: FLUOXETINE HCL 20 MG CAPSULE PO SCH (10:04)
[2017-02-26] MEDS: LORAZEPAM 0.5 MG TABLET PO SCH (10:05)
[2017-02-26] MEDS: CHOLECALCIFEROL 1,000 UNIT TABLET PO SCH (10:05)
[2017-02-26] MEDS: ASPIRIN 81 MG TABEC PO SCH (10:05)
[2017-02-26] MEDS: CYANOCOBALAMIN 1000 MCG/ML VIAL SC SCH (10:06)
--- NOTE | 2017-02-26 11:16 | Physical Therapy Tx Note ---
Physical Therapy Tx Note - Treatment Note Tolerated: Good Total Time Spent With Patient: 35 Physical Therapy Tx Note: Detail (The patient was in bed when PT arrived. The patient ambulated with wheeled walker 115 feet x 1 with supervision for safety. The patient ambulated on 3 steps with 2 railings with CG of 1 for safety and verbal cues for foot placement on stairs. The patient also completed the following LE strengthening exercises: nu step x 3 minutes, LE strengthening exercises : with red T-band hip abduction, marching, LAQ and hamstring curls all x 20 reps, adductor squeezes x 10 reps, standing balance: standing with varying bases of support. The patient complained of fatigue following exercises. The patient was returned to his room and left with the respiratory therapist.) Physical Therapy Problem List: Detail (1) Decreased standing balance, moderate risk for fall as rated by the Tinetti assessment Tool. 2) Decreased ability to complete sustained physical activity. 3) shortness of breath and R foot drop when fatigued.) Physical Therapy Goals: 1) The patient will ambulate on stairs with supervision for safety only. 2) The patient will tolerate 30 minutes of physical activity with one rest period. 3) The patient's balance will improve 3 to 4 points using Tinetti Assessment Tool. 4) The patient will ambulate 200 feet plus with assistive device with minimal to nor shortness of breat and no R foot drop. 4) Physical Therapy Plan: PT M-F, 1-2 times a day for LE strengthening exercises, gait training and balance training.
--- NOTE | 2017-02-26 14:08 | Occupational Therapy Tx Note ---
Occupational Therapy Tx Note - Treatment Note Tolerated: Fair (Pt. required 3-4 rest breaks and exhibited some SOB that subsided with rest.) Total Time Spent With Patient: 40 Occupational Therapy Treatment Note: Detail (Pt. was wheeled to/from therapy gym for tx to conserve energy. Pt. educ. provided & demo. BUE PRE's using red theraband 1 set of 10-15 reps ea. of shd flex, abd/add, ER/IR, elbow flex & ext. Dynamic sitting balance activities (balloon toss upper & lower extremities , & reaching for cones) to increase safety and endurance with LB dressing. Pt. declined standing activities. Pt. required CGA and occasional min A for sit<> stand transitions w/c<>walker (became fatigued towards end of session).) Occupational Therapy Problem List: Detail (1. Decreased ind. with LB drsg 2. Decreased knowledge of ADL equipment for Ind with drsg. 3. Decreased endurance for self care and amb household distances safely.) Occupational Therapy Goals: 1. Pt to be ind. w/ LB drsg using ADL equipment if needed. 2. Pt to be able to verbalize & demonstrate drsg technique using special education preschool teacher to don underpants/pants ind. 3. Pt will present w/ increased endurance for self care and for ambulating household distances safely. Occupational Therapy Plan: OT to treat 2-4x per week M- to address decreased ind. w/ self cares, instruction on ADL equipment, and for increased endurance needed for functional mobility.
[2017-02-26] MEDS: TRAMADOL HCL 50 MG TABLET PO PRN (16:56)
[2017-02-26] MEDS: TEMAZEPAM 15 MG CAPSULE PO PRN (22:24)
[2017-02-26] MEDS: DONEPEZIL HCL 5 MG TABLET PO SCH (22:24)
[2017-02-27] MEDS: PANTOPRAZOLE SODIUM 40 MG TABLET PO SCH ×2 (06:46→16:45)
[2017-02-27] MEDS: GLIPIZIDE 5 MG TABLET PO SCH ×2 (06:46→17:49)
[2017-02-27] MEDS: LEVOFLOXACIN 500 MG TABLET PO SCH (09:26)
[2017-02-27] MEDS: CHOLECALCIFEROL 1,000 UNIT TABLET PO SCH (09:27)
[2017-02-27] MEDS: DOXYCYCLINE HYCLATE 100 MG CAPSULE PO SCH ×2 (09:27→21:35)
[2017-02-27] MEDS: CYANOCOBALAMIN 1000 MCG/ML VIAL SC SCH (09:28)
[2017-02-27] MEDS: LORAZEPAM 0.5 MG TABLET PO SCH (09:28)
[2017-02-27] MEDS: FLUOXETINE HCL 20 MG CAPSULE PO SCH (09:28)
[2017-02-27] MEDS: ASPIRIN 81 MG TABEC PO SCH (09:28)
[2017-02-27] MEDS: TRAMADOL HCL 50 MG TABLET PO PRN ×2 (09:32→16:45)
[2017-02-27] MEDS: BREO (FLUTICASONE/VILANTEROL) 100MCG/25MCG INHALER INH SCH (10:08)
[2017-02-27] MEDS: UMECLIDINIUM BROMIDE (INCRUSE) 62.5MCG IH SCH (10:09)
--- NOTE | 2017-02-27 12:05 | Occupational Therapy Tx Note ---
Occupational Therapy Tx Note - Treatment Note Tolerated: Good Total Time Spent With Patient: 40 Occupational Therapy Treatment Note: Detail (Pt. stood for 5 mins. at counter with unilateral support on walker and SBA while simulating reaching for objects in cupboards at head height with no LOB. BUE PRE's: 1.5 wrist weights SL ER & abd/add, & supine ABC's (shd flex w/ endurance). CGA to Min A with sit<>stand transitions x5. Pt. fatigued towards end of session, but kelly. and participated well.) Occupational Therapy Problem List: Detail (1. Decreased ind. with LB drsg 2. Decreased knowledge of ADL equipment for Ind with drsg. 3. Decreased endurance for self care and amb household distances safely.) Occupational Therapy Goals: 1. Pt to be ind. w/ LB drsg using ADL equipment if needed. 2. Pt to be able to verbalize & demonstrate drsg technique using manager global to don underpants/pants ind. 3. Pt will present w/ increased endurance for self care and for ambulating household distances safely. Occupational Therapy Plan: OT to treat 2-4x per week M-F to address decreased ind. w/ self cares, instruction on ADL equipment, and for increased endurance needed for functional mobility.
--- NOTE | 2017-02-27 13:16 | Physical Therapy Tx Note ---
Physical Therapy Tx Note - Treatment Note Physical Therapy Tx Note: Detail (The patient refused PT due to not feeling well.) Physical Therapy Problem List: Detail (1) Decreased standing balance, moderate risk for fall as rated by the Tinetti assessment Tool. 2) Decreased ability to complete sustained physical activity. 3) shortness of breath and R foot drop when fatigued.) Physical Therapy Goals: 1) The patient will ambulate on stairs with supervision for safety only. 2) The patient will tolerate 30 minutes of physical activity with one rest period. 3) The patient's balance will improve 3 to 4 points using Tinetti Assessment Tool. 4) The patient will ambulate 200 feet plus with assistive device with minimal to nor shortness of breat and no R foot drop. 4) Physical Therapy Plan: PT M-F, 1-2 times a day for LE strengthening exercises, gait training and balance training.
[2017-02-27] MEDS ORDERED: ZINC OXIDE 28.35 GM TUBE TOP PRN (20:46)
[2017-02-27] MEDS: DONEPEZIL HCL 5 MG TABLET PO SCH (21:35)
[2017-02-27] MEDS: TEMAZEPAM 15 MG CAPSULE PO PRN (21:35)
[2017-02-28] MEDS: GLIPIZIDE 5 MG TABLET PO SCH ×2 (06:47→17:17)
[2017-02-28] MEDS: PANTOPRAZOLE SODIUM 40 MG TABLET PO SCH ×2 (06:47→17:16)
[2017-02-28] MEDS: UMECLIDINIUM BROMIDE (INCRUSE) 62.5MCG IH SCH (09:37)
[2017-02-28] MEDS: BREO (FLUTICASONE/VILANTEROL) 100MCG/25MCG INHALER INH SCH (09:38)
[2017-02-28] MEDS: LORAZEPAM 0.5 MG TABLET PO SCH (09:41)
[2017-02-28] MEDS: CYANOCOBALAMIN 1000 MCG/ML VIAL SC SCH (09:41)
[2017-02-28] MEDS: FLUOXETINE HCL 20 MG CAPSULE PO SCH (09:41)
[2017-02-28] MEDS: LEVOFLOXACIN 500 MG TABLET PO SCH (09:41)
[2017-02-28] MEDS: ASPIRIN 81 MG TABEC PO SCH (09:41)
[2017-02-28] MEDS: CHOLECALCIFEROL 1,000 UNIT TABLET PO SCH (09:41)
[2017-02-28] MEDS: DOXYCYCLINE HYCLATE 100 MG CAPSULE PO SCH ×2 (09:41→22:13)
--- NOTE | 2017-02-28 10:31 | Physical Therapy Tx Note ---
Physical Therapy Tx Note - Treatment Note Tolerated: Good Total Time Spent With Patient: 25 Physical Therapy Tx Note: Detail (Patient states doing good this morning. Patient transferred sit to and from stand SBA x1. Patient ambulated 280 feet with wheeled walker CGA/SBA x1. Patient performed the following exercises x10- 15 reps each: seated marching, LAQ, hamstring curls with red theraband, seated heel raises, seated toe raises, seated hip abduction with red theraband, isometric hip adduction, and hamstring stretch 2 x20 seconds. Patient tolerated treatment well. Patient required several standing rest breaks with ambulation due to fatigue. Patient reports being tired after treatment. Patient was left seated in chair with call light within reach.) Physical Therapy Problem List: Detail (1) Decreased standing balance, moderate risk for fall as rated by the Tinetti assessment Tool. 2) Decreased ability to complete sustained physical activity. 3) shortness of breath and R foot drop when fatigued.) Physical Therapy Goals: 1) The patient will ambulate on stairs with supervision for safety only. 2) The patient will tolerate 30 minutes of physical activity with one rest period. 3) The patient's balance will improve 3 to 4 points using Tinetti Assessment Tool. 4) The patient will ambulate 200 feet plus with assistive device with minimal to nor shortness of breat and no R foot drop. 4) Prognosis: Good Physical Therapy Plan: PT M-F, 1-2 times a day for LE strengthening exercises, gait training and balance training.
--- NOTE | 2017-02-28 14:27 | Physical Therapy Tx Note ---
Physical Therapy Tx Note - Treatment Note Tolerated: Good Total Time Spent With Patient: 35 Physical Therapy Tx Note: Detail (Patient was reclined in chair when SEALER SANDER arrived. Patient states no new complaints. Patient transferred sit to and from stand SBA x1. Patient ambulated 176 feet x2 with wheeled walker SBA x1. Patient performed the following exercises x12-20 reps each: rowing with red theraband, tricep extension with red theraband, bicep curls with red theraband, shoulder horizontal abduction with red theraband, shoulder external rotation with red theraband, shoulder PNF D1 and D2 extension diagonals, and shoulder PNF D1 flexion diagonals. Patient tolerated treatment well. Patient reports complaints of shoulders "giving out" with ambulation. Patient required verbal cueing to keep walker closer to body with ambulation. Patient displays decreased strength and endurance with exercises. Patient reports fatigued after treatment. Patient was left reclined in chair with call light within reach.) Physical Therapy Problem List: Detail (1) Decreased standing balance, moderate risk for fall as rated by the Tinetti assessment Tool. 2) Decreased ability to complete sustained physical activity. 3) shortness of breath and R foot drop when fatigued.) Physical Therapy Goals: 1) The patient will ambulate on stairs with supervision for safety only. 2) The patient will tolerate 30 minutes of physical activity with one rest period. 3) The patient's balance will improve 3 to 4 points using Tinetti Assessment Tool. 4) The patient will ambulate 200 feet plus with assistive device with minimal to nor shortness of breat and no R foot drop. 4) Prognosis: Good Physical Therapy Plan: PT M-F, 1-2 times a day for LE strengthening exercises, gait training and balance training.
[2017-02-28] MEDS: TRAMADOL HCL 50 MG TABLET PO PRN (17:49)
[2017-02-28] MEDS: TEMAZEPAM 15 MG CAPSULE PO PRN (22:13)
[2017-02-28] MEDS: DONEPEZIL HCL 5 MG TABLET PO SCH (22:13)
[2017-03-01] MEDS: PANTOPRAZOLE SODIUM 40 MG TABLET PO SCH ×2 (06:16→16:20)
[2017-03-01] MEDS: GLIPIZIDE 5 MG TABLET PO SCH ×2 (07:50→16:20)
[2017-03-01] MEDS: ASPIRIN 81 MG TABEC PO SCH (10:04)
[2017-03-01] MEDS: FLUOXETINE HCL 20 MG CAPSULE PO SCH (10:04)
[2017-03-01] MEDS: CHOLECALCIFEROL 1,000 UNIT TABLET PO SCH (10:04)
[2017-03-01] MEDS: CYANOCOBALAMIN 1000 MCG/ML VIAL SC SCH (10:04)
[2017-03-01] MEDS: LORAZEPAM 0.5 MG TABLET PO SCH (10:04)
[2017-03-01] MEDS: TRAMADOL HCL 50 MG TABLET PO PRN (10:11)
[2017-03-01] MEDS: BREO (FLUTICASONE/VILANTEROL) 100MCG/25MCG INHALER INH SCH (10:34)
[2017-03-01] MEDS: UMECLIDINIUM BROMIDE (INCRUSE) 62.5MCG IH SCH (10:34)
--- NOTE | 2017-03-01 13:10 | Occupational Therapy Tx Note ---
Occupational Therapy Tx Note - Treatment Note Tolerated: Good Total Time Spent With Patient: 20 Occupational Therapy Treatment Note: Detail (Pt leaving at 10am today for doctors appointment. Pt dressed and finishing coffee then willing to participate in OT treatment session. Pt amb w/ 2WW SBA from bedroom to surgical waiting room. Pt transported the rest of the way in w/c to rehab gym. Pt completed resistive clothespins louis hands (R hand = yellow, red, black; L hand = yellow, blue). Pt much weaker in L hand vs R hand. 20 reps of hand helper 3 red and 1 green rubber band louis. Increased difficulty when completing hand helper with L hand. Pt would benefit from further UE strengthening. Transported back to pt's room in w/c and left w/ nsg in preperation for dr's appt.) Occupational Therapy Problem List: Detail (1. Decreased ind. with LB drsg 2. Decreased knowledge of ADL equipment for Ind with drsg. 3. Decreased endurance for self care and amb household distances safely.) Occupational Therapy Goals: 1. Pt to be ind. w/ LB drsg using ADL equipment if needed. 2. Pt to be able to verbalize & demonstrate drsg technique using tile sorter to don underpants/pants ind. 3. Pt will present w/ increased endurance for self care and for ambulating household distances safely. Prognosis: Good Occupational Therapy Plan: OT to treat 2-4x per week M- to address decreased ind. w/ self cares, instruction on ADL equipment, and for increased endurance needed for functional mobility.
[2017-03-01] MEDS: DONEPEZIL HCL 5 MG TABLET PO SCH (21:08)
[2017-03-01] MEDS: TEMAZEPAM 15 MG CAPSULE PO PRN (21:11)
[2017-03-02] MEDS: PANTOPRAZOLE SODIUM 40 MG TABLET PO SCH ×2 (06:11→17:21)
[2017-03-02] MEDS: GLIPIZIDE 5 MG TABLET PO SCH ×2 (08:02→17:21)
[2017-03-02] MEDS: CHOLECALCIFEROL 1,000 UNIT TABLET PO SCH (09:31)
[2017-03-02] MEDS: LORAZEPAM 0.5 MG TABLET PO SCH (09:31)
[2017-03-02] MEDS: ASPIRIN 81 MG TABEC PO SCH (09:31)
[2017-03-02] MEDS: FLUOXETINE HCL 20 MG CAPSULE PO SCH (09:31)
[2017-03-02] MEDS: CYANOCOBALAMIN 1000 MCG/ML VIAL SC SCH (09:32)
[2017-03-02] MEDS: UMECLIDINIUM BROMIDE (INCRUSE) 62.5MCG IH SCH (09:57)
[2017-03-02] MEDS: BREO (FLUTICASONE/VILANTEROL) 100MCG/25MCG INHALER INH SCH (09:58)
[2017-03-02] MEDS: TRAMADOL HCL 50 MG TABLET PO PRN ×2 (10:35→21:22)
[2017-03-02] MEDS: DONEPEZIL HCL 5 MG TABLET PO SCH (21:19)
[2017-03-02] MEDS: TEMAZEPAM 15 MG CAPSULE PO PRN (21:22)
[2017-03-03] MEDS: PANTOPRAZOLE SODIUM 40 MG TABLET PO SCH ×2 (06:08→17:29)
[2017-03-03] MEDS: LORAZEPAM 0.5 MG TABLET PO SCH (08:59)
[2017-03-03] MEDS: ASPIRIN 81 MG TABEC PO SCH (09:00)
[2017-03-03] MEDS: CHOLECALCIFEROL 1,000 UNIT TABLET PO SCH (09:00)
[2017-03-03] MEDS: GLIPIZIDE 5 MG TABLET PO SCH ×2 (09:00→17:28)
[2017-03-03] MEDS: FLUOXETINE HCL 20 MG CAPSULE PO SCH (09:00)
[2017-03-03] MEDS: CYANOCOBALAMIN 1000 MCG/ML VIAL SC SCH (09:01)
[2017-03-03] MEDS: TRAMADOL HCL 50 MG TABLET PO PRN ×2 (09:02→17:23)
[2017-03-03] MEDS: BREO (FLUTICASONE/VILANTEROL) 100MCG/25MCG INHALER INH SCH (09:49)
[2017-03-03] MEDS: UMECLIDINIUM BROMIDE (INCRUSE) 62.5MCG IH SCH (09:50)
[2017-03-03] MEDS: DONEPEZIL HCL 5 MG TABLET PO SCH (21:00)
[2017-03-03] MEDS: TEMAZEPAM 15 MG CAPSULE PO PRN (21:00)
[2017-03-04] MEDS: PANTOPRAZOLE SODIUM 40 MG TABLET PO SCH ×2 (06:07→16:39)
[2017-03-04] MEDS: GLIPIZIDE 5 MG TABLET PO SCH ×2 (08:00→16:39)
[2017-03-04] MEDS: ASPIRIN 81 MG TABEC PO SCH (11:09)
[2017-03-04] MEDS: CHOLECALCIFEROL 1,000 UNIT TABLET PO SCH (11:10)
[2017-03-04] MEDS: LORAZEPAM 0.5 MG TABLET PO SCH (11:10)
[2017-03-04] MEDS: FLUOXETINE HCL 20 MG CAPSULE PO SCH (11:10)
[2017-03-04] MEDS: CYANOCOBALAMIN 1000 MCG/ML VIAL SC SCH (11:11)
[2017-03-04] MEDS: BREO (FLUTICASONE/VILANTEROL) 100MCG/25MCG INHALER INH SCH (11:17)
[2017-03-04] MEDS: UMECLIDINIUM BROMIDE (INCRUSE) 62.5MCG IH SCH (11:18)
--- NOTE | 2017-03-04 13:02 | Occupational Therapy Tx Note ---
Occupational Therapy Tx Note - Treatment Note Tolerated: Good Total Time Spent With Patient: 45 Occupational Therapy Treatment Note: Detail (Pt sleeping upon arrival but willing to participate. Independent bed mob side lying > SS EOB. Ind t/f sit<> stand. Amb from room to surgical waiting room w/ 2WW CGA. Transported the rest of the way to rehab gym in w/c. Increased shakiness noticed in RUE today making completion of ex's more difficult. Pt completed resistive clothespins Vidal. ( yellow, green, blue, black) seated at table. Hand helper for gross grasp 35x vidal. 3 red, 1 green. Bicep curls 20x vidal w/ 3# wt then completed 15x vidal w/ 4# wt. Red theraband for elbow ext. 20x vidal. Shld flex 15x vidal 3# wt. Pt amb from surgical waiting room>pt's room w/ 2WW CGA. Pt sitting in bedside chair w/ tray table and call light in reach upon leaving. Pt issued hand helper and HEP for increased grasp strength to be completed in pt's room.) Occupational Therapy Problem List: Detail (1. Decreased ind. with LB drsg 2. Decreased knowledge of ADL equipment for Ind with drsg. 3. Decreased endurance for self care and amb household distances safely.) Occupational Therapy Goals: 1. Pt to be ind. w/ LB drsg using ADL equipment if needed. 2. Pt to be able to verbalize & demonstrate drsg technique using wool carder to don underpants/pants ind. 3. Pt will present w/ increased endurance for self care and for ambulating household distances safely. Prognosis: Good Occupational Therapy Plan: OT to treat 2-4x per week M-F to address decreased ind. w/ self cares, instruction on ADL equipment, and for increased endurance needed for functional mobility.
--- NOTE | 2017-03-04 13:52 | Physical Therapy Tx Note ---
Physical Therapy Tx Note - Treatment Note Physical Therapy Tx Note: Detail (Patient was not seen for treatment due to patient leaving for appointment when EDGE CUTTING MACHINE OPERATOR arrived.) Physical Therapy Problem List: Detail (1) Decreased standing balance, moderate risk for fall as rated by the Tinetti assessment Tool. 2) Decreased ability to complete sustained physical activity. 3) shortness of breath and R foot drop when fatigued.) Physical Therapy Goals: 1) The patient will ambulate on stairs with supervision for safety only. 2) The patient will tolerate 30 minutes of physical activity with one rest period. 3) The patient's balance will improve 3 to 4 points using Tinetti Assessment Tool. 4) The patient will ambulate 200 feet plus with assistive device with minimal to nor shortness of breat and no R foot drop. 4) Physical Therapy Plan: PT M-F, 1-2 times a day for LE strengthening exercises, gait training and balance training.
[2017-03-04] MEDS: TRAMADOL HCL 50 MG TABLET PO PRN (16:42)
[2017-03-04] MEDS: DONEPEZIL HCL 5 MG TABLET PO SCH (21:22)
[2017-03-04] MEDS: TEMAZEPAM 15 MG CAPSULE PO PRN (21:22)
[2017-03-05] MEDS: PANTOPRAZOLE SODIUM 40 MG TABLET PO SCH ×2 (06:51→17:11)
[2017-03-05] MEDS: TRAMADOL HCL 50 MG TABLET PO PRN (09:27)
[2017-03-05] MEDS: CYANOCOBALAMIN 1000 MCG/ML VIAL SC SCH (09:27)
[2017-03-05] MEDS: FLUOXETINE HCL 20 MG CAPSULE PO SCH (09:27)
[2017-03-05] MEDS: CHOLECALCIFEROL 1,000 UNIT TABLET PO SCH (09:28)
[2017-03-05] MEDS: GLIPIZIDE 5 MG TABLET PO SCH ×2 (09:28→17:11)
[2017-03-05] MEDS: ASPIRIN 81 MG TABEC PO SCH (09:28)
[2017-03-05] MEDS: LORAZEPAM 0.5 MG TABLET PO SCH (09:28)
[2017-03-05] MEDS: BREO (FLUTICASONE/VILANTEROL) 100MCG/25MCG INHALER INH SCH (09:42)
[2017-03-05] MEDS: UMECLIDINIUM BROMIDE (INCRUSE) 62.5MCG IH SCH (09:42)
--- NOTE | 2017-03-05 11:53 | Physical Therapy Tx Note ---
Physical Therapy Tx Note - Treatment Note Tolerated: Good Total Time Spent With Patient: 30 Physical Therapy Tx Note: Detail (The patient was up in chair when PT arrived. The patient ambulated with wheeled walker 50 feet x 1. The patient complained of shortness of breath. The patient's balance was retested. The patient remains in the high risk for falling category. The patient loses his balance to the L when sitting on an unsupported surface. The patient completed the following LE strengthening exercises with red T-band: x 20 reps hip abduction, LAQ, hamstring curls and marching, hip adductor squeezes, gluteal and abdominal isometrics x 10 reps. The patient exhibits L LE and L trunk weakness. Will work on the patient's sitting balance as well as standing balance.) Physical Therapy Problem List: Detail (1) Decreased standing balance, moderate risk for fall as rated by the Tinetti assessment Tool. 2) Decreased ability to complete sustained physical activity. 3) shortness of breath and R foot drop when fatigued.) Physical Therapy Goals: 1) The patient will ambulate on stairs with supervision for safety only. 2) The patient will tolerate 30 minutes of physical activity with one rest period. 3) The patient's balance will improve 3 to 4 points using Tinetti Assessment Tool. 4) The patient will ambulate 200 feet plus with assistive device with minimal to nor shortness of breat and no R foot drop. 4) Physical Therapy Plan: PT M-F, 1-2 times a day for LE strengthening exercises, gait training and balance training.
--- NOTE | 2017-03-05 12:21 | Physician Progress Note ---
Subjective - Date Date of Physician Progress Note: 03/05/17 - Subjective Subjective Comment: Patient is awake, alert and oriented on examination this morning. He has no new complaints at this time. Objective - Vital Signs Vital Signs: Vital Signs - Last 24 Hrs Temp Pulse Pulse Resp BP Pulse Ox 03/05/17 09:42 74 16 98 03/05/17 05:40 97.5 F L 82 18 120/66 99 03/04/17 20:00 97.9 F 69 18 109/65 93 L - General General Appearance: Alert, Oriented x3, Cooperative, No acute distress - Head Head exam: Normal inspection - Eye Eye exam: PERRL - Respiratory Respiratory exam: Decreased breath sounds (throughout). negative: Wheezes - Cardiovascular Cardiovascular Exam: Regular rate, Normal rhythm, Normal heart sounds - GI/Abdominal GI/Abdominal exam: Soft, Normal bowel sounds. negative: Tenderness - Extremities Extremities exam: Normal inspection, Full ROM, Normal capillary refill. 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 - pending visit with oncology 03/11 for further planning and completion of workup. Current Visit: Yes Status: Acute Base Code: J98.09 - OTHER DISEASES OF BRONCHUS, NOT ELSEWHERE CLASSIFIED (2) Physical deconditioning Plan: - pt appears cachectic and weak in examination. - still undergoing daily PT/OT for strength and re-conditioning. - fall precautions. Current Visit: No Status: Acute Base Code: R53.81 - OTHER MALAISE Comment : 02/25/17- deconditioned 2/2 prolonged hospitalizations for COPD. - pt/ot M-F to improve strenght and physical functioning (3) COPD exacerbation Plan: - sputum culture + for pseudomonas. Patient completed course of doxycycline and Levaquin. - continue nebs: albuterol Q4H PRN, oxygen per nasal cannula as required. Current Visit: Yes Status: Acute Base Code: J44.1 - CHRONIC OBSTRUCTIVE PULMONARY DISEASE W (ACUTE) EXACERBATION Comment: (4) Diabetes Plan: -cont glycemic control with Glipizide 5mg, and accuchecks Q12H - diabetic diet and nutrition consult. Current Visit: Yes Status: Acute Qualifiers: Diabetes mellitus type: type 2 Diabetes mellitus complication status: with unspecified complications Diabetes mellitus chcf insulin use: without chcf use Qualified Code(s): E11.8 - Type 2 diabetes mellitus with unspecified complications Base Code: E11.9 - TYPE 2 DIABETES MELLITUS WITHOUT COMPLICATIONS (5) Hypertension Plan: - presently normotensive so will continue holding BP meds for now. Patient was on Lisnopril. Current Visit: Yes Status: Acute Qualifiers: Hypertension type: essential hypertension Qualified Code(s): I10 - Essential (primary) hypertension Base Code: I10 - ESSENTIAL (PRIMARY) HYPERTENSION (6) Full code status Plan: FULL CODE Current Visit: No Status: Acute Base Code: Z78.9 - OTHER SPECIFIED HEALTH STATUS Comment: 02/25/17: pt is full code - Disposition Disposition: Patient is improving in terms of his physical conditioning but still requires daily PT/OT. We will also address his DM plan of care over the next few days in anticipation for any potential cancer workup and treatment. Results - Labs Result Diagrams: 02/23/17 06:05 02/23/17 06:05 Labs Last 24 Hours: Laboratory Results - last 24 hr 03/04/17 03/04/17 03/05/17 17:27 21:17 07:34 POC Glucose 165 H 114 H 118 H 03/05/17 12:07 POC Glucose 159 H DVT/PE Assessment - Risk for VTE Risk for VTE: No Risk Level: Very Low Risk Assessment Date: 03/05/17 Risk Assessment Time: 15:48 VTE Orders Placed or Will Be Placed: No VTE Reason for No Prophylaxis: Not Indicated - Active Medicaitons Current Medications: Current Medications Albuterol Sulfate () 2.5 mg INH Q4H PRN PRN Reason: SHORTNESS OF BREATH Aspirin (Ecotrin (Ec)) 81 mg PO DAILY [facility] Last Admin: 03/05/17 09:28 Dose: 81 mg Cyanocobalamin (Vitamin B-12) 1,000 mcg SC DAILY [facility] Stop: 03/06/17 13:01 Last Admin: 03/05/17 09:27 Dose: 1,000 mcg Donepezil HCl (Aricept) 20 mg PO QHS [facility] Last Admin: 03/04/17 21:22 Dose: 20 mg Fluoxetine HCl (Prozac) 20 mg PO DAILY [facility] Last Admin: 03/05/17 09:27 Dose: 20 mg Glipizide (Glucotrol) 5 mg PO 0730,1630 [facility] Last Admin: 03/05/17 09:28 Dose: 5 mg Loperamide HCl (Immodium) 2 mg PO Q4H PRN PRN Reason: Diarrhea Lorazepam (Ativan) 0.5 mg PO DAILY [facility] Last Admin: 03/05/17 09:28 Dose: 0.5 mg Pantoprazole Sodium (Protonix) 40 mg PO BIDAC [facility] Last Admin: 03/05/17 06:51 Dose: 40 mg Temazepam (Restoril) 15 mg PO QHS PRN PRN Reason: INSOMNIA Last Admin: 03/04/17 21:22 Dose: 15 mg Tramadol HCl (Ultram) 50 mg PO Q8H PRN PRN Reason: Pain - Moderate (5-7) Last Admin: 03/05/17 09:27 Dose: 50 mg Vitamin D (Vitamin D3) 3,000 unit PO DAILY [facility] Last Admin: 03/05/17 09:28 Dose: 3,000 unit Zinc Oxide (Desitin) 28.35 gm TOP BID PRN PRN Reason: RASH Last Admin: 02/27/17 20:51 Dose: 28.35 gm AMI Plan - Labs Result Diagrams: 02/23/17 06:05 02/23/17 06:05 Stroke Assessment - Antithrombotic Therapy Reason for Not Ordering Antithrombotic Therapy within 24 Hrs: Not Indicated
--- NOTE | 2017-03-05 12:22 | Physician Progress Note ---
Subjective - Date Date of Physician Progress Note: 03/05/17 Objective - Vital Signs Vital Signs: Vital Signs - Last 24 Hrs Temp Pulse Pulse Resp BP Pulse Ox 03/05/17 09:42 74 16 98 03/05/17 05:40 97.5 F L 82 18 120/66 99 03/04/17 20:00 97.9 F 69 18 109/65 93 L - General General Appearance: Alert, Oriented x3, Cooperative, No acute distress - Head Head exam: Normal inspection - Respiratory Respiratory exam: Decreased breath sounds (throughout). negative: Wheezes - Cardiovascular Cardiovascular Exam: Regular rate, Normal rhythm, Normal heart sounds - GI/Abdominal GI/Abdominal exam: Soft, Normal bowel sounds. negative: Tenderness - Extremities Extremities exam: Normal inspection, Full ROM, Normal capillary refill. negative: Tenderness - Neurological Neurological exam: Alert, Oriented X3, Reflexes normal - Psychiatric Psychiatric exam: Normal affect, Normal mood Results - Labs Result Diagrams: 02/23/17 06:05 02/23/17 06:05 Labs Last 24 Hours: Laboratory Results - last 24 hr 03/04/17 03/04/17 03/05/17 17:27 21:17 07:34 POC Glucose 165 H 114 H 118 H 03/05/17 12:07 POC Glucose 159 H DVT/PE Assessment - Risk for VTE Risk for VTE: No - Active Medicaitons Current Medications: Current Medications Albuterol Sulfate () 2.5 mg INH Q4H PRN PRN Reason: SHORTNESS OF BREATH Aspirin (Ecotrin (Ec)) 81 mg PO DAILY [facility] Last Admin: 03/05/17 09:28 Dose: 81 mg Cyanocobalamin (Vitamin B-12) 1,000 mcg SC DAILY [facility] Stop: 03/06/17 13:01 Last Admin: 03/05/17 09:27 Dose: 1,000 mcg Donepezil HCl (Aricept) 20 mg PO QHS [facility] Last Admin: 03/04/17 21:22 Dose: 20 mg Fluoxetine HCl (Prozac) 20 mg PO DAILY [facility] Last Admin: 03/05/17 09:27 Dose: 20 mg Glipizide (Glucotrol) 5 mg PO 0730,1630 [facility] Last Admin: 03/05/17 09:28 Dose: 5 mg Loperamide HCl (Immodium) 2 mg PO Q4H PRN PRN Reason: Diarrhea Lorazepam (Ativan) 0.5 mg PO DAILY [facility] Last Admin: 03/05/17 09:28 Dose: 0.5 mg Pantoprazole Sodium (Protonix) 40 mg PO BIDAC [facility] Last Admin: 03/05/17 06:51 Dose: 40 mg Temazepam (Restoril) 15 mg PO QHS PRN PRN Reason: INSOMNIA Last Admin: 03/04/17 21:22 Dose: 15 mg Tramadol HCl (Ultram) 50 mg PO Q8H PRN PRN Reason: Pain - Moderate (5-7) Last Admin: 03/05/17 09:27 Dose: 50 mg Vitamin D (Vitamin D3) 3,000 unit PO DAILY [facility] Last Admin: 03/05/17 09:28 Dose: 3,000 unit Zinc Oxide (Desitin) 28.35 gm TOP BID PRN PRN Reason: RASH Last Admin: 02/27/17 20:51 Dose: 28.35 gm AMI Plan - Labs Result Diagrams: 02/23/17 06:05 02/23/17 06:05
--- NOTE | 2017-03-05 15:07 | Physical Therapy Tx Note ---
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 Patient transferred sit to and from stand CGA x1. Patient ambulated 90 feet with wheeled walker SBA x1. Patient transferred sit to and from stand CGA x1. Patient ambulated 10 feet with wheeled walker SBA x1. Patient performed the following exercises seated in chair x10-15 reps each: seated marching, LAQ, hamstring curls with red theraband, seated toe raises, seated heel raises, seated hip abduction with red theraband, isometric hip adduction, abdominal isometrics, and glut squeezes. Patient unable to continue exercises due to patient falling asleep. Patient required standing rest breaks with ambulation due to fatigue and shortness of breath. Patient displays decreased strength and endurance with exercises. Patient was left seated in chair with call light within reach.) Physical Therapy Problem List: Detail (1) Decreased standing balance, moderate risk for fall as rated by the Tinetti assessment Tool. 2) Decreased ability to complete sustained physical activity. 3) shortness of breath and R foot drop when fatigued.) Physical Therapy Goals: 1) The patient will ambulate on stairs with supervision for safety only. 2) The patient will tolerate 30 minutes of physical activity with one rest period. 3) The patient's balance will improve 3 to 4 points using Tinetti Assessment Tool. 4) The patient will ambulate 200 feet plus with assistive device with minimal to nor shortness of breat and no R foot drop. 4) Prognosis: Good Physical Therapy Plan: PT M-F, 1-2 times a day for LE strengthening exercises, gait training and balance training.
[2017-03-05] MEDS: TEMAZEPAM 15 MG CAPSULE PO PRN (21:02)
[2017-03-05] MEDS: DONEPEZIL HCL 5 MG TABLET PO SCH (21:02)
[2017-03-06] MEDS: PANTOPRAZOLE SODIUM 40 MG TABLET PO SCH ×2 (06:54→18:12)
[2017-03-06] MEDS: TRAMADOL HCL 50 MG TABLET PO PRN ×2 (07:58→19:49)
[2017-03-06] MEDS: GLIPIZIDE 5 MG TABLET PO SCH ×2 (07:58→18:12)
[2017-03-06] MEDS: UMECLIDINIUM BROMIDE (INCRUSE) 62.5MCG IH SCH (09:49)
[2017-03-06] MEDS: BREO (FLUTICASONE/VILANTEROL) 100MCG/25MCG INHALER INH SCH (09:49)
[2017-03-06] MEDS: CHOLECALCIFEROL 1,000 UNIT TABLET PO SCH (10:41)
[2017-03-06] MEDS: CYANOCOBALAMIN 1000 MCG/ML VIAL SC SCH (10:42)
[2017-03-06] MEDS: ASPIRIN 81 MG TABEC PO SCH (10:42)
[2017-03-06] MEDS: LORAZEPAM 0.5 MG TABLET PO SCH (10:42)
[2017-03-06] MEDS: FLUOXETINE HCL 20 MG CAPSULE PO SCH (10:42)
--- NOTE | 2017-03-06 11:36 | Occupational Therapy Tx Note ---
Occupational Therapy Tx Note - Treatment Note Tolerated: Good Total Time Spent With Patient: 40 Occupational Therapy Treatment Note: Detail (Pt. expressed concern of "falling over" while dressing while seated EOB, so performed dressing seated EOB to assess. Pt. required min assist to thread feet into pants and mod assist to don socks, exhibiting LOB multiple times when attempting to lift ea. leg. Pt. stated he used to have a treatment specialist tool to assist with dressing but it broke. Pt educ. provided in available AE and options/locations to purchase, and techniques of using treatment specialist were discussed verbally. Pt. verbalized how to use treatment specialist, and stated understanding. Pt. would benefit from a treatment specialist to increase independence with LB dressing. Pt. required intermittent rest breaks with SOB while dressing, demo. decreased endurance and tolerance for ADL activities.) Occupational Therapy Problem List: Detail (1. Decreased ind. with LB drsg 2. Decreased knowledge of ADL equipment for Ind with drsg. 3. Decreased endurance for self care and amb household distances safely.) Occupational Therapy Goals: 1. Pt to be ind. w/ LB drsg using ADL equipment if needed. 2. Pt to be able to verbalize & demonstrate drsg technique using treatment specialist to don underpants/pants ind. 3. Pt will present w/ increased endurance for self care and for ambulating household distances safely. Occupational Therapy Plan: OT to treat 2-4x per week M-F to address decreased ind. w/ self cares, instruction on ADL equipment, and for increased endurance needed for functional mobility.
--- NOTE | 2017-03-06 12:04 | Physical Therapy Tx Note ---
Physical Therapy Tx Note - Treatment Note Tolerated: Good Total Time Spent With Patient: 35 Physical Therapy Tx Note: Detail (The patient was up in chair when PT arrived. The patient ambulated with wheeled walker 282 feet x 1 with CG for safety. The patient ambulated on stairs with 2 railings using a reciprocal gait pattern. The patient completed sitting balance exercises including trunk elongation, trunk leans with blue theraband and throwing and catching ball. The patient did not loose his balance. The patient completed Nu-step x 3 minutes. The patient was returned to room and ambulated to chair. The patient required verbal cues not to sit too soon with stand to sit transfer. The patient was instructed to still call nursing staff when ambulating to bathroom.) Physical Therapy Problem List: Detail (1) Decreased standing balance, moderate risk for fall as rated by the Tinetti assessment Tool. 2) Decreased ability to complete sustained physical activity. 3) shortness of breath and R foot drop when fatigued.) Physical Therapy Goals: 1) The patient will ambulate on stairs with supervision for safety only. 2) The patient will tolerate 30 minutes of physical activity with one rest period. 3) The patient's balance will improve 3 to 4 points using Tinetti Assessment Tool. 4) The patient will ambulate 200 feet plus with assistive device with minimal to nor shortness of breat and no R foot drop. 4) Physical Therapy Plan: PT M-F, 1-2 times a day for LE strengthening exercises, gait training and balance training.
[2017-03-06] MEDS: TEMAZEPAM 15 MG CAPSULE PO PRN (21:34)
[2017-03-06] MEDS: DONEPEZIL HCL 5 MG TABLET PO SCH (21:35)
[2017-03-06] MEDS: LOPERAMIDE 2 MG CAPSULE PO PRN (21:36)
[2017-03-07] MEDS: PANTOPRAZOLE SODIUM 40 MG TABLET PO SCH ×2 (06:34→17:51)
[2017-03-07] MEDS: GLIPIZIDE 5 MG TABLET PO SCH ×2 (08:47→17:51)
[2017-03-07] MEDS: BREO (FLUTICASONE/VILANTEROL) 100MCG/25MCG INHALER INH SCH (09:35)
[2017-03-07] MEDS: UMECLIDINIUM BROMIDE (INCRUSE) 62.5MCG IH SCH (09:38)
[2017-03-07] MEDS: ASPIRIN 81 MG TABEC PO SCH (09:52)
[2017-03-07] MEDS: LORAZEPAM 0.5 MG TABLET PO SCH (09:52)
[2017-03-07] MEDS: FLUOXETINE HCL 20 MG CAPSULE PO SCH (09:52)
[2017-03-07] MEDS: CHOLECALCIFEROL 1,000 UNIT TABLET PO SCH (09:52)
[2017-03-07] MEDS: TRAMADOL HCL 50 MG TABLET PO PRN (11:12)
--- NOTE | 2017-03-07 11:12 | Physical Therapy Tx Note ---
Physical Therapy Tx Note - Treatment Note Tolerated: Fair Total Time Spent With Patient: 20 Physical Therapy Tx Note: Detail (Patient states doesn't feel well today, dizzy with complaints of pain in the bottom of feet. Patient declined ambulation or standing due to dizziness. Patient performed the following exercises x10-15 reps each: seated marching, LAQ, seated hamstring curls with red theraband, seated hip abduction with red theraband, seated isometric hip adduction, seated heel raises, seated toe raises, abdominal isometrics, and glut squeezes. Patient tolerated treatment well. Patient declined further exercises due to not feeling well. Patient was left seated in chair with call light within reach.) Physical Therapy Problem List: Detail (1) Decreased standing balance, moderate risk for fall as rated by the Tinetti assessment Tool. 2) Decreased ability to complete sustained physical activity. 3) shortness of breath and R foot drop when fatigued.) Physical Therapy Goals: 1) The patient will ambulate on stairs with supervision for safety only. 2) The patient will tolerate 30 minutes of physical activity with one rest period. 3) The patient's balance will improve 3 to 4 points using Tinetti Assessment Tool. 4) The patient will ambulate 200 feet plus with assistive device with minimal to nor shortness of breat and no R foot drop. 4) Prognosis: Good Physical Therapy Plan: PT M-F, 1-2 times a day for LE strengthening exercises, gait training and balance training.
--- NOTE | 2017-03-07 14:59 | Physical Therapy Tx Note ---
Physical Therapy Tx Note - Treatment Note Tolerated: Good Total Time Spent With Patient: 30 Physical Therapy Tx Note: Detail (Patient states doing better this afternoon, with no complaints of dizziness. Patient transferred sit to and from stand CGA x1. Patient ambulated 15 feet with wheeled walker CGA x1. Patient transferred sit to and from stand CGA x1. Patient ambulated 74 feet with wheeled walker CGA x1. Patient performed the following exercises x10 reps each: seated marching, LAQ, hamstring curls with red theraband, seated hip abduction with red theraband, seated heel raises, and seated toe raises. Patient tolerated treatment well. Patient displays decreased strength and endurance with exercises, ambulation, and transfers. Patient required verbal cues with ambulation to keep walker close to body, and to stand up straight. Patient reports tired after treatment. Patient was left seated in chair with call light within reach.) Physical Therapy Problem List: Detail (1) Decreased standing balance, moderate risk for fall as rated by the Tinetti assessment Tool. 2) Decreased ability to complete sustained physical activity. 3) shortness of breath and R foot drop when fatigued.) Physical Therapy Goals: 1) The patient will ambulate on stairs with supervision for safety only. 2) The patient will tolerate 30 minutes of physical activity with one rest period. 3) The patient's balance will improve 3 to 4 points using Tinetti Assessment Tool. 4) The patient will ambulate 200 feet plus with assistive device with minimal to nor shortness of breat and no R foot drop. 4) Prognosis: Good Physical Therapy Plan: PT M-F, 1-2 times a day for LE strengthening exercises, gait training and balance training.
[2017-03-07] MEDS: TEMAZEPAM 15 MG CAPSULE PO PRN (22:32)
[2017-03-07] MEDS: DONEPEZIL HCL 5 MG TABLET PO SCH (22:32)
[2017-03-08] MEDS: PANTOPRAZOLE SODIUM 40 MG TABLET PO SCH ×2 (06:32→17:15)
[2017-03-08] MEDS: TRAMADOL HCL 50 MG TABLET PO PRN (08:15)
[2017-03-08] MEDS: GLIPIZIDE 5 MG TABLET PO SCH ×2 (08:15→17:14)
[2017-03-08] MEDS: UMECLIDINIUM BROMIDE (INCRUSE) 62.5MCG IH SCH (10:04)
[2017-03-08] MEDS: BREO (FLUTICASONE/VILANTEROL) 100MCG/25MCG INHALER INH SCH (10:04)
--- NOTE | 2017-03-08 10:26 | Occupational Therapy Tx Note ---
Occupational Therapy Tx Note - Treatment Note Tolerated: Good Total Time Spent With Patient: 50 Occupational Therapy Treatment Note: Detail (Pt up in bedside chair upon arrival. His significant other purchased second facing baster for LB drsg & wanting to trial this. Amb w/ 2WW bedside chair> shower chair SBA. Ind doff of shirt, underwear, pants and socks. Completed showering in sitting. Ind for BUE's, face, & BLE's. Dep for back washing and buttocks. Ind w/ towel off except for back. Completed drsg EOB. Instructed on second facing baster use and LB drsg technique w/ second facing baster. Pt attempted but became quickly frustrated w/ second facing baster and chose to complete drsg w/ o it. Donned pants Ind w/ SBA sit<>stand t/f to pull pants over hips. Ind w/ sock don. Pt at prior functional level w/ drsg and showering. Will focus on UE strengthening and revisit second facing baster use should he struggle w/ LB drsg again.) Occupational Therapy Problem List: Detail (1. Decreased ind. with LB drsg 2. Decreased knowledge of ADL equipment for Ind with drsg. 3. Decreased endurance for self care and amb household distances safely.) Occupational Therapy Goals: 1. Pt to be ind. w/ LB drsg using ADL equipment if needed. 2. Pt to be able to verbalize & demonstrate drsg technique using second facing baster to don underpants/pants ind. 3. Pt will present w/ increased endurance for self care and for ambulating household distances safely. Prognosis: Good Occupational Therapy Plan: OT to treat 2-4x per week M-F to address decreased ind. w/ self cares, instruction on ADL equipment, and for increased endurance needed for functional mobility.
[2017-03-08] MEDS: CHOLECALCIFEROL 1,000 UNIT TABLET PO SCH (10:48)
[2017-03-08] MEDS: FLUOXETINE HCL 20 MG CAPSULE PO SCH (10:49)
[2017-03-08] MEDS: ASPIRIN 81 MG TABEC PO SCH (10:49)
[2017-03-08] MEDS: LORAZEPAM 0.5 MG TABLET PO SCH (10:49)
--- NOTE | 2017-03-08 15:04 | Physical Therapy Tx Note ---
Physical Therapy Tx Note - Treatment Note Tolerated: Good Total Time Spent With Patient: 30 Physical Therapy Tx Note: Detail (The patient was sleeping when PT arrived. The patient reports he is not feeling well today. The patient ambulated with wheeled walker a distance of 100 feet x 1, 60 feet x1 . The patient was independent with sit to stand from high surfce, moderate Pa from lower surface. LE strengthening exercises: seated marching, LAQ, hip adductor squeezes all x 20 reps, Red T band hip abduction and hamstring curls x 20 reps.) Physical Therapy Problem List: Detail (1) Decreased standing balance, moderate risk for fall as rated by the Tinetti assessment Tool. 2) Decreased ability to complete sustained physical activity. 3) shortness of breath and R foot drop when fatigued.) Physical Therapy Goals: 1) The patient will ambulate on stairs with supervision for safety only. 2) The patient will tolerate 30 minutes of physical activity with one rest period. 3) The patient's balance will improve 3 to 4 points using Tinetti Assessment Tool. 4) The patient will ambulate 200 feet plus with assistive device with minimal to nor shortness of breat and no R foot drop. 4) Physical Therapy Plan: PT M-F, 1-2 times a day for LE strengthening exercises, gait training and balance training.
[2017-03-08] MEDS: DONEPEZIL HCL 5 MG TABLET PO SCH (22:05)
[2017-03-08] MEDS: TEMAZEPAM 15 MG CAPSULE PO PRN (22:05)
[2017-03-09] MEDS: PANTOPRAZOLE SODIUM 40 MG TABLET PO SCH ×2 (08:13→17:06)
[2017-03-09] MEDS: GLIPIZIDE 5 MG TABLET PO SCH ×2 (08:13→17:06)
[2017-03-09] MEDS: LORAZEPAM 0.5 MG TABLET PO SCH (09:40)
[2017-03-09] MEDS: ASPIRIN 81 MG TABEC PO SCH (09:40)
[2017-03-09] MEDS: CHOLECALCIFEROL 1,000 UNIT TABLET PO SCH (09:40)
[2017-03-09] MEDS: FLUOXETINE HCL 20 MG CAPSULE PO SCH (09:40)
[2017-03-09] MEDS: BREO (FLUTICASONE/VILANTEROL) 100MCG/25MCG INHALER INH SCH (09:52)
[2017-03-09] MEDS: UMECLIDINIUM BROMIDE (INCRUSE) 62.5MCG IH SCH (09:52)
[2017-03-09] MEDS: TEMAZEPAM 15 MG CAPSULE PO PRN (22:04)
[2017-03-09] MEDS: DONEPEZIL HCL 5 MG TABLET PO SCH (22:04)
[2017-03-10] MEDS: GLIPIZIDE 5 MG TABLET PO SCH ×2 (07:03→17:05)
[2017-03-10] MEDS: PANTOPRAZOLE SODIUM 40 MG TABLET PO SCH ×2 (07:03→17:05)
[2017-03-10] MEDS: ASPIRIN 81 MG TABEC PO SCH (09:32)
[2017-03-10] MEDS: LORAZEPAM 0.5 MG TABLET PO SCH (09:32)
[2017-03-10] MEDS: FLUOXETINE HCL 20 MG CAPSULE PO SCH (09:32)
[2017-03-10] MEDS: CHOLECALCIFEROL 1,000 UNIT TABLET PO SCH (09:32)
[2017-03-10] MEDS: UMECLIDINIUM BROMIDE (INCRUSE) 62.5MCG IH SCH (10:21)
[2017-03-10] MEDS: BREO (FLUTICASONE/VILANTEROL) 100MCG/25MCG INHALER INH SCH (10:21)
[2017-03-10] MEDS: TRAMADOL HCL 50 MG TABLET PO PRN (21:39)
[2017-03-10] MEDS: DONEPEZIL HCL 5 MG TABLET PO SCH (21:44)
[2017-03-10] MEDS: TEMAZEPAM 15 MG CAPSULE PO PRN (21:45)
[2017-03-11] MEDS: PANTOPRAZOLE SODIUM 40 MG TABLET PO SCH ×2 (06:46→17:54)
[2017-03-11] MEDS: LOPERAMIDE 2 MG CAPSULE PO PRN (06:47)
[2017-03-11] MEDS: GLIPIZIDE 5 MG TABLET PO SCH ×2 (06:47→17:54)
[2017-03-11] MEDS: CHOLECALCIFEROL 1,000 UNIT TABLET PO SCH (09:21)
[2017-03-11] MEDS: LORAZEPAM 0.5 MG TABLET PO SCH (09:21)
[2017-03-11] MEDS: ASPIRIN 81 MG TABEC PO SCH (09:22)
[2017-03-11] MEDS: FLUOXETINE HCL 20 MG CAPSULE PO SCH (09:22)
--- NOTE | 2017-03-11 10:24 | Physical Therapy Tx Note ---
Physical Therapy Tx Note - Treatment Note Tolerated: Good Total Time Spent With Patient: 25 Physical Therapy Tx Note: Detail (The patient was in chair when PT arrived. The patient ambulated with wheeled walker a distance of 134 feet x 1 independently with no shortness of breath. The patient completed balance exercises in standing including standing with a wide base of support with perturbations, narrow base of support and stride stance. The patient completed LE strengthening exercises in sitting including with red T- band : hip marching , LAQ, hamstring curls, hip adbduction and hip adductor squeezes all x 20 reps. The patient also completed gluteal sets, abdominal isometrics and anterior/ posterior tilts and lateral tilts for lower back mobility x 10 reps. The patient was left sitting up in chair with call light within reach.) Physical Therapy Problem List: Detail (1) Decreased standing balance, moderate risk for fall as rated by the Tinetti assessment Tool. 2) Decreased ability to complete sustained physical activity. 3) shortness of breath and R foot drop when fatigued.) Physical Therapy Goals: 1) The patient will ambulate on stairs with supervision for safety only. 2) The patient will tolerate 30 minutes of physical activity with one rest period. 3) The patient's balance will improve 3 to 4 points using Tinetti Assessment Tool. 4) The patient will ambulate 200 feet plus with assistive device with minimal to nor shortness of breat and no R foot drop. 4) Physical Therapy Plan: PT M-F, 1-2 times a day for LE strengthening exercises, gait training and balance training.
[2017-03-11] MEDS: BREO (FLUTICASONE/VILANTEROL) 100MCG/25MCG INHALER INH SCH (10:28)
[2017-03-11] MEDS: UMECLIDINIUM BROMIDE (INCRUSE) 62.5MCG IH SCH (10:28)
[2017-03-11] MEDS: TRAMADOL HCL 50 MG TABLET PO PRN (19:33)
[2017-03-11] MEDS: TEMAZEPAM 15 MG CAPSULE PO PRN (22:07)
[2017-03-11] MEDS: DONEPEZIL HCL 5 MG TABLET PO SCH (22:18)
[2017-03-12] MEDS: PANTOPRAZOLE SODIUM 40 MG TABLET PO SCH ×2 (06:21→18:15)
[2017-03-12 07:18] LABS: ALB/GLOB RATIO 1.5 (1.1-1.8); ALBUMIN 3.5 g/dL (4.0-5.0); ALKALINE PHOSPHATASE 62 U/L (40-129); ALT/SGPT 16 U/L (<41); AST/SGOT 11 U/L (10.0-50.0); BLOOD UREA NITROGEN 20 mg/dL (8-23); CREATININE 1.2 mg/dL (0.7-1.2); EST GLOMERULAR FILTRATION RATE > 60 mL/min; GLUCOSE,RANDOM 107 mg/dL (74-109); TOTAL PROTEIN 5.9 g/dL (6.6-8.7)
[2017-03-12] MEDS: UMECLIDINIUM BROMIDE (INCRUSE) 62.5MCG IH SCH (09:48)
[2017-03-12] MEDS: BREO (FLUTICASONE/VILANTEROL) 100MCG/25MCG INHALER INH SCH (09:49)
--- NOTE | 2017-03-12 10:00 | Physical Therapy Tx Note ---
Physical Therapy Tx Note - Treatment Note Tolerated: Good Total Time Spent With Patient: 30 Physical Therapy Tx Note: Detail (The patient was in a chair when PT arrived. The patient ambulated 170 feet x1 with wheeled walker with supervision for safety only. The patient rode the Nu step x 4 minutes. The patient completed sitting balance exercises including anterior/ posterior tilt, lateral weight shift. throwing/catching ball, reaching for cones. The patient was taken back to room with call light in reach. The patient's sitting balance was good today. ) Physical Therapy Problem List: Detail (1) Decreased standing balance, moderate risk for fall as rated by the Tinetti assessment Tool. 2) Decreased ability to complete sustained physical activity. 3) shortness of breath and R foot drop when fatigued.) Physical Therapy Goals: 1) The patient will ambulate on stairs with supervision for safety only. 2) The patient will tolerate 30 minutes of physical activity with one rest period. 3) The patient's balance will improve 3 to 4 points using Tinetti Assessment Tool. 4) The patient will ambulate 200 feet plus with assistive device with minimal to nor shortness of breat and no R foot drop. 4) Physical Therapy Plan: PT M-F, 1-2 times a day for LE strengthening exercises, gait training and balance training.
[2017-03-12] MEDS: GLIPIZIDE 5 MG TABLET PO SCH ×2 (10:18→18:15)
[2017-03-12] MEDS: CHOLECALCIFEROL 1,000 UNIT TABLET PO SCH (10:18)
[2017-03-12] MEDS: ASPIRIN 81 MG TABEC PO SCH (10:18)
[2017-03-12] MEDS: LORAZEPAM 0.5 MG TABLET PO SCH (10:18)
[2017-03-12] MEDS: FLUOXETINE HCL 20 MG CAPSULE PO SCH (10:19)
--- NOTE | 2017-03-12 14:45 | Physical Therapy Tx Note ---
Physical Therapy Tx Note - Treatment Note Tolerated: Good Total Time Spent With Patient: 30 Physical Therapy Tx Note: Detail (Pt was resting upon arrival but was easily aroused and willing to do ex's. Pt states low back is sore and "so are the bottoms of my feet." Pt. completed ex's of LAQ, seated marches, hip abduction with red theraband, HS curls with red theraband, hip adduction with pillow all x 10-15 each. Pt ambulated with front wheeled walker with contact guard assist x 250 ft. with one rest period of about 5 min. Pt stated feeling "winded". Pt returned to room and to recliner. Pt then stated that he had to use the bathroom and was walked into the restroom, used the facilities and then returned to recliner. Pt was given bedside table, and nursing call light. Pt states fatigued after treatment.) Physical Therapy Problem List: Detail (1) Decreased standing balance, moderate risk for fall as rated by the Tinetti assessment Tool. 2) Decreased ability to complete sustained physical activity. 3) shortness of breath and R foot drop when fatigued.) Physical Therapy Goals: 1) The patient will ambulate on stairs with supervision for safety only. 2) The patient will tolerate 30 minutes of physical activity with one rest period. 3) The patient's balance will improve 3 to 4 points using Tinetti Assessment Tool. 4) The patient will ambulate 200 feet plus with assistive device with minimal to nor shortness of breat and no R foot drop. 4) Prognosis: Good Physical Therapy Plan: PT M-F, 1-2 times a day for LE strengthening exercises, gait training and balance training.
[2017-03-12] MEDS: TRAMADOL HCL 50 MG TABLET PO PRN (21:17)
[2017-03-12] MEDS: TEMAZEPAM 15 MG CAPSULE PO PRN (21:17)
[2017-03-12] MEDS: DONEPEZIL HCL 5 MG TABLET PO SCH (21:17)
[2017-03-13] MEDS: PANTOPRAZOLE SODIUM 40 MG TABLET PO SCH ×2 (06:27→17:30)
[2017-03-13] MEDS: GLIPIZIDE 5 MG TABLET PO SCH ×2 (08:21→17:30)
[2017-03-13] MEDS: ASPIRIN 81 MG TABEC PO SCH (09:42)
[2017-03-13] MEDS: CHOLECALCIFEROL 1,000 UNIT TABLET PO SCH (09:42)
[2017-03-13] MEDS: FLUOXETINE HCL 20 MG CAPSULE PO SCH (09:42)
[2017-03-13] MEDS: LORAZEPAM 0.5 MG TABLET PO SCH (09:42)
[2017-03-13] MEDS: BREO (FLUTICASONE/VILANTEROL) 100MCG/25MCG INHALER INH SCH (10:11)
[2017-03-13] MEDS: UMECLIDINIUM BROMIDE (INCRUSE) 62.5MCG IH SCH (10:11)
--- NOTE | 2017-03-13 11:26 | Physical Therapy Tx Note ---
Physical Therapy Tx Note - Treatment Note Tolerated: Good Total Time Spent With Patient: 45 Physical Therapy Tx Note: Detail (Patient states doing good today. Patient transferred sit to and from stand SBA x1. Patient ambulated 300 feet with wheeled walker SBA x1. Patient ascended and descended ramp x10 feet with wheeled walker CGA x1. Patient ambulated 20 feet with wheeled walker SBA x1. Patient propelled self in wheelchair x 60 feet. Patient transferred sit to and from stand SBA x1. Patient performed the following exercises: standing marching x10 reps, standing hip abduction x10 reps, standing hip extension x10 reps, feet together balance x15 seconds, DLS with eyes closed x15 seconds, stride stance balance x15 seconds, and DLS with pertubations x15 seconds. Patient tolerated treatment well. Patient displays decreased balance with feet together balance, stride stance balance, and DLS with pertubations. Patient displays decreased strength and endurance with standing marching, standing hip abduction, and standing hip extension. Patient required seated rest breaks with standing exercises and balance. Patient reports fatigued after treatment. Patient was left seated in chair with call light within reach.) Physical Therapy Problem List: Detail (1) Decreased standing balance, moderate risk for fall as rated by the Tinetti assessment Tool. 2) Decreased ability to complete sustained physical activity. 3) shortness of breath and R foot drop when fatigued.) Physical Therapy Goals: 1) The patient will ambulate on stairs with supervision for safety only. 2) The patient will tolerate 30 minutes of physical activity with one rest period. 3) The patient's balance will improve 3 to 4 points using Tinetti Assessment Tool. 4) The patient will ambulate 200 feet plus with assistive device with minimal to nor shortness of breat and no R foot drop. 4) Prognosis: Good Physical Therapy Plan: PT M-F, 1-2 times a day for LE strengthening exercises, gait training and balance training.
--- NOTE | 2017-03-13 11:28 | Physician Progress Note ---
Subjective - Date Date of Progress Note: 03/13/17 - Admitting Diagnosis Diagnosis: Deconditioning d/t COPD Exac - Subjective Nursing Care Plan Problem List Activity Intolerance (Swing Bed) Start: 02/21/17 16: 13 Freq: Status: Active Created 02/21/17 16:14 KM (Rec: 02/21/17 16:14 [facility] [id number]) Anxiety Start: 02/21/17 16: 58 Freq: Status: Active Created 02/21/17 16:58 [id number] Ineffective Breathing Pattern Start: 02/21/17 16: 58 Freq: Status: Active Created 02/21/17 16:58 [facility] (Rec: [facility]21[facility]17 [id number] Knowledge Deficit (Swing Bed) Start: 02/21/17 16: 14 Freq: Status: Active Created 02/21/17 16:14 KM (Rec: 02/21/17 16:14 [facility] [id number]) Pain (Swing Bed) Start: 02/21/17 16: 14 Freq: Status: Active Created 02/21/17 16:14 [facility] (Rec: 02/21/17 16:14 [facility] [id number]) Subjective: sitting up in chair comfortably. states he's feeling well. normal appetite. tolerating therapy twice daily. no concerns. General - Cognitive Patterns Speech: Normal Thought Process: Intact Thought Content: Normal - Communication Select best description of speech pattern: Clear Speech Ability to express ideas and wants: Understood Understanding verbal content: Understands - Mood and Behavior Patterns Appearance: Disheveled Mood: Normal Attitude: Cooperative Motor Activity: Calm Affect: Appropriate Hallucinations: Denies - Physical Functioning Activity Level: Up with assist x1 Turning: Self ad lenard ROM Ability: Moves all extremities Assistive Devices: 2 Wheel Walker Ambulation Ability: Independent Bed Mobility: Independent Transfer Ability: Needs Assist Bathing Ability: Needs Assist Personal Hygiene: Needs Assist Dressing Ability: Needs Assist Eating (Feeding) Ability: Independent Toileting Ability: Needs Assist Administer Own Medication: Independent Care Ability Comment: Pt much weaker this am-unable to hold himself in the upright position while sitting on the side of the bed. Very shakey when attempting to stand. Needed lifting help. - Continence Bowel Pattern: Normal for Patient Bladder Pattern: Normal Urinary Incontinence: Urge Meds/Allergies - Allergies Allergies Allergy/AdvReac Type Severity Reaction Status Date / Time No Known Drug Allergies Allergy Verified 12/11/16 12:52 - Active Medications Current Medications Albuterol Sulfate () 2.5 mg INH Q4H PRN PRN Reason: SHORTNESS OF BREATH Aspirin (Ecotrin (Ec)) 81 mg PO DAILY [facility] Last Admin: 03/13/17 09:42 Dose: 81 mg Donepezil HCl (Aricept) 20 mg PO QHS [facility] Last Admin: 03/12/17 21:17 Dose: 20 mg Fluoxetine HCl (Prozac) 20 mg PO DAILY [facility] Last Admin: 03/13/17 09:42 Dose: 20 mg Glipizide (Glucotrol) 5 mg PO 0730,1630 [facility] Last Admin: 03/13/17 08:21 Dose: 5 mg Loperamide HCl (Immodium) 2 mg PO Q4H PRN PRN Reason: Diarrhea Last Admin: 03/11/17 06:47 Dose: 2 mg Lorazepam (Ativan) 0.5 mg PO DAILY [facility] Last Admin: 03/13/17 09:42 Dose: 0.5 mg Pantoprazole Sodium (Protonix) 40 mg PO BIDAC [facility] Last Admin: 03/13/17 06:27 Dose: 40 mg Temazepam (Restoril) 15 mg PO QHS PRN PRN Reason: INSOMNIA Last Admin: 03/12/17 21:17 Dose: 15 mg Tramadol HCl (Ultram) 50 mg PO Q8H PRN PRN Reason: Pain - Moderate (5-7) Last Admin: 03/12/17 21:17 Dose: 50 mg Vitamin D (Vitamin D3) 3,000 unit PO DAILY [facility] Last Admin: 03/13/17 09:42 Dose: 3,000 unit Zinc Oxide (Desitin) 28.35 gm TOP BID PRN PRN Reason: RASH Last Admin: 02/27/17 20:51 Dose: 28.35 gm Objective - Vital Signs Vital Signs: Vital Signs - Last 24 Hrs Temp Pulse Pulse Resp BP BP Pulse Ox 03/13/17 10:10 75 16 03/13/17 08:00 97.6 F 68 18 109/43 95 03/12/17 20:00 97.8 F 57 L 18 108/48 95 - General General Appearance: Alert, Oriented x3, Cooperative, No acute distress - Head Head exam: Normal inspection - Eye Eye exam: PERRL - Respiratory Respiratory exam: Decreased breath sounds (throughout). negative: Wheezes - Cardiovascular Cardiovascular Exam: Regular rate, Normal rhythm, Normal heart sounds - GI/Abdominal GI/Abdominal exam: Soft, Normal bowel sounds. negative: Tenderness - Extremities Extremities exam: Normal inspection, Full ROM, Normal capillary refill. negative: Tenderness - Neurological Neurological exam: Alert, Oriented X3, Reflexes normal - Psychiatric Psychiatric exam: Normal affect, Normal mood H&P Results - Labs Result Diagrams: 02/23/17 06:05 03/12/17 06:38 Labs Last 24 Hours: Laboratory Results - last 24 hr 03/12/17 03/12/17 03/12/17 11:30 16:45 22:00 POC Glucose 227 H 148 H 158 H 03/13/17 07:01 POC Glucose 96 Discharge Potential - Discharge Needs Community Services Used Prior to Admission: None Patient Discharge Plan Description: Return Home Community Services Needed at Discharge: Occupational Therapy, Physical Therapy Discharge Needs Comment: Current with [facility], will need order to continue services. Plan - Swing Bed Certification Initial Certification Due: 02/21/17 14 Day Re-Cert Due: 03/07/17 44 Day Re-Cert Due: 04/06/17 74 Day Re-Cert Due: 05/06/17 - Detailed Diagnosis and Plan (1) COPD exacerbation Current Visit: Yes Status: Acute Base Code: J44.1 - CHRONIC OBSTRUCTIVE PULMONARY DISEASE W (ACUTE) EXACERBATION Comment: 03/13- - sputum culture + for pseudomonas. Patient completed course of doxycycline and Levaquin. - continue nebs: albuterol Q4H PRN, oxygen per nasal cannula as required. (2) Diabetes Current Visit: Yes Status: Acute Qualifiers: Diabetes mellitus type: type 2 Diabetes mellitus complication status: with unspecified complications Diabetes mellitus traveling secretary insulin use: without traveling secretary use Qualified Code(s): E11.8 - Type 2 diabetes mellitus with unspecified complications Base Code: E11.9 - TYPE 2 DIABETES MELLITUS WITHOUT COMPLICATIONS Comment: - cont glycemic control with Glipizide 5mg, and accuchecks Q12H - diabetic diet - patient was seen by dietitian during stay. (3) Hypertension Current Visit: Yes Status: Acute Qualifiers: Hypertension type: essential hypertension Qualified Code(s): I10 - Essential (primary) hypertension Base Code: I10 - ESSENTIAL (PRIMARY) HYPERTENSION Comment: 03/13- pt remains hypotensive. will continue to hold lisinopril. (4) Lesion of bronchus Current Visit: Yes Status: Acute Base Code: J98.09 - OTHER DISEASES OF BRONCHUS, NOT ELSEWHERE CLASSIFIED Comment: 03/13- patient will continue to follow oncology's recommendations (5) Full code status Current Visit: No Status: Acute Base Code: Z78.9 - OTHER SPECIFIED HEALTH STATUS Comment: 03/13- pt is full code (6) Physical deconditioning Current Visit: No Status: Acute Base Code: R53.81 - OTHER MALAISE Comment : 03/13- PT/OT to continue to help build patient's physical strength and conditioning. Fall precautions.
--- NOTE | 2017-03-13 15:07 | Physical Therapy Tx Note ---
Physical Therapy Tx Note - Treatment Note Tolerated: Good Total Time Spent With Patient: 30 Physical Therapy Tx Note: Detail (Patient was seated in chair upon LINUX SERVER ENGINEER arrival. Patient states no complaints this afternoon. Patient transferred sit to and from stand SBA x1. Patient ambulated 170 feet with wheeled walker SBA x1. Patient doffed and donned pants, shirt, and socks. Patient transferred sit to and from stand x2 SBA x1. Patient ambulated 20 feet with wheeled walker SBA x1. Patient performed the following exercises x10-15 reps each: seated marching , LAQ, hamstring curls with red theraband, seated hip abduction with red theraband, isometric hip adduction, and ankle pumps. Patient tolerated treatment well. Patient reports fatigued after treatment. Patient reports bilateral feet hurt after treatment. Patient was left seated in chair with call light within reach.) Physical Therapy Problem List: Detail (1) Decreased standing balance, moderate risk for fall as rated by the Tinetti assessment Tool. 2) Decreased ability to complete sustained physical activity. 3) shortness of breath and R foot drop when fatigued.) Physical Therapy Goals: 1) The patient will ambulate on stairs with supervision for safety only. 2) The patient will tolerate 30 minutes of physical activity with one rest period. 3) The patient's balance will improve 3 to 4 points using Tinetti Assessment Tool. 4) The patient will ambulate 200 feet plus with assistive device with minimal to nor shortness of breat and no R foot drop. 4) Prognosis: Good Physical Therapy Plan: PT M-F, 1-2 times a day for LE strengthening exercises, gait training and balance training.
[2017-03-13] MEDS: TRAMADOL HCL 50 MG TABLET PO PRN (21:53)
[2017-03-13] MEDS: DONEPEZIL HCL 5 MG TABLET PO SCH (21:53)
[2017-03-13] MEDS: TEMAZEPAM 15 MG CAPSULE PO PRN (21:54)
[2017-03-14] MEDS: PANTOPRAZOLE SODIUM 40 MG TABLET PO SCH ×3 (05:23→17:38)
[2017-03-14] MEDS: GLIPIZIDE 5 MG TABLET PO SCH ×2 (07:47→17:38)
--- NOTE | 2017-03-14 09:42 | Physical Therapy Tx Note ---
Physical Therapy Tx Note - Treatment Note Tolerated: Good Total Time Spent With Patient: 30 Physical Therapy Tx Note: Detail (Patient states doing well today with no complaints. 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 Patient transferred sit to and from stand SBA x1. Patient ambulated 120 feet x2 with wheeled walker SBA x1. Patient performed the following exercises x15 reps each: seated marching, LAQ, hamstring curls with red theraband, seated hip abduction with red theraband, isometric hip adduction , seated heel raises, and seated toe raises. Patient tolerated treatment well. Patient required cueing during ambulation to stand up straight. Patient reports fatigued after treatment. Patient was left seated in chair with call light within reach.) Physical Therapy Problem List: Detail (1) Decreased standing balance, moderate risk for fall as rated by the Tinetti assessment Tool. 2) Decreased ability to complete sustained physical activity. 3) shortness of breath and R foot drop when fatigued.) Physical Therapy Goals: 1) The patient will ambulate on stairs with supervision for safety only. 2) The patient will tolerate 30 minutes of physical activity with one rest period. 3) The patient's balance will improve 3 to 4 points using Tinetti Assessment Tool. 4) The patient will ambulate 200 feet plus with assistive device with minimal to nor shortness of breat and no R foot drop. 4) Prognosis: Good Physical Therapy Plan: PT M-F, 1-2 times a day for LE strengthening exercises, gait training and balance training.
[2017-03-14] MEDS: BREO (FLUTICASONE/VILANTEROL) 100MCG/25MCG INHALER INH SCH (10:25)
[2017-03-14] MEDS: ASPIRIN 81 MG TABEC PO SCH (10:26)
[2017-03-14] MEDS: UMECLIDINIUM BROMIDE (INCRUSE) 62.5MCG IH SCH (10:26)
[2017-03-14] MEDS: CHOLECALCIFEROL 1,000 UNIT TABLET PO SCH (10:26)
[2017-03-14] MEDS: FLUOXETINE HCL 20 MG CAPSULE PO SCH (10:26)
[2017-03-14] MEDS: LORAZEPAM 0.5 MG TABLET PO SCH (10:26)
--- NOTE | 2017-03-14 14:39 | Physical Therapy Tx Note ---
Physical Therapy Tx Note - Treatment Note Tolerated: Good Total Time Spent With Patient: 35 Physical Therapy Tx Note: Detail (Patient was reclined sleeping upon [employer]OUTE SAL[employer] PERSON arrival. Patient states dizziness upon sitting. Patient transferred sit to and from stand SBA x1. Patient ambulated 232 feet with wheeled walker SBA x1. Patient transferred sit to and from stand SBA x1. Patient ambulated 120 feet with wheeled walker SBA x1. Patient performed the following exercises x15 reps each: bicep curls with red theraband, tricep extension with red theraband, shoulder external rotation with red theraband, shoulder internal rotation with red theraband, rowing with red theraband, and shoulder horizontal abduction with red theraband. Patient transferred sit to and from stand x2 SBA x1. Patient performed the following balance exercises: DLS with looking up and down x30 seconds, DLS with looking side to side x30 seconds, and stride stance x15 seconds bilateral. Patient tolerated treatment well. Patient required seated rest break with ambulation, and standing balance exercises. Patient displays decreased strength and endurance with bicep curls, tricep extension, shoulder rowing, shoulder horizontal abduction, shoulder internal rotation, and shoulder external rotation. Patient displays decreased balance with DLS with looking up and down, and stride stance. Patient reports fatigued after treatment. Patient was left seated in chair with call light within reach.) Physical Therapy Problem List: Detail (1) Decreased standing balance, moderate risk for fall as rated by the Tinetti assessment Tool. 2) Decreased ability to complete sustained physical activity. 3) shortness of breath and R foot drop when fatigued.) Physical Therapy Goals: 1) The patient will ambulate on stairs with supervision for safety only. 2) The patient will tolerate 30 minutes of physical activity with one rest period. 3) The patient's balance will improve 3 to 4 points using Tinetti Assessment Tool. 4) The patient will ambulate 200 feet plus with assistive device with minimal to nor shortness of breat and no R foot drop. 4) Prognosis: Good Physical Therapy Plan: PT M-F, 1-2 times a day for LE strengthening exercises, gait training and balance training.
[2017-03-14] MEDS: TRAMADOL HCL 50 MG TABLET PO PRN (17:37)
[2017-03-14] MEDS: TEMAZEPAM 15 MG CAPSULE PO PRN (21:45)
[2017-03-14] MEDS: DONEPEZIL HCL 5 MG TABLET PO SCH (21:45)
[2017-03-15] MEDS: PANTOPRAZOLE SODIUM 40 MG TABLET PO SCH ×2 (06:35→16:36)
[2017-03-15] MEDS: GLIPIZIDE 5 MG TABLET PO SCH ×2 (06:35→16:36)
[2017-03-15] MEDS: BREO (FLUTICASONE/VILANTEROL) 100MCG/25MCG INHALER INH SCH (09:23)
[2017-03-15] MEDS: UMECLIDINIUM BROMIDE (INCRUSE) 62.5MCG IH SCH (09:23)
[2017-03-15] MEDS: CHOLECALCIFEROL 1,000 UNIT TABLET PO SCH (09:54)
[2017-03-15] MEDS: LORAZEPAM 0.5 MG TABLET PO SCH (09:55)
[2017-03-15] MEDS: TRAMADOL HCL 50 MG TABLET PO PRN (09:55)
[2017-03-15] MEDS: ASPIRIN 81 MG TABEC PO SCH (09:55)
[2017-03-15] MEDS: FLUOXETINE HCL 20 MG CAPSULE PO SCH (09:55)
--- NOTE | 2017-03-15 11:21 | Rehab Discharge Summary ---
Patient Information - Patient Information Diagnosis: Deconditioning due to COPD exacerbation Ordered Treatment: PT Evaluate and Treat Surgery: No History: Detail (Pt was here recently in December and familiar with SB pgm. He reports being in the bathroom and feeling like his knees were going to give out. Pt's significant other called ambulance and he was taken to [facility]. Pt was admitted to [facility] on 02/21/17.) Past Medical/Surgical Hx: PAST MEDICAL/SURGICAL HISTORY Past Surgical History left eye surgery rt groin stent attempt prostate surgery PMH - Respiratory Hx Respiratory Disorders Yes Hx Bronchitis Yes Hx Chronic Obstructive Yes Pulmonary Disease (COPD) Hx Pneumonia Yes PMH - Cardiovascular Hx Hypertension Yes PMH - Neuro Hx Neurological Disorders Yes Hx Dementia Yes Hx Neuropathy Yes Hx Seizures No Hx Syncope Yes Comment: occasional stutter PMH - GI Hx Gastrointestinal Disorders Yes Hx Abdominal Pain Yes Hx Gastroesophageal Reflux Yes PMH - Hx Genitourinary Disorders Yes Hx Prostate Problems Yes PMH - Endocrine Hx Endocrine Disorders Yes Hx Diabetes Yes PMH - Musculoskeletal Hx Musculoskeletal Disorders Yes Hx Arthritis Yes PMH - Psych Hx Psychiatric Problems Yes Hx Depression Yes PMH - Hematology/Oncology Hx Hematology/Oncology No Disorders Premorbid Status: Detail (Pt has help for dressing (shoes and socks when his lower back has increased pain) and cooking from his significant other, Shasha. Pt also has a home health aide that assists in showers 1x/week. Pt has cable splicer helper for yard work.) Social History: Detail (Pt lives in a 1-story house with a basement, 3-steps and louis hand railings at entrance. He has a tub/shower combination with tub seat and grab bars and a standard height toilet seat w/ riser. Grab bars also around toilet. Available equipment includes: 4WW, (2) 2WW, straight cane, and a scooter that is used at [employer]. Pt does not have a institutional aide but states "I might need one." Wears medical practice assistant socks at home not shoes. Pt reports that when back is in increased pain, he needs assist w/ socks and shoes, otherwise he is able to don these Ind.) Precautions: [place], Fall - Time With Patient Total Time Spent With Patient (Min): 15 Treatment Procedures: Detail (No charge Re-Evaluation) Subjective Information - Subjective Information Per Patient (The patient has complaints of dizziness this am. The patient has occasional complaints of back pain.) Objective Data - Mental Status Patient Orientation: Oriented x3 - Visual Perception Deficit - ROM Not within normal limits (The patient has bilateral limitation in knee extension -15 degrees ( lacking 15 degrees of extension).) - Strength/Tone Not within normal limits (The patient's L LE strength throughout is generally 4 to 4+ /5 R LE 4+ to 5/5.) - Bed Mobility Independent - Transfers Independent (The patient requires supervision for safety at times due to symptoms of dizziness. The patient also requires occasional verbal cues to turn completely with stand to sit.) - Balance Balance Sitting: Good (The patient's sitting balance is variable. The patient occasionally loses his balance to the Left. Patient and patient's significant other are aware of this and the recommendation of sitting in a chair with arm support when completing ADL's.) Balance Standing: Fair (The patient's balance using the Tinetti Assessment Tool was 19 which is in the high risk for falling category.) - Gait Detail (The patient ambulates with wheeled walker a distance of 120 feet with supervision for safety. The patient ambulated on 3 stairs with use of 2 railings with supervision for safety. The patient "feels" with his feet when descending stairs. The patient ambulated on a ramp surface with wheeled walker with supervision for safety.) Therapy Assessment - Therapy Assessment Detail (The patient' LE strength has improved and the patient no longer exhibits shortness of breath with activity. The patient's physical status including balance is variable, dependent on fatigue level. The patient is to receive Home PT/OT for evaluation of the patient is home enviroment.) Patient Education - Patient Education Teaching Topic: Exercise/Activity (UE and LE strengthening exercises.) Response: Return Demonstration Teaching Method: Discussion, Handout Teaching Recipient: Patient Barriers To Learning: Age Related Problem List - Problem List Physical Therapy Problem List: Detail (1) Decreased standing balance, moderate risk for fall as rated by the Tinetti assessment Tool. 2) Decreased ability to complete sustained physical activity. 3) shortness of breath and R foot drop when fatigued.) Occupational Therapy Problem List: Detail (1. Decreased ind. with LB drsg 2. Decreased knowledge of ADL equipment for Ind with drsg. 3. Decreased endurance for self care and amb household distances safely.) Goals - Goals Physical Therapy Goals: GOALS MET: 1) The patient will ambulate on stairs with supervision for safety only. 2) The patient will tolerate 30 minutes of physical activity with one rest period. 4) The patient will ambulate 200 feet plus with assistive device with minimal to nor shortness of breat and no R foot drop. GOALS PARTIALLY MET: 3) The patient's balance will improve 3 to 4 points using Tinetti Assessment Tool. Occupational Therapy Goals: 1. Pt to be ind. w/ LB drsg using ADL equipment if needed. 2. Pt to be able to verbalize & demonstrate drsg technique using institutional aide to don underpants/pants ind. 3. Pt will present w/ increased endurance for self care and for ambulating household distances safely. Plan - Plan Physical Therapy Plan: The patient is discharging to home on 03/16/17 with Home PT/OT. Occupational Therapy Plan: OT to treat 2-4x per week M-F to address decreased ind. w/ self cares, instruction on ADL equipment, and for increased endurance needed for functional mobility.
--- NOTE | 2017-03-15 11:42 | Discharge Summary ---
Providers Discharge Summary Date: 03/15/17 Date of admission: 02/21/17 15:11 Expected Date of Discharge: 03/16/17 Attending physician: Magdi Roger Primary care physician: JAGJIT HYLTON D.O. Physical Exam - Vital Signs Vital Signs: Vital Signs - Last 24 Hrs Temp Pulse Pulse Resp BP BP BP 03/15/17 09:26 70 15 03/15/17 07:36 98.1 F 78 18 131/59 03/14/17 20:00 98.5 F 59 L 18 118/57 03/14/17 14:55 97.8 F 112/67 Pulse Ox 03/15/17 09:26 98 03/15/17 07:36 96 03/14/17 20:00 96 03/14/17 14:55 - General General Appearance: Alert, Oriented x3, Cooperative, No acute distress - Head Head exam: Normal inspection - Eye Eye exam: PERRL - Neck Neck exam: Normal inspection - Respiratory Respiratory exam: Decreased breath sounds (throughout). negative: Wheezes - Cardiovascular Cardiovascular Exam: Regular rate, Normal rhythm, Normal heart sounds - GI/Abdominal GI/Abdominal exam: Soft, Normal bowel sounds. negative: Tenderness - Rectal Rectal exam: Deferred - exam: Deferred - Extremities Extremities exam: Normal inspection, Full ROM, Normal capillary refill. negative: Tenderness - Neurological Neurological exam: Alert, Oriented X3, Reflexes normal - Psychiatric Psychiatric exam: Normal affect, Normal mood Hospitalization - Hospitalization Admission Diagnosis: Deconditioning d/t COPD Exac - Problem List (1) COPD exacerbation Status: Acute Base Code: J44.1 - CHRONIC OBSTRUCTIVE PULMONARY DISEASE W ( ACUTE) EXACERBATION Comment: 03/16- sputum culture + for pseudomonas. Patient completed course of doxycycline and Levaquin. - continue pulm medications: albuterol, breo ellipta - follow with oncology as scheduled re pulm lesion (2) Diabetes Status: Acute Discharge Diagnosis: Diabetes mellitus type: type 2 Diabetes mellitus complication status: with unspecified complications Diabetes mellitus prison insulin use: without prison use Qualified Code(s): E11.8 - Type 2 diabetes mellitus with unspecified complications Base Code: E11.9 - TYPE 2 DIABETES MELLITUS WITHOUT COMPLICATIONS Comment: - cont glycemic control with Glipizide 5mg, and accuchecks Q12H - diabetic diet - patient was seen by dietitian during his stay. - will d/c alden fajardo for now. he will follow up with his PCP re diabetic managment. (3) Hypertension Status: Acute Discharge Diagnosis: Hypertension type: essential hypertension Qualified Code(s): I10 - Essential (primary) hypertension Base Code: I10 - ESSENTIAL (PRIMARY) HYPERTENSION Comment: 03/16- BP normal. will continue to hold lisinopril. (4) Lesion of bronchus Status: Acute Base Code: J98.09 - OTHER DISEASES OF BRONCHUS, NOT ELSEWHERE CLASSIFIED Comment: 03/16- patient will continue to follow oncology's recommendations (5) Full code status Status: Acute Base Code: Z78.9 - OTHER SPECIFIED HEALTH STATUS Comment: - pt remained full code (6) Physical deconditioning Status: Acute Base Code: R53.81 - OTHER MALAISE Comment: 03/16- Patient tolerated PT/OT well. Will continue outpatient PT/OT to help continue to build patient's physical strength and conditioning. - Hospitalization Course Disposition: Home Health Service Reason For Discharge/Transfer: Medical Stability Hospital Course: 76yo male admitted to [facility] for deconditioning, generalized weakness. He has history of COPD, dementia, t2dm, htn, bph, hld, and arthritis. He has a 60 pack year smoking history as well. Patient has had several hospital admissions in the past few months for recurring COPD exacerbations. He presented to [facility] [place] with generalized weakness, dyspnea and hiccups. He had head CT of the head, neck, chest and upper abdomen. CT chest revealed mucus plug vs neoplasm. No other neurologic etiology found for generalized weakness. He was found to have B12 deficiency and was started on injections. Statin was discontinued and PT was initiated for the weakness. Pulmonary team was consulted for bronchoscopy which revealed a lesion in the superior segment of the right upper lobe. Biopsy was sent to pathology. 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 His antibiotics were transitioned to levaquin 750mg daily and doxycycline 100mg bid. He had improvement in weakness in dyspnea and was discharged to [facility]. 02/22/17- patient states he is feeling better overall. He says his shortness of breath has improved significantly since being admitted this past saturday to [facility]. Says he is no longer short of breath at rest. Only gets winded with prolonged activity. feels like albuterol treatments are working well. He denies chest pain , worsening cough. Says his weakness has improved some since being admitted but continues to feel easily fatigued. Patient is supposed to follow up with Dr. Schilling, pulmonology, in 2-3 weeks and with oncology when biopsy results are available. Pulmonary also felt he would benefit from outpatient PFT and pulmonary rehab. pcp: Dr. Hylton 02/25/17- Patient states he is feeling ok today. he worked with Pt/ot and was a little fatigued. His appetite has been good. He denies any worsening shortness of breath or cough. Overall, feels much better since admission at [facility] 03/13- sitting up in chair comfortably. states he's feeling well. normal appetite. tolerating therapy twice daily. no concerns. 03/15- patient sitting in chair comfortably. states therapy went well this am. experienced some vertigo after waking up, however this has resolved. reports a long h/o vertigo. ambulating the room w/o difficulty. normal appetite. states he's looking forward to getting home. Abnormal Labs: Abnormal Lab Results 02/23/17 02/23/17 02/23/17 Range/Units 06:05 06:05 11:30 WBC 12.5 H (4.2-12.2) K/uL RBC 4.16 L (4.40-5.70) M/uL Hgb 13.3 L (14.0-18.0) gm/dl Hct 38.6 L (42.0-52.0) % Monocytes 10.0 H (0-9) % POC Glucose 113 H (70-110) mg/dL Random Glucose 113 H (74-109) mg/dL Calcium 8.6 L (8.8-10.2) mg/dL Total Protein 5.9 L (6.6-8.7) g/dL Albumin 3.4 L (4.0-5.0) g/dL 02/23/17 02/23/17 02/24/17 Range/Units 16:58 21:53 07:15 WBC (4.2-12.2) K/uL RBC (4.40-5.70) M/uL Hgb (14.0-18.0) gm/dl Hct (42.0-52.0) % Monocytes (0-9) % POC Glucose 116 H 116 H 116 H (70-110) mg/dL Random Glucose (74-109) mg/dL Calcium (8.8-10.2) mg/dL Total Protein (6.6-8.7) g/dL Albumin (4.0-5.0) g/dL 02/24/17 02/24/17 02/25/17 Range/Units 11:45 21:51 06:51 WBC (4.2-12.2) K/uL RBC (4.40-5.70) M/uL Hgb (14.0-18.0) gm/dl Hct (42.0-52.0) % Monocytes (0-9) % POC Glucose 159 H 123 H 116 H (70-110) mg/dL Random Glucose (74-109) mg/dL Calcium (8.8-10.2) mg/dL Total Protein (6.6-8.7) g/dL Albumin (4.0-5.0) g/dL 02/25/17 02/25/17 02/26/17 Range/Units 16:45 22:00 11:37 WBC (4.2-12.2) K/uL RBC (4.40-5.70) M/uL Hgb (14.0-18.0) gm/dl Hct (42.0-52.0) % Monocytes (0-9) % POC Glucose 189 H 150 H 145 H (70-110) mg/dL Random Glucose (74-109) mg/dL Calcium (8.8-10.2) mg/dL Total Protein (6.6-8.7) g/dL Albumin (4.0-5.0) g/dL 02/26/17 02/26/17 02/27/17 Range/Units 17:00 22:00 11:29 WBC (4.2-12.2) K/uL RBC (4.40-5.70) M/uL Hgb (14.0-18.0) gm/dl Hct (42.0-52.0) % Monocytes (0-9) % POC Glucose 218 H 121 H 118 H (70-110) mg/dL Random Glucose (74-109) mg/dL Calcium (8.8-10.2) mg/dL Total Protein (6.6-8.7) g/dL Albumin (4.0-5.0) g/dL 02/27/17 02/28/17 02/28/17 Range/Units 22:35 11:37 18:17 WBC (4.2-12.2) K/uL RBC (4.40-5.70) M/uL Hgb (14.0-18.0) gm/dl Hct (42.0-52.0) % Monocytes (0-9) % POC Glucose 170 H 173 H 154 H (70-110) mg/dL Random Glucose (74-109) mg/dL Calcium (8.8-10.2) mg/dL Total Protein (6.6-8.7) g/dL Albumin (4.0-5.0) g/dL 03/01/17 03/02/17 03/02/17 Range/Units 21:00 11:50 17:23 WBC (4.2-12.2) K/uL RBC (4.40-5.70) M/uL Hgb (14.0-18.0) gm/dl Hct (42.0-52.0) % Monocytes (0-9) % POC Glucose 119 H 170 H 180 H (70-110) mg/dL Random Glucose (74-109) mg/dL Calcium (8.8-10.2) mg/dL Total Protein (6.6-8.7) g/dL Albumin (4.0-5.0) g/dL 03/03/17 03/03/17 03/03/17 Range/Units 08:55 11:40 17:25 WBC (4.2-12.2) K/uL RBC (4.40-5.70) M/uL Hgb (14.0-18.0) gm/dl Hct (42.0-52.0) % Monocytes (0-9) % POC Glucose 130 H 130 H 117 H (70-110) mg/dL Random Glucose (74-109) mg/dL Calcium (8.8-10.2) mg/dL Total Protein (6.6-8.7) g/dL Albumin (4.0-5.0) g/dL 10/01/17 10/02/17 10/02/17 Range/Units 22:02 07:58 11:50 WBC (4.2-12.2) K/uL RBC (4.40-5.70) M/uL Hgb (14.0-18.0) gm/dl Hct (42.0-52.0) % Monocytes (0-9) % POC Glucose 193 H 120 H 127 H (70-110) mg/dL Random Glucose (74-109) mg/dL Calcium (8.8-10.2) mg/dL Total Protein (6.6-8.7) g/dL Albumin (4.0-5.0) g/dL 03/04/17 03/04/17 03/05/17 Range/Units 17:27 21:17 07:34 WBC (4.2-12.2) K/uL RBC (4.40-5.70) M/uL Hgb (14.0-18.0) gm/dl Hct (42.0-52.0) % Monocytes (0-9) % POC Glucose 165 H 114 H 118 H (70-110) mg/dL Random Glucose (74-109) mg/dL Calcium (8.8-10.2) mg/dL Total Protein (6.6-8.7) g/dL Albumin (4.0-5.0) g/dL 03/05/17 03/06/17 03/07/17 Range/Units 12:07 12:02 11:30 WBC (4.2-12.2) K/uL RBC (4.40-5.70) M/uL Hgb (14.0-18.0) gm/dl Hct (42.0-52.0) % Monocytes (0-9) % POC Glucose 159 H 116 H 209 H (70-110) mg/dL Random Glucose (74-109) mg/dL Calcium (8.8-10.2) mg/dL Total Protein (6.6-8.7) g/dL Albumin (4.0-5.0) g/dL 03/07/17 03/08/17 03/08/17 Range/Units 22:00 11:30 17:15 WBC (4.2-12.2) K/uL RBC (4.40-5.70) M/uL Hgb (14.0-18.0) gm/dl Hct (42.0-52.0) % Monocytes (0-9) % POC Glucose 120 H 142 H 151 H (70-110) mg/dL Random Glucose (74-109) mg/dL Calcium (8.8-10.2) mg/dL Total Protein (6.6-8.7) g/dL Albumin (4.0-5.0) g/dL 03/08/17 03/09/17 03/09/17 Range/Units 22:00 11:21 16:54 WBC (4.2-12.2) K/uL RBC (4.40-5.70) M/uL Hgb (14.0-18.0) gm/dl Hct (42.0-52.0) % Monocytes (0-9) % POC Glucose 149 H 167 H 153 H (70-110) mg/dL Random Glucose (74-109) mg/dL Calcium (8.8-10.2) mg/dL Total Protein (6.6-8.7) g/dL Albumin (4.0-5.0) g/dL 03/10/17 03/10/17 03/10/17 Range/Units 11:30 17:00 22:00 WBC (4.2-12.2) K/uL RBC (4.40-5.70) M/uL Hgb (14.0-18.0) gm/dl Hct (42.0-52.0) % Monocytes (0-9) % POC Glucose 135 H 127 H 160 H (70-110) mg/dL Random Glucose (74-109) mg/dL Calcium (8.8-10.2) mg/dL Total Protein (6.6-8.7) g/dL Albumin (4.0-5.0) g/dL 03/11/17 03/11/17 03/12/17 Range/Units 11:30 22:00 06:38 WBC (4.2-12.2) K/uL RBC (4.40-5.70) M/uL Hgb (14.0-18.0) gm/dl Hct (42.0-52.0) % Monocytes (0-9) % POC Glucose 177 H 138 H (70-110) mg/dL Random Glucose (74-109) mg/dL Calcium (8.8-10.2) mg/dL Total Protein 5.9 L (6.6-8.7) g/dL Albumin 3.5 L (4.0-5.0) g/dL 03/12/17 03/12/17 03/12/17 Range/Units 11:30 16:45 22:00 WBC (4.2-12.2) K/uL RBC (4.40-5.70) M/uL Hgb (14.0-18.0) gm/dl Hct (42.0-52.0) % Monocytes (0-9) % POC Glucose 227 H 148 H 158 H (70-110) mg/dL Random Glucose (74-109) mg/dL Calcium (8.8-10.2) mg/dL Total Protein (6.6-8.7) g/dL Albumin (4.0-5.0) g/dL 03/13/17 03/13/17 03/13/17 Range/Units 11:30 17:00 22:25 WBC (4.2-12.2) K/uL RBC (4.40-5.70) M/uL Hgb (14.0-18.0) gm/dl Hct (42.0-52.0) % Monocytes (0-9) % POC Glucose 196 H 138 H 173 H (70-110) mg/dL Random Glucose (74-109) mg/dL Calcium (8.8-10.2) mg/dL Total Protein (6.6-8.7) g/dL Albumin (4.0-5.0) g/dL 03/14/17 03/14/17 03/14/17 Range/Units 06:56 11:43 23:02 WBC (4.2-12.2) K/uL RBC (4.40-5.70) M/uL Hgb (14.0-18.0) gm/dl Hct (42.0-52.0) % Monocytes (0-9) % POC Glucose 112 H 177 H 193 H (70-110) mg/dL Random Glucose (74-109) mg/dL Calcium (8.8-10.2) mg/dL Total Protein (6.6-8.7) g/dL Albumin (4.0-5.0) g/dL 03/15/17 Range/Units 07:47 WBC (4.2-12.2) K/uL RBC (4.40-5.70) M/uL Hgb (14.0-18.0) gm/dl Hct (42.0-52.0) % Monocytes (0-9) % POC Glucose 128 H (70-110) mg/dL Random Glucose (74-109) mg/dL Calcium (8.8-10.2) mg/dL Total Protein (6.6-8.7) g/dL Albumin (4.0-5.0) g/dL Condition at Discharge: (2) Stable Discharge Medications - Discharge Medications Home Medications: Ambulatory Orders Albuterol Sulfate [Proventil Hfa] 3 ml NEB Q4H PRN 12/11/16 [Last Taken Unknown] Aspirin Chewable 81 mg PO DAILY 12/11/16 [Last Taken Unknown] Cholecalciferol (Vitamin D3) [Vitamin D3] 2,000 unit PO DAILY 12/11/16 [Last Taken Unknown] Donepezil HCl 20 mg PO QHS 12/11/16 [Last Taken Unknown] Fluoxetine HCl 20 mg PO DAILY 12/11/16 [Last Taken Unknown] Fluticasone/Vilanterol 100/25 [Breo Ellipta 100-25 Mcg INH] 1 puff INH RESP.DAILY 12/11/16 [Last Taken Unknown] Glipizide [Glucotrol] 5 mg PO BIDAC 12/11/16 [Last Taken Unknown] Lorazepam [Ativan] 0.5 mg PO DAILY 12/11/16 [Last Taken Unknown] Omeprazole 20 mg PO BIDAC 12/11/16 [Last Taken Unknown] Simvastatin 40 mg PO QHS 12/11/16 [Last Taken Unknown] Temazepam 30 mg PO QHS 12/11/16 [Last Taken Unknown] Umeclidinium [place] [Incruse Ellipta] 1 puff INH DAILY 12/11/16 [Last Taken Unknown] Hydrochlorothiazide 12.5 mg PO DAILY #0 12/31/16 [Last Taken Unknown] Tramadol HCl [Ultram] 50 mg PO DAILY PRN #15 tab 12/31/16 [Last Taken Unknown] Discharge Plan - Discharge Instructions Activity at Discharge: As Per Physical Therapy Diet at Discharge: Diabetic Diet Instructions: How Your Lungs Work (DC), Chronic Lung Disease and Infection Prevention (DC), Nutrition Guidelines for People with COPD (DC) Additional Instructions: 2 Activity: As Per Physical Therapy 2 Diet: Diabetic Diet 2 Consults: [[facility] have been set up to come to your house] 2 Follow Up: [Follow with Oncology as scheduled. See your primary care doctor within one week of discharging from [place].] 2 Dressing/Wound Care: (Type) (Change) 2 Additional: [] Continue home medications. We discontinued Lisinopril, as blood pressure was within normal range without this. We've also discontinued Januvia and Trajenta as your blood sugar was appropriate with Glipizide alone. Albuterol inhaler Q4-6 hours as needed. Continue respiratory inhalers. Follow up with family doctor within 4-6 days of discharge. Return to the ER in the meantime re any new or worsening symptoms.
--- NOTE | 2017-03-15 13:24 | Rehab Discharge Summary ---
Patient Information - Patient Information Diagnosis: Deconditioning due to COPD exacerbation Ordered Treatment: OT Evaluate and Treat Surgery: No History: Detail (Pt was here recently in December and familiar with SB pgm. He reports being in the bathroom and feeling like his knees were going to give out. Pt's significant other called ambulance and he was taken to [facility]. Pt was admitted to [facility] on 02/21/17.) Past Medical/Surgical Hx: PAST MEDICAL/SURGICAL HISTORY Past Surgical History left eye surgery rt groin stent attempt prostate surgery PMH - Respiratory Hx Respiratory Disorders Yes Hx Bronchitis Yes Hx Chronic Obstructive Yes Pulmonary Disease (COPD) Hx Pneumonia Yes PMH - Cardiovascular Hx Hypertension Yes PMH - Neuro Hx Neurological Disorders Yes Hx Dementia Yes Hx Neuropathy Yes Hx Seizures No Hx Syncope Yes Comment: occasional stutter PMH - GI Hx Gastrointestinal Disorders Yes Hx Abdominal Pain Yes Hx Gastroesophageal Reflux Yes PMH - Hx Genitourinary Disorders Yes Hx Prostate Problems Yes PMH - Endocrine Hx Endocrine Disorders Yes Hx Diabetes Yes PMH - Musculoskeletal Hx Musculoskeletal Disorders Yes Hx Arthritis Yes PMH - Psych Hx Psychiatric Problems Yes Hx Depression Yes PMH - Hematology/Oncology Hx Hematology/Oncology No Disorders Premorbid Status: Detail (Pt has help for dressing (shoes and socks when his lower back has increased pain) and cooking from his significant other, Shasha. Pt also has a home health aide that assists with showers 1x/week. Pt has naphthalene operator helper for yard work.) Social History: Detail (Pt lives in a 1-story house with a basement, 3-steps and louis hand railings at entrance. He has a tub/shower combination with tub seat and grab bars and a standard height toilet seat w/ riser. Grab bars also around toilet. Available equipment includes: 4WW, (2) 2WW, straight cane, and a scooter that is used at [employer] Pt does not have a joint special operations but states "I might need one." Wears music professionals socks at home not shoes. Pt reports that when back is in increased pain, he needs assist w/ socks and shoes, otherwise he is able to don these Ind.) Precautions: [place], Fall Subjective Information - Subjective Information Per Patient (Pt states that he feels louis UE strength has improved. He is able to get dressed independently when needed and has assistance available for donning/doffing socks/shoes when his back is in increased pain. Pt understands how to use joint special operations for LB drsg but at this time prefers not to use it. Pt independent with HEP for UE strengthening and gross grasp strengthening. 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 UE's. 4/5 MMT for R elbow ext.) - Coordination Appears within normal limits for therapeutic activities - Bed Mobility Independent - Transfers Independent - ADL's/IADL's Detail (Pt completes showering in sitting but with standing to reach buttocks. Pt able to ind. wash hair, face, BUE's and under arms, and LE's to just below knee. Requires assistance for back, buttocks, and feet but patient receives home health aide assistance for this already 1x a week. Pt is independent w/ UB drsg. He has demonstrated independence w/ LB drsg including socks. He was educated and demo'd understanding of joint special operations use in cases when pt's lower back is in increased pain and limits his ability to thread pants over feet. Pt does not enjoy using joint special operations for drsg but is independent with it when needed.) Therapy Assessment - Therapy Assessment Detail (Overall, patient shows increased BUE strength and endurance for completion of ADLs. He is able to perform UB and LB drsg independently and is knowledgeable on joint special operations use for LB drsg when needed. Pt is at prior functioning level w/ showering and is able to complete most showering tasks independently. There are safety concerns w/ pt standing in shower and enough assistance still needed that patient should continue to have home health assist w/ showering and home OT if possible. Pt is independent w/ UE HEP and gross grasp strengthening exercises and has no further questions regarding this at this time. Pt would benefit from continued UE strengthening (especially triceps) , core strengthening, and further endurance training.) Problem List - Problem List Physical Therapy Problem List: Detail (1) Decreased standing balance, moderate risk for fall as rated by the Tinetti assessment Tool. 2) Decreased ability to complete sustained physical activity. 3) shortness of breath and R foot drop when fatigued.) Occupational Therapy Problem List: Detail (1. Decreased ind. with LB drsg 2. Decreased knowledge of ADL equipment for Ind with drsg. 3. Decreased endurance for self care and amb household distances safely.) Goals - Goals Physical Therapy Goals: GOALS MET: 1) The patient will ambulate on stairs with supervision for safety only. 2) The patient will tolerate 30 minutes of physical activity with one rest period. 4) The patient will ambulate 200 feet plus with assistive device with minimal to nor shortness of breat and no R foot drop. GOALS PARTIALLY MET: 3) The patient's balance will improve 3 to 4 points using Tinetti Assessment Tool. Occupational Therapy Goals: GOALS MET: 1. Pt to be ind. w/ LB drsg using ADL equipment if needed. 2. Pt to be able to verbalize & demonstrate drsg technique using joint special operations to don underpants/pants ind. 3. Pt will present w/ increased endurance for self care and for ambulating household distances safely. Prognosis - Prognosis Good Plan - Plan Physical Therapy Plan: The patient is discharging to home on 03/16/17 with Home PT/OT. Occupational Therapy Plan: The patient is discharging to home on 03/16/17 with Home PT/OT.
--- NOTE | 2017-03-15 14:28 | Physical Therapy Tx Note ---
Physical Therapy Tx Note - Treatment Note Tolerated: Fair Total Time Spent With Patient: 15 Physical Therapy Tx Note: Detail (Patient was sleeping upon MANUFACTURING RECRUITER arrival. Patient states feeling weak today. Patient transferred sit to and from stand SBA x1. Patient ambulated 112 feet with wheeled walker SBA x1. Patient propelled self in wheelchair x50 feet. Patient transferred sit to and from stand CGA x1. Patient declined further exercises due to fatigue. Patient was left seated in chair with call light within reach.) Physical Therapy Problem List: Detail (1) Decreased standing balance, moderate risk for fall as rated by the Tinetti assessment Tool. 2) Decreased ability to complete sustained physical activity. 3) shortness of breath and R foot drop when fatigued.) Physical Therapy Goals: GOALS MET: 1) The patient will ambulate on stairs with supervision for safety only. 2) The patient will tolerate 30 minutes of physical activity with one rest period. 4) The patient will ambulate 200 feet plus with assistive device with minimal to nor shortness of breat and no R foot drop. GOALS PARTIALLY MET: 3) The patient's balance will improve 3 to 4 points using Tinetti Assessment Tool. Prognosis: Good Physical Therapy Plan: The patient is discharging to home on 03/16/17 with Home PT/OT.
[2017-03-15] MEDS: TEMAZEPAM 15 MG CAPSULE PO PRN (21:17)
[2017-03-15] MEDS: DONEPEZIL HCL 5 MG TABLET PO SCH (21:17)
[2017-03-16] MEDS: PANTOPRAZOLE SODIUM 40 MG TABLET PO SCH (06:04)
[2017-03-16] MEDS: GLIPIZIDE 5 MG TABLET PO SCH (07:49)
[2017-03-16] MEDS: ASPIRIN 81 MG TABEC PO SCH (09:27)
[2017-03-16] MEDS: LORAZEPAM 0.5 MG TABLET PO SCH (09:27)
[2017-03-16] MEDS: CHOLECALCIFEROL 1,000 UNIT TABLET PO SCH (09:27)
[2017-03-16] MEDS: FLUOXETINE HCL 20 MG CAPSULE PO SCH (09:28)
[2017-03-16] MEDS: TRAMADOL HCL 50 MG TABLET PO PRN (09:31)
[2017-03-16] MEDS: UMECLIDINIUM BROMIDE (INCRUSE) 62.5MCG IH SCH (09:38)
[2017-03-16] MEDS: BREO (FLUTICASONE/VILANTEROL) 100MCG/25MCG INHALER INH SCH (09:39)
== END 2017-03-16 13:00 | disposition home health service (06) | DRG 948 ==
LOC: MEDSURG 15:11
PROVIDERS: ADMIT Family Medicine; ATTEND Internal Medicine
DX: R53.81 Other malaise (principal); I10 Essential (primary) hypertension; E11.9 Type 2 diabetes mellitus without complications; Z79.84 Long term (current) use of oral hypoglycemic drugs; J98.09 Other diseases of bronchus, not elsewhere classified; Z78.9 Other specified health status; Z72.0 Tobacco use; J44.9 Chronic obstructive pulmonary disease, unspecified
CPT/HCPCS: 36416; 80053; 82948; 85027; 87493; 90686; 90732; 94640; 97110; 97116; 97165; 97530; 97535; 99306; 99308; 99309; 99316

== ENCOUNTER 2017-06-19 08:59 | Inpatient (IN) | payer MEDICARE ==
[2017-06-19] MEDS ORDERED: LOPERAMIDE 2 MG CAPSULE PO PRN (14:09)
[2017-06-19] MEDS ORDERED: LORAZEPAM 0.5 MG TABLET PO PRN (14:09)
[2017-06-19] MEDS ORDERED: ACETAMINOPHEN 325 MG TAB PO PRN (14:09)
--- NOTE | 2017-06-19 14:57 | Rehab Evaluation ---
Patient Information - Patient Information Diagnosis: deconditioning, lung CA, hypoxia Ordered Treatment: PT Evaluate and Treat Status: Initial Evaluation Past Medical/Surgical Hx: PAST MEDICAL/SURGICAL HISTORY Past Surgical History left eye surgery rt groin stent attempt prostate surgery PMH - Respiratory Hx Respiratory Disorders Yes Hx Bronchitis Yes Hx Chronic Obstructive Yes Pulmonary Disease (COPD) Hx Pneumonia Yes PMH - Cardiovascular Hx Hypertension Yes PMH - Neuro Hx Neurological Disorders Yes Hx Dementia Yes Hx Neuropathy Yes Hx Seizures No Hx Syncope Yes Comment: occasional stutter PMH - GI Hx Gastrointestinal Disorders Yes Hx Abdominal Pain Yes Hx Gastroesophageal Reflux Yes PMH - Hx Genitourinary Disorders Yes Hx Prostate Problems Yes PMH - Endocrine Hx Endocrine Disorders Yes Hx Diabetes Yes PMH - Musculoskeletal Hx Musculoskeletal Disorders Yes Hx Arthritis Yes PMH - Psych Hx Psychiatric Problems Yes Hx Depression Yes PMH - Hematology/Oncology Hx Hematology/Oncology No Disorders Social History: Detail (The patient lives with significant other in a one story home with ramp. The patient's balalnce is equipped with a tub/shower combination and seat with grab bars and an elevated toilet seat with grab bars. The patient has a scooter, 4 wheeled walker and 2 wheeled walker with a hospital bed on order.) Precautions: [place], Fall - Time With Patient Total Time Spent With Patient (Min): 30 Treatment Procedures: Detail (PT initial evaluation) Subjective Information - Subjective Information Per Patient (The patient had no complaints of pain.) Objective Data - Mental Status Patient Orientation: Person (The patient knew his birthdate, president and year. The patient did not know month or where he was. The patient was impulsive and had occasional difficulty following simple commands.) - Visual Perception Deficit - ROM Not within normal limits (Knee extension L -17 degrees, R -20 degrees) - Strength/Tone Not within normal limits (LE strength: knee extensors/flexors R 4/5, L 4+/5 bilateral ankle musculature plantar flexors 4-/5, dorsiflexors 4/5, bilateral hip abductors 4/5, hip adductors 4+/5, hip flexors R 4-/5, L 4/5. Refer to OT not for UE strength.) - Bed Mobility Needs Assist (Not assessed.) - Transfers Needs Assist (The patient required minimal PA of 1, moderate PA of 1 with sit to and from stand plus verbal cues for proper technique.) - Balance Balance Sitting: Poor (The patient leans to the L and loses balance to the L if not supported.) Balance Standing: Poor - Gait Detail (The patient ambulated 3 to 4 steps to chair with CG/ minimal PA ( patient leaned posteriorly) with wheeled walker.) Therapy Assessment - Therapy Assessment Detail (The patient required assistance with transfers and ambulation and demonstrated poor sitting and standing balance. Feel the patient is a good rehab candidate.) Problem List - Problem List Physical Therapy Problem List: Detail (1) Decreased balance in sitting and standing 2) Decreased LE strength 3) Assistance with transfers 4) Assistance with ambulation 5) Decreased ability to complete sustained physical activity) Goals - Goals Physical Therapy Goals: 1) The patient will ambulate with assistive device distances of 50 feet with CG/supervision. 2) Assess Bed mobility. 3) Independent with bed mobility. 4) Independent/supervision with transfers. 5) Increase LE strength 1/3 muscle grade to increase stability of gait. 6) The patient will tolerate 30 minutes of physical activity with on rest period Prognosis - Prognosis Moderate Plan - Plan Physical Therapy Plan: PT 1-2 times a day M-F for bed mobility , gait training, transfer training, balance and LE strengthening exercises.
--- NOTE | 2017-06-19 15:06 | Rehab Evaluation ---
Patient Information - Patient Information Diagnosis: deconditioning, lung CA, hypoxia, COPD Ordered Treatment: OT Evaluate and Treat Status: Initial Evaluation Surgery: No Past Medical/Surgical Hx: PAST MEDICAL/SURGICAL HISTORY Past Surgical History left eye surgery rt groin stent attempt prostate surgery PMH - Respiratory Hx Respiratory Disorders Yes Hx Bronchitis Yes Hx Chronic Obstructive Yes Pulmonary Disease (COPD) Hx Pneumonia Yes PMH - Cardiovascular Hx Hypertension Yes PMH - Neuro Hx Neurological Disorders Yes Hx Dementia Yes Hx Neuropathy Yes Hx Seizures No Hx Syncope Yes Comment: occasional stutter PMH - GI Hx Gastrointestinal Disorders Yes Hx Abdominal Pain Yes Hx Gastroesophageal Reflux Yes PMH - Hx Genitourinary Disorders Yes Hx Prostate Problems Yes PMH - Endocrine Hx Endocrine Disorders Yes Hx Diabetes Yes PMH - Musculoskeletal Hx Musculoskeletal Disorders Yes Hx Arthritis Yes PMH - Psych Hx Psychiatric Problems Yes Hx Depression Yes PMH - Hematology/Oncology Hx Hematology/Oncology No Disorders Premorbid Status: Detail (Pt lives with significant other, Shasha, in a 1 story house with basement although he generally stays on the 1st floor. He has a ramp at the entrance. He has a tub/shower combination with a seat and grab bars and an elevated toilet with grab bars. Prior to admission he had an aide assisting with showering and Shasha assisted with dressing as needed. He was ambulating with a 2 wheeled walker. Shasha performs all home mgmt, meal prep and laundry. He has a scooter and 4 wheeled walker.) Social History: Detail (Supportive significant other, Shasha.) Precautions: [place], Fall - Time With Patient Total Time Spent With Patient (Min): 40 Treatment Procedures: Detail (OT eval low complexity) Subjective Information - Subjective Information Per Patient, Other (Per Shasha) Objective Data - Pain Pain Present: No - Mental Status Patient Orientation: Person (Pt oriented to self, birthday, age, president and 2018. He was not oriented to place or month. Pt demonstrates mod impulsivity during evaluation.) - Visual Perception Deficit (Pt is blind in left eye.) - ROM Not within normal limits (Vidal shoulder flexion limited to approx. 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.) - Coordination Appears within normal limits for therapeutic activities - Bed Mobility Independent (Ind with supine to sit.) - Transfers Needs Assist (Sit to stand from EOB with min assist x 1 and mod assist x 1, sit to stand from chair with min assist x 1.) - Balance Balance Sitting: Poor (Pt required mod assist for static sitting at EOB.) Balance Standing: Poor (Pt required assist for static standing due to leaning to rear.) - Sensation Intact - Gait Detail (Pt ambulated several feet with 2 wheeled walker with min assist x 2.) - ADL's/IADL's Detail (Pt reports nursing has been assisting with all self cares since admission.) Therapy Assessment - Therapy Assessment Detail (Pt presents with decreased Ind with self cares, decreased UE strength, decreased overall endurance, impaired cognition and decreased functional mobility.) Problem List - Problem List Occupational Therapy Problem List: Detail (1. Decreased Ind with showering. 2. Decreased Ind with total body dressing. 3. Decreased Ind with functional mobility needed for safe and Ind ADLs. 4. Decreased UE function/strength needed for safe and Ind ADLs.) Goals - Goals Occupational Therapy Goals: 1. Pt will be safe and Ind with showering in sitting. 2. Pt will be safe and Ind with total body dressing. 3. Pt will be Ind with functional mobility needed for safe and Ind self cares. 4. Pt will improve vidal UE strength and endurance to allow Ind with self cares. Prognosis - Prognosis Good Plan - Plan Occupational Therapy Plan: OT 2-4 times per week to address self cares, functional mobility, endurance and UE function to allow safe and Ind return home.
[2017-06-19] MEDS: IPRATROPIUM/ALBUTEROL (0.5MG/3MG) NEB INH SCH ×2 (17:34→21:53)
[2017-06-19] MEDS: GLIPIZIDE 5 MG TABLET PO SCH (17:45)
[2017-06-19] MEDS: PANTOPRAZOLE SODIUM 40 MG TABLET PO SCH (17:45)
--- NOTE | 2017-06-19 18:14 | History & Physical ---
History of Present Illness - Date Date of Service for History & Physical: 06/19/17 - History of Present Illness Admitting Diagnosis: deconditioning d/t hypoxia, lung cancer, copd History of Present Illness: Adan is a 76 year-old male. His history included COPD, lung cancer, ex-smoker, hypertension, diabetes, Alzheimer's disease, depression, PVD , dyslipidemia, and arthritis. His surgical history includes TURP, appendectomy , and left eye removal. He just finished his last radiation treatment on , no chemotherapy to date. On 06/16/17, pt's found him slumped over his walker, weak, and unable to follow commands. She called EMS and he was transported to [facility]. His pulse ox was 85% on room air in the ED and he was admitted for hypoxic respiratory failure secondary to COPD and lung cancer. His ekg showed NSR, rate 61, and right BBB. An acute ab series was done and no acute pathology was identified- no infiltrates or effusions, right upper lobe lung mass not identified radiographically. He was treated with albuterol nebs q4h, levaquin 750mg q48h, and prednisone 40mg daily.. For 2-3 weeks prior to admission, pt's reported that pt. had been experiencing increasing weakness, dyspnea on exertion, and cough with yellow sputum production. Pt. did show improvement in breathing, however, he remained weak and PT/OT recommended ARMINDA. He was discharged from [facility] on 06/19/17 and admitted to [facility] as swing bed for ARMINDA. 06/19/17 1530: Pt. is resting comfortably in his chair. He has used his walker for ambulating to the bathroom here. Pt's significant other (Shasha) is present at this time and she states that he is doing much better overall. She states that some of his medications (prozac and aricept) were not given while he was hospitalized and he is not quite at his normal level of cognitive functioning as a result. PCP: Dr. Reyes Oncologist: General - Cognitive Patterns Speech: Normal Thought Process: Intact Thought Process Comment: decreased short term memory Thought Content: Normal Orientation: Person, Time, Recognizes Familiar Faces or Places Orientation Comment: pt is disoriented at times - Communication Preferred Language?: Romanian Director Of Cloud Services Required: No Level of Education: Grade 1-8 Preferred Method of Learning: Seeing, Doing Comprehension Ability: No Impairment Able to Read: Yes Able to Write: Yes Select best description of speech pattern: Clear Speech Ability to express ideas and wants: Understood Understanding verbal content: Understands - Mood and Behavior Patterns Appearance: Well Groomed Mood: Normal Attitude: Cooperative Motor Activity: Calm Affect: Appropriate Hallucinations: Denies - Psychosocial Well-Being Usual Living Arrangement: Spouse Relationship Status: Life Partner Current and Past Employment History: Retired - Physical Functioning Activity Level: Up with assist x2 Turning: With partial assist ROM Ability: Moves all extremities Assistive Devices: 2 Wheel Walker Ambulation Ability: Needs Assist Bed Mobility: Needs Assist Transfer Ability: Needs Assist Bathing Ability: Needs Assist Personal Hygiene: Needs Assist Dressing Ability: Needs Assist Eating (Feeding) Ability: Independent Toileting Ability: Needs Assist Administer Own Medication: Needs Assist - Continence Bowel Pattern: Normal for Patient Bladder Pattern: Normal - Dental Status Unable to examine: No Broken or loosely fitting full or partial dentures: No No natural teeth or tooth fragment(s) (edentulous): No Abnormal mouth tissue (ulcers, masses, oral lesions, etc.): No Obvious or likely cavity or broken natural teeth: No Inflamed or bleeding gums or loose natural teeth: No Mouth/facial pain, discomfort or difficulty chewing: No - Nutrition Screening Poor oral intake > 1 week: No Unplanned weight loss in specified time frame: No Nutrition Support via tube feedings or parenteral nutrition: No Pressure Ulcer: No Significantly underweight define as BMI <18.5 kg/m2: No Albumin <2.5mg/dL: No Persistent nausea/vomiting/diarrhea >3 days: No Difficulty chewing/swallowing/mouth sores: No Admitting Diagnosis: No Nutrition Risk Score: Low Risk Review of Systems Reviewed: No additional complaints except as noted below Constitutional: Reports: Weakness. Denies: Chills, Fever, Malaise, Night sweats , Weight change Eyes: Reports: As per HPI. Denies: Eye discharge, Eye pain, Photophobia, Vision change ENT: Reports: As per HPI. Denies: Congestion, Dental pain, Ear pain, Epistaxis , Hearing loss, Throat pain Respiratory: Reports: Cough. Denies: Dyspnea, Hemoptysis, Stridor, Wheezes Cardiovascular: Reports: As per HPI. Denies: Arrhythmia, Chest pain, Dyspnea on exertion, Edema, Orthopnea, Palpitations, Paroxysmal nocturnal dyspnea, Rheumatic Fever, Syncope Endocrine: Reports: As per HPI. Denies: Fatigue, Heat or cold intolerance, Polydipsia, Polyuria Gastrointestinal: Reports: As per HPI. Denies: Abdominal pain, Constipation, Diarrhea, Hematemesis, Hematochezia, Melena, Nausea, Vomiting Genitourinary: Reports: As per HPI. Denies: Dysuria, Frequency, Hematuria, Incontinence, Retention, Testicular pain, Testicular mass, Urgency Musculoskeletal: Reports: As per HPI. Denies: Arthralgia, Back pain, Gout, Joint swelling, Myalgia, Neck pain Skin: Reports: As per HPI. Denies: Bruising, Change in color, Change in hair/ nails, Lesions, Pruritus, Rash Neurological: Reports: Confusion. Denies: Abnormal gait, Headache, Numbness, Paresthesias, Seizure, Tingling, Tremors, Vertigo, Weakness Psychiatric: Reports: Other (short-term memory loss ). Denies: Anxiety, Auditory hallucinations, Depression, Homicidal thoughts, Suicidal thoughts, Visual hallucinations Hematological/Lymphatic: Reports: As per HPI. Denies: Anemia, Blood Clots, Easy bleeding, Easy bruising, Swollen glands Past Medical History - SOCIAL HISTORY Smoking Status: Former smoker Alcohol Use: None Drug use: None - SURGICAL HISTORY Past Surgical History: left eye surgery. rt groin stent attempt. TURP. Colonoscopy. Right hand surgery - RESPIRATORY Hx Respiratory Disorders: Yes Hx Bronchitis: Yes Hx COPD: Yes Hx Pneumonia: Yes - CARDIOVASCULAR Hx Hypertension: Yes - NEURO Hx Neuro Disorders: Yes Hx Dementia: Yes (Alzheimer) Hx Seizures: No - GI Hx GI Disorders: Yes Hx Abdominal Pain: Yes Hx Reflux: Yes - Hx Genitourinary Disorders: Yes Hx Prostate Problems: Yes - ENDOCRINE Hx Endocrine Disorders: Yes Hx Diabetes: Yes - MUSCULOSKELETAL Hx Musculoskeletal Disorders: Yes Hx Arthritis: Yes - PSYCH Hx Psych Problems: Yes Hx Depression: Yes - HEMATOLOGY/ONCOLOGY Hx Hematology/Oncology Disorders: Yes Hx Cancer: Yes (lung) Family Medical History Any Significant Family History?: Yes Hx Alcohol Use: Children Hx Cancer: Mother Hx Diabetes: Grandparents Hx Heart Disease: Father, Mother *Heart Comment: aneurysm Hx Resp Disorders: Grandparents H&P Meds/Allergies - Allergies Allergies: Allergies Allergy/AdvReac Type Severity Reaction Status Date / Time No Known Drug Allergies Allergy Verified 12/11/16 12:52 - Home Medications Previous Rx's Medication Instructions Recorded Hydrochlorothiazide 12.5 mg PO DAILY #0 12/31/16 Tramadol HCl [Ultram] 50 mg PO DAILY PRN #15 tab 12/31/16 - Active Medications Active Medications: Current Medications Acetaminophen (Tylenol 325mg) 650 mg PO Q4H PRN PRN Reason: Pain - General Albuterol/Ipratropium (Duoneb) 3 ml INH RESP.Q4H.WA [facility] Last Admin: 06/19/17 17:34 Dose: 3 ml Aspirin (Ecotrin (Ec)) 81 mg PO DAILY [facility] Budesonide (Pulmicort) 0.5 mg INH BID [facility] Donepezil HCl (Aricept) 20 mg PO QHS [facility] Fluoxetine HCl (Prozac) 20 mg PO DAILY [facility] Glipizide (Glucotrol) 5 mg PO 0730,1630 [facility] Last Admin: 06/19/17 17:45 Dose: 5 mg Levofloxacin (Levaquin Tab) 750 mg PO Q48H [facility] Stop: 06/26/17 10:01 Loperamide HCl (Immodium) 2 mg PO Q4H PRN PRN Reason: DIARRHEA Lorazepam (Ativan) 0.5 mg PO DAILY [facility] Lorazepam (Ativan) 0.5 mg PO DAILY PRN PRN Reason: AGITATION/ANXIETY Pantoprazole Sodium (Protonix) 40 mg PO BIDAC [facility] Last Admin: 06/19/17 17:45 Dose: 40 mg Prednisone (Prednisone 20mg) 40 mg PO DAILYWM [facility] Stop: 06/21/17 08:01 Simvastatin (Zocor) 40 mg PO QHS [facility] Temazepam (Restoril) 30 mg PO QHS [facility] Vitamin D (Vitamin D3) 2,000 unit PO DAILY [facility] Physical Exam - Vital Signs Vital Signs: Vital Signs - Last 24 Hrs Temp Pulse Pulse Resp BP Pulse Ox 06/19/17 17:35 66 14 06/19/17 13:09 97.9 F 83 18 127/62 93 L - General General Appearance: Alert, Cooperative, No acute distress, Other (decreased short term memory recall) Limitations: Physical limitation (using walker to ambulate) - Head Head exam: Normal inspection - Eye Eye exam: Normal appearance, Other (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 negative: External canal tenderness Nasal Exam: Normal inspection. negative: Discharge, Sinus tenderness Mouth exam: Normal external inspection, Tongue normal Teeth exam: Normal inspection. negative: Dental caries Throat exam: Normal inspection. negative: Tonsillar erythema, Tonsillar exudate - Neck Neck exam: Normal inspection, Full ROM. negative: Tenderness - Respiratory Respiratory exam: Decreased breath sounds. negative: Accessory muscle use, Rhonchi, Wheezes - Cardiovascular Cardiovascular Exam: Regular rate, Normal rhythm, Systolic murmur Peripheral Pulses: 2+: Dorsalis Pedis (R), Dorsalis Pedis (L), 3+: Radial (R), Radial (L) - GI/Abdominal GI/Abdominal exam: Soft, Normal bowel sounds. negative: Tenderness - Rectal Rectal exam: Deferred - exam: Deferred - Extremities Extremities exam: Normal inspection, Full ROM, Normal capillary refill. negative: Tenderness - Neurological Neurological exam: Alert, Normal gait, Reflexes normal - Psychiatric Psychiatric exam: Normal affect, Normal mood - Skin Skin exam: Dry, Intact, Normal color, Warm H&P Results - Labs Result Diagrams: 06/20/17 06:28 06/20/17 06:28 - Chest X-Ray In Last 90 Days Chest X-Ray Within Last 90 Days: Yes Discharge Potential - Discharge Needs Community Services Used Prior to Admission: Home Health Aide, Home Health Nurse , Physical Therapy Patient Discharge Plan Description: Return Home Community Services Needed at Discharge: Home Health Aide, Home Health Nurse, Occupational Therapy, Physical Therapy Plan - Swing Bed Certification Initial Certification Due: 06/19/17 14 Day Re-Cert Due: 07/03/17 44 Day Re-Cert Due: 08/02/17 74 Day Re-Cert Due: 09/01/17 - Detailed Diagnosis and Plan (1) Physical deconditioning Current Visit: No Status: Acute Base Code: R53.81 - OTHER MALAISE Comment : 06/19/17: Deconditioning and weakness secondary to COPD exacerbation and lung cancer radiation treatments. PT/OT evaluation ordered. Pt. using 2-wheel walker and up with 2x assist. Bed alarm placed. (2) COPD exacerbation Current Visit: No Status: Acute Base Code: J44.1 - CHRONIC OBSTRUCTIVE PULMONARY DISEASE W (ACUTE) EXACERBATION Comment: 06/19/17: CXR negative for infiltrates/effusions. 97% on room air. Continue levaquin 750mg q48h for 7 days, last dose will be 06/26/17. Continue duonebs q4h while awake and prednisone 40mg daily for 3 days total, last dose will be 06/21/17. (3) Lesion of bronchus Current Visit: No Status: Acute Base Code: J98.09 - OTHER DISEASES OF BRONCHUS, NOT ELSEWHERE CLASSIFIED Comment: 06/19/17: Pt. completed last radiation treatment on 05/25/17. Follow up with oncology 1-2 weeks after discharge from [facility]. (4) Full code status Current Visit: No Status: Acute Base Code: Z78.9 - OTHER SPECIFIED HEALTH STATUS Comment: 06/19/17: Pt. is full code status
[2017-06-19] MEDS: SIMVASTATIN 20 MG TABLET PO SCH (21:17)
[2017-06-19] MEDS: DONEPEZIL HCL 5 MG TABLET PO SCH (21:17)
[2017-06-19] MEDS: TEMAZEPAM 15 MG CAPSULE PO SCH (21:17)
[2017-06-19] MEDS: BUDESONIDE 0.5 MG/2 ML INH SCH (21:53)
[2017-06-20] MEDS: IPRATROPIUM/ALBUTEROL (0.5MG/3MG) NEB INH SCH ×5 (05:39→21:25)
[2017-06-20] MEDS: PANTOPRAZOLE SODIUM 40 MG TABLET PO SCH ×2 (06:18→16:30)
[2017-06-20 06:49] LABS: EOS % 1.3 % (0-6); GRAN % 74.6 % (47-80); HEMOGLOBIN 12.7 gm/dl (14.0-18.0); LYMPH % 11.2 % (16-45); MEAN CELL VOLUME 94.8 fl (81-97); MEAN CORPUSCULAR HEMOGLOBIN 31.6 pg (27-33); MEAN CORPUSCULAR HGB CONC 33.4 g/dl (32-36); MEAN PLATELET VOLUME 9.6 fl (7.4-10.4); MONO % 12.9 % (0-9); PLATELET COUNT 196 K/uL (130-400); RED BLOOD COUNT 4.01 M/uL (4.40-5.70); RED CELL DISTRIBUTION WIDTH 12.8 % (11.5-14.5); WHITE BLOOD COUNT W/O DIFF 7.7 K/uL (4.2-12.2)
[2017-06-20 06:59] LABS: CREATININE 1.4 mg/dL (0.7-1.2)
[2017-06-20] MEDS: PREDNISONE 20 MG TAB PO SCH (07:37)
[2017-06-20] MEDS: GLIPIZIDE 5 MG TABLET PO SCH ×2 (07:37→16:30)
[2017-06-20] MEDS: LORAZEPAM 0.5 MG TABLET PO SCH (09:12)
[2017-06-20] MEDS: LEVOFLOXACIN 500 MG TABLET PO SCH (09:13)
[2017-06-20] MEDS: ASPIRIN 81 MG TABEC PO SCH (09:13)
[2017-06-20] MEDS: FLUOXETINE HCL 20 MG CAPSULE PO SCH (09:14)
[2017-06-20] MEDS: CHOLECALCIFEROL 1,000 UNIT TABLET PO SCH (09:15)
[2017-06-20] MEDS: BUDESONIDE 0.5 MG/2 ML INH SCH ×2 (10:08→21:25)
--- NOTE | 2017-06-20 10:58 | Swing Bed Certification/Recert ---
Initial Certification Due: 06/19/17 14 Day Re-Cert Due: 07/03/17 44 Day Re-Cert Due: 08/02/17 74 Day Re-Cert Due: 09/01/17 CERTIFICATION 3 CERTIFICATION OF PATIENT ADMISSION Required at time of admission. Due: 06/19/17 I certify that SNF services are required to be given on an inpatient basis because of the above named patient's need for [facility] care on a continuing basis for the condition(s) for which he/she was receiving inpatient hospital services prior to his/her transfer to the SNF. The patient's current needs for skilled care includes: [PT/OT evaluation and treatment for physical deconditioning, monitoring of COPD exacerbation treatment ] Mine Kay, N.P. 06/19/17
--- NOTE | 2017-06-20 11:42 | Physical Therapy Tx Note ---
Physical Therapy Tx Note - Treatment Note Tolerated: Good Total Time Spent With Patient: 45 Physical Therapy Tx Note: Detail (Pt in bed upon arrival, drowsy, leaning to left w/HOB elevated, but awakened easily and cooperative for therapy. Performed 5 reps each of shoulder flexion, abduction, push/pull, elbow flex/ext B; 10 reps each of heel slides, SAQ, ankle pumps, hip add w/pillow. CGA for bed mobility to come to sitting at edge of bed from sitting up w/HOB elevated. Good unsupported sitting balance. Sit/stand to front wheeled walker w/moderate assist. Ambulated 10 feet to scale, stepped up onto scale and off x 2 for proper weight, then few steps to bedside chair. VCs to approach chair and CGA to sit. Moderate assist to stand again to ambulate to bathroom w/front wheeled walker w/CGA, moderate assist to lower to toilet and to stand again after urinating. Ambulated w/front wheeled walker to bedside chair w/CGA. Turned chair alarm on, placed call light and phone within reach. Notified nrsg that patient is requesting getting cleaned up, up in chair.) Physical Therapy Problem List: Detail (1) Decreased balance in sitting and standing 2) Decreased LE strength 3) Assistance with transfers 4) Assistance with ambulation 5) Decreased ability to complete sustained physical activity) Physical Therapy Goals: 1) The patient will ambulate with assistive device distances of 50 feet with CG/supervision. 2) Assess Bed mobility. 3) Independent with bed mobility. 4) Independent/supervision with transfers. 5) Increase LE strength 1/3 muscle grade to increase stability of gait. 6) The patient will tolerate 30 minutes of physical activity with on rest period Prognosis: Good Physical Therapy Plan: PT 1-2 times a day M-F for bed mobility , gait training, transfer training, balance and LE strengthening exercises.
--- NOTE | 2017-06-20 15:40 | Physical Therapy Tx Note ---
Physical Therapy Tx Note - Treatment Note Tolerated: Good Total Time Spent With Patient: 45 Physical Therapy Tx Note: Detail (Pt sleeping in bed upon arrival; awakened easily and cooperative for therapy. Independently rolled and sat up at side of bed using handrail. Performed 15 reps each of shoulder flexion, abduction, elbow flex/ext sitting unsupported to good sitting balance. Lost balance backward slightly but regained independently. Performed 20 reps each of marching, LAQ, heel raises, toe raises, hip abd/add sitting unsupported at edge of bed. Sit/stand to front wheeled walker w/min assist; ambulated w/CGA and VCs for stride length to nrsg station and back to bed (134 feet). Somewhat short of breath upon sitting; HR 104. Recovered with breathing and HR within 2- 3 minutes. Back into bed and positioned independently. Provided w/fresh water ; call light and bedside table within reach. Nrsg notified.) Physical Therapy Problem List: Detail (1) Decreased balance in sitting and standing 2) Decreased LE strength 3) Assistance with transfers 4) Assistance with ambulation 5) Decreased ability to complete sustained physical activity) Physical Therapy Goals: 1) The patient will ambulate with assistive device distances of 50 feet with CG/supervision. 2) Assess Bed mobility. 3) Independent with bed mobility. 4) Independent/supervision with transfers. 5) Increase LE strength 1/3 muscle grade to increase stability of gait. 6) The patient will tolerate 30 minutes of physical activity with on rest period Prognosis: Good Physical Therapy Plan: PT 1-2 times a day M-F for bed mobility , gait training, transfer training, balance and LE strengthening exercises.
[2017-06-20] MEDS: DONEPEZIL HCL 5 MG TABLET PO SCH (21:08)
[2017-06-20] MEDS: SIMVASTATIN 20 MG TABLET PO SCH (21:09)
[2017-06-20] MEDS: TEMAZEPAM 15 MG CAPSULE PO SCH (21:09)
[2017-06-21] MEDS: PANTOPRAZOLE SODIUM 40 MG TABLET PO SCH ×2 (06:14→17:37)
[2017-06-21] MEDS: IPRATROPIUM/ALBUTEROL (0.5MG/3MG) NEB INH SCH ×5 (06:23→21:14)
[2017-06-21] MEDS: PREDNISONE 20 MG TAB PO SCH (08:06)
[2017-06-21] MEDS: GLIPIZIDE 5 MG TABLET PO SCH ×2 (08:06→17:37)
[2017-06-21] MEDS: BUDESONIDE 0.5 MG/2 ML INH SCH ×2 (09:30→21:14)
[2017-06-21] MEDS: CHOLECALCIFEROL 1,000 UNIT TABLET PO SCH (09:44)
[2017-06-21] MEDS: ASPIRIN 81 MG TABEC PO SCH (09:44)
[2017-06-21] MEDS: FLUOXETINE HCL 20 MG CAPSULE PO SCH (09:45)
[2017-06-21] MEDS: LORAZEPAM 0.5 MG TABLET PO SCH (09:45)
--- NOTE | 2017-06-21 10:20 | Occupational Therapy Tx Note ---
Occupational Therapy Tx Note - Treatment Note Tolerated: Good Total Time Spent With Patient: 60 (ADL) Occupational Therapy Treatment Note: Detail (S: Pt up in chair, ready for OT. O: Sit to stand and amb to shower seat with 2 wheeled walker and CG assist. Pt doffed t-shirt, slippers, pants and briefs with SBA to stand. Pt completed showering in sitting and standing with mod assist for sit to stand using 1 grab bar. Pt dried self Indly. Pt donned t-shirt and briefs with verbal cues for orientation of clothing and pants with min assist to start right foot in pant leg and min assist for sit to stand, Ind with slippers. Pt amb to sink with 2 wheeled walker and CG assist, completed shaving and oral hygiene in sitting with min assist to apply toothpaste to toothbrush due to vision impairment. Pt became short of breath during ADLs but recovered quickly with short rest breaks. Pt amb back to chair with 2 wheeled walker and CG assist. A: Min assist for dressing, oral hygiene tasks, mod assist for sit to stand from shower chair, shortness of breath with activity although improved from initial eval.) Occupational Therapy Problem List: Detail (1. Decreased Ind with showering. 2. Decreased Ind with total body dressing. 3. Decreased Ind with functional mobility needed for safe and Ind ADLs. 4. Decreased UE function/strength needed for safe and Ind ADLs.) Occupational Therapy Goals: 1. Pt will be safe and Ind with showering in sitting. 2. Pt will be safe and Ind with total body dressing. 3. Pt will be Ind with functional mobility needed for safe and Ind self cares. 4. Pt will improve louis UE strength and endurance to allow Ind with self cares. Prognosis: Good Occupational Therapy Plan: OT 2-4 times per week to address self cares, functional mobility, endurance and UE function to allow safe and Ind return home.
--- NOTE | 2017-06-21 14:02 | Physical Therapy Tx Note ---
Physical Therapy Tx Note - Treatment Note Tolerated: Good Total Time Spent With Patient: 40 Physical Therapy Tx Note: Detail (Patient was sitting in chair upon arrival. The patient states that he is feeling good today and more like himself after getting back on his medications that he is prescribed. The patient was able to stand independently from his chair to his walker (2-wheeled walker), and was able to ambulate for 105 ft with contact guard assist, and wheelchair following. The patient needed a rest after ambulation. In sitting, the patient' s sitting balance was improved, in comparison to the intial evaluation where he displayed a left, lateral trunk lean. The patient completed 10 reps of the following exercises in supine: Heel Slides, SAQ, Glut. Bridges, and ankle pumps. He required a rest after each exercise due to fatigue. The patient also completed the Resendez Balance Scale and scored 23/56, which places him in the Medium Fall Risk Category. His quad contractures were measured with the Right at -20 degrees, and left at -17 degrees. The patient tolerated treatment well, and only complained of slight fatigue. The patient was returned to his chair after therapy with his call light in reach.) Physical Therapy Problem List: Detail (1) Decreased balance in sitting and standing 2) Decreased LE strength 3) Assistance with transfers 4) Assistance with ambulation 5) Decreased ability to complete sustained physical activity) Physical Therapy Goals: 1) The patient will ambulate with assistive device distances of 50 feet with CG/supervision - MET. 2) Assess Bed mobility. 3) Independent with bed mobility. 4) Independent/supervision with transfers. 5) Increase LE strength 1/3 muscle grade to increase stability of gait. 6) The patient will tolerate 30 minutes of physical activity with on rest period Prognosis: Good Physical Therapy Plan: PT 1-2 times a day M-F for bed mobility , gait training, transfer training, balance and LE strengthening exercises.
[2017-06-21] MEDS: ACETAMINOPHEN 500 MG TABLET PO PRN (17:38)
[2017-06-21] MEDS: DONEPEZIL HCL 5 MG TABLET PO SCH (21:11)
[2017-06-21] MEDS: TEMAZEPAM 15 MG CAPSULE PO SCH (21:11)
[2017-06-21] MEDS: SIMVASTATIN 20 MG TABLET PO SCH (21:12)
[2017-06-22] MEDS: PANTOPRAZOLE SODIUM 40 MG TABLET PO SCH ×2 (06:00→17:41)
[2017-06-22] MEDS: IPRATROPIUM/ALBUTEROL (0.5MG/3MG) NEB INH SCH ×5 (06:00→21:50)
[2017-06-22] MEDS: GLIPIZIDE 5 MG TABLET PO SCH ×2 (07:59→17:41)
[2017-06-22] MEDS: LEVOFLOXACIN 500 MG TABLET PO SCH (09:32)
[2017-06-22] MEDS: LORAZEPAM 0.5 MG TABLET PO SCH (09:32)
[2017-06-22] MEDS: ASPIRIN 81 MG TABEC PO SCH (09:32)
[2017-06-22] MEDS: FLUOXETINE HCL 20 MG CAPSULE PO SCH (09:32)
[2017-06-22] MEDS: CHOLECALCIFEROL 1,000 UNIT TABLET PO SCH (09:32)
[2017-06-22] MEDS: BUDESONIDE 0.5 MG/2 ML INH SCH ×2 (10:06→21:50)
[2017-06-22] MEDS: DONEPEZIL HCL 5 MG TABLET PO SCH (22:03)
[2017-06-22] MEDS: TEMAZEPAM 15 MG CAPSULE PO SCH (22:03)
[2017-06-22] MEDS: SIMVASTATIN 20 MG TABLET PO SCH (22:03)
[2017-06-23] MEDS: PANTOPRAZOLE SODIUM 40 MG TABLET PO SCH ×2 (06:14→17:20)
[2017-06-23] MEDS: IPRATROPIUM/ALBUTEROL (0.5MG/3MG) NEB INH SCH ×5 (06:19→21:36)
--- NOTE | 2017-06-23 07:50 | Physician Progress Note ---
Subjective - Date Date of Progress Note: 06/24/17 - Admitting Diagnosis Diagnosis: Deconditioning d/t hypoxia, lung cancer, copd - Subjective Events since last encounter: Patient reports difficulty with sleeping last night even after taking sleep aid. He appears to be resting comfortably this morning with no other new concerns. Nursing Care Plan Problem List Activity Intolerance (Swing Bed) Start: 06/19/17 14: 27 Freq: Status: Active Protocol: Created 06/19/17 14:27 [facility] [place] (Rec: 06/19/17 14:27 [facility] [place] [id number]) Knowledge Deficit (Swing Bed) Start: 06/19/17 14: 27 Freq: Status: Active Protocol: Created 06/19/17 14:27 [facility] (Rec: 06/19/17 14:27 [facility] [place] [id number]) Pain (Swing Bed) Start: 06/19/17 13: 30 Freq: Status: Active Protocol: Created 06/19/17 13:30 [facility] [place] (Rec: 06/19/17 13:30 [facility] [place] [id number]) General - Cognitive Patterns Speech: Normal Thought Process: Intact Thought Process Comment: decreased short term memory Thought Content: Normal - Communication Select best description of speech pattern: Clear Speech Ability to express ideas and wants: Understood Understanding verbal content: Understands - Mood and Behavior Patterns Appearance: Well Groomed Mood: Normal Attitude: Cooperative Motor Activity: Calm Affect: Appropriate Hallucinations: Denies - Physical Functioning Activity Level: Up with assist x1 Turning: Self ad lenard ROM Ability: Moves all extremities Assistive Devices: 2 Wheel Walker Ambulation Ability: Independent Bed Mobility: Independent Transfer Ability: Needs Assist Bathing Ability: Needs Assist Personal Hygiene: Needs Assist Dressing Ability: Needs Assist Eating (Feeding) Ability: Independent Toileting Ability: Needs Assist Administer Own Medication: Independent - Continence Bowel Pattern: Normal for Patient Bladder Pattern: Normal Meds/Allergies - Allergies Allergies Allergy/AdvReac Type Severity Reaction Status Date / Time No Known Drug Allergies Allergy Verified 12/11/16 12:52 - Active Medications Current Medications Acetaminophen (Tylenol 500mg Tab) 1,000 mg PO Q8H PRN PRN Reason: Pain - Mild (1-4) Last Admin: 06/21/17 17:38 Dose: 1,000 mg Albuterol/Ipratropium (Duoneb) 3 ml INH RESP.Q4H.WA [facility] Last Admin: 06/23/17 06:19 Dose: 3 ml Aspirin (Ecotrin (Ec)) 81 mg PO DAILY [facility] Last Admin: 06/22/17 09:32 Dose: 81 mg Budesonide (Pulmicort) 0.5 mg INH BID [facility] Last Admin: 06/22/17 21:50 Dose: 0.5 mg Donepezil HCl (Aricept) 20 mg PO QHS [facility] Last Admin: 06/22/17 22:03 Dose: 20 mg Fluoxetine HCl (Prozac) 20 mg PO DAILY [facility] Last Admin: 06/22/17 09:32 Dose: 20 mg Glipizide (Glucotrol) 5 mg PO 0730,1630 [facility] Last Admin: 06/22/17 17:41 Dose: 5 mg Levofloxacin (Levaquin Tab) 750 mg PO Q48H [facility] Stop: 06/26/17 10:01 Last Admin: 06/22/17 09:32 Dose: 750 mg Loperamide HCl (Immodium) 2 mg PO Q4H PRN PRN Reason: DIARRHEA Lorazepam (Ativan) 0.5 mg PO DAILY [facility] Last Admin: 06/22/17 09:32 Dose: 0.5 mg Lorazepam (Ativan) 0.5 mg PO DAILY PRN PRN Reason: AGITATION/ANXIETY Pantoprazole Sodium (Protonix) 40 mg PO BIDAC [facility] Last Admin: 06/23/17 06:14 Dose: 40 mg Simvastatin (Zocor) 40 mg PO QHS [facility] Last Admin: 06/22/17 22:03 Dose: 40 mg Temazepam (Restoril) 30 mg PO QHS [facility] Last Admin: 06/22/17 22:03 Dose: 30 mg Vitamin D (Vitamin D3) 2,000 unit PO DAILY [facility] Last Admin: 06/22/17 09:32 Dose: 2,000 unit Objective - Vital Signs Vital Signs: Vital Signs - Last 24 Hrs Temp Pulse Pulse Resp BP Pulse Ox 06/23/17 06:19 70 20 95 06/23/17 01:48 81 20 122/67 97 06/22/17 21:51 76 16 95 06/22/17 20:00 98.4 F 84 20 114/61 95 06/22/17 18:04 71 17 97 06/22/17 13:41 70 16 98 06/22/17 10:12 65 19 99 - General General Appearance: Alert, Cooperative, No acute distress, Other (decreased short term memory recall) Limitations: Physical limitation (using walker to ambulate) - Head Head exam: Normal inspection - Eye Eye exam: Normal appearance, Other (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 negative: External canal tenderness Nasal Exam: Normal inspection. negative: Discharge, Sinus tenderness Mouth exam: Normal external inspection, Tongue normal Teeth exam: Normal inspection. negative: Dental caries Throat exam: Normal inspection. negative: Tonsillar erythema, Tonsillar exudate - Neck Neck exam: Normal inspection, Full ROM. negative: Tenderness - Respiratory Respiratory exam: Decreased breath sounds. negative: Accessory muscle use, Rhonchi, Wheezes - Cardiovascular Cardiovascular Exam: Regular rate, Normal rhythm, Systolic murmur Peripheral Pulses: 2+: Dorsalis Pedis (R), Dorsalis Pedis (L), 3+: Radial (R), Radial (L) - GI/Abdominal GI/Abdominal exam: Soft, Normal bowel sounds. negative: Tenderness - Rectal Rectal exam: Deferred - exam: Deferred - Extremities Extremities exam: Normal inspection, Full ROM, Normal capillary refill. negative: Tenderness - Neurological Neurological exam: Alert - Psychiatric Psychiatric exam: Normal affect, Normal mood - Skin Skin exam: Dry, Intact, Normal color, Warm H&P Results - Labs Result Diagrams: 06/20/17 06:28 06/20/17 06:28 Labs Last 24 Hours: Laboratory Results - last 24 hr 06/22/17 06/22/17 06/23/17 07:34 17:18 06:29 POC Glucose 115 H 246 H 95 Discharge Potential - Discharge Needs Community Services Used Prior to Admission: Home Health Aide, Home Health Nurse , Physical Therapy Patient Discharge Plan Description: Return Home Community Services Needed at Discharge: Home Health Aide, Home Health Nurse, Occupational Therapy, Physical Therapy Plan - Swing Bed Certification Initial Certification Due: 06/19/17 14 Day Re-Cert Due: 07/03/17 44 Day Re-Cert Due: 08/02/17 74 Day Re-Cert Due: 09/01/17 - Detailed Diagnosis and Plan (1) Physical deconditioning Current Visit: No Status: Acute Base Code: R53.81 - OTHER MALAISE Comment : - Deconditioning and weakness secondary to COPD exacerbation and lung cancer radiation treatments. - Assist with walker/bed alarm active. - Daily PT/OT: recent assessment: 06/21 cont gait/transfer training 1-2 QD M-F. Tolerating well. (2) Diabetes Current Visit: No Status: Acute Qualifiers: Diabetes mellitus type: type 2 Diabetes mellitus complication status: with unspecified complications Diabetes mellitus retirement insulin use: without watermelon harvesting supervisor use Qualified Code(s): E11.8 - Type 2 diabetes mellitus with unspecified complications Base Code: E11.9 - TYPE 2 DIABETES MELLITUS WITHOUT COMPLICATIONS Comment: - fluctuations in serum glucose noted on labs. - cont with Q12H accuchecks, will adjust medications as appropriate. On Glucotrol 5mg daily. On ADA diet. (3) COPD exacerbation Current Visit: No Status: Acute Base Code: J44.1 - CHRONIC OBSTRUCTIVE PULMONARY DISEASE W (ACUTE) EXACERBATION Comment: - CXR - negative for infiltrates - D/C Levaquin on 06/24. 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 - Oncology to follow on d/c from [facility]. (5) Full code status Current Visit: No Status: Acute Base Code: Z78.9 - OTHER SPECIFIED HEALTH STATUS Comment: 06/19/17: Pt. is full code status
[2017-06-23] MEDS: GLIPIZIDE 5 MG TABLET PO SCH ×2 (08:50→17:20)
[2017-06-23] MEDS: BUDESONIDE 0.5 MG/2 ML INH SCH ×2 (09:44→21:36)
[2017-06-23] MEDS: FLUOXETINE HCL 20 MG CAPSULE PO SCH (10:17)
[2017-06-23] MEDS: ASPIRIN 81 MG TABEC PO SCH (10:17)
[2017-06-23] MEDS: LORAZEPAM 0.5 MG TABLET PO SCH (10:17)
[2017-06-23] MEDS: CHOLECALCIFEROL 1,000 UNIT TABLET PO SCH (10:18)
[2017-06-23] MEDS: TEMAZEPAM 15 MG CAPSULE PO SCH (21:45)
[2017-06-23] MEDS: SIMVASTATIN 20 MG TABLET PO SCH (21:45)
[2017-06-23] MEDS: DONEPEZIL HCL 5 MG TABLET PO SCH (21:46)
[2017-06-24] MEDS: PANTOPRAZOLE SODIUM 40 MG TABLET PO SCH ×2 (06:02→17:09)
[2017-06-24] MEDS: IPRATROPIUM/ALBUTEROL (0.5MG/3MG) NEB INH SCH ×5 (06:06→21:29)
[2017-06-24] MEDS: GLIPIZIDE 5 MG TABLET PO SCH ×2 (08:18→17:09)
[2017-06-24] MEDS: BUDESONIDE 0.5 MG/2 ML INH SCH ×2 (09:48→21:29)
[2017-06-24] MEDS: LORAZEPAM 0.5 MG TABLET PO SCH (10:04)
[2017-06-24] MEDS: FLUOXETINE HCL 20 MG CAPSULE PO SCH (10:04)
[2017-06-24] MEDS: CHOLECALCIFEROL 1,000 UNIT TABLET PO SCH (10:05)
[2017-06-24] MEDS: ASPIRIN 81 MG TABEC PO SCH (10:05)
[2017-06-24] MEDS: LEVOFLOXACIN 500 MG TABLET PO SCH (10:05)
--- NOTE | 2017-06-24 11:05 | Physical Therapy Tx Note ---
Physical Therapy Tx Note - Treatment Note Tolerated: Fair Total Time Spent With Patient: 35 Physical Therapy Tx Note: Detail (The patient was sitting in his chair upon arrival. He was able to move from sit to stand from the chair with only supervision. He was able to ambulate 40 feet x 1 with supervision and wheelchair following but had to stop due to fatigue. The patient completed balance activities which included standing at therapy railing without UE support and external perturbations 2x 30 secs, side-stepping for 10 steps x 2. He needed multiple attempts to go from sit to stand, but was able to get up with supervision once he completed. The patient reviewed his previous HEP of glut. sets, LAQ, Heel/Toe raises, and hip add/abduction for 10 reps in sitting. He required frequent breaks due to fatigue. He then ambulated from his wheelchair to his chair (10 feet), and was able to go from stand to sit with supervision only. The patient's sitting balance and bed mobility will be assessed next treatment session.) Physical Therapy Problem List: Detail (1) Decreased balance in sitting and standing 2) Decreased LE strength 3) Assistance with transfers 4) Assistance with ambulation 5) Decreased ability to complete sustained physical activity) Physical Therapy Goals: 1) The patient will ambulate with assistive device distances of 50 feet with CG/supervision - MET. 2) Assess Bed mobility. 3) Independent with bed mobility. 4) Independent/supervision with transfers. 5) Increase LE strength 1/3 muscle grade to increase stability of gait. 6) The patient will tolerate 30 minutes of physical activity with on rest period Prognosis: Moderate Physical Therapy Plan: PT 1-2 times a day M-F for bed mobility , gait training, transfer training, balance and LE strengthening exercises.
[2017-06-24] MEDS: TEMAZEPAM 15 MG CAPSULE PO SCH (21:42)
[2017-06-24] MEDS: SIMVASTATIN 20 MG TABLET PO SCH (21:42)
[2017-06-24] MEDS: DONEPEZIL HCL 5 MG TABLET PO SCH (21:43)
[2017-06-25] MEDS: IPRATROPIUM/ALBUTEROL (0.5MG/3MG) NEB INH SCH ×5 (05:49→22:16)
[2017-06-25] MEDS: PANTOPRAZOLE SODIUM 40 MG TABLET PO SCH ×2 (06:14→16:39)
[2017-06-25] MEDS: GLIPIZIDE 5 MG TABLET PO SCH ×2 (08:01→16:38)
[2017-06-25] MEDS: FLUOXETINE HCL 20 MG CAPSULE PO SCH (09:24)
[2017-06-25] MEDS: ASPIRIN 81 MG TABEC PO SCH (09:24)
[2017-06-25] MEDS: LORAZEPAM 0.5 MG TABLET PO SCH (09:24)
[2017-06-25] MEDS: CHOLECALCIFEROL 1,000 UNIT TABLET PO SCH (09:24)
[2017-06-25] MEDS: BUDESONIDE 0.5 MG/2 ML INH SCH ×2 (09:30→22:16)
--- NOTE | 2017-06-25 11:58 | Occupational Therapy Tx Note ---
Occupational Therapy Tx Note - Treatment Note Tolerated: Good Total Time Spent With Patient: 50 (ther ex) Occupational Therapy Treatment Note: Detail (S: Pt short of breath today but feeling better than yesterday. O: Supine to sit Indly. Donned tennis shoes with moderate difficulty due to breathing and stiffness. Pt amb 65 feet with 2 wheeled walker and CG assist. Propelled wheelchair 50 feet and then transported to rehab gym via wheelchair. Pt completed vidal UE strengthening/ endurance activity with resisted clothespins and overhead reaching. Pt fatigued easily and required several short rest breaks, left worse than right. Vidal doll wig maker rooted hair strengthening with green theraputty, pt educated re: HEP and demonstrates learning. Pt transported back to room via wheelchair. Completed toileting with CG assist and use of grab bar for sit to stand. A: Shortness of breath continues with activity, pt fatigues very easily and cont. with decreased UE endurance.) Occupational Therapy Problem List: Detail (1. Decreased Ind with showering. 2. Decreased Ind with total body dressing. 3. Decreased Ind with functional mobility needed for safe and Ind ADLs. 4. Decreased UE function/strength needed for safe and Ind ADLs.) Occupational Therapy Goals: 1. Pt will be safe and Ind with showering in sitting. 2. Pt will be safe and Ind with total body dressing. 3. Pt will be Ind with functional mobility needed for safe and Ind self cares. 4. Pt will improve vidal UE strength and endurance to allow Ind with self cares. Prognosis: Good Occupational Therapy Plan: OT 2-4 times per week to address self cares, functional mobility, endurance and UE function to allow safe and Ind return home.
--- NOTE | 2017-06-25 14:41 | Physical Therapy Tx Note ---
Physical Therapy Tx Note - Treatment Note Total Time Spent With Patient: 25 Physical Therapy Tx Note: Detail (The patient was laying down in his bed upon arrival. He was able to go from supine to sit independently, and then from sit to stand independently. He then ambulated from his room to the nurse's station with CGA and wheelchair following. He required a break after ambulation, and was pushed in the wheelchair to his room. The patient's sitting balance was tested with external perturbations from all directions, ball (inflated glove) throw/catch x 15 reps. His standing balance was tested with external perturbations for 2 rounds, but was discontinued due to increased fatigue with standing. The patient's sitting balance is improved in comparison to initial evaluation, as he did not show the left direction lean while sitting. Standing without his walker is still difficult for him, as he was able to tolerate 10 seconds without contacting his walker.) Physical Therapy Problem List: Detail (1) Decreased balance in sitting and standing 2) Decreased LE strength 3) Assistance with transfers 4) Assistance with ambulation 5) Decreased ability to complete sustained physical activity) Physical Therapy Goals: 1) The patient will ambulate with assistive device distances of 50 feet with CG/supervision - MET. 2) Assess Bed mobility - MET. 3) Independent with bed mobility - MET. 4) Independent/supervision with transfers. 5) Increase LE strength 1/3 muscle grade to increase stability of gait. 6) The patient will tolerate 30 minutes of physical activity with one rest period Prognosis: Good Physical Therapy Plan: PT 1-2 times a day M-F for bed mobility , gait training, transfer training, balance and LE strengthening exercises.
[2017-06-25] MEDS: TEMAZEPAM 15 MG CAPSULE PO SCH (21:42)
[2017-06-25] MEDS: SIMVASTATIN 20 MG TABLET PO SCH (21:42)
[2017-06-25] MEDS: DONEPEZIL HCL 5 MG TABLET PO SCH (21:43)
[2017-06-26] MEDS: IPRATROPIUM/ALBUTEROL (0.5MG/3MG) NEB INH SCH ×5 (05:56→22:45)
[2017-06-26] MEDS: PANTOPRAZOLE SODIUM 40 MG TABLET PO SCH ×2 (06:04→16:43)
[2017-06-26] MEDS: GLIPIZIDE 5 MG TABLET PO SCH ×2 (07:44→16:43)
[2017-06-26] MEDS: BUDESONIDE 0.5 MG/2 ML INH SCH ×2 (09:20→22:45)
[2017-06-26] MEDS: LEVOFLOXACIN 500 MG TABLET PO SCH (09:40)
[2017-06-26] MEDS: ASPIRIN 81 MG TABEC PO SCH (09:40)
[2017-06-26] MEDS: LORAZEPAM 0.5 MG TABLET PO SCH (09:40)
[2017-06-26] MEDS: FLUOXETINE HCL 20 MG CAPSULE PO SCH (09:40)
[2017-06-26] MEDS: CHOLECALCIFEROL 1,000 UNIT TABLET PO SCH (09:40)
--- NOTE | 2017-06-26 10:46 | Physical Therapy Tx Note ---
Physical Therapy Tx Note - Treatment Note Total Time Spent With Patient: 30 Physical Therapy Tx Note: Detail (Patient was laying in bed/sleeping upon arrival. The patient was independent, but used grab bars to transfer from supine to sit, and was independent in sit to stand. He ambulated 115 feet with supervision with a 2WW. The patient then completed balance exercises as following: standing balance with no UE support for 3 rounds of 10 seconds (VC's for upright posture), standing balance on foam pad 2 rounds of 10 seconds ( required min assist for balance, and VC's for upright posture), standing with external perturbations 4 rounds of 15 seconds, and ball throw/catch for 10 throws. Standing balance was improved today in comparison with yesterday. He showed more steadiness and less sway with perturbations. He then completed 10 reps of the following exercises: LAQ, Hip abd/adduction, hip flexion, and heel/ toe raises/ He tolerated treatment well, but required increasing rest breaks as the session continued.) Physical Therapy Problem List: Detail (1) Decreased balance in sitting and standing 2) Decreased LE strength 3) Assistance with transfers 4) Assistance with ambulation 5) Decreased ability to complete sustained physical activity) Physical Therapy Goals: 1) The patient will ambulate with assistive device distances of 50 feet with CG/supervision - MET. 2) Assess Bed mobility - MET. 3) Independent with bed mobility - MET. 4) Independent/supervision with transfers. 5) Increase LE strength 1/3 muscle grade to increase stability of gait. 6) The patient will tolerate 30 minutes of physical activity with one rest period Prognosis: Moderate Physical Therapy Plan: PT 1-2 times a day M-F for bed mobility , gait training, transfer training, balance and LE strengthening exercises.
--- NOTE | 2017-06-26 14:12 | Occupational Therapy Tx Note ---
Occupational Therapy Tx Note - Treatment Note Occupational Therapy Treatment Note: Detail (Pt resting in bed, now on oxygen. Reports feeling totally tired out from earlier therapy and not feeling up to OT this afternoon.) Occupational Therapy Problem List: Detail (1. Decreased Ind with showering. 2. Decreased Ind with total body dressing. 3. Decreased Ind with functional mobility needed for safe and Ind ADLs. 4. Decreased UE function/strength needed for safe and Ind ADLs.) Occupational Therapy Goals: 1. Pt will be safe and Ind with showering in sitting. 2. Pt will be safe and Ind with total body dressing. 3. Pt will be Ind with functional mobility needed for safe and Ind self cares. 4. Pt will improve louis UE strength and endurance to allow Ind with self cares. Occupational Therapy Plan: OT 2-4 times per week to address self cares, functional mobility, endurance and UE function to allow safe and Ind return home.
[2017-06-26] MEDS: GUAIFENESIN 1,200 MG TABLET PO SCH ×2 (16:44→21:43)
[2017-06-26] MEDS: TEMAZEPAM 15 MG CAPSULE PO SCH (21:43)
[2017-06-26] MEDS: DONEPEZIL HCL 5 MG TABLET PO SCH (21:43)
[2017-06-26] MEDS: SIMVASTATIN 20 MG TABLET PO SCH (21:44)
[2017-06-26] MEDS: ACETAMINOPHEN 500 MG TABLET PO PRN (21:51)
[2017-06-27] MEDS: IPRATROPIUM/ALBUTEROL (0.5MG/3MG) NEB INH SCH ×5 (05:54→21:22)
[2017-06-27] MEDS: BUDESONIDE 0.5 MG/2 ML INH SCH ×3 (05:54→21:23)
[2017-06-27] MEDS: PANTOPRAZOLE SODIUM 40 MG TABLET PO SCH ×2 (06:21→17:30)
[2017-06-27] MEDS: GLIPIZIDE 5 MG TABLET PO SCH ×2 (07:29→17:30)
[2017-06-27] MEDS: ASPIRIN 81 MG TABEC PO SCH (10:04)
[2017-06-27] MEDS: FLUOXETINE HCL 20 MG CAPSULE PO SCH (10:04)
[2017-06-27] MEDS: LORAZEPAM 0.5 MG TABLET PO SCH (10:05)
[2017-06-27] MEDS: CHOLECALCIFEROL 1,000 UNIT TABLET PO SCH (10:05)
[2017-06-27] MEDS: GUAIFENESIN 1,200 MG TABLET PO SCH ×2 (10:06→21:20)
--- NOTE | 2017-06-27 11:34 | Physical Therapy Tx Note ---
Physical Therapy Tx Note - Treatment Note Tolerated: Good Total Time Spent With Patient: 40 Physical Therapy Tx Note: Detail (Pt was sitting in chair receiving a breathing treatment from respiratory at time of arrival. Pt finished treatment. Pt completed all transfers with standby assist. Pt ambulated with 2 wheeled walker x 125 ft to [facility] from room with contact guard assist and URINALYSIS TECHNICIAN pulling wheelchair behind. [facility] and completed ex's of LAQ, marches , seatd heal raise, seated toe raise, all x 15 each and bilaterally. Pt ambulated back to room with 2 wheeled walker and contact guard assist again pulling wheelchair behind. Pt returned to seat in room independently. Pt used vibrating respiratory device for breathing x 10 as per instructed by respiratory earlier. Pt completed balance ex's of standing with walker but not holding on with pertubation 3 x 10 each direction and was able to maintain balance. Pt completed 6 sets of narrow feet balance x 10-15 seconds each as patient tolerated with walker for stability as needed. Pt returned to seat and oxygen was applied to patient at 2 liters. Pt states fatigued after treatment but able to tolerate well with improving balance with activity. Pt to be seen this afternoon. Pt was given call light and bedside table.) Physical Therapy Problem List: Detail (1) Decreased balance in sitting and standing 2) Decreased LE strength 3) Assistance with transfers 4) Assistance with ambulation 5) Decreased ability to complete sustained physical activity) Physical Therapy Goals: 1) The patient will ambulate with assistive device distances of 50 feet with CG/supervision - MET. 2) Assess Bed mobility - MET. 3) Independent with bed mobility - MET. 4) Independent/supervision with transfers. 5) Increase LE strength 1/3 muscle grade to increase stability of gait. 6) The patient will tolerate 30 minutes of physical activity with one rest period Prognosis: Good Physical Therapy Plan: PT 1-2 times a day M-F for bed mobility , gait training, transfer training, balance and LE strengthening exercises.
--- NOTE | 2017-06-27 14:37 | Physical Therapy Tx Note ---
Physical Therapy Tx Note - Treatment Note Tolerated: Good Total Time Spent With Patient: 45 Physical Therapy Tx Note: Detail (Pt. was resting in chair upon arrival. Pt transferred sit to stand with stand by assist. Pt ambulated 150 ft. with two wheeled walker with contact guard assist, and then wheeled with a wheelchair to rehab department. Pt completed ex's of weighted pulleys for shoulder rowing with 2 # bilaterally. Pt completed ex's of hip abduction with yellow theraband x 15, HS curls with yellow theraband x 15 bilaterally. Pt stood at rail and marching x 20 bilateral. Sidestepping at rail x 20 ft bilaterally. Both standing ex's with contact guard assist. Pt completed hip adduction with ball hold for 5 " and completed 15 of these. Standing toe raise and heel raise x 10 each at rail with stand by assist. Pt was then wheeled back to room in wheel chair due to pt's stated fatigue. Pt returned to chair and was given call light and bedside table. Pt was left in nursing care who was doing a vitals check. Pt was fatigued after treatment but did not complain of pain.) Physical Therapy Problem List: Detail (1) Decreased balance in sitting and standing 2) Decreased LE strength 3) Assistance with transfers 4) Assistance with ambulation 5) Decreased ability to complete sustained physical activity) Physical Therapy Goals: 1) The patient will ambulate with assistive device distances of 50 feet with CG/supervision - MET. 2) Assess Bed mobility - MET. 3) Independent with bed mobility - MET. 4) Independent/supervision with transfers. 5) Increase LE strength 1/3 muscle grade to increase stability of gait. 6) The patient will tolerate 30 minutes of physical activity with one rest period Prognosis: Good Physical Therapy Plan: PT 1-2 times a day M-F for bed mobility , gait training, transfer training, balance and LE strengthening exercises.
--- NOTE | 2017-06-27 20:10 | Speech Therapy Evaluation ---
Speech Therapy Evaluation - Patient Concerns List Patient Concerns: Patient reports that he is not able to be understood as well as he once did. Assessment completed on 06/25/17 and was completed from 12:55 to 1:35 or 40 minutes. - Living & Support Living Situation/Support System: Not addressed. - Hearing Evaluation Hearing: Pass - Vision Evaluation Vision Comment: Glasses at time of evaluation. For distance. - Expressive Language (Area of Concern) Expressive Language: Other (Patient presents with some dysfluencies such as part word repetition and blocks. Up to 3 blocks observed at time of evaluation. ) Cues Needed: Time Expressive Language Comment: Patient reports a familiar history of stuttering ( a son and a grandfather who were both "impossible to understand" per patient report). Patient reports he had not previously had this difficulty until his most recent hospitalization. Deficit appears mild and of minimal concern to the patient at the time of evaluation however patient was provided some basic education regarding stuttering techniques such as a easy onset and may want to pursue treatment with a speech-langauge pathologist with more training in this area in the future if the problem persists. - Receptive Language (Area of Concern Receptive Language: Basic - Written Expression Written Expression Comment: Not addressed. - Cognition Orientation: Person, Purpose, Place (Patient self reported a dx of dementia. ) Attention: Sustained, Selective, Simple Executive Functions: Organization, Planning - Voice & Motor Speech Voice: Within Normal Limits Dysarthria: Mild Apraxia: N/A Aware of Difficulties: Yes Voice & Motor Speech Comment: Patient has some mild dysarthria exaccerbated by edentulous status. Plan for Treatment - Plan Plan for Treatment: Patient is recommended to pursue treatment with a speech- langauge pathologist qualified to treat stuttering should he choose to have treatment. This may be possible via another outpatient facility in the area. As the sole provider at this location I am not qualified to provide the treatment needed for stuttering beyond the basic identification. There is a possiblity of a neurogenic component but given the patient's familial history that may be difficult to identify. Oral Motor Assessment - Lips Lips at Rest: Normal Function Lip Retraction: Normal Function Lip Protrusion: Normal Function - Tongue Tongue at Rest: Normal Function Tongue Protrusion: Normal Function Tongue Elevation: Abnormal Function Tongue Lateralization: Abnormal Function (Weakness noted on R side reduced movement to R buccal cavity and R strength when pushing against depressor - Mild.) - Velum Velum at Rest: Normal Function Velum Elevation: Normal Function - Additional Information Oral Sensitivity: WFL Volitional Cough/Throat Clearing: WFL Other Oral Motor Comment: Pt reports hx of difficulty breathing and use of oxygen in the past. Also self reported ulcers on hard palate from past medications. Visualization of hard palate revealed round shaped raised areas (4 -5) towards alveolar ridge that were slightly more red compared to the rest of the palate.
[2017-06-27] MEDS: DONEPEZIL HCL 5 MG TABLET PO SCH (21:20)
[2017-06-27] MEDS: SIMVASTATIN 20 MG TABLET PO SCH (21:20)
[2017-06-27] MEDS: TEMAZEPAM 15 MG CAPSULE PO SCH (21:21)
[2017-06-28] MEDS: PANTOPRAZOLE SODIUM 40 MG TABLET PO SCH ×2 (06:08→17:52)
[2017-06-28] MEDS: IPRATROPIUM/ALBUTEROL (0.5MG/3MG) NEB INH SCH ×5 (06:08→23:51)
[2017-06-28] MEDS: GLIPIZIDE 5 MG TABLET PO SCH ×2 (07:51→17:52)
[2017-06-28] MEDS: BUDESONIDE 0.5 MG/2 ML INH SCH ×2 (09:35→23:52)
[2017-06-28] MEDS: FLUOXETINE HCL 20 MG CAPSULE PO SCH (10:06)
[2017-06-28] MEDS: GUAIFENESIN 1,200 MG TABLET PO SCH ×2 (10:07→21:22)
[2017-06-28] MEDS: ASPIRIN 81 MG TABEC PO SCH (10:07)
[2017-06-28] MEDS: LORAZEPAM 0.5 MG TABLET PO SCH (10:07)
[2017-06-28] MEDS: CHOLECALCIFEROL 1,000 UNIT TABLET PO SCH (10:07)
--- NOTE | 2017-06-28 13:39 | Occupational Therapy Tx Note ---
Occupational Therapy Tx Note - Treatment Note Tolerated: Good Total Time Spent With Patient: 60 (ADL) Occupational Therapy Treatment Note: Detail (S: Pt up in chair, ready for showering. O: Sit to stand and amb to toilet with 2 wheeled walker and CG assist. Completed toileting Indly. Amb to shower bench with walker and CG assist. Doffed shirt, sweatpants, briefs and slipper socks Indly. Pt completed showering in sitting and standing with walker, grab bar and CG assist for standing. He was able to wash all body parts Ind with the exception of his back. Pt dried self Indly. Donned shirt and applied deodorant Indly. Donned briefs and pants with assist to start over feet. Donned slipper socks with mod assist. Pt amb to chair with 2 wheeled walker and CG assist, completed shaving with electric razor Indly. A: Pt continues with minimal shortness of breath during activity although this is improving, he had difficulty lifting legs up and reaching to feet even with cues for modified techniques. Improved strength with sit to stand from shower seat.) Occupational Therapy Problem List: Detail (1. Decreased Ind with showering. 2. Decreased Ind with total body dressing. 3. Decreased Ind with functional mobility needed for safe and Ind ADLs. 4. Decreased UE function/strength needed for safe and Ind ADLs.) Occupational Therapy Goals: 1. Pt will be safe and Ind with showering in sitting. 2. Pt will be safe and Ind with total body dressing. 3. Pt will be Ind with functional mobility needed for safe and Ind self cares. 4. Pt will improve louis UE strength and endurance to allow Ind with self cares. Prognosis: Good Occupational Therapy Plan: OT 2-4 times per week to address self cares, functional mobility, endurance and UE function to allow safe and Ind return home.
--- NOTE | 2017-06-28 14:56 | Physical Therapy Tx Note ---
Physical Therapy Tx Note - Treatment Note Tolerated: Good Total Time Spent With Patient: 30 Physical Therapy Tx Note: Detail (The patient was sitting upon arrival. The patient was independent with sit to stand, but had supervision for safety. The patient then ambulated with a 2WW independently from his room to the end of the [facility] [address] (about 250 feet), but needed supervision for safety. The patient then completed 15 reps of LAQ on both legs, Heel/Toe Raises, Hip Abduction with red band, and hip adduction with pink volleyball. The patient received manual stretching of the hamstrings, piriformis, and hip extensors for 30 seconds on each side. The patient was returned to his room from the therapy gym with his call light in reach with his caregiver present, as well. To date, the patient had the least fatigue after exercise that he has since onset. He was able to tolerate more exercise, and ambulated farther than he has, as well.) Physical Therapy Problem List: Detail (1) Decreased balance in sitting and standing 2) Decreased LE strength 3) Assistance with transfers 4) Assistance with ambulation 5) Decreased ability to complete sustained physical activity) Physical Therapy Goals: 1) The patient will ambulate with assistive device distances of 50 feet with CG/supervision - MET. 2) Assess Bed mobility - MET. 3) Independent with bed mobility - MET. 4) Independent/supervision with transfers. 5) Increase LE strength 1/3 muscle grade to increase stability of gait. 6) The patient will tolerate 30 minutes of physical activity with one rest period Prognosis: Moderate Physical Therapy Plan: PT 1-2 times a day M-F for bed mobility , gait training, transfer training, balance and LE strengthening exercises.
[2017-06-28] MEDS: DONEPEZIL HCL 5 MG TABLET PO SCH (21:21)
[2017-06-28] MEDS: SIMVASTATIN 20 MG TABLET PO SCH (21:21)
[2017-06-28] MEDS: TEMAZEPAM 15 MG CAPSULE PO SCH (21:21)
[2017-06-29] MEDS: PANTOPRAZOLE SODIUM 40 MG TABLET PO SCH ×2 (06:14→16:53)
[2017-06-29] MEDS: IPRATROPIUM/ALBUTEROL (0.5MG/3MG) NEB INH SCH ×5 (06:20→21:25)
[2017-06-29] MEDS: GLIPIZIDE 5 MG TABLET PO SCH ×2 (08:18→16:53)
[2017-06-29] MEDS: GUAIFENESIN 1,200 MG TABLET PO SCH ×2 (09:28→22:20)
[2017-06-29] MEDS: CHOLECALCIFEROL 1,000 UNIT TABLET PO SCH (09:28)
[2017-06-29] MEDS: LORAZEPAM 0.5 MG TABLET PO SCH (09:28)
[2017-06-29] MEDS: ASPIRIN 81 MG TABEC PO SCH (09:28)
[2017-06-29] MEDS: FLUOXETINE HCL 20 MG CAPSULE PO SCH (09:28)
[2017-06-29] MEDS: BUDESONIDE 0.5 MG/2 ML INH SCH ×2 (10:54→21:25)
[2017-06-29] MEDS: ACETAMINOPHEN 500 MG TABLET PO PRN (22:18)
[2017-06-29] MEDS: TEMAZEPAM 15 MG CAPSULE PO SCH (22:19)
[2017-06-29] MEDS: SIMVASTATIN 20 MG TABLET PO SCH (22:19)
[2017-06-29] MEDS: DONEPEZIL HCL 5 MG TABLET PO SCH (22:20)
[2017-06-30] MEDS: PANTOPRAZOLE SODIUM 40 MG TABLET PO SCH ×2 (06:09→16:59)
[2017-06-30] MEDS: IPRATROPIUM/ALBUTEROL (0.5MG/3MG) NEB INH SCH ×5 (06:09→21:03)
[2017-06-30] MEDS: GLIPIZIDE 5 MG TABLET PO SCH ×2 (07:45→16:59)
[2017-06-30] MEDS: BUDESONIDE 0.5 MG/2 ML INH SCH ×2 (09:45→21:03)
[2017-06-30] MEDS: GUAIFENESIN 1,200 MG TABLET PO SCH ×2 (10:17→22:03)
[2017-06-30] MEDS: ASPIRIN 81 MG TABEC PO SCH (10:17)
[2017-06-30] MEDS: CHOLECALCIFEROL 1,000 UNIT TABLET PO SCH (10:17)
[2017-06-30] MEDS: FLUOXETINE HCL 20 MG CAPSULE PO SCH (10:17)
[2017-06-30] MEDS: LORAZEPAM 0.5 MG TABLET PO SCH (10:17)
[2017-06-30] MEDS: DONEPEZIL HCL 5 MG TABLET PO SCH (22:03)
[2017-06-30] MEDS: SIMVASTATIN 20 MG TABLET PO SCH (22:03)
[2017-06-30] MEDS: TEMAZEPAM 15 MG CAPSULE PO SCH (22:03)
[2017-07-01] MEDS: PANTOPRAZOLE SODIUM 40 MG TABLET PO SCH ×2 (06:02→17:07)
[2017-07-01] MEDS: IPRATROPIUM/ALBUTEROL (0.5MG/3MG) NEB INH SCH ×5 (06:06→21:37)
[2017-07-01] MEDS: GLIPIZIDE 5 MG TABLET PO SCH ×2 (09:23→17:04)
[2017-07-01] MEDS: GUAIFENESIN 1,200 MG TABLET PO SCH ×2 (09:23→22:33)
[2017-07-01] MEDS: LORAZEPAM 0.5 MG TABLET PO SCH (09:24)
[2017-07-01] MEDS: CHOLECALCIFEROL 1,000 UNIT TABLET PO SCH (09:24)
[2017-07-01] MEDS: ASPIRIN 81 MG TABEC PO SCH (09:24)
[2017-07-01] MEDS: FLUOXETINE HCL 20 MG CAPSULE PO SCH (09:26)
[2017-07-01] MEDS: BUDESONIDE 0.5 MG/2 ML INH SCH ×2 (09:47→21:38)
--- NOTE | 2017-07-01 11:49 | Physical Therapy Tx Note ---
Physical Therapy Tx Note - Treatment Note Total Time Spent With Patient: 30 Physical Therapy Tx Note: Detail (The patient stated that he was feeling tired today after not sleeping well last night. The patient was able to ambulate from his room to the [facility] (about 115 feet) with supervision and 2WW. The patient was taken to the therapy gym for the remainder of treatment. The patient then completed standing balance exercises, such as quiet standing balance for 10 seconds x 2 rounds, eyes closed balance x 3 rounds for 10 seconds. He then completed 10 mini squats at the railing in the therapy gym. He also completed side stepping with each leg lead for the length of the therapy railing (about [address] He completed LAQ and hip flexion for 15 reps with a 2lb cuff weight. He also completed a modified sit to stand from a higher surface to his walker for 10 reps. He complained of fatigue toward the end of treatment, but otherwise tolerated exercise well today.) Physical Therapy Problem List: Detail (1) Decreased balance in sitting and standing 2) Decreased LE strength 3) Assistance with transfers 4) Assistance with ambulation 5) Decreased ability to complete sustained physical activity) Physical Therapy Goals: 1) The patient will ambulate with assistive device distances of 150 feet with CG/supervision. 2) Independent/supervision with transfers. 3) Increase LE strength 1/3 muscle grade to increase stability of gait. 4) The patient will tolerate 30 minutes of physical activity with one rest period. 5) Assess balance with functional scale Prognosis: Good Physical Therapy Plan: PT 1-2 times a day M-F for bed mobility , gait training, balance and LE strengthening exercises.
--- NOTE | 2017-07-01 15:39 | Occupational Therapy Tx Note ---
Occupational Therapy Tx Note - Treatment Note Tolerated: Fair Total Time Spent With Patient: 35 (ther activity) Occupational Therapy Treatment Note: Detail (S: Pt up in chair, tired from not sleeping well last night. O: Sit to stand and amb 70 feet with 2 wheeled walker and CG assist. Pt transported to rehab gym via wheelchair. Pt transferred to mat table with CG assist. He completed louis UE endurance activity using shoulder arc bilaterally while maintaining dynamic sitting balance. Pt completed louis bicep curls with 7# weighted ball x 10 reps, louis shoulder flexion with 4# weighted ball x 10 reps, louis elbow extension with 4# weighted ball x 10 reps in supine. Pt completed louis hand strengthening with hand helper and 2 green bands x 20 reps each. Dynamic core/sitting balance activity x 4 minutes at edge of mat table with ball. Pt transferred to wheelchair with min physical assist and mod verbal cueing due to impulsivity. Transported back to room via wheelchair. Pt transferred from wheelchair to recliner with CG assist using walker. A: Pt very fatigued today, shortness of breath and wheezing continue with activity, mild impulsivity with transfers.) Occupational Therapy Problem List: Detail (1. Decreased Ind with showering. 2. Decreased Ind with total body dressing. 3. Decreased Ind with functional mobility needed for safe and Ind ADLs. 4. Decreased UE function/strength needed for safe and Ind ADLs.) Occupational Therapy Goals: 1. Pt will be safe and Ind with showering in sitting. 2. Pt will be safe and Ind with total body dressing. 3. Pt will be Ind with functional mobility needed for safe and Ind self cares. 4. Pt will improve louis UE strength and endurance to allow Ind with self cares. Prognosis: Good Occupational Therapy Plan: OT 2-4 times per week to address self cares, functional mobility, endurance and UE function to allow safe and Ind return home.
--- NOTE | 2017-07-01 18:57 | Physician Progress Note ---
Subjective - Date Date of Physician Progress Note: 07/01/17 - Subjective Subjective Comment: sitting up in chair comfortably. denies any concerns at this time. tolerating meals. fatigue is slowly improving. doing well in therapy. 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 negative: External canal tenderness Nasal Exam: Normal inspection. negative: Discharge, Sinus tenderness Mouth exam: Normal external inspection, Tongue normal Teeth exam: Normal inspection. negative: Dental caries Throat exam: Normal inspection. negative: Tonsillar erythema, Tonsillar exudate - Neck Neck exam: Normal inspection, Full ROM. negative: Tenderness - Respiratory Respiratory exam: Decreased breath sounds. negative: Accessory muscle use, Rhonchi, Wheezes - Cardiovascular Cardiovascular Exam: Regular rate, Normal rhythm, Systolic murmur Peripheral Pulses: 2+: Dorsalis Pedis (R), Dorsalis Pedis (L), 3+: Radial (R), Radial (L) - GI/Abdominal GI/Abdominal exam: Soft, Normal bowel sounds. negative: Tenderness - Rectal Rectal exam: Deferred - exam: Deferred - Extremities Extremities exam: Normal inspection, Full ROM, Normal capillary refill. negative: Tenderness - Neurological Neurological exam: Alert - Psychiatric Psychiatric exam: Normal affect, Normal mood - Skin Skin exam: Dry, Intact, Normal color, Warm Assessment and Plan - Assessment and Plan (1) Physical deconditioning Current Visit: No Status: Acute Base Code: R53.81 - OTHER MALAISE Comment : 07/01 - Deconditioning and weakness secondary to COPD exacerbation and lung cancer radiation treatments. - Assist with walker/bed alarm active. - Daily PT/OT (2) COPD exacerbation Current Visit: No Status: Acute Base Code: J44.1 - CHRONIC OBSTRUCTIVE PULMONARY DISEASE W (ACUTE) EXACERBATION Comment: 07/01 - CXR - negative for infiltrates - D/C Levaquin on 06/24. - Continue duonebs q4h PRN, supp oxygen therapy PRN - mucinex added about 1 week ago which has helped with resp secretions (3) Diabetes Current Visit: No Status: Acute Qualifiers: Diabetes mellitus type: type 2 Diabetes mellitus complication status: with unspecified complications Diabetes mellitus shelter insulin use: without air gun operator use Qualified Code(s): E11.8 - Type 2 diabetes mellitus with unspecified complications Base Code: E11.9 - TYPE 2 DIABETES MELLITUS WITHOUT COMPLICATIONS Comment: - less fluctuation in glucose levels - cont with Q12H accuchecks, will adjust medications as appropriate. On Glucotrol 5mg daily. On ADA diet. (4) Full code status Current Visit: No Status: Acute Base Code: Z78.9 - OTHER SPECIFIED HEALTH STATUS Comment: 07/01- Pt. 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 - Oncology to follow on d/c from [facility]. Results - Labs Result Diagrams: 06/20/17 06:28 06/25/17 16:38 Labs Last 24 Hours: Laboratory Results - last 24 hr 07/01/17 07/01/17 07:30 18:14 POC Glucose 113 H 156 H DVT/PE Assessment - Risk for VTE Risk for VTE: No Risk Level: Low Risk Assessment Date: 07/01/17 Risk Assessment Time: 18:00 VTE Orders Placed or Will Be Placed: No VTE Reason for No Prophylaxis: Not Indicated (patient ambulating) - Active Medicaitons Current Medications: Current Medications Acetaminophen (Tylenol 500mg Tab) 1,000 mg PO Q8H PRN PRN Reason: Pain - Mild (1-4) Last Admin: 06/29/17 22:18 Dose: 1,000 mg Albuterol/Ipratropium (Duoneb) 3 ml INH RESP.Q4H.WA [facility] Last Admin: 07/01/17 14:50 Dose: 3 ml Aspirin (Ecotrin (Ec)) 81 mg PO DAILY [facility] Last Admin: 07/01/17 09:24 Dose: 81 mg Budesonide (Pulmicort) 0.5 mg INH BID [facility] Last Admin: 07/01/17 09:47 Dose: 0.5 mg Donepezil HCl (Aricept) 20 mg PO QHS [facility] Last Admin: 06/30/17 22:03 Dose: 20 mg Fluoxetine HCl (Prozac) 20 mg PO DAILY [facility] Last Admin: 07/01/17 09:26 Dose: 20 mg Glipizide (Glucotrol) 5 mg PO 0730,1630 [facility] Last Admin: 07/01/17 17:04 Dose: 5 mg Guaifenesin (Mucinex) 1,200 mg PO BID [facility] Last Admin: 07/01/17 09:23 Dose: 1,200 mg Loperamide HCl (Immodium) 2 mg PO Q4H PRN PRN Reason: DIARRHEA Lorazepam (Ativan) 0.5 mg PO DAILY [facility] Last Admin: 07/01/17 09:24 Dose: 0.5 mg Lorazepam (Ativan) 0.5 mg PO DAILY PRN PRN Reason: AGITATION/ANXIETY [facility] Last Admin: 07/01/17 17:07 Dose: 40 mg Simvastatin (Zocor) 40 mg PO QHS [facility] Last Admin: 06/30/17 22:03 Dose: 40 mg Temazepam (Restoril) 30 mg PO QHS [facility] Last Admin: 06/30/17 22:03 Dose: 15 mg Vitamin D (Vitamin D3) 2,000 unit PO DAILY [facility] Last Admin: 07/01/17 09:24 Dose: 2,000 unit AMI Plan - Labs Result Diagrams: 06/20/17 06:28 06/25/17 16:38
--- NOTE | 2017-07-01 19:02 | Physician Progress Note ---
Subjective - Date Date of Progress Note: 07/01/17 - Admitting Diagnosis Diagnosis: Deconditioning d/t hypoxia, lung cancer, copd - Subjective Events since last encounter: sitting up in chair comfortably. denies any concerns at this time. mucinex helped with resp secretions. tolerating meals. fatigue is slowly improving. doing well in therapy. Nursing Care Plan Problem List Activity Intolerance (Swing Bed) Start: 06/19/17 14: 27 Freq: Status: Active Protocol: Created 06/19/17 14:27 [facility] (Rec: 06/19/17 14:27 [facility] [id number]) High Risk: Altered Glucose Metabolism Start: 06/24/17 17: 19 Freq: Status: Active Protocol: Created 06/24/17 17:19 [facility] (Rec: 06/24/17 17:19 [facility] [id number]) High Risk: Impaired Skin Integrity Start: 06/24/17 17: 19 Freq: Status: Active Protocol: Created 06/24/17 17:19 [facility] (Rec: 06/24/17 17:19 [facility] [id number]) Knowledge Deficit (Swing Bed) Start: 06/19/17 14: 27 Freq: Status: Active Protocol: Created 06/19/17 14:27 [facility] [place] (Rec: 06/19/17 14:27 [facility] [id number]) Knowledge Deficit: Diabetes Mellitus Start: 06/24/17 17: 19 Freq: Status: Active Protocol: Created 06/24/17 17:19 [facility] (Rec: 06/24/17 17:19 [facility] [id number]) Pain (Swing Bed) Start: 06/19/17 13: 30 Freq: Status: Active Protocol: Created 06/19/17 13:30 [facility] (Rec: 06/19/17 13:30 [facility] [id number]) General - Cognitive Patterns Speech: Normal Thought Process: Intact Thought Process Comment: decreased short term memory Thought Content: Normal - Communication Select best description of speech pattern: Clear Speech Ability to express ideas and wants: Understood Understanding verbal content: Understands - Mood and Behavior Patterns Appearance: Well Groomed Mood: Normal Attitude: Cooperative Motor Activity: Calm Affect: Appropriate Hallucinations: Denies - Physical Functioning Activity Level: Up with assist x1 Turning: Self ad lenard ROM Ability: Moves all extremities Assistive Devices: 2 Wheel Walker Ambulation Ability: Needs Assist Bed Mobility: Needs Assist Transfer Ability: Needs Assist Bathing Ability: Needs Assist Personal Hygiene: Needs Assist Dressing Ability: Needs Assist Eating (Feeding) Ability: Independent Toileting Ability: Needs Assist Administer Own Medication: Independent - Continence Bowel Pattern: No Bowel Movement Bladder Pattern: Normal Meds/Allergies - Allergies Allergies Allergy/AdvReac Type Severity Reaction Status Date / Time No Known Drug Allergies Allergy Verified 12/11/16 12:52 - Active Medications Current Medications Acetaminophen (Tylenol 500mg Tab) 1,000 mg PO Q8H PRN PRN Reason: Pain - Mild (1-4) Last Admin: 06/29/17 22:18 Dose: 1,000 mg Albuterol/Ipratropium (Duoneb) 3 ml INH RESP.Q4H.WA [facility] Last Admin: 07/01/17 14:50 Dose: 3 ml Aspirin (Ecotrin (Ec)) 81 mg PO DAILY [facility] Last Admin: 07/01/17 09:24 Dose: 81 mg Budesonide (Pulmicort) 0.5 mg INH BID [facility] Last Admin: 07/01/17 09:47 Dose: 0.5 mg Donepezil HCl (Aricept) 20 mg PO QHS [facility] Last Admin: 06/30/17 22:03 Dose: 20 mg Fluoxetine HCl (Prozac) 20 mg PO DAILY [facility] Last Admin: 07/01/17 09:26 Dose: 20 mg Glipizide (Glucotrol) 5 mg PO 0730,1630 [facility] Last Admin: 07/01/17 17:04 Dose: 5 mg Guaifenesin (Mucinex) 1,200 mg PO BID [facility] Last Admin: 07/01/17 09:23 Dose: 1,200 mg Loperamide HCl (Immodium) 2 mg PO Q4H PRN PRN Reason: DIARRHEA Lorazepam (Ativan) 0.5 mg PO DAILY [facility] Last Admin: 07/01/17 09:24 Dose: 0.5 mg Lorazepam (Ativan) 0.5 mg PO DAILY PRN PRN Reason: AGITATION/ANXIETY [facility] Last Admin: 07/01/17 17:07 Dose: 40 mg Simvastatin (Zocor) 40 mg PO QHS [facility] Last Admin: 06/30/17 22:03 Dose: 40 mg Temazepam (Restoril) 30 mg PO QHS [facility] Last Admin: 06/30/17 22:03 Dose: 15 mg Vitamin D (Vitamin D3) 2,000 unit PO DAILY [facility] Last Admin: 07/01/17 09:24 Dose: 2,000 unit 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 negative: External canal tenderness Nasal Exam: Normal inspection. negative: Discharge, Sinus tenderness Mouth exam: Normal external inspection, Tongue normal Teeth exam: Normal inspection. negative: Dental caries Throat exam: Normal inspection. negative: Tonsillar erythema, Tonsillar exudate - Neck Neck exam: Normal inspection, Full ROM. negative: Tenderness - Respiratory Respiratory exam: Decreased breath sounds. negative: Accessory muscle use, Rhonchi, Wheezes - Cardiovascular Cardiovascular Exam: Regular rate, Normal rhythm, Systolic murmur Peripheral Pulses: 2+: Dorsalis Pedis (R), Dorsalis Pedis (L), 3+: Radial (R), Radial (L) - GI/Abdominal GI/Abdominal exam: Soft, Normal bowel sounds. negative: Tenderness - Rectal Rectal exam: Deferred - exam: Deferred - Extremities Extremities exam: Normal inspection, Full ROM, Normal capillary refill. negative: Tenderness - Neurological Neurological exam: Alert - Psychiatric Psychiatric exam: Normal affect, Normal mood - Skin Skin exam: Dry, Intact, Normal color, Warm H&P Results - Labs Result Diagrams: 06/20/17 06:28 06/25/17 16:38 Labs Last 24 Hours: Laboratory Results - last 24 hr 07/01/17 07/01/17 07:30 18:14 POC Glucose 113 H 156 H Discharge Potential - Discharge Needs Community Services Used Prior to Admission: Home Health Aide, Home Health Nurse , Physical Therapy Patient Discharge Plan Description: Return Home Community Services Needed at Discharge: Home Health Aide, Home Health Nurse, Occupational Therapy, Physical Therapy Plan - Swing Bed Certification Initial Certification Due: 06/19/17 14 Day Re-Cert Due: 07/03/17 44 Day Re-Cert Due: 08/02/17 74 Day Re-Cert Due: 09/01/17 - Detailed Diagnosis and Plan (1) Physical deconditioning Current Visit: No Status: Acute Base Code: R53.81 - OTHER MALAISE Comment : 07/01 - Deconditioning and weakness secondary to COPD exacerbation and lung cancer radiation treatments. - Assist with walker/bed alarm active. - Daily PT/OT (2) COPD exacerbation Current Visit: No Status: Acute Base Code: J44.1 - CHRONIC OBSTRUCTIVE PULMONARY DISEASE W (ACUTE) EXACERBATION Comment: 07/01 - CXR - negative for infiltrates - D/C Levaquin on 06/24. - Continue duonebs q4h PRN, supp oxygen therapy PRN - mucinex added about 1 week ago which has helped with resp secretions (3) Diabetes Current Visit: No Status: Acute Qualifiers: Diabetes mellitus type: type 2 Diabetes mellitus complication status: with unspecified complications Diabetes mellitus long term care pharmacist insulin use: without long term care pharmacist use Qualified Code(s): E11.8 - Type 2 diabetes mellitus with unspecified complications Base Code: E11.9 - TYPE 2 DIABETES MELLITUS WITHOUT COMPLICATIONS Comment: - less fluctuation in glucose levels - cont with Q12H accuchecks, will adjust medications as appropriate. On Glucotrol 5mg daily. On ADA diet. (4) Full code status Current Visit: No Status: Acute Base Code: Z78.9 - OTHER SPECIFIED HEALTH STATUS Comment: 07/01- Pt. 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 - Oncology to follow on d/c from [facility].
[2017-07-01] MEDS: SIMVASTATIN 20 MG TABLET PO SCH (22:33)
[2017-07-01] MEDS: DONEPEZIL HCL 5 MG TABLET PO SCH (22:33)
[2017-07-01] MEDS: TEMAZEPAM 15 MG CAPSULE PO SCH (22:33)
[2017-07-02] MEDS: IPRATROPIUM/ALBUTEROL (0.5MG/3MG) NEB INH SCH ×5 (06:09→21:05)
[2017-07-02] MEDS: PANTOPRAZOLE SODIUM 40 MG TABLET PO SCH ×2 (06:34→17:42)
[2017-07-02] MEDS: GLIPIZIDE 5 MG TABLET PO SCH ×2 (08:10→17:42)
[2017-07-02] MEDS: LORAZEPAM 0.5 MG TABLET PO SCH (09:32)
[2017-07-02] MEDS: ASPIRIN 81 MG TABEC PO SCH (09:32)
[2017-07-02] MEDS: FLUOXETINE HCL 20 MG CAPSULE PO SCH (09:33)
[2017-07-02] MEDS: CHOLECALCIFEROL 1,000 UNIT TABLET PO SCH (09:33)
[2017-07-02] MEDS: GUAIFENESIN 1,200 MG TABLET PO SCH ×2 (09:34→22:09)
[2017-07-02] MEDS: BUDESONIDE 0.5 MG/2 ML INH SCH ×2 (11:02→21:06)
--- NOTE | 2017-07-02 14:08 | Physical Therapy Tx Note ---
Physical Therapy Tx Note - Treatment Note Tolerated: Good Total Time Spent With Patient: 20 Physical Therapy Tx Note: Detail (The patient was up in chair when PT arrived. The patient had no complaints but stated he felt like he was in a senior living. The patient ambulated with wheeled walker a distance of 130 feet x 1 with CG of 1. Patient had shortness of breath with activity. The patient was wheeled back to room. The patient completed LAQ x 10 reps each leg. The patient was fatigued and wanted to complete his respiratory therapy.) Physical Therapy Problem List: Detail (1) Decreased balance in sitting and standing 2) Decreased LE strength 3) Assistance with transfers 4) Assistance with ambulation 5) Decreased ability to complete sustained physical activity) Physical Therapy Goals: 1) The patient will ambulate with assistive device distances of 150 feet with CG/supervision. 2) Independent/supervision with transfers. 3) Increase LE strength 1/3 muscle grade to increase stability of gait. 4) The patient will tolerate 30 minutes of physical activity with one rest period. 5) Assess balance with functional scale Physical Therapy Plan: PT 1-2 times a day M-F for bed mobility , gait training, balance and LE strengthening exercises.
--- NOTE | 2017-07-02 14:18 | Physical Therapy Tx Note ---
Physical Therapy Tx Note - Treatment Note Total Time Spent With Patient: 25 Physical Therapy Tx Note: Detail (The patient was in his chair upon arrival. He had some complaints of fatigue this afternoon, but still wanted to participate in therapy. The patient ambulated with a 2WW from his room to the surgery waiting area, about 170 feet, and required supervision. The patient's balance was assessed with the Tinetti Balance assessment, and the patien scored a 13/28 , which places him in the high risk for a fall category. However, the patient's static standing balance is improved from initial evaluation. Gait activities were also completed. The patient completed stepping over a 3" towel roll to improve step length/height for toe clearance. The patient completed 9 steps over the towel rolls in total, but had difficulty with full clearance, which may have been in part to his visual perception. The patient complained of fatigue toward the end of treatment, but otherwise tolerated treatment well. The patient was returned to his chair with his call light in reach and a family member was present.) Physical Therapy Problem List: Detail (1) Decreased balance in sitting and standing 2) Decreased LE strength 3) Assistance with transfers 4) Assistance with ambulation 5) Decreased ability to complete sustained physical activity) Physical Therapy Goals: 1) The patient will ambulate with assistive device distances of 150 feet with CG/supervision. 2) Independent/supervision with transfers. 3) Increase LE strength 1/3 muscle grade to increase stability of gait. 4) The patient will tolerate 30 minutes of physical activity with one rest period. 5) Assess balance with functional scale Prognosis: Good Physical Therapy Plan: PT 1-2 times a day M-F for bed mobility , gait training, balance and LE strengthening exercises.
[2017-07-02] MEDS: DONEPEZIL HCL 5 MG TABLET PO SCH (22:08)
[2017-07-02] MEDS: SIMVASTATIN 20 MG TABLET PO SCH (22:08)
[2017-07-02] MEDS: TEMAZEPAM 15 MG CAPSULE PO SCH (22:09)
[2017-07-03] MEDS: IPRATROPIUM/ALBUTEROL (0.5MG/3MG) NEB INH SCH ×5 (06:03→22:28)
[2017-07-03] MEDS: PANTOPRAZOLE SODIUM 40 MG TABLET PO SCH ×2 (06:21→18:14)
[2017-07-03] MEDS ORDERED: ZINC OXIDE 28.35 GM TUBE TOP PRN (09:37)
[2017-07-03] MEDS: ASPIRIN 81 MG TABEC PO SCH (09:48)
[2017-07-03] MEDS: GLIPIZIDE 5 MG TABLET PO SCH ×2 (09:48→18:14)
[2017-07-03] MEDS: GUAIFENESIN 1,200 MG TABLET PO SCH ×2 (09:48→21:42)
[2017-07-03] MEDS: LORAZEPAM 0.5 MG TABLET PO SCH (09:48)
[2017-07-03] MEDS: FLUOXETINE HCL 20 MG CAPSULE PO SCH (09:48)
[2017-07-03] MEDS: CHOLECALCIFEROL 1,000 UNIT TABLET PO SCH (09:48)
[2017-07-03] MEDS: BUDESONIDE 0.5 MG/2 ML INH SCH ×2 (10:06→22:28)
--- NOTE | 2017-07-03 15:06 | Occupational Therapy Tx Note ---
Occupational Therapy Tx Note - Treatment Note Tolerated: Good Total Time Spent With Patient: 45 (ADL) Occupational Therapy Treatment Note: Detail (S: Pt up in recliner chair. O: Sit to stand with walker and amb to bathroom with SBA. Pt completed toileting Indly. Pt doffed slippers, sweatpants and briefs with SBA for leaning forward. Pt amb to shower with 2 wheeled walker and SBA. Pt completed showering in sitting and standing using walker and grab bar with SBA while standing. Pt dried self Indly in sitting. Pt donned shirt Indly, donned briefs and pants with moderate difficulty due to LE weakness and difficulty breathing. Pt ambulated to chair with 2 wheeled walker and SBA. Pt able to don slippers Indly. Reviewed energy conservation and breathing techniques, pt demos learning but would benefit from ongoing teaching. A: SBA for mobility and standing during ADLs, pt very easily fatigued and became short of breath easily during treatment session.) Occupational Therapy Problem List: Detail (1. Decreased Ind with showering. 2. Decreased Ind with total body dressing. 3. Decreased Ind with functional mobility needed for safe and Ind ADLs. 4. Decreased UE function/strength needed for safe and Ind ADLs.) Occupational Therapy Goals: 1. Pt will be safe and Ind with showering in sitting. 2. Pt will be safe and Ind with total body dressing. 3. Pt will be Ind with functional mobility needed for safe and Ind self cares. 4. Pt will improve louis UE strength and endurance to allow Ind with self cares. Prognosis: Good Occupational Therapy Plan: OT 2-4 times per week to address self cares, functional mobility, endurance and UE function to allow safe and Ind return home.
[2017-07-03] MEDS: DONEPEZIL HCL 5 MG TABLET PO SCH (21:41)
[2017-07-03] MEDS: SIMVASTATIN 20 MG TABLET PO SCH (21:41)
[2017-07-03] MEDS: TEMAZEPAM 15 MG CAPSULE PO SCH (21:43)
[2017-07-04] MEDS ORDERED: ONDANSETRON 4 MG ODT TABLET SL ONE (03:30)
[2017-07-04] MEDS: IPRATROPIUM/ALBUTEROL (0.5MG/3MG) NEB INH SCH ×5 (06:12→21:30)
[2017-07-04] MEDS: PANTOPRAZOLE SODIUM 40 MG TABLET PO SCH ×2 (06:21→17:01)
[2017-07-04] MEDS ORDERED: AL HYDROX/MAG HYDROX 30ML UD PO PRN (08:21)
[2017-07-04] MEDS ORDERED: ONDANSETRON 4 MG ODT TABLET SL PRN (08:21)
[2017-07-04] MEDS: ACETAMINOPHEN 500 MG TABLET PO PRN (08:38)
[2017-07-04] MEDS: GLIPIZIDE 5 MG TABLET PO SCH ×2 (08:38→17:01)
[2017-07-04] MEDS: BUDESONIDE 0.5 MG/2 ML INH SCH ×2 (09:49→21:30)
--- NOTE | 2017-07-04 09:51 | Physical Therapy Tx Note ---
Physical Therapy Tx Note - Treatment Note Physical Therapy Tx Note: Detail (Patient was sleeping reclined in chair upon LITIGATION SUPPORT ANALYST arrival. Patient refused ambulation and exercises due to not feeling well today. Patient states his stomach hurts, and has a headache.) Physical Therapy Problem List: Detail (1) Decreased balance in sitting and standing 2) Decreased LE strength 3) Assistance with transfers 4) Assistance with ambulation 5) Decreased ability to complete sustained physical activity) Physical Therapy Goals: 1) The patient will ambulate with assistive device distances of 150 feet with CG/supervision. 2) Independent/supervision with transfers. 3) Increase LE strength 1/3 muscle grade to increase stability of gait. 4) The patient will tolerate 30 minutes of physical activity with one rest period. 5) Assess balance with functional scale Physical Therapy Plan: PT 1-2 times a day M-F for bed mobility , gait training, balance and LE strengthening exercises.
[2017-07-04] MEDS: GUAIFENESIN 1,200 MG TABLET PO SCH ×2 (10:16→21:49)
[2017-07-04] MEDS: CHOLECALCIFEROL 1,000 UNIT TABLET PO SCH (10:16)
[2017-07-04] MEDS: ASPIRIN 81 MG TABEC PO SCH (10:17)
[2017-07-04] MEDS: LORAZEPAM 0.5 MG TABLET PO SCH (10:17)
[2017-07-04] MEDS: FLUOXETINE HCL 20 MG CAPSULE PO SCH (10:17)
[2017-07-04] MEDS ORDERED: CALCIUM CARBONATE 500 MG TAB.CHEW PO PRN (12:43)
--- NOTE | 2017-07-04 14:59 | Physical Therapy Tx Note ---
Physical Therapy Tx Note - Treatment Note Tolerated: Fair Total Time Spent With Patient: 20 Physical Therapy Tx Note: Detail (Patient states feeling better this afternoon. Patient transferred sit to and from stand CGA x1. Patient ambulated 50 feet with wheeled walker SBA x1. Patient transferred sit to and from min assist x1. Patient ambulated 15 feet with wheeled walker SBA x1. Patient transferred sit to and from stand CGA x1. Patient ambulated 15 feet with wheeled walker. Patient displays decreased strength and endurance with ambulation and sit to and from stand transfer. Patient reports stomach not feeling well during treatment. Patient reports fatigue after treatment. Patient was left seated on toilet with pull cord within reach.) Physical Therapy Problem List: Detail (1) Decreased balance in sitting and standing 2) Decreased LE strength 3) Assistance with transfers 4) Assistance with ambulation 5) Decreased ability to complete sustained physical activity) Physical Therapy Goals: 1) The patient will ambulate with assistive device distances of 150 feet with CG/supervision. 2) Independent/supervision with transfers. 3) Increase LE strength 1/3 muscle grade to increase stability of gait. 4) The patient will tolerate 30 minutes of physical activity with one rest period. 5) Assess balance with functional scale Prognosis: Good Physical Therapy Plan: PT 1-2 times a day M-F for bed mobility , gait training, balance and LE strengthening exercises.
[2017-07-04] MEDS: DONEPEZIL HCL 5 MG TABLET PO SCH (21:47)
[2017-07-04] MEDS: TEMAZEPAM 15 MG CAPSULE PO SCH (21:48)
[2017-07-04] MEDS: SIMVASTATIN 20 MG TABLET PO SCH (21:49)
[2017-07-05] MEDS: PANTOPRAZOLE SODIUM 40 MG TABLET PO SCH ×2 (06:04→17:05)
[2017-07-05] MEDS: IPRATROPIUM/ALBUTEROL (0.5MG/3MG) NEB INH SCH ×5 (06:10→21:17)
[2017-07-05] MEDS: GLIPIZIDE 5 MG TABLET PO SCH ×2 (07:46→17:05)
[2017-07-05] MEDS: FLUOXETINE HCL 20 MG CAPSULE PO SCH (09:35)
[2017-07-05] MEDS: LORAZEPAM 0.5 MG TABLET PO SCH (09:35)
[2017-07-05] MEDS: CHOLECALCIFEROL 1,000 UNIT TABLET PO SCH (09:35)
[2017-07-05] MEDS: GUAIFENESIN 1,200 MG TABLET PO SCH ×2 (09:36→22:49)
[2017-07-05] MEDS: ASPIRIN 81 MG TABEC PO SCH (09:36)
[2017-07-05] MEDS: BUDESONIDE 0.5 MG/2 ML INH SCH ×2 (10:26→21:17)
--- NOTE | 2017-07-05 10:41 | Physical Therapy Tx Note ---
Physical Therapy Tx Note - Treatment Note Tolerated: Fair Total Time Spent With Patient: 20 Physical Therapy Tx Note: Detail (The patient was sitting in his chair upon arrival. The patient was able to transfer independently from sit to stand, and was able to ambulate from his room to the utility closet (about 115 feet) before he was too fatigued to continue. The patient was able to complete 9 steps over a towel roll before getting too fatigued. He then had complaints of shortness of breath and dizziness, SpO2 levels were checked and he was steady at 97%. He was returned to his chair with his call light in reach. Nursing was notified of his symptoms.) Physical Therapy Problem List: Detail (1) Decreased balance in sitting and standing 2) Decreased LE strength 3) Assistance with transfers 4) Assistance with ambulation 5) Decreased ability to complete sustained physical activity) Physical Therapy Goals: 1) The patient will ambulate with assistive device distances of 150 feet with CG/supervision. 2) Independent/supervision with transfers. 3) Increase LE strength 1/3 muscle grade to increase stability of gait. 4) The patient will tolerate 30 minutes of physical activity with one rest period. 5) Assess balance with functional scale Prognosis: Moderate Physical Therapy Plan: PT 1-2 times a day M-F for bed mobility , gait training, balance and LE strengthening exercises.
--- NOTE | 2017-07-05 14:27 | Physical Therapy Tx Note ---
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 Patient states not feeling well this afternoon, still dizzy and tired. Patient declined ambulation. Patient performed the following exercises seated in chair x15-20 reps each: marching, LAQ, hamstring curls with red theraband, hip abduction with red theraband, isometric hip adduction, glut squeezes, abdominal isometrics, heel raises, and toe raises. Patient reports feeling tired after treatment. Patient was left seated in chair with call light within reach.) Physical Therapy Problem List: Detail (1) Decreased balance in sitting and standing 2) Decreased LE strength 3) Assistance with transfers 4) Assistance with ambulation 5) Decreased ability to complete sustained physical activity) Physical Therapy Goals: 1) The patient will ambulate with assistive device distances of 150 feet with CG/supervision. 2) Independent/supervision with transfers. 3) Increase LE strength 1/3 muscle grade to increase stability of gait. 4) The patient will tolerate 30 minutes of physical activity with one rest period. 5) Assess balance with functional scale Prognosis: Good Physical Therapy Plan: PT 1-2 times a day M-F for bed mobility , gait training, balance and LE strengthening exercises.
[2017-07-05] MEDS: DONEPEZIL HCL 5 MG TABLET PO SCH (22:49)
[2017-07-05] MEDS: SIMVASTATIN 20 MG TABLET PO SCH (22:49)
[2017-07-05] MEDS: TEMAZEPAM 15 MG CAPSULE PO SCH (22:50)
[2017-07-06] MEDS: IPRATROPIUM/ALBUTEROL (0.5MG/3MG) NEB INH SCH ×4 (06:12→21:34)
[2017-07-06] MEDS: PANTOPRAZOLE SODIUM 40 MG TABLET PO SCH ×2 (06:42→17:12)
[2017-07-06] MEDS: GLIPIZIDE 5 MG TABLET PO SCH ×2 (08:16→17:12)
[2017-07-06] MEDS: FLUOXETINE HCL 20 MG CAPSULE PO SCH (10:07)
[2017-07-06] MEDS: CHOLECALCIFEROL 1,000 UNIT TABLET PO SCH (10:07)
[2017-07-06] MEDS: ASPIRIN 81 MG TABEC PO SCH (10:07)
[2017-07-06] MEDS: GUAIFENESIN 1,200 MG TABLET PO SCH ×2 (10:07→21:25)
[2017-07-06] MEDS: LORAZEPAM 0.5 MG TABLET PO SCH (10:07)
[2017-07-06] MEDS: BUDESONIDE 0.5 MG/2 ML INH SCH ×2 (10:12→21:34)
--- NOTE | 2017-07-06 13:43 | Swing Bed Certification/Recert ---
Initial Certification Due: 06/19/17 14 Day Re-Cert Due: 07/03/17 44 Day Re-Cert Due: 08/02/17 74 Day Re-Cert Due: 09/01/17 CERTIFICATION 3 CERTIFICATION OF PATIENT ADMISSION Required at time of admission. Due: 06/19/17 I certify that SNF services are required to be given on an inpatient basis because of the above named patient's need for longterm care on a continuing basis for the condition(s) for which he/she was receiving inpatient hospital services prior to his/her transfer to the SNF. The patient's current needs for skilled care includes: [PT/OT evaluation and treatment for physical deconditioning, monitoring of COPD exacerbation treatment ] Mine Kay, N.P. 07/03/17
[2017-07-06] MEDS: TEMAZEPAM 15 MG CAPSULE PO SCH (21:24)
[2017-07-06] MEDS: DONEPEZIL HCL 5 MG TABLET PO SCH (21:24)
[2017-07-06] MEDS: SIMVASTATIN 20 MG TABLET PO SCH (21:25)
[2017-07-07] MEDS: IPRATROPIUM/ALBUTEROL (0.5MG/3MG) NEB INH SCH ×6 (06:05→22:12)
[2017-07-07] MEDS: PANTOPRAZOLE SODIUM 40 MG TABLET PO SCH ×2 (06:53→17:18)
[2017-07-07] MEDS: GLIPIZIDE 5 MG TABLET PO SCH ×2 (08:27→17:18)
[2017-07-07] MEDS: BUDESONIDE 0.5 MG/2 ML INH SCH ×2 (09:31→22:13)
[2017-07-07] MEDS: ASPIRIN 81 MG TABEC PO SCH (09:36)
[2017-07-07] MEDS: LORAZEPAM 0.5 MG TABLET PO SCH (09:36)
[2017-07-07] MEDS: GUAIFENESIN 1,200 MG TABLET PO SCH ×2 (09:37→21:15)
[2017-07-07] MEDS: CHOLECALCIFEROL 1,000 UNIT TABLET PO SCH (09:37)
[2017-07-07] MEDS: FLUOXETINE HCL 20 MG CAPSULE PO SCH (09:37)
[2017-07-07] MEDS: DONEPEZIL HCL 5 MG TABLET PO SCH (21:15)
[2017-07-07] MEDS: TEMAZEPAM 15 MG CAPSULE PO SCH (21:16)
[2017-07-07] MEDS: SIMVASTATIN 20 MG TABLET PO SCH (21:16)
[2017-07-08] MEDS: IPRATROPIUM/ALBUTEROL (0.5MG/3MG) NEB INH SCH ×5 (06:12→21:40)
[2017-07-08] MEDS: PANTOPRAZOLE SODIUM 40 MG TABLET PO SCH ×2 (06:46→16:52)
[2017-07-08] MEDS: GLIPIZIDE 5 MG TABLET PO SCH ×2 (08:08→16:52)
[2017-07-08] MEDS: GUAIFENESIN 1,200 MG TABLET PO SCH ×2 (09:41→21:31)
[2017-07-08] MEDS: CHOLECALCIFEROL 1,000 UNIT TABLET PO SCH (09:42)
[2017-07-08] MEDS: LORAZEPAM 0.5 MG TABLET PO SCH (09:43)
[2017-07-08] MEDS: ASPIRIN 81 MG TABEC PO SCH (09:43)
[2017-07-08] MEDS: FLUOXETINE HCL 20 MG CAPSULE PO SCH (09:43)
[2017-07-08] MEDS: BUDESONIDE 0.5 MG/2 ML INH SCH ×2 (10:02→21:40)
--- NOTE | 2017-07-08 11:05 | Physical Therapy Tx Note ---
Physical Therapy Tx Note - Treatment Note Tolerated: Good Total Time Spent With Patient: 30 Physical Therapy Tx Note: Detail (The patient was sitting in his chair upon arrival. The patient was independent with sit to stand, but required supervision for safety. He was able to ambulate from his room to the psychiatric with a 2WW (about 115ft) before requiring a break. He was taken to the therapy gym for the remainder of treatment. There he completed side-stepping at the therapy railing with each foot lead x 2. He required verbal cues to decrease weight-bearing through UEs. He then ambulated the length of the railing x 2, once with a single point cane, then once with hand-hold assist. The patient then completed 10 reps of LAQ with 3# cuff weight, calf raises x10 with 3# cuff weight, glut. bridges x 10, and 10 trunk rotations with 2# med. ball. Patient tolerated exercise well, but asked to return to his room due to fatigue. Strength is continuing to improve, but progress is somewhat slowed due to feelings of fatigue frequently.) Physical Therapy Problem List: Detail (1) Decreased balance in sitting and standing 2) Decreased LE strength 3) Assistance with transfers 4) Assistance with ambulation 5) Decreased ability to complete sustained physical activity) Physical Therapy Goals: 1) The patient will ambulate with assistive device distances of 150 feet with CG/supervision. 2) Independent/supervision with transfers. 3) Increase LE strength 1/3 muscle grade to increase stability of gait. 4) The patient will tolerate 30 minutes of physical activity with one rest period. 5) Assess balance with functional scale Prognosis: Good Physical Therapy Plan: PT 1-2 times a day M-F for bed mobility , gait training, balance and LE strengthening exercises.
--- NOTE | 2017-07-08 11:52 | Physician Progress Note ---
Subjective - Date Date of Progress Note: 07/08/17 - Admitting Diagnosis Diagnosis: Deconditioning d/t hypoxia, lung cancer, copd - Subjective Events since last encounter: Elm Mott and his fiance, Shasha, were in the [facility] on Saturday, . Nursing Care Plan Problem List Activity Intolerance (Swing Bed) Start: 06/19/17 14: 27 Freq: Status: Active Protocol: Created 06/19/17 14:27 [facility] (Rec: 06/19/17 14:27 [facility] [id number]) High Risk: Altered Glucose Metabolism Start: 06/24/17 17: 19 Freq: Status: Active Protocol: Created 06/24/17 17:19 [facility] (Rec: 06/24/17 17:19 [facility] [id number]) High Risk: Impaired Skin Integrity Start: 06/24/17 17: 19 Freq: Status: Active Protocol: Created 06/24/17 17:19 [facility] (Rec: 06/24/17 17:19 [facility] [id number]) Knowledge Deficit (Swing Bed) Start: 06/19/17 14: 27 Freq: Status: Active Protocol: Created 06/19/17 14:27 [facility] (Rec: 06/19/17 14:27 [facility] [id number]) Knowledge Deficit: Diabetes Mellitus Start: 06/24/17 17: 19 Freq: Status: Active Protocol: Created 06/24/17 17:19 [facility] (Rec: 06/24/17 17:19 [facility] [id number]) Pain (Swing Bed) Start: 06/19/17 13: 30 Freq: Status: Active Protocol: Created 06/19/17 13:30 [facility] (Rec: 06/19/17 13:30 [facility] [id number]) - Subjective Detail Comment: No additional complaints except as noted below General - Cognitive Patterns Speech: Normal Thought Process: Intact Thought Process Comment: decreased short term memory Thought Content: Normal - Communication Select best description of speech pattern: Clear Speech Ability to express ideas and wants: Understood Understanding verbal content: Understands - Mood and Behavior Patterns Appearance: Well Groomed Mood: Normal Attitude: Cooperative Motor Activity: Calm Affect: Appropriate Hallucinations: Denies - Physical Functioning Activity Level: Up with assist x1 Turning: With partial assist ROM Ability: Moves all extremities Assistive Devices: Walker Ambulation Ability: Needs Assist Bed Mobility: Needs Assist Transfer Ability: Needs Assist Bathing Ability: Needs Assist Personal Hygiene: Needs Assist Dressing Ability: Needs Assist Eating (Feeding) Ability: Needs Assist Toileting Ability: Needs Assist Administer Own Medication: Needs Assist - Continence Bowel Pattern: Normal for Patient Bladder Pattern: Normal Urinary Incontinence: Stress Meds/Allergies - Allergies Allergies Allergy/AdvReac Type Severity Reaction Status Date / Time No Known Drug Allergies Allergy Verified 12/11/16 12:52 - Active Medications Current Medications Acetaminophen (Tylenol 500mg Tab) 1,000 mg PO Q8H PRN PRN Reason: Pain - Mild (1-4) Last Admin: 07/04/17 08:38 Dose: 1,000 mg Al Hydroxide/Mg Hydroxide (Maalox) 30 ml PO Q4H PRN PRN Reason: GI UPSET Last Admin: 07/04/17 08:38 Dose: 30 ml Albuterol/Ipratropium (Duoneb) 3 ml INH [facility]Q4H[facility] Last Admin: 07/08/17 10:02 Dose: 3 ml Aspirin (Ecotrin (Ec)) 81 mg PO DAILY [facility] Last Admin: 07/08/17 09:43 Dose: 81 mg Budesonide (Pulmicort) 0.5 mg INH BID [facility] Last Admin: 07/08/17 10:02 Dose: 0.5 mg Calcium Carbonate/Glycine (Tums) 500 mg PO Q4H PRN PRN Reason: gi upset Donepezil HCl (Aricept) 20 mg PO QHS [facility] Last Admin: 07/07/17 21:15 Dose: 20 mg Fluoxetine HCl (Prozac) 20 mg PO DAILY [facility] Last Admin: 07/08/17 09:43 Dose: 20 mg Glipizide (Glucotrol) 5 mg PO 0730,1630 [facility] Last Admin: 07/08/17 08:08 Dose: 5 mg Guaifenesin (Mucinex) 1,200 mg PO BID [facility] Last Admin: 07/08/17 09:41 Dose: 1,200 mg Loperamide HCl (Immodium) 2 mg PO Q4H PRN PRN Reason: DIARRHEA Lorazepam (Ativan) 0.5 mg PO DAILY [facility] Last Admin: 07/08/17 09:43 Dose: 0.5 mg Lorazepam (Ativan) 0.5 mg PO DAILY PRN PRN Reason: AGITATION/ANXIETY Last Admin: 07/07/17 02:24 Dose: 0.5 mg Ondansetron HCl (Zofran Odt) 4 mg SL Q6H PRN PRN Reason: NAUSEA/VOMITING Last Admin: 07/04/17 08:38 Dose: 4 mg Pantoprazole Sodium (Protonix) 40 mg PO BIDAC [facility] Last Admin: 07/08/17 06:46 Dose: 40 mg Simvastatin (Zocor) 40 mg PO QHS [facility] Last Admin: 07/07/17 21:16 Dose: 40 mg Temazepam (Restoril) 30 mg PO QHS [facility] Last Admin: 07/07/17 21:16 Dose: 30 mg Vitamin D (Vitamin D3) 2,000 unit PO DAILY [facility] Last Admin: 07/08/17 09:42 Dose: 2,000 unit Zinc Oxide (Desitin) 28.35 gm TOP ASDIR PRN PRN Reason: RASH Objective - Vital Signs Vital Signs: Vital Signs - Last 24 Hrs Temp Pulse Pulse Resp BP BP BP 07/08/17 11:03 97.3 F L 109/66 07/08/17 09:30 81 17 07/08/17 07:47 98 F 85 18 119/65 07/08/17 06:12 80 16 07/07/17 19:57 98.0 F 77 18 133/69 07/07/17 17:19 81 17 07/07/17 13:50 75 17 Pulse Ox 07/08/17 11:03 07/08/17 09:30 97 07/08/17 07:47 94 L 07/08/17 06:12 96 07/07/17 19:57 07/07/17 17:19 97 07/07/17 13:50 97 - General General Appearance: Alert, Cooperative, No acute distress, Other (decreased short term memory recall) Limitations: Physical limitation (using walker to ambulate) - Head Head exam: Normal inspection - Eye Eye exam: Normal appearance, Other (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 negative: External canal tenderness Nasal Exam: Normal inspection. negative: Discharge, Sinus tenderness Mouth exam: Normal external inspection, Tongue normal Teeth exam: Normal inspection. negative: Dental caries Throat exam: Normal inspection. negative: Tonsillar erythema, Tonsillar exudate - Neck Neck exam: Normal inspection, Full ROM. negative: Tenderness - Respiratory Respiratory exam: Decreased breath sounds. negative: Accessory muscle use, Rhonchi, Wheezes - Cardiovascular Cardiovascular Exam: Regular rate, Normal rhythm, Systolic murmur Peripheral Pulses: 2+: Dorsalis Pedis (R), Dorsalis Pedis (L), 3+: Radial (R), Radial (L) - GI/Abdominal GI/Abdominal exam: Soft, Normal bowel sounds. negative: Tenderness - Rectal Rectal exam: Deferred - exam: Deferred - Extremities Extremities exam: Normal inspection, Full ROM, Normal capillary refill. negative: Tenderness - Neurological Neurological exam: Alert - Psychiatric Psychiatric exam: Normal affect, Normal mood - Skin Skin exam: Dry, Intact, Normal color, Warm H&P Results - Labs Result Diagrams: 06/20/17 06:28 06/25/17 16:38 Labs Last 24 Hours: Laboratory Results - last 24 hr 07/07/17 07/08/17 17:09 06:45 POC Glucose 139 H 101 Discharge Potential - Discharge Needs Community Services Used Prior to Admission: Home Health Aide, Home Health Nurse , Physical Therapy Patient Discharge Plan Description: Return Home Community Services Needed at Discharge: Home Health Aide, Home Health Nurse, Occupational Therapy, Physical Therapy Discharge Needs Comment: Tentatively planning to discharge home on Saturday, 07/16. Plan - Swing Bed Certification Initial Certification Due: 06/19/17 14 Day Re-Cert Due: 07/03/17 44 Day Re-Cert Due: 08/02/17 74 Day Re-Cert Due: 09/01/17 - Detailed Diagnosis and Plan (1) Physical deconditioning Current Visit: No Status: Acute Base Code: R53.81 - OTHER MALAISE Comment : 07/08/17: - Deconditioning and weakness secondary to COPD exacerbation and lung cancer radiation treatments. - Assist with walker/bed alarm active. - Plan to continue PT/OT mondays-fridays - Pt. is tolerating pt/ot well, recent reassessment- working on bed mobility, gait training, balance, and LE strengthening exercises. (2) COPD exacerbation Current Visit: No Status: Acute Base Code: J44.1 - CHRONIC OBSTRUCTIVE PULMONARY DISEASE W (ACUTE) EXACERBATION Comment: 07/08/17: - CXR - negative for infiltrates - D/C Levaquin on 06/24. 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 - Oncology to follow 1-2 weeks after d/c from [facility]. (4) Full code status Current Visit: No Status: Acute Base Code: Z78.9 - OTHER SPECIFIED HEALTH STATUS Comment: 07/08/17: Pt. remains full code status
--- NOTE | 2017-07-08 14:45 | Physical Therapy Tx Note ---
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 Patient states shoulders, legs, and arms are sore this afternoon. Patient transferred sit to and from stand SBA x1. Patient ambulated 87 feet with wheeled walker SBA x1. Patient transferred sit to and from stand SBA x1. Patient performed the Nustep L0 x10 minutes. Patient transferred sit to and from stand SBA x1. Patient ambulated 40 feet with wheeled walker SBA x1. Patient performed seated marching and heel raises x10 reps each. Patient declined further exercises due to fatigue. Patient transferred sit to and from stand x2 SBA x1. Patient reports tired and sore after treatment. Patient was left seated on toilet with pull cord within reach.) Physical Therapy Problem List: Detail (1) Decreased balance in sitting and standing 2) Decreased LE strength 3) Assistance with transfers 4) Assistance with ambulation 5) Decreased ability to complete sustained physical activity) Physical Therapy Goals: 1) The patient will ambulate with assistive device distances of 150 feet with CG/supervision. 2) Independent/supervision with transfers. 3) Increase LE strength 1/3 muscle grade to increase stability of gait. 4) The patient will tolerate 30 minutes of physical activity with one rest period. 5) Assess balance with functional scale Prognosis: Good Physical Therapy Plan: PT 1-2 times a day M-F for bed mobility , gait training, balance and LE strengthening exercises.
[2017-07-08] MEDS: TEMAZEPAM 15 MG CAPSULE PO SCH (21:30)
[2017-07-08] MEDS: SIMVASTATIN 20 MG TABLET PO SCH (21:30)
[2017-07-08] MEDS: DONEPEZIL HCL 5 MG TABLET PO SCH (21:31)
[2017-07-09] MEDS: IPRATROPIUM/ALBUTEROL (0.5MG/3MG) NEB INH SCH ×5 (06:11→21:13)
[2017-07-09] MEDS: PANTOPRAZOLE SODIUM 40 MG TABLET PO SCH ×2 (06:36→16:54)
[2017-07-09] MEDS: GLIPIZIDE 5 MG TABLET PO SCH ×2 (07:51→16:55)
[2017-07-09] MEDS: FLUOXETINE HCL 20 MG CAPSULE PO SCH (09:51)
[2017-07-09] MEDS: LORAZEPAM 0.5 MG TABLET PO SCH (09:51)
[2017-07-09] MEDS: ASPIRIN 81 MG TABEC PO SCH (09:51)
[2017-07-09] MEDS: CHOLECALCIFEROL 1,000 UNIT TABLET PO SCH (09:51)
[2017-07-09] MEDS: GUAIFENESIN 1,200 MG TABLET PO SCH ×2 (09:52→21:37)
[2017-07-09] MEDS: BUDESONIDE 0.5 MG/2 ML INH SCH ×2 (10:34→21:13)
--- NOTE | 2017-07-09 10:39 | Physical Therapy Tx Note ---
Physical Therapy Tx Note - Treatment Note Tolerated: Good Total Time Spent With Patient: 30 Physical Therapy Tx Note: Detail (The patient was laying in bed upon arrival. He was able to transfer from supine to sit independently. The patient then ambulated from his room to the surgery waiting area (around 170 feet) before requiring a break. He then walked from the surgical waiting area to the ER doors (another 280 feet). Today, his gait pattern was much improved from days past. He had more foot clearance with gait, and less shuffling overall. His step lengths were equal on each side. He also had less complaints of shoulder pain during ambulation, which demonstrated more weight bearing through the LEs rather than the UEs.) Physical Therapy Problem List: Detail (1) Decreased balance in sitting and standing 2) Decreased LE strength 3) Assistance with transfers 4) Assistance with ambulation 5) Decreased ability to complete sustained physical activity) Physical Therapy Goals: 1) The patient will ambulate with assistive device distances of 150 feet with CG/supervision - MET. 2) Independent/supervision with transfers. 3) Increase LE strength 1/3 muscle grade to increase stability of gait. 4) The patient will tolerate 30 minutes of physical activity with one rest period. 5) Assess balance with functional scale Prognosis: Moderate Physical Therapy Plan: PT 1-2 times a day M-F for bed mobility , gait training, balance and LE strengthening exercises.
--- NOTE | 2017-07-09 14:39 | Physical Therapy Tx Note ---
Physical Therapy Tx Note - Treatment Note Tolerated: Good Total Time Spent With Patient: 40 Physical Therapy Tx Note: Detail (Pt was sitting in chair upon arrival. Pt sit to stand independently. Pt ambulated with front wheeled walker 300 ft. from chair in room to waiting room elevator and into elevator with contact guard assist only. Pt did not require any verbal cues. Pt was wheeled in wheelchair to [facility] where he completed transfer independently with walker to machine and completed 10 minutes. Pt seat was at number 10 and arms 11. Pt wheeled to rehab treatment room and did theraband ex's of UE rowing, bilateral extension, horizontal shoulder abduction with red theraband x 10 each bilateral. Hip abduction, hs curls with red theraband x 10 each bilaterally. Pt. was returned to room and transfered to chair independently. Pt was given nursing call button and bedside table. Pt stated feeling tired after treatment but no complaints of pain.) Physical Therapy Problem List: Detail (1) Decreased balance in sitting and standing 2) Decreased LE strength 3) Assistance with transfers 4) Assistance with ambulation 5) Decreased ability to complete sustained physical activity) Physical Therapy Goals: 1) The patient will ambulate with assistive device distances of 150 feet with CG/supervision - MET. 2) Independent/supervision with transfers. 3) Increase LE strength 1/3 muscle grade to increase stability of gait. 4) The patient will tolerate 30 minutes of physical activity with one rest period. 5) Assess balance with functional scale Prognosis: Good Physical Therapy Plan: PT 1-2 times a day M-F for bed mobility , gait training, balance and LE strengthening exercises.
[2017-07-09] MEDS: DONEPEZIL HCL 5 MG TABLET PO SCH (21:38)
[2017-07-09] MEDS: SIMVASTATIN 20 MG TABLET PO SCH (21:38)
[2017-07-09] MEDS: TEMAZEPAM 15 MG CAPSULE PO SCH (21:38)
[2017-07-10] MEDS: IPRATROPIUM/ALBUTEROL (0.5MG/3MG) NEB INH SCH ×5 (06:13→21:16)
[2017-07-10] MEDS: PANTOPRAZOLE SODIUM 40 MG TABLET PO SCH ×2 (06:42→16:51)
[2017-07-10] MEDS: GLIPIZIDE 5 MG TABLET PO SCH ×2 (08:11→16:51)
[2017-07-10] MEDS: LORAZEPAM 0.5 MG TABLET PO SCH (09:32)
[2017-07-10] MEDS: ASPIRIN 81 MG TABEC PO SCH (09:32)
[2017-07-10] MEDS: FLUOXETINE HCL 20 MG CAPSULE PO SCH (09:32)
[2017-07-10] MEDS: CHOLECALCIFEROL 1,000 UNIT TABLET PO SCH (09:34)
[2017-07-10] MEDS: GUAIFENESIN 1,200 MG TABLET PO SCH ×2 (09:35→21:16)
[2017-07-10] MEDS: BUDESONIDE 0.5 MG/2 ML INH SCH ×2 (09:41→21:16)
--- NOTE | 2017-07-10 11:29 | Physical Therapy Tx Note ---
Physical Therapy Tx Note - Treatment Note Tolerated: Good Total Time Spent With Patient: 30 Physical Therapy Tx Note: Detail (Patient was seated in chair upon TRAILER SECTIONS ASSEMBLER arrival. Patient states feeling good today with no complaints. Patient transferred sit to and from stand SBA x1. Patient ambulated 150 feet with wheeled walker SBA x1. Patient performed the following exercises x20 reps each: seated marching, LAQ, hamstring curls with red theraband, seated hip abduction with red theraband, isometric hip adduction, seated heel raises, seated toe raises, glut squeezes, and abdominal isometrics. Patient tolerated treatment well. Patient displays decreased strength and endurance with hamstring curls, LAQ, seated marching, glut squeezes, and abdominal isometrics. Patient reports feeling tired after treatment. Patient was left seated in chair with call light within reach.) Physical Therapy Problem List: Detail (1) Decreased balance in sitting and standing 2) Decreased LE strength 3) Assistance with transfers 4) Assistance with ambulation 5) Decreased ability to complete sustained physical activity) Physical Therapy Goals: 1) The patient will ambulate with assistive device distances of 150 feet with CG/supervision - MET. 2) Independent/supervision with transfers. 3) Increase LE strength 1/3 muscle grade to increase stability of gait. 4) The patient will tolerate 30 minutes of physical activity with one rest period. 5) Assess balance with functional scale Prognosis: Good Physical Therapy Plan: PT 1-2 times a day M-F for bed mobility , gait training, balance and LE strengthening exercises.
--- NOTE | 2017-07-10 13:26 | Physical Therapy Tx Note ---
Physical Therapy Tx Note - Treatment Note Tolerated: Fair Total Time Spent With Patient: 15 Physical Therapy Tx Note: Detail (The patient was sitting in his chair upon arrival. The patient stated that he was feeling fatigued this afternoon, after a longer PT session this morning. The patient was able to walk from his room to the nurse's station (about 67 feet) with supervision only. He had complaints of fatigue after his walk, and asked to be taken back to his room in a wheelchair. Upon arrival to his room, he was able to transfer from the wheelchair to his chair independently. While sitting, he was able to complete 10 reps of LAQs and Hip Flexion exercises before complaining that he was too tired to continue. Therapy was discontinued at that time. The patient was left in his chair with his call light in reach.) Physical Therapy Problem List: Detail (1) Decreased balance in sitting and standing 2) Decreased LE strength 3) Assistance with transfers 4) Assistance with ambulation 5) Decreased ability to complete sustained physical activity) Physical Therapy Goals: 1) The patient will ambulate with assistive device distances of 150 feet with CG/supervision - MET. 2) Independent/supervision with transfers - MET. 3) Increase LE strength 1/3 muscle grade to increase stability of gait. 4) The patient will tolerate 30 minutes of physical activity with one rest period. 5) Assess balance with functional scale Prognosis: Moderate Physical Therapy Plan: PT 1-2 times a day M-F for bed mobility , gait training, balance and LE strengthening exercises.
[2017-07-10] MEDS: DONEPEZIL HCL 5 MG TABLET PO SCH (21:15)
[2017-07-10] MEDS: TEMAZEPAM 15 MG CAPSULE PO SCH (21:15)
[2017-07-10] MEDS: SIMVASTATIN 20 MG TABLET PO SCH (21:15)
[2017-07-11] MEDS: IPRATROPIUM/ALBUTEROL (0.5MG/3MG) NEB INH SCH ×5 (06:00→21:57)
[2017-07-11] MEDS: PANTOPRAZOLE SODIUM 40 MG TABLET PO SCH ×2 (06:44→16:19)
[2017-07-11] MEDS: GLIPIZIDE 5 MG TABLET PO SCH ×2 (08:14→16:19)
[2017-07-11] MEDS: ASPIRIN 81 MG TABEC PO SCH (09:16)
[2017-07-11] MEDS: LORAZEPAM 0.5 MG TABLET PO SCH (09:16)
[2017-07-11] MEDS: FLUOXETINE HCL 20 MG CAPSULE PO SCH (09:17)
[2017-07-11] MEDS: GUAIFENESIN 1,200 MG TABLET PO SCH ×2 (09:17→21:57)
[2017-07-11] MEDS: CHOLECALCIFEROL 1,000 UNIT TABLET PO SCH (09:20)
[2017-07-11] MEDS: BUDESONIDE 0.5 MG/2 ML INH SCH ×3 (10:29→21:57)
--- NOTE | 2017-07-11 10:34 | Physical Therapy Tx Note ---
Physical Therapy Tx Note - Treatment Note Tolerated: Good Total Time Spent With Patient: 30 Physical Therapy Tx Note: Detail (Patient was sleeping in chair upon RF ENGINEER arrival. Patient states no new complaints. Patient transferred sit to and from stand independently. Patient ambulated 171 feet with wheeled walker SBA x1. Patient transferred sit to and from stand independently. Patient ambulated 192 feet with wheeled walker SBA x1. Patient doffed and donned pants and shirt independently. Patient transferred sit to and from stand independently. Patient ambulated 15 feet with wheeled walker SBA x1. Patient tolerated treatment well. Patient reports fatigued after treatment. Patient was left seated in chair with call light within reach.) Physical Therapy Problem List: Detail (1) Decreased balance in sitting and standing 2) Decreased LE strength 3) Assistance with transfers 4) Assistance with ambulation 5) Decreased ability to complete sustained physical activity) Physical Therapy Goals: 1) The patient will ambulate with assistive device distances of 150 feet with CG/supervision - MET. 2) Independent/supervision with transfers - MET. 3) Increase LE strength 1/3 muscle grade to increase stability of gait. 4) The patient will tolerate 30 minutes of physical activity with one rest period. 5) Assess balance with functional scale Prognosis: Good Physical Therapy Plan: PT 1-2 times a day M-F for bed mobility , gait training, balance and LE strengthening exercises.
--- NOTE | 2017-07-11 14:36 | Physical Therapy Tx Note ---
Physical Therapy Tx Note - Treatment Note Tolerated: Good Total Time Spent With Patient: 35 Physical Therapy Tx Note: Detail (Pt reclined in bedside chair upon arrival, drowsy but alert and cooperative for therapy. Complained of "burning" in toes of both feet. Instructed in using towel to do calf stretch in sitting. Performed 30 seconds x 2 B. Sit/stand from chair independently, ambulated 160 feet w/front wheeled walker and SBA back to bedside. Complained of shoulder pain while walking. Performed 10 reps each of shoulder flexion, abduction, and external rotation ROM w/assistance B, marching x 10 B, ankle dorsiflexion x 10 B. Left up in chair w/call light in reach.) Physical Therapy Problem List: Detail (1) Decreased balance in sitting and standing 2) Decreased LE strength 3) Assistance with transfers 4) Assistance with ambulation 5) Decreased ability to complete sustained physical activity) Physical Therapy Goals: 1) The patient will ambulate with assistive device distances of 150 feet with CG/supervision - MET. 2) Independent/supervision with transfers - MET. 3) Increase LE strength 1/3 muscle grade to increase stability of gait. 4) The patient will tolerate 30 minutes of physical activity with one rest period. 5) Assess balance with functional scale Prognosis: Good Physical Therapy Plan: PT 1-2 times a day M-F for bed mobility , gait training, balance and LE strengthening exercises.
[2017-07-11] MEDS: DONEPEZIL HCL 5 MG TABLET PO SCH (21:57)
[2017-07-11] MEDS: SIMVASTATIN 20 MG TABLET PO SCH (21:57)
[2017-07-11] MEDS: TEMAZEPAM 15 MG CAPSULE PO SCH (22:02)
[2017-07-12] MEDS: IPRATROPIUM/ALBUTEROL (0.5MG/3MG) NEB INH SCH ×5 (06:16→22:28)
[2017-07-12] MEDS: PANTOPRAZOLE SODIUM 40 MG TABLET PO SCH ×2 (06:23→17:40)
[2017-07-12] MEDS: GLIPIZIDE 5 MG TABLET PO SCH ×2 (08:23→17:40)
[2017-07-12] MEDS: GUAIFENESIN 1,200 MG TABLET PO SCH ×2 (09:24→22:28)
[2017-07-12] MEDS: LORAZEPAM 0.5 MG TABLET PO SCH (09:25)
[2017-07-12] MEDS: CHOLECALCIFEROL 1,000 UNIT TABLET PO SCH (09:25)
[2017-07-12] MEDS: ASPIRIN 81 MG TABEC PO SCH (09:25)
--- NOTE | 2017-07-12 10:12 | Physical Therapy Tx Note ---
Physical Therapy Tx Note - Treatment Note Tolerated: Good Total Time Spent With Patient: 30 Physical Therapy Tx Note: Detail (The patient was sitting in his chair upon arrival. The patient had further questions about getting up on his own to use the restroom. It was decided that he needs further supervision for using the restroom due to his vision issues and safety concerns within the room. The patient was independent with sit to stand from his chair, and was able to ambulate from his room to the surgery waiting area before needing a rest due to some SOB and leg fatigue. The patient was then wheeled down to the end of the [facility] [place] hallway. The patient was then able to ambulate with 2WW and supervision from the end of that hallway to his room (a total of about 330 feet ) without any rest break, where he was able to independently sit from standing. The patient was further educated on the benefits of physical therapy. The patient stated his understanding, and was left sitting in his chair with his call light in reach.) Physical Therapy Problem List: Detail (1) Decreased balance in sitting and standing 2) Decreased LE strength 3) Assistance with transfers 4) Assistance with ambulation 5) Decreased ability to complete sustained physical activity) Physical Therapy Goals: 1) The patient will ambulate with assistive device distances of 150 feet with CG/supervision - MET. 2) Independent/supervision with transfers - MET. 3) Increase LE strength 1/3 muscle grade to increase stability of gait. 4) The patient will tolerate 30 minutes of physical activity with one rest period - MET. 5) Assess balance with functional scale Prognosis: Moderate Physical Therapy Plan: PT 1-2 times a day M-F for bed mobility , gait training, balance and LE strengthening exercises.
[2017-07-12] MEDS: BUDESONIDE 0.5 MG/2 ML INH SCH ×3 (10:26→22:32)
[2017-07-12] MEDS: FLUOXETINE HCL 20 MG CAPSULE PO SCH (10:34)
[2017-07-12] MEDS: ACETAMINOPHEN 500 MG TABLET PO PRN (14:08)
--- NOTE | 2017-07-12 14:56 | Physical Therapy Tx Note ---
Physical Therapy Tx Note - Treatment Note Tolerated: Good Total Time Spent With Patient: 30 Physical Therapy Tx Note: Detail (The patient was sitting in his chair upon arrival. The patient was independent in sit to stand, and independent with transfer into wheelchair. The patient was taken to PT gym for treatment. The patient completed standing balance exercises as follows: Same side standing reach to target x 10 reaches with each arm, Cross body reach to target (L Hand to right sided target and vice versa) x 10, Forward overhead reach x 10, trunk rotation with 2# med ball x [address] The patient then completed 3 minutes on Nu-Step without rest. The patient required about a minute rest between each standing balance exercise. The patient requested to use restroom during treatment, and required supervision for toilet transfer toward the toilet and supervision for return to wheelchair. The patient had mild complaints of some foot pain at the beginning and throughout therapy, about 4/10 on numerical scale. The patient was returned to his chair with his call light in reach.) Physical Therapy Problem List: Detail (1) Decreased balance in sitting and standing 2) Decreased LE strength 3) Assistance with transfers 4) Assistance with ambulation 5) Decreased ability to complete sustained physical activity) Physical Therapy Goals: 1) The patient will ambulate with assistive device distances of 150 feet with CG/supervision - MET. 2) Independent/supervision with transfers - MET. 3) Increase LE strength 1/3 muscle grade to increase stability of gait. 4) The patient will tolerate 30 minutes of physical activity with one rest period - MET. 5) Assess balance with functional scale Prognosis: Good Physical Therapy Plan: PT 1-2 times a day M-F for bed mobility , gait training, balance and LE strengthening exercises.
[2017-07-12] MEDS: SIMVASTATIN 20 MG TABLET PO SCH (22:28)
[2017-07-12] MEDS: DONEPEZIL HCL 5 MG TABLET PO SCH (22:28)
[2017-07-12] MEDS: TEMAZEPAM 15 MG CAPSULE PO SCH (22:28)
[2017-07-13] MEDS: IPRATROPIUM/ALBUTEROL (0.5MG/3MG) NEB INH SCH ×5 (06:05→22:18)
[2017-07-13] MEDS: PANTOPRAZOLE SODIUM 40 MG TABLET PO SCH ×2 (06:26→16:36)
[2017-07-13] MEDS: GLIPIZIDE 5 MG TABLET PO SCH ×2 (07:50→16:36)
[2017-07-13] MEDS: BUDESONIDE 0.5 MG/2 ML INH SCH ×2 (10:19→22:18)
[2017-07-13] MEDS: GUAIFENESIN 1,200 MG TABLET PO SCH ×2 (10:34→22:37)
[2017-07-13] MEDS: FLUOXETINE HCL 20 MG CAPSULE PO SCH (10:34)
[2017-07-13] MEDS: LORAZEPAM 0.5 MG TABLET PO SCH (10:34)
[2017-07-13] MEDS: CHOLECALCIFEROL 1,000 UNIT TABLET PO SCH (10:34)
[2017-07-13] MEDS: ASPIRIN 81 MG TABEC PO SCH (10:34)
[2017-07-13] MEDS: SIMVASTATIN 20 MG TABLET PO SCH (22:37)
[2017-07-13] MEDS: DONEPEZIL HCL 5 MG TABLET PO SCH (22:37)
[2017-07-13] MEDS: TEMAZEPAM 15 MG CAPSULE PO SCH (22:37)
[2017-07-14] MEDS: PANTOPRAZOLE SODIUM 40 MG TABLET PO SCH ×2 (06:27→17:25)
[2017-07-14] MEDS: IPRATROPIUM/ALBUTEROL (0.5MG/3MG) NEB INH SCH ×5 (06:34→21:05)
[2017-07-14] MEDS: GLIPIZIDE 5 MG TABLET PO SCH ×2 (07:47→17:25)
[2017-07-14] MEDS: LORAZEPAM 0.5 MG TABLET PO SCH (09:26)
[2017-07-14] MEDS: CHOLECALCIFEROL 1,000 UNIT TABLET PO SCH (09:27)
[2017-07-14] MEDS: GUAIFENESIN 1,200 MG TABLET PO SCH ×2 (09:27→21:32)
[2017-07-14] MEDS: ASPIRIN 81 MG TABEC PO SCH (09:27)
[2017-07-14] MEDS: FLUOXETINE HCL 20 MG CAPSULE PO SCH (09:27)
[2017-07-14] MEDS: BUDESONIDE 0.5 MG/2 ML INH SCH ×2 (10:18→21:05)
[2017-07-14] MEDS: DONEPEZIL HCL 5 MG TABLET PO SCH (21:31)
[2017-07-14] MEDS: TEMAZEPAM 15 MG CAPSULE PO SCH (21:31)
[2017-07-14] MEDS: SIMVASTATIN 20 MG TABLET PO SCH (21:31)
[2017-07-15] MEDS: IPRATROPIUM/ALBUTEROL (0.5MG/3MG) NEB INH SCH ×5 (05:38→21:58)
[2017-07-15] MEDS: PANTOPRAZOLE SODIUM 40 MG TABLET PO SCH ×2 (06:04→17:06)
[2017-07-15] MEDS: GLIPIZIDE 5 MG TABLET PO SCH ×2 (07:44→17:06)
--- NOTE | 2017-07-15 09:30 | Physical Therapy Tx Note ---
Physical Therapy Tx Note - Treatment Note Tolerated: Good Total Time Spent With Patient: 15 Physical Therapy Tx Note: Detail (The patient was sitting in his chair upon arrival. A review of the patient's strength and balance was completed. The patient's strength in the LE's was as follows: B Hip Abduction, B Quads, B Dorsiflexion were all 5/5 and B Plantarflexors, B Hip Adduction, B Hamstrings, and B Hip Flexion 4+/5. The patient's balance was tested via the Tinetti Balance scale, and he scored 19/28, which places him in the moderate risk category for a fall. The patient had notable increase in his knee ROM bilaterally, as the patient was close to 0 degrees of knee extension. The patient's gait is much improved, as he is now taking equal steps and clearing toes with his steps. The patient was left sitting in his chair with his call light in reach.) Physical Therapy Problem List: Detail (1) Decreased balance in sitting and standing 2) Decreased LE strength 3) Assistance with transfers 4) Assistance with ambulation 5) Decreased ability to complete sustained physical activity) Physical Therapy Goals: 1) The patient will ambulate with assistive device distances of 150 feet with CG/supervision - MET. 2) Independent/supervision with transfers - MET. 3) Increase LE strength 1/3 muscle grade to increase stability of gait - MET. 4) The patient will tolerate 30 minutes of physical activity with one rest period - MET. 5) Assess balance with functional scale - MET - Tinetti Balance Assessment Physical Therapy Plan: PT 1-2 times a day M-F for bed mobility , gait training, balance and LE strengthening exercises.
--- NOTE | 2017-07-15 10:21 | Occupational Therapy Tx Note ---
Occupational Therapy Tx Note - Treatment Note Tolerated: Good Total Time Spent With Patient: 45 (ADL) Occupational Therapy Treatment Note: Detail (S: Pt up in chair, feeling better today. O: Sit to stand and amb to shower seat with 2 wheeled walker Indly. Doffed shirt, sweatpants, briefs and slippers Indly. Pt completed showering in sitting and standing (with walker in shower for standing), with SBA for standing. Pt dried self Indly. Donned briefs, sweatpants, shirt and slippers Indly. Pt became very short of breath with LE dressing and he was educated on modified dressing techniques and pursed lip breathing. Pt would benefit from ongoing teaching. Pt completed shaving with electric razor Indly. A: Pt is Ind with showering using shower seat and walker, Ind with dressing although he becomes short of breath and requires short rest breaks, modified techniques and reminders for breathing techniques.) Occupational Therapy Problem List: Detail (1. Decreased Ind with showering. 2. Decreased Ind with total body dressing. 3. Decreased Ind with functional mobility needed for safe and Ind ADLs. 4. Decreased UE function/strength needed for safe and Ind ADLs.) Occupational Therapy Goals: 1. Pt will be safe and Ind with showering in sitting. 2. Pt will be safe and Ind with total body dressing. 3. Pt will be Ind with functional mobility needed for safe and Ind self cares. 4. Pt will improve louis UE strength and endurance to allow Ind with self cares. Prognosis: Good Occupational Therapy Plan: OT 2-4 times per week to address self cares, functional mobility, endurance and UE function to allow safe and Ind return home.
[2017-07-15] MEDS: BUDESONIDE 0.5 MG/2 ML INH SCH ×2 (10:22→21:58)
[2017-07-15] MEDS: GUAIFENESIN 1,200 MG TABLET PO SCH ×2 (10:32→22:00)
[2017-07-15] MEDS: LORAZEPAM 0.5 MG TABLET PO SCH (10:32)
[2017-07-15] MEDS: ASPIRIN 81 MG TABEC PO SCH (10:32)
[2017-07-15] MEDS: FLUOXETINE HCL 20 MG CAPSULE PO SCH (10:33)
[2017-07-15] MEDS: CHOLECALCIFEROL 1,000 UNIT TABLET PO SCH (10:33)
--- NOTE | 2017-07-15 14:16 | Rehab Discharge Summary ---
Patient Information - Patient Information Diagnosis: deconditioning, lung CA, hypoxia Ordered Treatment: PT Evaluate and Treat Surgery: No Past Medical/Surgical Hx: PAST MEDICAL/SURGICAL HISTORY Past Surgical History left eye surgery rt groin stent attempt TURP Colonoscopy Right hand surgery PMH - Respiratory Hx Respiratory Disorders Yes Hx Bronchitis Yes Hx Chronic Obstructive Yes Pulmonary Disease (COPD) Hx Pneumonia Yes PMH - Cardiovascular Hx Hypertension Yes PMH - Neuro Hx Neurological Disorders Yes Hx Dementia Yes: Alzheimer Hx Neuropathy Yes Hx Seizures No Hx Syncope Yes Comment: occasional stutter PMH - GI Hx Gastrointestinal Disorders Yes Hx Abdominal Pain Yes Hx Gastroesophageal Reflux Yes PMH - Hx Genitourinary Disorders Yes Hx Prostate Problems Yes PMH - Endocrine Hx Endocrine Disorders Yes Hx Diabetes Yes PMH - Musculoskeletal Hx Musculoskeletal Disorders Yes Hx Arthritis Yes PMH - Psych Hx Psychiatric Problems Yes Hx Depression Yes PMH - Hematology/Oncology Hx Hematology/Oncology Yes Disorders Hx Cancer Yes: lung Premorbid Status: Detail (Pt lives with significant other, Shasha, in a 1 story house with basement although he generally stays on the 1st floor. He has a ramp at the entrance. He has a tub/shower combination with a seat and grab bars and an elevated toilet with grab bars. Prior to admission he had an aide assisting with showering and Shasha assisted with dressing as needed. He was ambulating with a 2 wheeled walker. Shasha performs all home mgmt, meal prep and laundry. He has a scooter and 4 wheeled walker.) Social History: Detail (The patient lives with significant other in a one story home with ramp. The patient's balalnce is equipped with a tub/shower combination and seat with grab bars and an elevated toilet seat with grab bars. The patient has a scooter, 4 wheeled walker and 2 wheeled walker with a hospital bed on order.) Precautions: [place], Fall Subjective Information - Subjective Information Per Patient (Overall, the patient states that he is feeling better. He still has complaints of some weakness, but is better than when he started.) Objective Data - Pain Pain Present: Yes (Reports of pain in both feet occasionally and bilateral knees. 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 The patient at nearly 0 in both knee extension at discharge) - Strength/Tone Within normal limits (The patient is within functional limits for ADLs and transfers. Strength grades were as follows: B dorsiflexion, B hip abduction, B Quads 5/5 and B Plantarflexion, B Hip Adduction, B Hamstrings and B Hip Flexion 4+/5) - Bed Mobility Independent (Patient able to transfer from supine to sit - Independently with use of hand rails Sit to supine - Independently with use of hand rails. Scooting - Independent) - Transfers Independent (Sit to Stand - Independently with use of hands Stand to sit - Independently with use of hands Toilet Transfer - Supervision and use of grab bars) - Balance Balance Sitting: Good (Has not shown left sided lean that showed on initial evaluation. No other loss of balance present) Balance Standing: Fair (Unable to stand for extended periods of time without use of UE support with walker, but showed no loss of balance with walker. Able to ambulate safely without loss of balance. Improved Tinetti Balance Score from 13/28 to 19/28, but still places him in moderate risk category for a fall.) - Gait Detail (Uses 2WW for all ambulation. Farthest distance recorded was around 330 feet total, which demonstrates ability to ambulate household distances safely. Decreased frequency of SOB with ambulation since initial evaluation. Has impulsive tendencies (i.e. moving the walker too far forward) that impair his safety.) Therapy Assessment - Therapy Assessment Detail (Patient's status is much improved from initial evaluation. He has showed increased strength and balance as showed via the patient's Tinetti Balance Assessment score. The patient shows increased exercise endurance, but is still limited by bouts of SOB. The patient's energy levels and exercise tolerance fluctuates, but overall status is quite improved from the initial evaluation as evidenced by increased ambulation distance and rest breaks throughout activity. The patient would benefit from further PT/OT services for LE strengthening, balance training, and gait training in the home environment.) Problem List - Problem List Physical Therapy Problem List: Detail (1) Decreased balance in standing 2) Decreased LE strength 3) Assistance with transfers 5) Decreased ability to tolerate exercise for more than half an hour) Occupational Therapy Problem List: Detail (1. Decreased Ind with showering. 2. Decreased Ind with total body dressing. 3. Decreased Ind with functional mobility needed for safe and Ind ADLs. 4. Decreased UE function/strength needed for safe and Ind ADLs.) Goals - Goals Physical Therapy Goals: 1) The patient will ambulate with assistive device distances of 150 feet with CG/supervision - MET. 2) Independent/supervision with transfers - MET. 3) Increase LE strength 1/3 muscle grade to increase stability of gait - MET. 4) The patient will tolerate 30 minutes of physical activity with one rest period - MET. 5) Assess balance with functional scale - MET - Tinetti Balance Assessment Occupational Therapy Goals: 1. Pt will be safe and Ind with showering in sitting. 2. Pt will be safe and Ind with total body dressing. 3. Pt will be Ind with functional mobility needed for safe and Ind self cares. 4. Pt will improve louis UE strength and endurance to allow Ind with self cares. Prognosis - Prognosis Moderate Plan - Plan Physical Therapy Plan: The patient would benefit from further home therapy for LE strengthening, balance exercises, and gait training. Occupational Therapy Plan: OT 2-4 times per week to address self cares, functional mobility, endurance and UE function to allow safe and Ind return home.
--- NOTE | 2017-07-15 15:50 | Rehab Discharge Summary ---
Patient Information - Patient Information Diagnosis: deconditioning, lung CA, hypoxia, COPD Ordered Treatment: OT Evaluate and Treat Surgery: No Past Medical/Surgical Hx: PAST MEDICAL/SURGICAL HISTORY Past Surgical History left eye surgery rt groin stent attempt TURP Colonoscopy Right hand surgery PMH - Respiratory Hx Respiratory Disorders Yes Hx Bronchitis Yes Hx Chronic Obstructive Yes Pulmonary Disease (COPD) Hx Pneumonia Yes PMH - Cardiovascular Hx Hypertension Yes PMH - Neuro Hx Neurological Disorders Yes Hx Dementia Yes: Alzheimer Hx Neuropathy Yes Hx Seizures No Hx Syncope Yes Comment: occasional stutter PMH - GI Hx Gastrointestinal Disorders Yes Hx Abdominal Pain Yes Hx Gastroesophageal Reflux Yes PMH - Hx Genitourinary Disorders Yes Hx Prostate Problems Yes PMH - Endocrine Hx Endocrine Disorders Yes Hx Diabetes Yes PMH - Musculoskeletal Hx Musculoskeletal Disorders Yes Hx Arthritis Yes PMH - Psych Hx Psychiatric Problems Yes Hx Depression Yes PMH - Hematology/Oncology Hx Hematology/Oncology Yes Disorders Hx Cancer Yes: lung Premorbid Status: Detail (Pt lives with significant other, Shasha, in a 1 story house with basement although he generally stays on the 1st floor. He has a ramp at the entrance. He has a tub/shower combination with a seat and grab bars and an elevated toilet with grab bars. Prior to admission he had an aide assisting with showering and Shasha assisted with dressing as needed. He was ambulating with a 2 wheeled walker. Shasha performs all home mgmt, meal prep and laundry. He has a scooter and 4 wheeled walker.) Social History: Detail (Supportive significant other, Shasha) Precautions: [place], Fall Subjective Information - Subjective Information Per Patient Objective Data - Pain Pain Present: No - Mental Status Patient Orientation: Oriented x3 - Visual Perception Deficit (Pt is blind in left eye.) - ROM Within normal limits (Vidal UE AROM functional for patients level of activity) - Strength/Tone Within normal limits (Vidal UE strength 4+/5 throughout) - Coordination Appears within normal limits for therapeutic activities - Bed Mobility Independent (Ind with supine to sit) - Transfers Independent (Ind with sit to stand using walker.) - Balance Balance Sitting: Good Balance Standing: Fair - Sensation Intact - Gait Detail (Pt ambulating in room and hallway with 2 wheeled walker and SBA.) - ADL's/IADL's Detail (Pt able to complete showering in sitting using hand held shower Indly, able to complete total body dressing Indly although he becomes very short of breath with LE dressing and requires cueing for breathing techniques and use of modified dressing techniques. He is Ind with grooming and hygiene and toileting.) Therapy Assessment - Therapy Assessment Detail (Pt is safe and Ind with self cares using modified techniques and pursed lip breathing although he requires cueing at times. He demonstrates improved overall endurance and UE strength and he has an UE HEP.) Problem List - Problem List Physical Therapy Problem List: Detail (1) Decreased balance in standing 2) Decreased LE strength 3) Assistance with transfers 5) Decreased ability to tolerate exercise for more than half an hour) Occupational Therapy Problem List: Detail (1. Decreased Ind with showering. 2. Decreased Ind with total body dressing. 3. Decreased Ind with functional mobility needed for safe and Ind ADLs. 4. Decreased UE function/strength needed for safe and Ind ADLs.) Goals - Goals Physical Therapy Goals: 1) The patient will ambulate with assistive device distances of 150 feet with CG/supervision - MET. 2) Independent/supervision with transfers - MET. 3) Increase LE strength 1/3 muscle grade to increase stability of gait - MET. 4) The patient will tolerate 30 minutes of physical activity with one rest period - MET. 5) Assess balance with functional scale - MET - Tinetti Balance Assessment Occupational Therapy Goals: Goals Met: 1. Pt will be safe and Ind with showering in sitting. 2. Pt will be safe and Ind with total body dressing. 3. Pt will be Ind with functional mobility needed for safe and Ind self cares. 4. Pt will improve vidal UE strength and endurance to allow Ind with self cares. Prognosis - Prognosis Good Plan - Plan Physical Therapy Plan: The patient would benefit from further home therapy for LE strengthening, balance exercises, and gait training. Occupational Therapy Plan: Pt is discharging home with home OT and PT.
[2017-07-15] MEDS: ACETAMINOPHEN 500 MG TABLET PO PRN (19:54)
[2017-07-15] MEDS: DONEPEZIL HCL 5 MG TABLET PO SCH (22:20)
[2017-07-15] MEDS: SIMVASTATIN 20 MG TABLET PO SCH (22:21)
[2017-07-15] MEDS: TEMAZEPAM 15 MG CAPSULE PO SCH (22:21)
[2017-07-16] MEDS: PANTOPRAZOLE SODIUM 40 MG TABLET PO SCH ×2 (06:49→16:03)
[2017-07-16] MEDS: GLIPIZIDE 5 MG TABLET PO SCH ×2 (07:35→16:03)
[2017-07-16] MEDS: FLUOXETINE HCL 20 MG CAPSULE PO SCH (10:17)
[2017-07-16] MEDS: LORAZEPAM 0.5 MG TABLET PO SCH (10:19)
[2017-07-16] MEDS: ASPIRIN 81 MG TABEC PO SCH (10:19)
[2017-07-16] MEDS: CHOLECALCIFEROL 1,000 UNIT TABLET PO SCH (10:20)
[2017-07-16] MEDS: GUAIFENESIN 1,200 MG TABLET PO SCH (10:21)
[2017-07-16] MEDS: IPRATROPIUM/ALBUTEROL (0.5MG/3MG) NEB INH SCH ×3 (10:27→15:00)
[2017-07-16] MEDS: BUDESONIDE 0.5 MG/2 ML INH SCH (10:27)
[2017-07-16] MEDS ORDERED: LEVOFLOXACIN 500 MG TABLET PO SCH (16:00)
--- NOTE | 2017-07-16 16:09 | Discharge Summary ---
Providers Discharge Summary Date: 07/16/17 Date of admission: 06/19/17 13:07 Expected Date of Discharge: 07/16/17 Attending physician: CHAY GOMEZ Primary care physician: JAGJIT HYLTON D.O. Physical Exam - Vital Signs Vital Signs: Vital Signs - Last 24 Hrs Temp Pulse Pulse Resp BP BP Pulse Ox 07/16/17 14:55 80 16 07/16/17 10:28 70 16 94 L 07/16/17 08:45 97.5 F L 76 16 118/68 98 07/15/17 22:00 81 16 100 07/15/17 20:03 88 16 100 07/15/17 20:00 97.6 F 69 17 128/59 96 - General General Appearance: Alert, Cooperative, No acute distress, Other (decreased short term memory recall) Limitations: Physical limitation (using walker to ambulate) - Head Head exam: Normal inspection - Eye Eye exam: Normal appearance, Other (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 negative: External canal tenderness Nasal Exam: Normal inspection. negative: Discharge, Sinus tenderness Mouth exam: Normal external inspection, Tongue normal Teeth exam: Normal inspection. negative: Dental caries Throat exam: Normal inspection. negative: Tonsillar erythema, Tonsillar exudate - Neck Neck exam: Normal inspection, Full ROM. negative: Tenderness - Respiratory Respiratory exam: Decreased breath sounds. negative: Accessory muscle use, Rhonchi, Wheezes - Cardiovascular Cardiovascular Exam: Regular rate, Normal rhythm, Systolic murmur Peripheral Pulses: 2+: Dorsalis Pedis (R), Dorsalis Pedis (L), 3+: Radial (R), Radial (L) - GI/Abdominal GI/Abdominal exam: Soft, Normal bowel sounds. negative: Tenderness - Rectal Rectal exam: Deferred - exam: Deferred - Extremities Extremities exam: Normal inspection, Full ROM, Normal capillary refill. negative: Tenderness - Neurological Neurological exam: Alert - Psychiatric Psychiatric exam: Normal affect, Normal mood - Skin Skin exam: Dry, Intact, Normal color, Warm Hospitalization - Hospitalization Admission Diagnosis: Deconditioning d/t hypoxia, lung cancer, copd - Problem List (1) Physical deconditioning Current Visit: No Status: Acute Base Code: R53.81 - OTHER MALAISE Comment : 07/08/17: - Deconditioning and weakness secondary to COPD exacerbation and lung cancer radiation treatments. - Assist with walker/bed alarm active. - Plan to continue PT/OT mondays-fridays - Pt. is tolerating pt/ot well, recent reassessment- working on bed mobility, gait training, balance, and LE strengthening exercises. (2) Diabetes Current Visit: No Status: Acute Discharge Diagnosis: Diabetes mellitus type: type 2 Diabetes mellitus complication status: with unspecified complications Diabetes mellitus shelter insulin use: without shelter use Qualified Code(s): E11.8 - Type 2 diabetes mellitus with unspecified complications Base Code: E11.9 - TYPE 2 DIABETES MELLITUS WITHOUT COMPLICATIONS Comment: - less fluctuation in glucose levels - cont with Q12H accuchecks, will adjust medications as appropriate. On Glucotrol 5mg daily. On ADA diet. (3) COPD exacerbation Current Visit: No Status: Acute Base Code: J44.1 - CHRONIC OBSTRUCTIVE PULMONARY DISEASE W (ACUTE) EXACERBATION Comment: 07/08/17: - CXR - negative for infiltrates - D/C Levaquin on 06/24. 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 - Oncology to follow 1-2 weeks after d/c from [facility]. (5) Full code status Current Visit: No Status: Acute Base Code: Z78.9 - OTHER SPECIFIED HEALTH STATUS Comment: 07/08/17: Pt. remains full code status - Hospitalization Course Disposition: Still a Patient at [facility] Abnormal Labs: Abnormal Lab Results 06/19/17 06/20/17 06/20/17 Range/Units 17:00 06:00 06:28 RBC 4.01 L (4.40-5.70) M/uL Hgb 12.7 L (14.0-18.0) gm/dl Hct 38.0 L (42.0-52.0) % Lymphocytes % 11.2 L (16-45) % Monocytes % 12.9 H (0-9) % BUN (8-23) mg/dL Creatinine (0.7-1.2) mg/dL POC Glucose 189 H 125 H (70-110) mg/dL Random Glucose (74-109) mg/dL 06/20/17 06/20/17 06/21/17 Range/Units 06:28 17:19 17:26 RBC (4.40-5.70) M/uL Hgb (14.0-18.0) gm/dl Hct (42.0-52.0) % Lymphocytes % (16-45) % Monocytes % (0-9) % BUN 35 H (8-23) mg/dL Creatinine 1.4 H (0.7-1.2) mg/dL POC Glucose 292 H 283 H (70-110) mg/dL Random Glucose 125 H (74-109) mg/dL 06/22/17 06/22/17 06/23/17 Range/Units 07:34 17:18 17:20 RBC (4.40-5.70) M/uL Hgb (14.0-18.0) gm/dl Hct (42.0-52.0) % Lymphocytes % (16-45) % Monocytes % (0-9) % BUN (8-23) mg/dL Creatinine (0.7-1.2) mg/dL POC Glucose 115 H 246 H 170 H (70-110) mg/dL Random Glucose (74-109) mg/dL 06/24/17 06/24/17 06/25/17 Range/Units 07:42 17:15 07:31 RBC (4.40-5.70) M/uL Hgb (14.0-18.0) gm/dl Hct (42.0-52.0) % Lymphocytes % (16-45) % Monocytes % (0-9) % BUN (8-23) mg/dL Creatinine (0.7-1.2) mg/dL POC Glucose 116 H 133 H 132 H (70-110) mg/dL Random Glucose (74-109) mg/dL 06/25/17 06/26/17 06/27/17 Range/Units 16:38 14:30 07:30 RBC (4.40-5.70) M/uL Hgb (14.0-18.0) gm/dl Hct (42.0-52.0) % Lymphocytes % (16-45) % Monocytes % (0-9) % BUN (8-23) mg/dL Creatinine (0.7-1.2) mg/dL POC Glucose 187 H 129 H (70-110) mg/dL Random Glucose 267 H (74-109) mg/dL 06/27/17 06/28/17 06/28/17 Range/Units 17:00 07:30 16:30 RBC (4.40-5.70) M/uL Hgb (14.0-18.0) gm/dl Hct (42.0-52.0) % Lymphocytes % (16-45) % Monocytes % (0-9) % BUN (8-23) mg/dL Creatinine (0.7-1.2) mg/dL POC Glucose 179 H 159 H 147 H (70-110) mg/dL Random Glucose (74-109) mg/dL 06/29/17 06/29/17 06/30/17 Range/Units 06:20 16:30 07:45 RBC (4.40-5.70) M/uL Hgb (14.0-18.0) gm/dl Hct (42.0-52.0) % Lymphocytes % (16-45) % Monocytes % (0-9) % BUN (8-23) mg/dL Creatinine (0.7-1.2) mg/dL POC Glucose 117 H 166 H 112 H (70-110) mg/dL Random Glucose (74-109) mg/dL 06/30/17 07/01/17 07/01/17 Range/Units 17:00 07:30 18:14 RBC (4.40-5.70) M/uL Hgb (14.0-18.0) gm/dl Hct (42.0-52.0) % Lymphocytes % (16-45) % Monocytes % (0-9) % BUN (8-23) mg/dL Creatinine (0.7-1.2) mg/dL POC Glucose 138 H 113 H 156 H (70-110) mg/dL Random Glucose (74-109) mg/dL 07/02/17 07/03/17 07/03/17 Range/Units 07:30 16:30 21:50 RBC (4.40-5.70) M/uL Hgb (14.0-18.0) gm/dl Hct (42.0-52.0) % Lymphocytes % (16-45) % Monocytes % (0-9) % BUN (8-23) mg/dL Creatinine (0.7-1.2) mg/dL POC Glucose 149 H 152 H 292 H (70-110) mg/dL Random Glucose (74-109) mg/dL 07/04/17 07/04/17 07/05/17 Range/Units 08:15 17:09 16:30 RBC (4.40-5.70) M/uL Hgb (14.0-18.0) gm/dl Hct (42.0-52.0) % Lymphocytes % (16-45) % Monocytes % (0-9) % BUN (8-23) mg/dL Creatinine (0.7-1.2) mg/dL POC Glucose 148 H 151 H 147 H (70-110) mg/dL Random Glucose (74-109) mg/dL 07/06/17 07/07/17 07/08/17 Range/Units 16:56 17:09 16:58 RBC (4.40-5.70) M/uL Hgb (14.0-18.0) gm/dl Hct (42.0-52.0) % Lymphocytes % (16-45) % Monocytes % (0-9) % BUN (8-23) mg/dL Creatinine (0.7-1.2) mg/dL POC Glucose 166 H 139 H 160 H (70-110) mg/dL Random Glucose (74-109) mg/dL 07/09/17 07/10/17 07/11/17 Range/Units 17:34 16:30 07:58 RBC (4.40-5.70) M/uL Hgb (14.0-18.0) gm/dl Hct (42.0-52.0) % Lymphocytes % (16-45) % Monocytes % (0-9) % BUN (8-23) mg/dL Creatinine (0.7-1.2) mg/dL POC Glucose 140 H 159 H 137 H (70-110) mg/dL Random Glucose (74-109) mg/dL 07/11/17 07/12/17 07/12/17 Range/Units 16:57 07:00 16:30 RBC (4.40-5.70) M/uL Hgb (14.0-18.0) gm/dl Hct (42.0-52.0) % Lymphocytes % (16-45) % Monocytes % (0-9) % BUN (8-23) mg/dL Creatinine (0.7-1.2) mg/dL POC Glucose 145 H 136 H 197 H (70-110) mg/dL Random Glucose (74-109) mg/dL 07/13/17 07/14/17 07/15/17 Range/Units 16:30 17:00 07:36 RBC (4.40-5.70) M/uL Hgb (14.0-18.0) gm/dl Hct (42.0-52.0) % Lymphocytes % (16-45) % Monocytes % (0-9) % BUN (8-23) mg/dL Creatinine (0.7-1.2) mg/dL POC Glucose 239 H 132 H 113 H (70-110) mg/dL Random Glucose (74-109) mg/dL 07/15/17 07/16/17 Range/Units 16:30 06:49 RBC (4.40-5.70) M/uL Hgb (14.0-18.0) gm/dl Hct (42.0-52.0) % Lymphocytes % (16-45) % Monocytes % (0-9) % BUN (8-23) mg/dL Creatinine (0.7-1.2) mg/dL POC Glucose 113 H 142 H (70-110) mg/dL Random Glucose (74-109) mg/dL Discharge Medications - Discharge Medications Home Medications: Ambulatory Orders Albuterol Sulfate [Proventil Hfa] 3 ml NEB Q4H PRN 12/11/16 [Last Taken Unknown] Aspirin Chewable 81 mg PO DAILY 12/11/16 [Last Taken Unknown] Cholecalciferol (Vitamin D3) [Vitamin D3] 2,000 unit PO DAILY 12/11/16 [Last Taken Unknown] Donepezil HCl 20 mg PO QHS 12/11/16 [Last Taken Unknown] Fluoxetine HCl 20 mg PO DAILY 12/11/16 [Last Taken Unknown] Fluticasone/Vilanterol 100/25 [Breo Ellipta 100-25 Mcg INH] 1 puff INH RESP.DAILY 12/11/16 [Last Taken Unknown] Glipizide [Glucotrol] 5 mg PO BIDAC 12/11/16 [Last Taken Unknown] Lorazepam [Ativan] 0.5 mg PO DAILY 12/11/16 [Last Taken Unknown] Omeprazole 20 mg PO BIDAC 12/11/16 [Last Taken Unknown] Simvastatin 40 mg PO QHS 12/11/16 [Last Taken Unknown] Temazepam 30 mg PO QHS 12/11/16 [Last Taken Unknown] Umeclidinium Aurora [Incruse Ellipta] 1 puff INH DAILY 12/11/16 [Last Taken Unknown] Hydrochlorothiazide 12.5 mg PO DAILY #0 12/31/16 [Last Taken Unknown] Tramadol HCl [Ultram] 50 mg PO DAILY PRN #15 tab 12/31/16 [Last Taken Unknown] Discharge Plan - Discharge Instructions Additional Instructions: Appointments have been scheduled for you as follows: Dr. Parra- [address] [place] [address], Dr. Vargas-Monday 07/17, 2:30pm. [address] [place] [address], Arpita at Dr. Hylton's office- Saturday 07/22, 3:30pm. [address] [place] [address] , [facility] will start care at home on 07/18, they will contact [place] to set a time to come to the house that day. [facility] will provide physical therapy, occupational therapy, nursing and an aide to help in the shower. Phone number is . Quality Measures - Quality Measures Quality Measures: Advance Directives, Documentation of Current Medications in Medical Record, Elder Maltreatment Screen and Follow-Up Plan, Screening for High Blood Pressure and F/U Documented - Current Medications Quality Measure: Measure #130: Documentation of Current Medications - Blood Pressure Screening Quality Measure: Screening for High Blood Pressure and Follow-Up Documented Blood Pressure Classification: Normal BP Reading Systolic Measurement: 119 Diastolic Measurement: 56 Screening for High Blood Pressure: < Normal BP, F/U Not Required > [G8783] - Advance Directives Quality Measure: Measure #47: Care Plan Advance Directives Established: Yes Advance Directives Information Provided To Patient: Already Provided Advance Directives on File: Yes Living Will: Yes Power of Broomcorn Sorter: Yes Power of Broomcorn Sorter Name: JOIE PAUL - Elder Abuse Suspicion Index Screening: Elder Abuse Suspicion Index Screening Rely on people for bathing, dressing, shopping, banking, etc: No Prevented from getting food, clothes, medication, etc: No Made to feel shamed or threatened by someone: No Forced to sign papers or use money against will: No Feel afraid, touched in ways not wanted or hurt physically: No Poor eye contact, withdrawn, malnourished, cuts or bruises: No Screening Result: Negative result EASI Reference Information: Leona VIRAMONTES, Rommel C, Danitza D, Jacinto Nieto.Development and validation of a tool to assist physicians identification of elder abuse: The Elder Abuse Suspicion Index (EASI ). Journal of Elder Abuse and Neglect, 2008; 20 (3): 276-300. - Elder Maltreatment Screen Quality Measures: Elder Maltreatment Screen and Follow-Up Plan Elder Maltreatment Screen: <Negative, No Follow-Up Plan Required> [G8734]
== END 2017-07-16 18:55 | disposition still patient (30) | DRG 948 ==
LOC: MEDSURG 13:07
PROVIDERS: ADMIT Internal Medicine; ATTEND Internal Medicine
DX: R53.81 Other malaise (principal); J44.1 Chronic obstructive pulmonary disease with (acute) exacerbation; C34.90 Malignant neoplasm of unspecified part of unspecified bronchus or lung; Z87.891 Personal history of nicotine dependence; I10 Essential (primary) hypertension; E78.5 Hyperlipidemia, unspecified; E11.9 Type 2 diabetes mellitus without complications; C80.1 Malignant (primary) neoplasm, unspecified; G30.9 Alzheimer's disease, unspecified; F02.80 Dementia in other diseases classified elsewhere, unspecified severity, without behavioral disturbance, psychotic disturbance, mood disturbance, and anxiety; J98.09 Other diseases of bronchus, not elsewhere classified; I73.9 Peripheral vascular disease, unspecified
CPT/HCPCS: 36416; 80048; 82947; 82948; 85025; 92522; 94640; 94667; 94668; 94760; 94761; 97110; 97112; 97116; 97165; 97530; 97535; 99306; 99309; 99316; J7512

== ENCOUNTER 2017-08-26 12:06 | Inpatient (IN) | payer MEDICARE ==
[2017-08-26] MEDS ORDERED: LOPERAMIDE 2 MG CAPSULE PO PRN (14:02)
--- NOTE | 2017-08-26 15:50 | Rehab Evaluation ---
Patient Information - Patient Information Diagnosis: Deconditioning due to DDD Ordered Treatment: PT Evaluate and Treat Status: Initial Evaluation History: Detail (The patient was hospitalized in [facility] due inability to move his legs and LE pain on the R per patient's spouse. The patient was transferred to [place] for Rehab x 1 month and has now been transferred to [facility] for further Rehab per spouse's request.) Past Medical/Surgical Hx: PAST MEDICAL/SURGICAL HISTORY Past Surgical History left eye surgery rt groin stent attempt TURP Colonoscopy Right hand surgery PMH - Respiratory Hx Respiratory Disorders Yes Hx Bronchitis Yes Hx Chronic Obstructive Yes Pulmonary Disease (COPD) Hx Pneumonia Yes PMH - Cardiovascular Hx Hypertension Yes PMH - Neuro Hx Neurological Disorders Yes Hx Dementia Yes: Alzheimer Hx Neuropathy Yes Hx Seizures No Hx Syncope Yes Comment: occasional stutter PMH - GI Hx Gastrointestinal Disorders Yes Hx Abdominal Pain Yes Hx Gastroesophageal Reflux Yes PMH - Hx Genitourinary Disorders Yes Hx Prostate Problems Yes PMH - Endocrine Hx Endocrine Disorders Yes Hx Diabetes Yes PMH - Musculoskeletal Hx Musculoskeletal Disorders Yes Hx Arthritis Yes Hx Back Injury Yes PMH - Psych Hx Psychiatric Problems Yes Hx Depression Yes PMH - Hematology/Oncology Hx Hematology/Oncology Yes Disorders Hx Cancer Yes: lung Premorbid Status: Detail (The patient lives with spouse, Shasha in a one story house with a basement, although he stays on the first floor. His home has a ramp at the entrance. His bathroom is equipped with a tub/shower combination with a seat and grab bars and an elevated toilet with grab bars. Shasha performs all home managment, meal prep and laundry. He has a scooter and 4 wheeled walker and a 2 wheeled walker with a hospital bed on order.) Social History: Detail Precautions: [place], Fall - Time With Patient Total Time Spent With Patient (Min): 30 Treatment Procedures: Detail (Initial Evaluation) Subjective Information - Subjective Information Per Patient (The patient has complaints of lower back pain, R buttock pain, radiating into R LE to ankle. The patient also complains of R LE spasms.) Objective Data - Pain Pain Present: Yes Pain Scale Used: Numeric (1 - 10) (8 using 1-10 pain scale.) - Mental Status Patient Orientation: Person, [place] ([place] was unsure if he was working.) - ROM Other (LE AROM was not assessed secondary to pain complaints.) - Strength/Tone Other (LE strength was not assessed secondary LE pain complaints.) - Bed Mobility Needs Assist (Maximal PA of 2 with supine to and from sit transfer place verbal cues for proper technique. Maximal PA of 2 with scooting up in bed.) - Transfers Needs Assist (Sit to stand moderate PA of 1.) - Balance Balance Sitting: Fair (The patient was able to sit without support.) Balance Standing: Poor (The patient required support of walker to stand.) - Gait Detail (The patient was unable to ambulate. The patient stood x 2 for aproximately 1 to 2 minutes.) Therapy Assessment - Therapy Assessment Detail (The patient required maximal to moderate assistance with mobility. The patient's pain is limiting the patient's mobility. Feel the patient would benefit from MFR techniques to reduce pain as well as modalities. PT will also focus on increasing independence with mobility.) Problem List - Problem List Physical Therapy Problem List: Detail (1) Level 8 lower back pain radiating into R LE. 2) Assistance with mobility and transfers 3) Non ambulatory 4) Decreased abililty to tolerate physical activity) Goals - Goals Physical Therapy Goals: 1) Assess the patient's LE strength and AROM. 2) The patient will be independent/supervision with bed mobility. 3) The patient will transfer with CG of 1. 4) The patient will ambulate with assistive device with CG of 1 household distances. Prognosis - Prognosis Moderate Plan - Plan Physical Therapy Plan: PT 1-2 times a day for pain management techniques including MTT and modalities, transfer training, bed mobility, gait training , LE AROM and strengthening exercises.
--- NOTE | 2017-08-26 15:54 | Rehab Evaluation ---
Patient Information - Patient Information Diagnosis: Deconditioning due to degenerative disc disease Ordered Treatment: OT Evaluate and Treat Status: Initial Evaluation Surgery: No History: Detail (The patient was hospitalized in [facility] due inability to move his legs and LE pain on the R per patient's spouse. The patient was transferred to [place] for Rehab x 1 month and has now been transferred to [facility] for further Rehab per spouse's request.) Past Medical/Surgical Hx: PAST MEDICAL/SURGICAL HISTORY Past Surgical History left eye surgery rt groin stent attempt TURP Colonoscopy Right hand surgery PMH - Respiratory Hx Respiratory Disorders Yes Hx Bronchitis Yes Hx Chronic Obstructive Yes Pulmonary Disease (COPD) Hx Pneumonia Yes PMH - Cardiovascular Hx Hypertension Yes PMH - Neuro Hx Neurological Disorders Yes Hx Dementia Yes: Alzheimer Hx Neuropathy Yes Hx Seizures No Hx Syncope Yes Comment: occasional stutter PMH - GI Hx Gastrointestinal Disorders Yes Hx Abdominal Pain Yes Hx Gastroesophageal Reflux Yes PMH - Hx Genitourinary Disorders Yes Hx Prostate Problems Yes PMH - Endocrine Hx Endocrine Disorders Yes Hx Diabetes Yes PMH - Musculoskeletal Hx Musculoskeletal Disorders Yes Hx Arthritis Yes Hx Back Injury Yes PMH - Psych Hx Psychiatric Problems Yes Hx Depression Yes PMH - Hematology/Oncology Hx Hematology/Oncology Yes Disorders Hx Cancer Yes: lung Premorbid Status: Detail (The patient lives with spouse, Shasha in a one story house with a basement, although he stays on the first floor. His home has a ramp at the entrance. His bathroom is equipped with a tub/shower combination) Precautions: [place], Fall - Time With Patient Total Time Spent With Patient (Min): 30 Treatment Procedures: Detail (OT eval low complexity) Subjective Information - Subjective Information Per Patient, Other (Per spouse Shasha) Objective Data - Pain Pain Present: Yes (8/10 pain in back and right leg) - Mental Status Patient Orientation: Oriented x3 (Pt oriented to month, year, self. [place]") - Visual Perception Deficit (Pt blind in left eye.) - ROM Not within normal limits (Vidal UE AROM limited throughout especially shoulder flexion which is limited to approx. 80 degrees.) - Strength/Tone Not within normal limits (Vidal UE strength 4-/5 throughout.) - Coordination Deficit (Vidal hand coordination impaired although not formally assessed.) - Bed Mobility Dependent (max assist x 2 for supine to sit) - Transfers Dependent (Sit to stand with mod-max assist x 1 to walker) - Balance Balance Sitting: Fair Balance Standing: Poor - Sensation Intact - Gait Detail (Pt unable to ambulate at this time) - ADL's/IADL's Detail (Pt is total assist for all self care activities at this time.) Therapy Assessment - Therapy Assessment Detail (Pt presents with significantly impaired mobility, UE strength/endurance/ coordination, decreased Ind with self cares, decreased orientation) Problem List - Problem List Occupational Therapy Problem List: Detail (1. Decreased orientation x 3. 2. Pt requiring total assist for all ADLs. 3. Max assist for functional mobility 4. Decreased UE strength/ROM/coordination) Goals - Goals Occupational Therapy Goals: 1. Pt will be oriented x 3. 2. Pt will be Ind with total body dressing. 3. Pt will be Ind with showering 4. Pt will improve UE strength/ROM/coordination to allow safe and Ind self cares 5. Pt will be safe and Ind with bed mobility Prognosis - Prognosis Good Plan - Plan Occupational Therapy Plan: OT 2-4 days per week to address goals and problem list as above.
[2017-08-26] MEDS: ACETAMINOPHEN 500 MG TABLET PO PRN (17:22)
[2017-08-26] MEDS: PANTOPRAZOLE SODIUM 40 MG TABLET PO SCH (17:22)
[2017-08-26] MEDS: IPRATROPIUM/ALBUTEROL (0.5MG/3MG) NEB INH SCH ×2 (18:58→21:55)
[2017-08-26] MEDS: GLIPIZIDE 5 MG TABLET PO SCH (19:24)
[2017-08-26] MEDS: RISPERIDONE 0.25 MG TABLET PO SCH (21:30)
[2017-08-26] MEDS: DONEPEZIL HCL 5 MG TABLET PO SCH (21:31)
[2017-08-26] MEDS: SIMVASTATIN 20 MG TABLET PO SCH (21:31)
[2017-08-26] MEDS: BUDESONIDE 0.5 MG/2 ML INH SCH (21:55)
[2017-08-26] MEDS ORDERED: TEMAZEPAM 15 MG CAPSULE PO SCH (22:00)
[2017-08-27] MEDS: IPRATROPIUM/ALBUTEROL (0.5MG/3MG) NEB INH SCH ×5 (06:08→22:08)
[2017-08-27] MEDS: PANTOPRAZOLE SODIUM 40 MG TABLET PO SCH ×2 (06:12→18:18)
[2017-08-27] MEDS: GLIPIZIDE 5 MG TABLET PO SCH ×2 (08:14→18:18)
[2017-08-27 09:16] LABS: HEMATOCRIT 37.2 % (42.0-52.0); MEAN CELL VOLUME 93.5 fl (81-97); MEAN CORPUSCULAR HGB CONC 32.3 g/dl (32-36); MEAN PLATELET VOLUME 9.5 fl (7.4-10.4); PLATELET COUNT 333 K/uL (130-400); RED BLOOD COUNT 3.98 M/uL (4.40-5.70); RED CELL DISTRIBUTION WIDTH 13.4 % (11.5-14.5); WHITE BLOOD COUNT W/O DIFF 8.4 K/uL (4.2-12.2)
[2017-08-27 09:19] LABS: MEAN CORPUSCULAR HEMOGLOBIN 30.1 pg (27-33)
[2017-08-27] MEDS: RISPERIDONE 0.25 MG TABLET PO SCH (09:29)
[2017-08-27] MEDS: CHOLECALCIFEROL 1,000 UNIT TABLET PO SCH (09:29)
[2017-08-27 09:30] LABS: BLOOD UREA NITROGEN 18 mg/dL (8-23); EST GLOMERULAR FILTRATION RATE > 60 mL/min; TOTAL PROTEIN 6.6 g/dL (6.6-8.7)
[2017-08-27] MEDS: FLUOXETINE HCL 20 MG CAPSULE PO SCH (09:31)
[2017-08-27] MEDS: ASPIRIN 81 MG TABEC PO SCH (09:31)
[2017-08-27] MEDS: ACETAMINOPHEN 500 MG TABLET PO PRN ×2 (09:31→22:43)
[2017-08-27 09:32] LABS: GLUCOSE,RANDOM 251 mg/dL (74-109)
[2017-08-27 09:35] LABS: ALB/GLOB RATIO 0.9 (1.1-1.8); ALBUMIN 3.2 g/dL (4.0-5.0); ALKALINE PHOSPHATASE 173 U/L (40-129); ALT/SGPT 15 U/L (<41); AST/SGOT 10 U/L (10.0-50.0); PLATELET ESTIMATE NORMAL (NORMAL)
[2017-08-27] MEDS ORDERED: MEMANTINE HCL 10 MG TABLET PO SCH (10:00)
[2017-08-27] MEDS: BUDESONIDE 0.5 MG/2 ML INH SCH ×2 (10:24→22:08)
[2017-08-27] MEDS ORDERED: RISPERIDONE 0.25 MG TABLET PO PRN (10:30)
--- NOTE | 2017-08-27 11:17 | History & Physical ---
History of Present Illness - Date of Service Date of Service for History & Physical: 08/27/17 - History of Present Illness Admitting Diagnosis: Deconditioning d/t degenerative disc disease Review of Systems Constitutional: Reports: Weakness Eyes: Reports: Other (left eye absent) ENT: Reports: Congestion Respiratory: Reports: Cough (productive), Other (productive cough) Cardiovascular: Reports: Dyspnea on exertion Endocrine: Reports: As per HPI Gastrointestinal: Reports: Other (sporatic incontinence) Genitourinary: Reports: Incontinence Musculoskeletal: Reports: Back pain, Joint swelling, Myalgia Skin: Reports: Lesions Neurological: Reports: Weakness Psychiatric: Reports: Visual hallucinations (wax/wane) Hematological/Lymphatic: Reports: As per HPI Past Medical History - SOCIAL HISTORY Smoking Status: Former smoker - RESPIRATORY Hx Respiratory Disorders: Yes Hx Bronchitis: Yes Hx COPD: Yes Hx Pneumonia: Yes - CARDIOVASCULAR Hx Hypertension: Yes - NEURO Hx Neuro Disorders: Yes Hx Dementia: Yes Hx Seizures: No Hx Weakness: Yes - GI Hx GI Disorders: Yes Hx Abdominal Pain: Yes Hx Reflux: Yes - Hx Genitourinary Disorders: Yes Hx Prostate Problems: Yes - ENDOCRINE Hx Endocrine Disorders: Yes Hx Diabetes: Yes - MUSCULOSKELETAL Hx Arthritis: Yes Hx Back Injury: Yes Hx Musculoskeletal Disease: Yes - PSYCH Hx Psych Problems: Yes Hx Depression: Yes - HEMATOLOGY/ONCOLOGY Hx Hematology/Oncology Disorders: Yes Hx Cancer: Yes (lung) Family Medical History Any Significant Family History?: Yes Hx Alcohol Use: Children Hx Cancer: Mother Hx Diabetes: Grandparents Hx Heart Disease: Father, Mother *Heart Comment: aneurysm Hx Resp Disorders: Grandparents H&P Meds/Allergies - Allergies Allergies: Allergies Allergy/AdvReac Type Severity Reaction Status Date / Time Milk Containing Products AdvReac PT UNSURE Verified 08/26/17 12:10 OF REACTION - Home Medications Previous Rx's Medication Instructions Recorded Hydrochlorothiazide [Hctz] 12.5 mg PO DAILY #0 12/31/16 Tramadol HCl [Ultram] 50 mg PO DAILY PRN #15 tab 12/31/16 - Active Medications Active Medications: Current Medications Acetaminophen (Tylenol 500mg Tab) 1,000 mg PO Q8H PRN PRN Reason: Pain - General Last Admin: 08/27/17 09:31 Dose: 1,000 mg Albuterol/Ipratropium (Duoneb) 3 ml INH RESP.Q4H.WA [facility] Last Admin: 08/27/17 10:24 Dose: 3 ml Aspirin (Ecotrin (Ec)) 81 mg PO DAILY [facility] Last Admin: 08/27/17 09:31 Dose: 81 mg Budesonide (Pulmicort) 0.5 mg INH BID [facility] Last Admin: 08/27/17 10:24 Dose: 0.5 mg Donepezil HCl (Aricept) 10 mg PO QHS [facility] Last Admin: 08/26/17 21:31 Dose: 10 mg Fluoxetine HCl (Prozac) 20 mg PO DAILY [facility] Last Admin: 08/27/17 09:31 Dose: 20 mg Glipizide (Glucotrol) 5 mg PO 0730,1630 [facility] Last Admin: 08/27/17 08:14 Dose: 5 mg Loperamide HCl (Immodium) 2 mg PO Q4H PRN PRN Reason: DIARRHEA Memantine (Namenda) 5 mg PO BID [facility] Pantoprazole Sodium (Protonix) 40 mg PO BIDAC [facility] Last Admin: 08/27/17 06:12 Dose: 40 mg Risperidone (Risperdal) 0.5 mg PO BID PRN PRN Reason: Agitation Simvastatin (Zocor) 40 mg PO QHS [facility] Last Admin: 08/26/17 21:31 Dose: 40 mg Temazepam (Restoril) 15 mg PO QHS PRN PRN Reason: INSOMNIA Vitamin D (Vitamin D3) 2,000 unit PO DAILY [facility] Last Admin: 08/27/17 09:29 Dose: 2,000 unit Physical Exam - Vital Signs Vital Signs: Vital Signs - Last 24 Hrs Temp Pulse Pulse Resp BP BP Pulse Ox 08/27/17 10:20 70 16 08/27/17 08:00 97.7 F 66 16 106/62 94 L 08/27/17 06:08 84 16 98 08/26/17 21:56 89 16 97 08/26/17 20:00 97.6 F 87 18 118/60 94 L 08/26/17 18:58 76 16 98 08/26/17 16:46 97.7 F 117/63 08/26/17 12:45 97.7 F 91 H 18 117/63 94 L - General General Appearance: Alert, Oriented x3 (Pt was difficult to arouse in the AM but after stimulation was oriented ) Limitations: Altered mental status (wax/wane, potentially sundowning) - Head Head exam: Normocephalic Head exam detail: Other - Eye Eye exam: Other (left eye absent) - ENT Ear exam: Normal external inspection Teeth exam: Other (upper dentures present, lower dentures absent- pt reports they broke and have not been replaced) Throat exam: Normal inspection - Neck Neck exam: Normal inspection - Respiratory Respiratory exam: Decreased breath sounds, Rales, Rhonchi - Cardiovascular Cardiovascular Exam: Regular rate Peripheral Pulses: 1+: Dorsalis Pedis (R), Dorsalis Pedis (L), 2+: Radial (R), Radial (L) - GI/Abdominal GI/Abdominal exam: Soft, Normal bowel sounds - Rectal Rectal exam: Deferred - exam: Deferred - Extremities Extremities exam: Joint swelling, Tenderness, Other (decreased PROM and AROM. 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 sacrum x 2- dressed by nursing) Results - Labs Result Diagrams: 08/27/17 09:03 08/27/17 09:03 Labs Last 24 Hours: Laboratory Results - last 24 hr 08/26/17 08/26/17 08/27/17 12:55 17:15 07:30 WBC RBC Hgb Hct MCV MCH MCHC RDW Plt Count MPV Neutrophils % Eosinophils % Basophils % Lymphocytes Monocytes Platelet Estimate RBC Morphology Eosinophil Count Sodium Potassium Chloride Carbon Dioxide Anion Gap BUN Creatinine Estimated GFR POC Glucose 168 H 120 H 189 H Random Glucose Calcium Total Bilirubin AST ALT Alkaline Phosphatase Total Protein Albumin Globulin Albumin/Globulin Ratio 08/27/17 08/27/17 09:03 09:03 WBC 8.4 RBC 3.98 L Hgb 12.0 L Hct 37.2 L MCV 93.5 MCH 30.1 MCHC 32.3 RDW 13.4 Plt Count 333 MPV 9.5 Neutrophils % 63.0 Eosinophils % Not Reportable Basophils % Not Reportable Lymphocytes 15.0 L Monocytes 8.0 Platelet Estimate Normal RBC Morphology Normal Eosinophil Count 14.0 H Sodium 140 Potassium 4.3 Chloride 102 Carbon Dioxide 26.0 Anion Gap 12.0 BUN 18 Creatinine 1.0 Estimated GFR > 60 POC Glucose Random Glucose 251 H Calcium 9.8 Total Bilirubin 0.50 AST 10 ALT 15 Alkaline Phosphatase 173 H Total Protein 6.6 Albumin 3.2 L Globulin 3.4 Albumin/Globulin Ratio 0.9 L VTE H&P Assessment - Risk for VTE Risk for VTE: Yes Risk Level: High Risk Assessment Date: 08/27/17 Risk Assessment Time: 08:00 VTE Orders Placed or Will Be Placed: Yes Plan - Detailed Diagnosis and Plan (1) Physical deconditioning Current Visit: Yes Status: Acute Base Code: R53.81 - OTHER MALAISE Priority: High Comment: 08/27/17 Pt arrived from [facility] for weakness and deconditioning. Per family reports to nursing staff, pt was admited to SNF able to walk and provide some ADLs but currently not able to complete these tasks. _PT/OT eval and treat -CXR productive cough, PMH COPD and PNA, alter LOC in the AM - ABD xray- r/o FB Per reports from family and SNF, pt was found by SNF staff to be playing with his wedding ring and staff noticed it in his mouth and then ring was not able to be found. Pt has no complaints at this time. Awaiting report (2) Chronic low back pain Current Visit: No Status: Acute Base Code: M54.5 - LOW BACK PAIN; G89.29 - OTHER CHRONIC PAIN Comment: 08/27/17 Pt arrived via EMS transport from [facility] for DDD -continue tylenol PRN pain -continue pt/ot -Pt has hx of opiod intolerance and behavioral issues in addition to cognitive behavioral issues. No opiods ordered at this time. (3) Full code status Current Visit: No Status: Acute Base Code: Z78.9 - OTHER SPECIFIED HEALTH STATUS Comment: 08/27/17 Pt. remains full code status (4) Wound, open, buttock Current Visit: Yes Status: Acute Base Code: S31.809A - UNSPECIFIED OPEN WOUND OF UNSPECIFIED BUTTOCK, INIT ENCNTR
--- NOTE | 2017-08-27 11:45 | Physical Therapy Tx Note ---
Physical Therapy Tx Note - Treatment Note Tolerated: Fair Total Time Spent With Patient: 30 Physical Therapy Tx Note: Detail (The patient was laying in bed upon arrival. It took multiple attempts to wake the patient, but the finally was awakened to complete therapy activities. The patient required mod. assist x1 to transfer from supine to sit. The patient then required max assist x2 to transfer from sit to stand to his walker, and required min. assist x1 to maintain upright in standing. The patient was able to take about 10 steps to transfer into his recliner at the bedside, and required min. assist x2 during ambulation. He also required verbal cues to continue to keep the feet moving, and which foot to progress forward. He was then able to transfer from stand to sit with min. assist x1. Strength and ROM assessment was then completed, as follows: Knee Extension 3+/5, ROM limited equally on both sides, Knee Flexion 3+/5 B - ROM was WNL. Ankle Plantarflexion 3+/5 - ROM was WNL, Ankle Dorsiflexion 3+/5, ROM was limited slightly. Hip Flexion - ROM limited both sides, 3+/5, B Hip Adduction 4-/5, Hip Abduction 4-/5 on both sides. The patient was left in the recliner with his call light in reach.) Physical Therapy Problem List: Detail (1) Level 8 lower back pain radiating into R LE. 2) Assistance with mobility and transfers 3) Non ambulatory 4) Decreased abililty to tolerate physical activity) Physical Therapy Goals: 1) Assess the patient's LE strength and AROM - MET. 2) The patient will be independent/supervision with bed mobility. 3) The patient will transfer with CG of 1. 4) The patient will ambulate with assistive device with CG of 1 household distances. Prognosis: Moderate Physical Therapy Plan: PT 1-2 times a day for pain management techniques including MTT and modalities, transfer training, bed mobility, gait training , LE AROM and strengthening exercises.
--- NOTE | 2017-08-27 15:07 | Occupational Therapy Tx Note ---
Occupational Therapy Tx Note - Treatment Note Tolerated: Fair Total Time Spent With Patient: 45 (Took approx. 15 mins. to arouse pt., 30 mins of tx) Occupational Therapy Treatment Note: Detail (Pt. was sleeping, and very difficult to arouse. Nursing staff was notified and came to assess, and cleared to participate. Pt. was confused and slightly agitated, and did not know where he was at. Orientation to place, day, etc. was provided. Pt. declined to participate in therapy exercises, but allowed MTT. MTT: PROM with gentle stretching to B shd, elbow, forearm, and wrist in all motions. Shd abd and elbow ext were particularly stiff, and could not get to full ROM passively (may have contractures). Pt. participated in theraputty (yellow/soft) source water protection specialist and pinch exercises also. Pt. was left in recliner chair with legs elevated, call light ( educ. provided on how and when to use) within reach and bedside table with water and activities within reach. Pt. would benefit from cont. OT tx for BUE strength, ROM, and ADL's.) Prognosis: Moderate (contingent on Pt's level of participation.)
--- NOTE | 2017-08-27 15:47 | History & Physical ---
History of Present Illness - Date Date of Service for History & Physical: 08/27/17 - History of Present Illness Admitting Diagnosis: Deconditioning d/t degenerative disc disease General - Cognitive Patterns Speech: Halting (Pt often falls asleep during conversations, req painful stimuli to arouse at times), Limited Communication Skills Thought Process: Intact (wax/wane- when awake for longer periods of time is a& ox3) Thought Content: Normal Orientation: Oriented x3, Recognizes Familiar Faces or Places Orientation Comment: however, pt grasps in the air and seems disoriented on occasion, redirects - Communication Preferred Language?: [place] [employer] Structure Assembler Required: No Level of Education: Grade 1-8 Preferred Method of Learning: Seeing, Doing Comprehension Ability: No Impairment Able to Read: Yes Able to Write: Yes Select best description of speech pattern: Clear Speech Ability to express ideas and wants: Usually Understood Understanding verbal content: Usually Understands - Mood and Behavior Patterns Appearance: Well Groomed Mood: Irritable Mood Comment: Pt sometimes needs painful stimuli to arouse for sound sleep then irritable Attitude: Cooperative, Uncooperative Attitude Comment: Wax/wane- refusing physical activity including PT Motor Activity: Lethargic Affect: Anxious Hallucinations: Visual Hallucinations Comment: Nursing staff reports some visual hallucinations at night - Psychosocial Well-Being Usual Living Arrangement: Spouse Living Arrangement Comment: Was previsouly living in [facility] - Physical Functioning Activity Level: Up with assist x2 Turning: With total assist ROM Ability: Limited/Compromised Assistive Devices: 2 Wheel Walker Ambulation Ability: Needs Assist Bed Mobility: Needs Assist Transfer Ability: Needs Assist Bathing Ability: Needs Assist Personal Hygiene: Needs Assist Dressing Ability: Needs Assist Eating (Feeding) Ability: Needs Assist Toileting Ability: Needs Assist Administer Own Medication: Needs Assist - Continence Bladder Pattern: Due to Void - Dental Status Unable to examine: No Broken or loosely fitting full or partial dentures: Yes No natural teeth or tooth fragment(s) (edentulous): Yes Abnormal mouth tissue (ulcers, masses, oral lesions, etc.): No Obvious or likely cavity or broken natural teeth: No Inflamed or bleeding gums or loose natural teeth: No Mouth/facial pain, discomfort or difficulty chewing: No - Nutrition Screening Poor oral intake > 1 week: Yes Unplanned weight loss in specified time frame: Yes Nutrition Support via tube feedings or parenteral nutrition: No Pressure Ulcer: No Significantly underweight define as BMI <18.5 kg/m2: No Albumin <2.5mg/dL: No Persistent nausea/vomiting/diarrhea >3 days: No Difficulty chewing/swallowing/mouth sores: No Admitting Diagnosis: No Nutrition Risk Score: High Risk Review of Systems Constitutional: Reports: Weakness Eyes: Reports: Other (left eye absent) ENT: Reports: Congestion Respiratory: Reports: Cough (productive), Other (productive cough) Cardiovascular: Reports: Dyspnea on exertion Endocrine: Reports: As per HPI Gastrointestinal: Reports: Other (sporatic incontinence) Genitourinary: Reports: Incontinence Musculoskeletal: Reports: Back pain, Joint swelling, Myalgia Skin: Reports: Lesions Neurological: Reports: Weakness Psychiatric: Reports: Visual hallucinations (wax/wane) Hematological/Lymphatic: Reports: As per HPI Past Medical History - SOCIAL HISTORY Smoking Status: Former smoker - SURGICAL HISTORY Past Surgical History: left eye surgery. rt groin stent attempt. TURP. Colonoscopy. Right hand surgery - RESPIRATORY Hx Respiratory Disorders: Yes Hx Bronchitis: Yes Hx COPD: Yes Hx Pneumonia: Yes - CARDIOVASCULAR Hx Hypertension: Yes - NEURO Hx Neuro Disorders: Yes Hx Dementia: Yes Hx Seizures: No Hx Weakness: Yes - GI Hx GI Disorders: Yes Hx Abdominal Pain: Yes Hx Reflux: Yes - Hx Genitourinary Disorders: Yes Hx Prostate Problems: Yes - ENDOCRINE Hx Endocrine Disorders: Yes Hx Diabetes: Yes - MUSCULOSKELETAL Hx Arthritis: Yes Hx Back Injury: Yes Hx Musculoskeletal Disease: Yes - PSYCH Hx Psych Problems: Yes Hx Depression: Yes - HEMATOLOGY/ONCOLOGY Hx Hematology/Oncology Disorders: Yes Hx Cancer: Yes (lung) Family Medical History Any Significant Family History?: Yes Hx Alcohol Use: Children Hx Cancer: Mother Hx Diabetes: Grandparents Hx Heart Disease: Father, Mother *Heart Comment: aneurysm Hx Resp Disorders: Grandparents H&P Meds/Allergies - Allergies Allergies: Allergies Allergy/AdvReac Type Severity Reaction Status Date / Time Milk Containing Products AdvReac PT UNSURE Verified 08/26/17 12:10 OF REACTION - Home Medications Previous Rx's Medication Instructions Recorded Hydrochlorothiazide [Hctz] 12.5 mg PO DAILY #0 12/31/16 Tramadol HCl [Ultram] 50 mg PO DAILY PRN #15 tab 12/31/16 - Active Medications Active Medications: Current Medications Acetaminophen (Tylenol 500mg Tab) 1,000 mg PO Q8H PRN PRN Reason: Pain - General Last Admin: 08/27/17 09:31 Dose: 1,000 mg Albuterol/Ipratropium (Duoneb) 3 ml INH RESP.Q4H.WA [facility] Last Admin: 08/27/17 14:28 Dose: 3 ml Aspirin (Ecotrin (Ec)) 81 mg PO DAILY [facility] Last Admin: 08/27/17 09:31 Dose: 81 mg Budesonide (Pulmicort) 0.5 mg INH BID [facility] Last Admin: 08/27/17 10:24 Dose: 0.5 mg Donepezil HCl (Aricept) 10 mg PO QHS [facility] Last Admin: 08/26/17 21:31 Dose: 10 mg Fluoxetine HCl (Prozac) 20 mg PO DAILY [facility] Last Admin: 08/27/17 09:31 Dose: 20 mg Glipizide (Glucotrol) 5 mg PO 0730,1630 [facility] Last Admin: 08/27/17 08:14 Dose: 5 mg Loperamide HCl (Immodium) 2 mg PO Q4H PRN PRN Reason: DIARRHEA Memantine (Namenda) 5 mg PO BID [facility] Pantoprazole Sodium (Protonix) 40 mg PO BIDAC [facility] Last Admin: 08/27/17 06:12 Dose: 40 mg Risperidone (Risperdal) 0.5 mg PO BID PRN PRN Reason: Agitation Simvastatin (Zocor) 40 mg PO QHS [facility] Last Admin: 08/26/17 21:31 Dose: 40 mg Temazepam (Restoril) 15 mg PO QHS PRN PRN Reason: INSOMNIA Vitamin D (Vitamin D3) 2,000 unit PO DAILY [facility] Last Admin: 08/27/17 09:29 Dose: 2,000 unit Physical Exam - Vital Signs Vital Signs: Vital Signs - Last 24 Hrs Temp Pulse Pulse Resp BP BP Pulse Ox 08/27/17 14:33 76 18 08/27/17 10:20 70 16 08/27/17 08:00 97.7 F 66 16 106/62 94 L 08/27/17 06:08 84 16 98 08/26/17 21:56 89 16 97 08/26/17 20:00 97.6 F 87 18 118/60 94 L 08/26/17 18:58 76 16 98 08/26/17 16:46 97.7 F 117/63 - General General Appearance: Alert, Oriented x3 Limitations: Altered mental status (wax/wane, potentially sundowning) - Head Head exam: Normocephalic Head exam detail: Other (left eye absent) - Eye Eye exam: Other (right eye- scelera normal, pupil reactive to light) Pupils: Other (left eye absent) - ENT Ear exam: Normal external inspection Mouth exam: Other (dry MMM) Teeth exam: Other (upper dentures in place, lower dentures missing- pt reports they broke-not replaced) Throat exam: Normal inspection - Neck Neck exam: Normal inspection - Respiratory Respiratory exam: Decreased breath sounds, Rales, Rhonchi - Cardiovascular Cardiovascular Exam: Regular rate Peripheral Pulses: 1+: Dorsalis Pedis (R), Dorsalis Pedis (L), 2+: Radial (R), Radial (L) - GI/Abdominal GI/Abdominal exam: Soft, Normal bowel sounds - Rectal Rectal exam: Deferred - exam: Deferred - Extremities Extremities exam: Joint swelling, Tenderness, Other (decreased PROM and AROM. 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98 L Hgb 12.0 L Hct 37.2 L MCV 93.5 MCH 30.1 MCHC 32.3 RDW 13.4 Plt Count 333 MPV 9.5 Neutrophils % 63.0 Eosinophils % Not Reportable Basophils % Not Reportable Lymphocytes 15.0 L Monocytes 8.0 Platelet Estimate Normal RBC Morphology Normal Eosinophil Count 14.0 H Sodium 140 Potassium 4.3 Chloride 102 Carbon Dioxide 26.0 Anion Gap 12.0 BUN 18 Creatinine 1.0 Estimated GFR > 60 POC Glucose Random Glucose 251 H Calcium 9.8 Total Bilirubin 0.50 AST 10 ALT 15 Alkaline Phosphatase 173 H Total Protein 6.6 Albumin 3.2 L Globulin 3.4 Albumin/Globulin Ratio 0.9 L - Chest X-Ray In Last 90 Days Chest X-Ray Within Last 90 Days: Yes Status: Pending Discharge Potential - Discharge Needs Community Services Used Prior to Admission: Occupational Therapy, Physical Therapy Patient Discharge Plan Description: Return Home, Care Home Facility, AFC/ Assisted Living Community Services Needed at Discharge: Home Health Nurse, Occupational Therapy , Physical Therapy Plan - Swing Bed Certification Initial Certification Due: 08/26/17 14 Day Re-Cert Due: 09/09/17 44 Day Re-Cert Due: 10/09/17 74 Day Re-Cert Due: 11/08/17 - Detailed Diagnosis and Plan (1) Physical deconditioning Current Visit: Yes Status: Acute Base Code: R53.81 - OTHER MALAISE Priority: High Comment: 08/27/17 Pt arrived from [facility] for weakness and deconditioning. Per family reports to nursing staff, pt was admited to SNF able to walk and provide some ADLs but currently not able to complete these tasks. _PT/OT eval and treat -CXR productive cough, PMH COPD and PNA, alter LOC in the AM - ABD xray- r/o FB Per reports from family and SNF, pt was found by SNF staff to be playing with his wedding ring and staff noticed it in his mouth and then ring was not able to be found. Pt has no complaints at this time. Awaiting report (2) Chronic low back pain Current Visit: No Status: Acute Base Code: M54.5 - LOW BACK PAIN; G89.29 - OTHER CHRONIC PAIN Comment: 08/27/17 Pt arrived via EMS transport from [facility] for DDD -continue tylenol PRN pain -continue pt/ot -Pt has hx of opiod intolerance and behavioral issues in addition to cognitive behavioral issues. No opiods ordered at this time. (3) Wound, open, buttock Current Visit: Yes Status: Acute Qualifiers: Encounter type: initial encounter Laterality: left Qualified Code(s): S31.829A - Unspecified open wound of left buttock, initial encounter Base Code: S31.809A - UNSPECIFIED OPEN WOUND OF UNSPECIFIED BUTTOCK, INIT ENCNTR Priority: Medium Onset Date: ~08/27/17 Comment: 08/27/17 Pt arrived from [facility] [place] with stage II pressure ulcer. right and left sacrum, open with small amount of yellow/green serous drainage. -duoderm to site -keep clean and dry -change every 3 days or PRN (4) Full code status Current Visit: No Status: Acute Base Code: Z78.9 - OTHER SPECIFIED HEALTH STATUS Comment: 08/27/17 Pt. remains full code status
[2017-08-27 16:57] LABS: URINE APPEARANCE CLEAR; URINE BILIRUBIN NEGATIVE (NEGATIVE); URINE BLOOD TRACE-L (NEGATIVE); URINE COLOR YELLOW; URINE KETONE NEGATIVE (NEGATIVE); URINE LEUKOCYTE ESTERASE MODERATE (NEGATIVE); URINE NITRITE POSITIVE (NEGATIVE); URINE PROTEIN NEGATIVE (NEGATIVE)
[2017-08-27 17:07] LABS: URINE EPITHELIAL CELLS NONE SEEN (FEW); URINE RBC 0 - 2 (NONE SEEN); URINE WBC >50 (0-2/hpf)
[2017-08-27 17:08] LABS: URINE AMORPHOUS SEDIMENT 2+; URINE BACTERIA 1+
--- NOTE | 2017-08-27 18:51 | Swallow Evaluation ---
Swallow Evaluation - General Patient Information Date of Assessment: 08/27/17 Referral Date: 08/26/17 Date of Onset: 08/26/17 Admitting Diagnosis: Deconditioning d/t degenerative disc disease Medical History: Patient was admitted to [facility] due to hx of falls, weakness and deconditioning and was recently transferred to Swing Bed program at [facility]. Current Feeding Status: All oral Cognitive Status: WFL however was less agreeable/agitated this AM per nursing report. Oral Motor Assessment - Lips Lips at Rest: Normal Function Lip Retraction: Normal Function Lip Protrusion: Normal Function - Tongue Tongue at Rest: Normal Function Tongue Protrusion: Normal Function Tongue Elevation: Normal Function Tongue Lateralization: Normal Function - Velum Velum at Rest: Normal Function Velum Elevation: Normal Function - Additional Information Oral Sensitivity: WFL Volitional Cough/Throat Clearing: Strong WFL Other Oral Motor Comment: Patient is edentulous and wears an upper denture only. He self-reported his lower denture was broken and then lost but that he is planning to replace it soon. Per his report patient utilizes a same day denture outfit near his home. Swallow Assessment - Oral Preparatory Phase Phase - Liquid: Normal Function Phase - Puree: Normal Function Phase - Solid: Normal Function - Oral Phase Phase - Liquid: Normal Function Phase - Puree: Normal Function Phase - Solid: Normal Function - Pharyngeal Phase Phase - Liquid: Normal Function Phase - Puree: Normal Function Phase - Solid: Normal Function - Additional Information Swallow Assessment Comment: Patient completed multiple 2 oz water tests via straw and cup edge with no overt s/s of dysphagia. Trials of mixed consistencies also revealed no overt s/s. Dysphagia eval requested due to hx of dysphagia in report and at a prevoius recent [facility] admission. Plan for Treatment - Diagnosis/Clinical Impression Diagnosis: None Clinical Impression: Patient appears to have unremarkable oropharyngeal swallow function despite edentulous status and missing lower denture. Patient cognition does appear to vary depending upon the time of day. - Consistency Modification Consistency Modification: Regular Liquid Modification: Regular Medication Modification: Regular - Behavior Modification Behavior Modification: Position upright for all oral intake - Additional Plan Details Videofluroscopic Swallow Study Ordered: No Diagnosis/Recommendation Discussed With: Patient, Nurse Goals for Treatment - Additional Goal Detail Additional Goal Detail: No goals established as determined to have functional oropharyngeal phases of the swallow. No noted suspected esophogeal phase concerns were noted either.
[2017-08-27] MEDS: DONEPEZIL HCL 5 MG TABLET PO SCH (21:19)
[2017-08-27] MEDS: MEMANTINE HCL 10 MG TABLET PO SCH (21:19)
[2017-08-27] MEDS: SIMVASTATIN 20 MG TABLET PO SCH (21:20)
[2017-08-28] MEDS: PANTOPRAZOLE SODIUM 40 MG TABLET PO SCH ×3 (06:14→18:49)
[2017-08-28] MEDS: IPRATROPIUM/ALBUTEROL (0.5MG/3MG) NEB INH SCH ×5 (06:20→22:26)
--- NOTE | 2017-08-28 08:37 | RADIOLOGY REPORT ---
EXAM: CHEST, TWO VIEWS HISTORY: ALTERED MENTAL STATUS, POSSIBLE FOREIGN BODY, MAY HAVE SWALLOWED [place] RING. TECHNIQUE: AP semi-upright and lateral views of the chest were obtained. Comparison: Two view chest 12/24/16. FINDINGS: The heart size is stable, within normal limits. Mild torsion of the aorta. There is elevation of the right hemidiaphragm particularly anteriorly that is new compared with the prior study. No definite acute infiltrate is seen and no pleural effusion or pneumothorax evident. No metallic foreign body identified although some foreign bodies will be radiographically indistinguishable from the adjacent soft tissues. IMPRESSION: 1. ELEVATION OF THE RIGHT HEMIDIAPHRAGM PARTICULARLY ANTERIORLY, NEW SINCE 12/24. 2. NO ACUTE INFILTRATE SEEN AND NO METALLIC FOREIGN BODY IDENTIFIED WITHIN THE CHEST. JOB NUMBER: [id number] MTDD
--- NOTE | 2017-08-28 08:44 | RADIOLOGY REPORT ---
EXAM: ABDOMEN SERIES HISTORY: POSSIBLE SWALLOWED [place] RING. TECHNIQUE: Supine and upright views of the abdomen were obtained. Comparison: None. FINDINGS: There are numerous small opacities overlying the right mid abdomen laterally in the region of the proximal colon which vary in shape from somewhat capsular to rectangular to square. One or two of these are seen overlying the left side of the pelvis as well. These may all represent opaque medication in the GI tract although are nonspecific. No metallic density typical of a ring identified although some foreign bodies will be radiographically indistinguishable from the adjacent soft tissues. There may be a small staple like metallic density associated with one of these opacities in the region of the proximal right colon. Diffuse osteopenia is seen consistent with osteoporosis. Nonspecific bowel gas pattern. No air fluid levels seen in the upright view and no free air evident. IMPRESSION: 1. NUMEROUS OPACITIES OVERLYING THE REGION OF THE PROXIMAL COLON, ALONG WITH POSSIBLY A SMALL STAPLE LIKE DENSITY. A COUPLE OF THESE OPACITIES MAY IN THE DISTAL COLON WELL. FOLLOW-UP KUB MIGHT BE USEFUL TO SEE IF THESE PASS. 2. NO ROUND METALLIC DENSITIES TO SUGGEST A RING IDENTIFIED. JOB NUMBER: [id number] MTDD
[2017-08-28] MEDS ORDERED: ENOXAPARIN 40 MG/0.4 ML SYR SQ SCH (10:00)
[2017-08-28] MEDS: BUDESONIDE 0.5 MG/2 ML INH SCH ×2 (10:21→22:26)
[2017-08-28] MEDS: CIPROFLOXACIN HCL 500 MG TABLET PO SCH ×2 (10:36→21:30)
[2017-08-28] MEDS: FLUOXETINE HCL 20 MG CAPSULE PO SCH (10:36)
[2017-08-28] MEDS: CHOLECALCIFEROL 1,000 UNIT TABLET PO SCH (10:37)
[2017-08-28] MEDS: MEMANTINE HCL 10 MG TABLET PO SCH ×2 (10:37→21:31)
[2017-08-28] MEDS: ASPIRIN 81 MG TABEC PO SCH (10:37)
[2017-08-28] MEDS: ENOXAPARIN 40 MG/0.4 ML SYR SQ SCH (10:38)
[2017-08-28] MEDS: GLIPIZIDE 5 MG TABLET PO SCH ×2 (10:42→18:49)
--- NOTE | 2017-08-28 12:00 | Physical Therapy Tx Note ---
Physical Therapy Tx Note - Treatment Note Tolerated: Good Total Time Spent With Patient: 30 Physical Therapy Tx Note: Detail (The patient was sitting in his chair upon arrival. The patient continued to complain if increased L hip and LE pain that radiates down the leg into the foot. The patient said that mostly occurs when he tries to extend the knee. The patient said that he had a rough morning and felt weak. 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 The first sit to stand required max. assist x 2 to transfer completely. He required mod. assist x 1 to maintain upright standing in the walker. He required min. assist x 2 to transfer from stand to sit. Another sit to stand was attempted, and he required mod. assist x 2 to transfer to standing, and min. x 1 to maintain upright. The patient then completed 5 of the following exercieses on each leg: seated hip flexion, LAQ, heel raises, hip adduction with pillow, and hip abduction. The patient had consistent complaints of pain with these activities in the L LE and Hip. The patient was left in his chair with his call light in reach.) Physical Therapy Problem List: Detail (1) Level 8 lower back pain radiating into R LE. 2) Assistance with mobility and transfers 3) Non ambulatory 4) Decreased abililty to tolerate physical activity) Physical Therapy Goals: 1) Assess the patient's LE strength and AROM - MET. 2) The patient will be independent/supervision with bed mobility. 3) The patient will transfer with CG of 1. 4) The patient will ambulate with assistive device with CG of 1 household distances. Prognosis: Moderate Physical Therapy Plan: PT 1-2 times a day for pain management techniques including MTT and modalities, transfer training, bed mobility, gait training , LE AROM and strengthening exercises.
--- NOTE | 2017-08-28 14:40 | Physician Progress Note ---
Subjective - Date Date of Progress Note: 08/28/17 - Admitting Diagnosis Diagnosis: Deconditioning d/t degenerative disc disease - Subjective Nursing Care Plan Problem List Activity Intolerance (Swing Bed) Start: 08/26/17 14: 45 Freq: Status: Active Protocol: Created 08/26/17 14:45 [facility] [place]Rec: 08/26/17 14:45 [facility] [id number][place] Knowledge Deficit (Swing Bed) Start: 08/26/17 14: 45 Freq: Status: Active Protocol: Created 08/26/17 14:45 [facility] [place]Rec: 08/26/17 14:45 [facility] [id number]) Pain (Swing Bed) Start: 08/26/17 14: 45 Freq: Status: Active Protocol: Created 08/26/17 14:45 [id number] General - Cognitive Patterns Speech: Halting (Pt often falls asleep during conversations, req painful stimuli to arouse at times), Limited Communication Skills Thought Process: Intact (wax/wane- when awake for longer periods of time is a& ox3) Thought Content: Normal - Communication Select best description of speech pattern: Clear Speech Ability to express ideas and wants: Usually Understood Understanding verbal content: Usually Understands - Mood and Behavior Patterns Appearance: Well Groomed Mood: Irritable Mood Comment: Pt sometimes needs painful stimuli to arouse for sound sleep then irritable Attitude: Cooperative, Uncooperative Attitude Comment: Wax/wane- refusing physical activity including PT Motor Activity: Lethargic Affect: Anxious Hallucinations: Visual Hallucinations Comment: Nursing staff reports some visual hallucinations at night - Physical Functioning Activity Level: Up with assist x2 Turning: With partial assist ROM Ability: Limited/Compromised Assistive Devices: 2 Wheel Walker Ambulation Ability: Needs Assist Bed Mobility: Needs Assist Transfer Ability: Needs Assist Bathing Ability: Needs Assist Personal Hygiene: Needs Assist Dressing Ability: Needs Assist Eating (Feeding) Ability: Needs Assist Toileting Ability: Needs Assist Administer Own Medication: Needs Assist - Continence Bowel Pattern: Incontinent Bladder Pattern: Incontinent Meds/Allergies - Allergies Allergies Allergy/AdvReac Type Severity Reaction Status Date / Time Milk Containing Products AdvReac PT UNSURE Verified 08/26/17 12:10 OF REACTION - Active Medications Current Medications Acetaminophen (Tylenol 500mg Tab) 1,000 mg PO Q8H PRN PRN Reason: Pain - General Last Admin: 08/27/17 22:43 Dose: 1,000 mg Albuterol/Ipratropium (Duoneb) 3 ml INH RESP.Q4H.WA [facility] Last Admin: 08/28/17 14:14 Dose: 3 ml Aspirin (Ecotrin (Ec)) 81 mg PO DAILY [facility] Last Admin: 08/28/17 10:37 Dose: 81 mg Budesonide (Pulmicort) 0.5 mg INH BID [facility] Last Admin: 08/28/17 10:21 Dose: 0.5 mg Ciprofloxacin (Cipro) 500 mg PO Q12HR [facility] Stop: 09/07/17 10:01 Last Admin: 08/28/17 10:36 Dose: 500 mg Donepezil HCl (Aricept) 10 mg PO QHS [facility] Last Admin: 08/27/17 21:19 Dose: 10 mg Enoxaparin Sodium (Lovenox) 40 mg SQ DAILY [facility] Last Admin: 08/28/17 10:38 Dose: 40 mg Fluoxetine HCl (Prozac) 20 mg PO DAILY [facility] Last Admin: 08/28/17 10:36 Dose: 20 mg Glipizide (Glucotrol) 5 mg PO 0730,1630 [facility] Last Admin: 08/28/17 10:42 Dose: 5 mg Loperamide HCl (Immodium) 2 mg PO Q4H PRN PRN Reason: DIARRHEA Memantine (Namenda) 5 mg PO BID [facility] Last Admin: 08/28/17 10:37 Dose: 5 mg Pantoprazole Sodium (Protonix) 40 mg PO BIDAC [facility] Last Admin: 08/28/17 06:28 Dose: Not Given Risperidone (Risperdal) 0.5 mg PO BID PRN PRN Reason: Agitation Last Admin: 08/27/17 21:20 Dose: 0.5 mg Simvastatin (Zocor) 40 mg PO QHS [facility] Last Admin: 08/27/17 21:20 Dose: 40 mg Temazepam (Restoril) 15 mg PO QHS PRN PRN Reason: INSOMNIA Vitamin D (Vitamin D3) 2,000 unit PO DAILY [facility] Last Admin: 08/28/17 10:37 Dose: 2,000 unit Objective - Vital Signs Vital Signs: Vital Signs - Last 24 Hrs Temp Pulse Pulse Resp BP Pulse Ox 08/28/17 14:10 92 H 16 08/28/17 10:22 75 15 93 L 08/28/17 08:00 98.0 F 105 H 18 103/62 97 08/28/17 06:20 86 16 100 08/27/17 22:12 88 16 100 08/27/17 20:00 97.6 F 83 18 124/60 94 L 08/27/17 19:21 78 16 100 - General General Appearance: Alert, Oriented x3 Limitations: Altered mental status (wax/wane, potentially sundowning) - Head Head exam: Normocephalic Head exam detail: Other (left eye absent) - Eye Eye exam: Other (right eye- scelera normal, pupil reactive to light) Pupils: Other (left eye absent) - ENT Ear exam: Normal external inspection Mouth exam: Other (dry MMM) Teeth exam: Other (upper dentures in place, lower dentures missing- pt reports they broke-not replaced) Throat exam: Normal inspection - Neck Neck exam: Normal inspection - Respiratory Respiratory exam: Decreased breath sounds, Rales, Rhonchi - Cardiovascular Cardiovascular Exam: Regular rate Peripheral Pulses: 1+: Dorsalis Pedis (R), Dorsalis Pedis (L), 2+: Radial (R), Radial (L) - GI/Abdominal GI/Abdominal exam: Soft, Normal bowel sounds - Rectal Rectal exam: Deferred - exam: Deferred - Extremities Extremities exam: Joint swelling, Tenderness, Other (decreased PROM and AROM. 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 with movement) - Back Back exam: Reports: Normal inspection - Neurological Neurological exam: Alert, Oriented X3 (wax/wane) - Psychiatric Psychiatric exam: Agitated (wax/wane) - Skin Skin exam: Dry Type of lesion: Other (PU stage 2- present SADDLE MAKER sacrum x 2- dressed by nursing) H&P Results - Labs Result Diagrams: 08/27/17 09:03 08/27/17 09:03 Labs Last 24 Hours: Laboratory Results - last 24 hr 08/27/17 08/27/17 16:30 16:55 POC Glucose 99 Urine Color Yellow Urine Appearance Clear Urine pH 5.5 Ur Specific [place] 1.010 Urine Protein Negative Urine Glucose (UA) 100 mg/dl H Urine Ketones Negative Urine Blood Trace-l Urine Nitrite Positive H Urine Bilirubin Negative Urine Urobilinogen 1.0 Ur Leukocyte Esterase Moderate H Urine RBC 0 - 2 Urine WBC >50 Ur Epithelial Cells None seen Amorphous Sediment 2+ Urine Bacteria 1+ Discharge Potential - Discharge Needs Community Services Used Prior to Admission: Occupational Therapy, Physical Therapy Patient Discharge Plan Description: Return Home, Prison Facility, AFC/ Assisted Living Community Services Needed at Discharge: Home Health Nurse, Occupational Therapy , Physical Therapy Plan - Swing Bed Certification Initial Certification Due: 08/26/17 14 Day Re-Cert Due: 09/09/17 44 Day Re-Cert Due: 10/09/17 74 Day Re-Cert Due: 11/08/17 - Detailed Diagnosis and Plan (1) Physical deconditioning Current Visit: Yes Status: Acute Base Code: R53.81 - OTHER MALAISE Priority: High Comment: 08/27/17 Pt arrived from [facility] for weakness and deconditioning. Per family reports to nursing staff, pt was admited to SNF able to walk and provide some ADLs but currently not able to complete these tasks. _PT/OT eval and treat -CXR productive cough, PMH COPD and PNA, alter LOC in the AM - ABD xray- r/o FB Per reports from family and SNF, pt was found by SNF staff to be playing with his wedding ring and staff noticed it in his mouth and then ring was not able to be found. Pt has no complaints at this time. Awaiting report (2) Chronic low back pain Current Visit: No Status: Acute Base Code: M54.5 - LOW BACK PAIN; G89.29 - OTHER CHRONIC PAIN Comment: 08/27/17 Pt arrived via EMS transport from [facility] for DDD -continue tylenol PRN pain -continue pt/ot -Pt has hx of opiod intolerance and behavioral issues in addition to cognitive behavioral issues. No opiods ordered at this time. (3) Wound, open, buttock Current Visit: Yes Status: Acute Qualifiers: Encounter type: initial encounter Laterality: left Qualified Code(s): S31.829A - Unspecified open wound of left buttock, initial encounter Base Code: S31.809A - UNSPECIFIED OPEN WOUND OF UNSPECIFIED BUTTOCK, INIT ENCNTR Priority: Medium Onset Date: ~08/27/17 Comment: 08/27/17 Pt arrived from [facility] with stage II pressure ulcer. right and left sacrum, open with small amount of yellow/green serous drainage. -duoderm to site -keep clean and dry -change every 3 days or PRN (4) Full code status Current Visit: No Status: Acute Base Code: Z78.9 - OTHER SPECIFIED HEALTH STATUS Comment: 08/27/17 Pt. remains full code status (5) UTI (urinary tract infection) Current Visit: Yes Status: Acute Qualifiers: Urinary tract infection type: site unspecified Base Code: N39.0 - URINARY TRACT INFECTION, SITE NOT SPECIFIED Priority: High Onset Date: ~08/28/17 Comment: 08/28/17 -UA results are positive for UTI -Started Cipro 500mg BID, will reassess when senstivity complted -Encouraging good PO intake
--- NOTE | 2017-08-28 15:39 | Occupational Therapy Tx Note ---
Occupational Therapy Tx Note - Treatment Note Tolerated: Fair Total Time Spent With Patient: 35 Occupational Therapy Treatment Note: Detail (Pt. was alert/awake laying in bed upon arrival. Pt. required VC's for positioning to transition from supine to sit EOB using bed rails. Pt. completed upper body sponge bathing seated EOB with set-up and min A to wash back. Pt. participated in BUE exercises using a 1 lb. wrist weight on ea. arm 2x10 shd flex and abd, and 1x10 elbow flex/ext, sup/ pro, wrist flex, and ext. 1x10 ea. isometric shd shrugs and rolls. Pt. required min A to lift legs into bed during sit to supine transition. A: Pt. would benefit from cont. OT tx to improve BUE strength and Ind. with ADL's. P: Cont. POC.)
[2017-08-28] MEDS: SIMVASTATIN 20 MG TABLET PO SCH (21:30)
[2017-08-28] MEDS: DONEPEZIL HCL 5 MG TABLET PO SCH (21:31)
[2017-08-29] MEDS: PANTOPRAZOLE SODIUM 40 MG TABLET PO SCH ×2 (06:02→17:36)
[2017-08-29] MEDS: IPRATROPIUM/ALBUTEROL (0.5MG/3MG) NEB INH SCH ×6 (06:06→22:04)
[2017-08-29] MEDS: ACETAMINOPHEN 500 MG TABLET PO PRN ×2 (09:40→18:45)
[2017-08-29] MEDS: CHOLECALCIFEROL 1,000 UNIT TABLET PO SCH (09:41)
[2017-08-29] MEDS: CIPROFLOXACIN HCL 500 MG TABLET PO SCH ×2 (09:41→21:52)
[2017-08-29] MEDS: GLIPIZIDE 5 MG TABLET PO SCH ×2 (09:41→17:33)
[2017-08-29] MEDS: MEMANTINE HCL 10 MG TABLET PO SCH ×2 (09:42→21:52)
[2017-08-29] MEDS: FLUOXETINE HCL 20 MG CAPSULE PO SCH (09:42)
[2017-08-29] MEDS: ASPIRIN 81 MG TABEC PO SCH (09:46)
[2017-08-29] MEDS ORDERED: CYCLOBENZAPRINE 10MG TABLET PO ONE ×2 (10:27→19:56)
[2017-08-29] MEDS: BUDESONIDE 0.5 MG/2 ML INH SCH ×3 (10:31→22:04)
[2017-08-29] MEDS: ENOXAPARIN 40 MG/0.4 ML SYR SQ SCH (10:39)
--- NOTE | 2017-08-29 12:01 | Physical Therapy Tx Note ---
Physical Therapy Tx Note - Treatment Note Tolerated: Fair Total Time Spent With Patient: 30 Physical Therapy Tx Note: Detail (The patient was sitting in his chair upon arrival. The patient had complaints of increased R hip pain and some 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 that have been present since yesterday. The patient also had complaints of low back pain while sitting in his chair. The patient's hamstrings on both sides were stretched for 3 x 30" holds. While stretching, the patient had multiple spasms of the R hamstrings, R Gastroc, and R Hip Flexors. Spasm was reduced with deep tendon pressure to distal hamstrings and muscle belly of quadriceps. The L LE did not have any of these symptoms, and stretching was tolerated much better on this side. MFR and STM of the quad muscles was also completed to reduce tone in the quads on B sides. The patient tolerated the stretches well, but the spasms were greatly inhibiting further success with stretching. The patient was left sitting in his chair with legs extended to further stretch, and he had his call light in reach. Nursing staff was notified of the patient's spasms.) Physical Therapy Problem List: Detail (1) Level 8 lower back pain radiating into R LE. 2) Assistance with mobility and transfers 3) Non ambulatory 4) Decreased abililty to tolerate physical activity) Physical Therapy Goals: 1) Assess the patient's LE strength and AROM - MET. 2) The patient will be independent/supervision with bed mobility. 3) The patient will transfer with CG of 1. 4) The patient will ambulate with assistive device with CG of 1 household distances. Prognosis: Moderate Physical Therapy Plan: PT 1-2 times a day for pain management techniques including MTT and modalities, transfer training, bed mobility, gait training , LE AROM and strengthening exercises.
--- NOTE | 2017-08-29 14:36 | Physical Therapy Tx Note ---
Physical Therapy Tx Note - Treatment Note Tolerated: Good Total Time Spent With Patient: 20 Physical Therapy Tx Note: Detail (The patient was sitting in his chair upon arrival. The patient appeared to be hallucinating and his speech was unclear. The patient attempted to complete sit to stand for 2 reps. He required max. assist x 2 to transfer, but the patient could not use his LEs to push in to full standing. He was able to be lifted off the chair to clear the buttock, but could not go any farther. The patient was instructed in seated exercises including LAQs, heel raises, and seated hip flexion, but had difficulty following instructions for number of reps and which exercise to complete. The patient appeared to be having hallucinations throughout the treatment session. The treatment was discontinued due to lack of participation. He was left sitting in his chair with call light in reach.) Physical Therapy Problem List: Detail (1) Level 8 lower back pain radiating into R LE. 2) Assistance with mobility and transfers 3) Non ambulatory 4) Decreased abililty to tolerate physical activity) Physical Therapy Goals: 1) Assess the patient's LE strength and AROM - MET. 2) The patient will be independent/supervision with bed mobility. 3) The patient will transfer with CG of 1. 4) The patient will ambulate with assistive device with CG of 1 household distances. Physical Therapy Plan: PT 1-2 times a day for pain management techniques including MTT and modalities, transfer training, bed mobility, gait training , LE AROM and strengthening exercises.
[2017-08-29] MEDS: SIMVASTATIN 20 MG TABLET PO SCH (21:52)
[2017-08-29] MEDS: DONEPEZIL HCL 5 MG TABLET PO SCH (21:53)
[2017-08-30] MEDS: IPRATROPIUM/ALBUTEROL (0.5MG/3MG) NEB INH SCH ×5 (06:18→21:16)
[2017-08-30] MEDS: ACETAMINOPHEN 500 MG TABLET PO PRN ×3 (06:25→21:06)
[2017-08-30] MEDS: PANTOPRAZOLE SODIUM 40 MG TABLET PO SCH ×2 (06:25→16:22)
[2017-08-30] MEDS: CYCLOBENZAPRINE 10MG TABLET PO PRN ×3 (08:11→22:49)
[2017-08-30] MEDS: GLIPIZIDE 5 MG TABLET PO SCH ×2 (08:11→16:22)
[2017-08-30] MEDS: CIPROFLOXACIN HCL 500 MG TABLET PO SCH ×2 (09:03→21:11)
[2017-08-30] MEDS: ASPIRIN 81 MG TABEC PO SCH (09:03)
[2017-08-30] MEDS: ENOXAPARIN 40 MG/0.4 ML SYR SQ SCH (09:03)
[2017-08-30] MEDS: MEMANTINE HCL 10 MG TABLET PO SCH ×2 (09:04→21:10)
[2017-08-30] MEDS: FLUOXETINE HCL 20 MG CAPSULE PO SCH (09:05)
[2017-08-30] MEDS: CHOLECALCIFEROL 1,000 UNIT TABLET PO SCH (09:05)
[2017-08-30] MEDS: BUDESONIDE 0.5 MG/2 ML INH SCH ×2 (09:58→21:16)
--- NOTE | 2017-08-30 14:38 | Occupational Therapy Tx Note ---
Occupational Therapy Tx Note - Treatment Note Tolerated: Fair Total Time Spent With Patient: 50 (ADL) Occupational Therapy Treatment Note: Detail (S: Pt up in chair, sleeping. O: Pt awoke easily. Not oriented to month or location. Pt was reoriented per OT. Attempted standing to walker, pt unable. Pt stand pivot transferred to commode with max assist x 1. Pt able to do chair push up to enable OT and nurses aid to pull pants down. Pt toileted and required max assist to stand and pull pants up. Pt transferred to chair with max assist x 1-2 for stand pivot transfer. Pt completed shaving in chair with bedside table. He required set up and assist to open shaving cream, verbal cues to orient razor correctly and cues to complete shaving in all areas. Pt had difficulty holding razor due to decreased coordination and required short rest breaks due to fatigue. Pt oriented to month, upcoming holiday and that today was Good Saturday, he was not oriented to location without cueing. A: Pt continues with significantly impaired mobility, decreased UE endurance and coordination and impaired orientation.) Occupational Therapy Problem List: Detail (1. Decreased orientation x 3. 2. Pt requiring total assist for all ADLs. 3. Max assist for functional mobility 4. Decreased UE strength/ROM/coordination) Occupational Therapy Goals: 1. Pt will be oriented x 3. 2. Pt will be Ind with total body dressing. 3. Pt will be Ind with showering 4. Pt will improve UE strength/ROM/coordination to allow safe and Ind self cares 5. Pt will be safe and Ind with bed mobility Prognosis: Good Occupational Therapy Plan: OT 2-4 days per week to address goals and problem list as above.
--- NOTE | 2017-08-30 18:45 | Physical Therapy Tx Note ---
Physical Therapy Tx Note - Treatment Note Tolerated: Other Total Time Spent With Patient: 5 Physical Therapy Tx Note: Detail (Pt asleep in recliner upon arrival; non- responsive to physical attempts to arouse him, including patting, tapping, calling out his name, repositioning his head as he was leaning to the left. Nrsg reported pt have been administed Tylenol and flexeril earlier for R hip pain. No treatment administered.) Physical Therapy Problem List: Detail (1) Level 8 lower back pain radiating into R LE. 2) Assistance with mobility and transfers 3) Non ambulatory 4) Decreased abililty to tolerate physical activity) Physical Therapy Goals: 1) Assess the patient's LE strength and AROM - MET. 2) The patient will be independent/supervision with bed mobility. 3) The patient will transfer with CG of 1. 4) The patient will ambulate with assistive device with CG of 1 household distances. Prognosis: Moderate Physical Therapy Plan: PT 1-2 times a day for pain management techniques including MTT and modalities, transfer training, bed mobility, gait training , LE AROM and strengthening exercises.
[2017-08-30] MEDS: DONEPEZIL HCL 5 MG TABLET PO SCH (21:08)
[2017-08-30] MEDS: SIMVASTATIN 20 MG TABLET PO SCH (21:11)
[2017-08-30] MEDS: TEMAZEPAM 15 MG CAPSULE PO PRN (22:50)
[2017-08-31] MEDS: IPRATROPIUM/ALBUTEROL (0.5MG/3MG) NEB INH SCH ×5 (06:14→21:32)
[2017-08-31] MEDS: PANTOPRAZOLE SODIUM 40 MG TABLET PO SCH ×2 (07:37→17:27)
[2017-08-31] MEDS: GLIPIZIDE 5 MG TABLET PO SCH ×2 (07:37→17:36)
[2017-08-31] MEDS: ACETAMINOPHEN 500 MG TABLET PO PRN ×2 (07:37→17:33)
[2017-08-31] MEDS: BUDESONIDE 0.5 MG/2 ML INH SCH ×2 (09:50→21:32)
[2017-08-31] MEDS: ENOXAPARIN 40 MG/0.4 ML SYR SQ SCH (10:14)
[2017-08-31] MEDS: MEMANTINE HCL 10 MG TABLET PO SCH ×2 (10:15→21:04)
[2017-08-31] MEDS: CHOLECALCIFEROL 1,000 UNIT TABLET PO SCH (10:15)
[2017-08-31] MEDS: CIPROFLOXACIN HCL 500 MG TABLET PO SCH ×2 (10:15→21:05)
[2017-08-31] MEDS: ASPIRIN 81 MG TABEC PO SCH (10:15)
[2017-08-31] MEDS: FLUOXETINE HCL 20 MG CAPSULE PO SCH (10:16)
[2017-08-31] MEDS: CYCLOBENZAPRINE 10MG TABLET PO PRN ×2 (10:42→20:30)
[2017-08-31] MEDS: LIDOCAINE 5% PATCH TOP SCH (12:24)
[2017-08-31] MEDS: ONDANSETRON 4 MG ODT TABLET SL PRN (17:52)
[2017-08-31] MEDS: DONEPEZIL HCL 5 MG TABLET PO SCH (21:05)
[2017-08-31] MEDS: SIMVASTATIN 20 MG TABLET PO SCH (21:05)
[2017-08-31] MEDS: TEMAZEPAM 15 MG CAPSULE PO PRN (22:30)
[2017-09-01] MEDS: PANTOPRAZOLE SODIUM 40 MG TABLET PO SCH ×2 (06:10→16:12)
[2017-09-01] MEDS: IPRATROPIUM/ALBUTEROL (0.5MG/3MG) NEB INH SCH ×5 (06:23→21:34)
[2017-09-01] MEDS ORDERED: MAGNESIUM HYDROXIDE 30 ML UDC PO ONE (07:06)
[2017-09-01] MEDS: BUDESONIDE 0.5 MG/2 ML INH SCH ×2 (09:26→21:34)
[2017-09-01] MEDS: CIPROFLOXACIN HCL 500 MG TABLET PO SCH ×2 (10:15→21:44)
[2017-09-01] MEDS: LIDOCAINE 5% PATCH TOP SCH (10:15)
[2017-09-01] MEDS: ENOXAPARIN 40 MG/0.4 ML SYR SQ SCH (10:15)
[2017-09-01] MEDS: FLUOXETINE HCL 20 MG CAPSULE PO SCH (10:16)
[2017-09-01] MEDS: CHOLECALCIFEROL 1,000 UNIT TABLET PO SCH (10:16)
[2017-09-01] MEDS: MEMANTINE HCL 10 MG TABLET PO SCH ×2 (10:16→21:43)
[2017-09-01] MEDS: ASPIRIN 81 MG TABEC PO SCH (10:16)
[2017-09-01] MEDS: ACETAMINOPHEN 500 MG TABLET PO PRN ×2 (10:25→23:57)
[2017-09-01] MEDS: GLIPIZIDE 5 MG TABLET PO SCH ×2 (10:27→16:40)
[2017-09-01] MEDS: ONDANSETRON 4 MG ODT TABLET SL PRN (11:09)
[2017-09-01] MEDS: SENNOSIDES/DOCUSATE SODIUM UD CAPSULE PO SCH (16:15)
[2017-09-01] MEDS ORDERED: CALCIUM CARBONATE 500 MG TAB.CHEW PO PRN (20:32)
[2017-09-01] MEDS: CYCLOBENZAPRINE 10MG TABLET PO PRN (21:44)
[2017-09-01] MEDS: DONEPEZIL HCL 5 MG TABLET PO SCH (21:44)
[2017-09-01] MEDS: SIMVASTATIN 20 MG TABLET PO SCH (21:45)
[2017-09-01] MEDS: TEMAZEPAM 15 MG CAPSULE PO PRN (21:45)
[2017-09-02] MEDS: IPRATROPIUM/ALBUTEROL (0.5MG/3MG) NEB INH SCH ×5 (06:10→21:14)
[2017-09-02] MEDS: PANTOPRAZOLE SODIUM 40 MG TABLET PO SCH ×2 (08:24→18:32)
[2017-09-02] MEDS: GLIPIZIDE 5 MG TABLET PO SCH ×2 (08:24→18:32)
[2017-09-02] MEDS: ACETAMINOPHEN 500 MG TABLET PO PRN ×2 (08:25→18:36)
[2017-09-02] MEDS: CYCLOBENZAPRINE 10MG TABLET PO PRN ×2 (08:25→18:35)
[2017-09-02] MEDS: BUDESONIDE 0.5 MG/2 ML INH SCH ×2 (09:01→21:14)
[2017-09-02] MEDS: MEMANTINE HCL 10 MG TABLET PO SCH ×2 (09:52→21:14)
[2017-09-02] MEDS: SENNOSIDES/DOCUSATE SODIUM UD CAPSULE PO SCH (09:53)
[2017-09-02] MEDS: ENOXAPARIN 40 MG/0.4 ML SYR SQ SCH (09:53)
[2017-09-02] MEDS: CHOLECALCIFEROL 1,000 UNIT TABLET PO SCH (09:53)
[2017-09-02] MEDS: CIPROFLOXACIN HCL 500 MG TABLET PO SCH ×2 (09:53→21:14)
[2017-09-02] MEDS: ASPIRIN 81 MG TABEC PO SCH (09:53)
[2017-09-02] MEDS: FLUOXETINE HCL 20 MG CAPSULE PO SCH (09:53)
[2017-09-02] MEDS: LIDOCAINE 5% PATCH TOP SCH (09:54)
--- NOTE | 2017-09-02 09:58 | Occupational Therapy Tx Note ---
Occupational Therapy Tx Note - Treatment Note Tolerated: Fair Total Time Spent With Patient: 35 (ADL) Occupational Therapy Treatment Note: Detail (S: Pt sleeping sideways in bed, reports this is the only way he is comfortable. O: Pt scooted to side of bed with mod assist x 2. Supine to sit with mod assist x 2, pt reports significant right hip pain during all movements. Pt able to sit at EOB Indly. Donned clean briefs over feet with max assist, pt able to lift feet to start briefs but not able to bend forward. Sit to stand with mod assist x 2-3 with walker and used urinal with max assist in standing. Briefs pulled up with max assist. Pt sat at EOB and donned pants, able to start over left foot with min assist, started over right foot with max assist. Sit to stand with mod assist x 2 and pants pulled over hips with max assist in standing. Pt completed modified pivot transfer with walker and mod assist x 2 to move walker and rotate to chair. Pt able to wash face after set up. Pt left up in chair. A: Right hip pain with any movement. Improved sit to stand transfer today but continues to require significant assist.) Occupational Therapy Problem List: Detail (1. Decreased orientation x 3. 2. Pt requiring total assist for all ADLs. 3. Max assist for functional mobility 4. Decreased UE strength/ROM/coordination) Occupational Therapy Goals: 1. Pt will be oriented x 3. 2. Pt will be Ind with total body dressing. 3. Pt will be Ind with showering 4. Pt will improve UE strength/ROM/coordination to allow safe and Ind self cares 5. Pt will be safe and Ind with bed mobility Prognosis: Good Occupational Therapy Plan: OT 2-4 days per week to address goals and problem list as above.
--- NOTE | 2017-09-02 14:51 | Physical Therapy Tx Note ---
Physical Therapy Tx Note - Treatment Note Tolerated: Good Total Time Spent With Patient: 35 Physical Therapy Tx Note: Detail (The patient was sitting in his chair upon arrival. The patient attempted to stand with use of 2WW for UE support, but was unable to complete transfer with max. assist x2. The transfer was then attempted with use of EZ Stand. The patient required min. assist x [address] belt underneath the patient's buttocks to complete transfer. Once the patient was secured, he was elevated into partial standing, where he was not bearing full weight through the LEs. He was returned back to sitting for rest. The patient was then placed back into standing with EZ stand, and he was able to bear some weight through the LEs, but still not all weight. He had minimal complaints of hip pain while in standing, but otherwise tolerated weight bearing well. The patient was returned to sitting and static stretching was completed. The patient completed 3 x 1 minute rounds of hamstring stretching on each side. He tolerated the stretches well without an increase in pain or trigger of muscle spasm. The patient was left in his chair with his call light in reach.) Physical Therapy Problem List: Detail (1) Level 8 lower back pain radiating into R LE. 2) Assistance with mobility and transfers 3) Non ambulatory 4) Decreased abililty to tolerate physical activity) Physical Therapy Goals: 1) Assess the patient's LE strength and AROM - MET. 2) The patient will be independent/supervision with bed mobility. 3) The patient will transfer with CG of 1. 4) The patient will ambulate with assistive device with CG of 1 household distances. Prognosis: Moderate Physical Therapy Plan: PT 1-2 times a day for pain management techniques including MTT and modalities, transfer training, bed mobility, gait training , LE AROM and strengthening exercises.
[2017-09-02] MEDS: SIMVASTATIN 20 MG TABLET PO SCH (21:14)
[2017-09-02] MEDS: DONEPEZIL HCL 5 MG TABLET PO SCH (21:14)
[2017-09-02] MEDS: TEMAZEPAM 15 MG CAPSULE PO PRN (21:15)
[2017-09-03] MEDS: PANTOPRAZOLE SODIUM 40 MG TABLET PO SCH ×2 (06:06→15:39)
[2017-09-03] MEDS: IPRATROPIUM/ALBUTEROL (0.5MG/3MG) NEB INH SCH ×5 (06:11→22:15)
[2017-09-03] MEDS: GLIPIZIDE 5 MG TABLET PO SCH ×2 (07:51→15:39)
[2017-09-03] MEDS: CYCLOBENZAPRINE 10MG TABLET PO PRN ×3 (07:51→22:41)
[2017-09-03] MEDS: ACETAMINOPHEN 500 MG TABLET PO PRN ×2 (07:52→22:37)
[2017-09-03] MEDS: LIDOCAINE 5% PATCH TOP SCH (09:12)
[2017-09-03] MEDS: MEMANTINE HCL 10 MG TABLET PO SCH ×2 (09:45→22:38)
[2017-09-03] MEDS: ASPIRIN 81 MG TABEC PO SCH (09:46)
[2017-09-03] MEDS: FLUOXETINE HCL 20 MG CAPSULE PO SCH (09:46)
[2017-09-03] MEDS: CHOLECALCIFEROL 1,000 UNIT TABLET PO SCH (09:46)
[2017-09-03] MEDS: CIPROFLOXACIN HCL 500 MG TABLET PO SCH ×2 (09:46→22:38)
[2017-09-03] MEDS: ENOXAPARIN 40 MG/0.4 ML SYR SQ SCH (09:46)
[2017-09-03] MEDS: SENNOSIDES/DOCUSATE SODIUM UD CAPSULE PO SCH (09:46)
[2017-09-03] MEDS: BUDESONIDE 0.5 MG/2 ML INH SCH ×2 (11:30→22:15)
--- NOTE | 2017-09-03 12:48 | Occupational Therapy Tx Note ---
Occupational Therapy Tx Note - Treatment Note Tolerated: Fair Total Time Spent With Patient: 35 (ADL) Occupational Therapy Treatment Note: Detail (S: Pt up in chair, reports significant increase in right hip and leg pain today therefore he does not want to stand or work on high level ADLs. O: Pt agreed to shaving. Pt able to complete shaving in chair with set up at bedside table. He was Ind with dispensing shaving cream and demonstrated improved coordination with holding razor. Pt able to complete louis UE AROM exercises x 10 reps each - shoulder flexion, arm circles, elbow flexion and extension performed in sitting. A: Improved UE coordination noted with shaving, right hip and leg pain continues even at rest.) Occupational Therapy Problem List: Detail (1. Decreased orientation x 3. 2. Pt requiring total assist for all ADLs. 3. Max assist for functional mobility 4. Decreased UE strength/ROM/coordination) Occupational Therapy Goals: 1. Pt will be oriented x 3. 2. Pt will be Ind with total body dressing. 3. Pt will be Ind with showering 4. Pt will improve UE strength/ROM/coordination to allow safe and Ind self cares 5. Pt will be safe and Ind with bed mobility Prognosis: Good Occupational Therapy Plan: OT 2-4 days per week to address goals and problem list as above.
--- NOTE | 2017-09-03 15:16 | Physical Therapy Tx Note ---
Physical Therapy Tx Note - Treatment Note Tolerated: Poor Total Time Spent With Patient: 15 Physical Therapy Tx Note: Detail (The patient was in bed when PT arrived with complaints of chest pain and right hip pain and spasms. The patient refused to stand or complete PT mobility activities. PT completed Passive stretching of both LE's. R LE spasms and total leg movement occured regularly. Deep pressure or MFR techniques did not decrease spasms. MFR techiques to low back were also completed without decreasing R LE spasms. Pt. was left with spouse.) Physical Therapy Problem List: Detail (1) Level 8 lower back pain radiating into R LE. 2) Assistance with mobility and transfers 3) Non ambulatory 4) Decreased abililty to tolerate physical activity) Physical Therapy Goals: 1) Assess the patient's LE strength and AROM - MET. 2) The patient will be independent/supervision with bed mobility. 3) The patient will transfer with CG of 1. 4) The patient will ambulate with assistive device with CG of 1 household distances. Physical Therapy Plan: PT 1-2 times a day for pain management techniques including MTT and modalities, transfer training, bed mobility, gait training , LE AROM and strengthening exercises.
[2017-09-03] MEDS ORDERED: AL HYDROX/MAG HYDROX 30ML UD PO ONE (15:23)
[2017-09-03] MEDS: LORAZEPAM 0.5 MG TABLET PO SCH (15:39)
[2017-09-03] MEDS: FAMOTIDINE 20MG TABLET PO SCH (22:34)
[2017-09-03] MEDS: ONDANSETRON 4 MG ODT TABLET SL PRN (22:36)
[2017-09-03] MEDS: DONEPEZIL HCL 5 MG TABLET PO SCH (22:38)
[2017-09-03] MEDS: SIMVASTATIN 20 MG TABLET PO SCH (22:38)
[2017-09-04] MEDS: TEMAZEPAM 15 MG CAPSULE PO PRN (00:31)
[2017-09-04] MEDS: IPRATROPIUM/ALBUTEROL (0.5MG/3MG) NEB INH SCH ×5 (05:51→22:34)
[2017-09-04] MEDS: PANTOPRAZOLE SODIUM 40 MG TABLET PO SCH ×2 (06:44→17:06)
--- NOTE | 2017-09-04 07:10 | RADIOLOGY REPORT ---
EXAM: RIGHT HIP HISTORY: INJURY. TECHNIQUE: A single AP view of the pelvis and AP and axial views of the right hip were performed. FINDINGS: Osteopenia. No displaced fracture deformity is appreciated. There is peripheral vascular disease. IMPRESSION: 1. OSTEOPENIA. NO DISPLACED FRACTURE DEFORMITY. 2. PERIPHERAL VASCULAR DISEASE. JOB NUMBER: [id number] [facility]
[2017-09-04] MEDS: GLIPIZIDE 5 MG TABLET PO SCH ×2 (08:07→17:06)
[2017-09-04] MEDS: FLUOXETINE HCL 20 MG CAPSULE PO SCH (09:35)
[2017-09-04] MEDS: FAMOTIDINE 20MG TABLET PO SCH ×2 (09:35→21:56)
[2017-09-04] MEDS: LORAZEPAM 0.5 MG TABLET PO SCH (09:35)
[2017-09-04] MEDS: CHOLECALCIFEROL 1,000 UNIT TABLET PO SCH (09:35)
[2017-09-04] MEDS: CIPROFLOXACIN HCL 500 MG TABLET PO SCH ×2 (09:35→21:55)
[2017-09-04] MEDS: ENOXAPARIN 40 MG/0.4 ML SYR SQ SCH (09:35)
[2017-09-04] MEDS: ASPIRIN 81 MG TABEC PO SCH (09:35)
[2017-09-04] MEDS: MEMANTINE HCL 10 MG TABLET PO SCH (09:36)
[2017-09-04] MEDS: SENNOSIDES/DOCUSATE SODIUM UD CAPSULE PO SCH (09:36)
[2017-09-04] MEDS: LIDOCAINE 5% PATCH TOP SCH (09:37)
--- NOTE | 2017-09-04 09:52 | Occupational Therapy Tx Note ---
Occupational Therapy Tx Note - Treatment Note Tolerated: Fair Total Time Spent With Patient: 45 (ADL) Occupational Therapy Treatment Note: Detail (S: Pt sidelying in bed, confused. O: Supine to sit with mod assist x 1 for rolling and moving legs to EOB as well as to lift upper body. Pt able to statically sit at EOB with SBA. Doffed shirt with verbal cues, donned clean shirt with min assist to orient shirt as well as to remain on task and start shirt over hands. Pt able to doff hospital pants with max assist x 2 for sit to stand and to pull pants down over hips, he was able to sit at EOB and pull pants off feet using gravity. Pt required mod assist to start pants over left foot and max assist to start over right foot. Mod assist x 2 for sit to stand using walker and to pull pants over hips. Required assist to start slippers over feet and to pull foot to opposite knee, he was able to pull slipper over each heel. Sit to stand with min assist x 2 using walker and pivot transferred to chair with min to mod assist x 2. A: No c/o hip pain this am, confusion continues, mod assist for bed mobility and dressing) Occupational Therapy Problem List: Detail (1. Decreased orientation x 3. 2. Pt requiring total assist for all ADLs. 3. Max assist for functional mobility 4. Decreased UE strength/ROM/coordination) Occupational Therapy Goals: 1. Pt will be oriented x 3. 2. Pt will be Ind with total body dressing. 3. Pt will be Ind with showering 4. Pt will improve UE strength/ROM/coordination to allow safe and Ind self cares 5. Pt will be safe and Ind with bed mobility Prognosis: Moderate Occupational Therapy Plan: OT 2-4 days per week to address goals and problem list as above.
[2017-09-04] MEDS: BUDESONIDE 0.5 MG/2 ML INH SCH ×2 (10:02→23:43)
--- NOTE | 2017-09-04 14:04 | Physical Therapy Tx Note ---
Physical Therapy Tx Note - Treatment Note Tolerated: Poor Total Time Spent With Patient: 15 Physical Therapy Tx Note: Detail (The patient was sitting in his chair upon arrival. The patient was not alert upon arrival. The patient had inappropriate responses with activity, and only opened eyes with questions. He had an ungeneralized response to questions asked by therapist. There was an attempt made to transfer the patient from sit to stand, but with max assist x2 the patient was unable to complete the transfer. An attempt was made with the EZ Stand and the patient provided no LE support with the transfer, as he was using the harness for support of all body weight. The patient was returned to sitting. The patient then completed 3 x 30 second rounds of hamstring stretches to L LE. The R LE was not completed due to increased pain and muscle spasm. Therapy was then discontinued because the patient was falling asleep, and was only opening eyes with commands.) Physical Therapy Problem List: Detail (1) Level 8 lower back pain radiating into R LE. 2) Assistance with mobility and transfers 3) Non ambulatory 4) Decreased abililty to tolerate physical activity) Physical Therapy Goals: 1) Assess the patient's LE strength and AROM - MET. 2) The patient will be independent/supervision with bed mobility. 3) The patient will transfer with CG of 1. 4) The patient will ambulate with assistive device with CG of 1 household distances. Prognosis: Moderate Physical Therapy Plan: PT 1-2 times a day for pain management techniques including MTT and modalities, transfer training, bed mobility, gait training , LE AROM and strengthening exercises.
[2017-09-04] MEDS: SIMVASTATIN 20 MG TABLET PO SCH (21:55)
[2017-09-04] MEDS: DONEPEZIL HCL 5 MG TABLET PO SCH (21:55)
[2017-09-04] MEDS: ACETAMINOPHEN 500 MG TABLET PO PRN (22:15)
[2017-09-05] MEDS: IPRATROPIUM/ALBUTEROL (0.5MG/3MG) NEB INH SCH ×5 (05:41→21:49)
[2017-09-05] MEDS: PANTOPRAZOLE SODIUM 40 MG TABLET PO SCH ×2 (06:41→17:41)
[2017-09-05] MEDS: GLIPIZIDE 5 MG TABLET PO SCH ×2 (09:12→17:41)
[2017-09-05] MEDS: BUDESONIDE 0.5 MG/2 ML INH SCH ×2 (09:37→21:50)
[2017-09-05] MEDS: CHOLECALCIFEROL 1,000 UNIT TABLET PO SCH (10:23)
[2017-09-05] MEDS: FLUOXETINE HCL 20 MG CAPSULE PO SCH (10:23)
[2017-09-05] MEDS: FAMOTIDINE 20MG TABLET PO SCH ×2 (10:24→21:44)
[2017-09-05] MEDS: CIPROFLOXACIN HCL 500 MG TABLET PO SCH ×2 (10:24→21:45)
[2017-09-05] MEDS: ASPIRIN 81 MG TABEC PO SCH (10:24)
[2017-09-05] MEDS: ENOXAPARIN 40 MG/0.4 ML SYR SQ SCH (10:24)
[2017-09-05] MEDS: LIDOCAINE 5% PATCH TOP SCH (10:32)
--- NOTE | 2017-09-05 10:50 | Physician Progress Note ---
Subjective - Date Date of Progress Note: 09/05/17 - Admitting Diagnosis Diagnosis: Deconditioning d/t degenerative disc disease - Subjective Nursing Care Plan Problem List Activity Intolerance (Swing Bed) Start: 08/26/17 14: 45 Freq: Status: Active Protocol: Created 08/26/17 14:45 KMC (Rec: 08/26/17 14:45 KMC [id number]) Impaired Skin Integrity Start: 08/30/17 23: 54 Freq: Status: Inactive Protocol: Created 08/30/17 23:54 LPR (Rec: 08/30/17 23:54 LPR [id number]) Edit Status 09/04/17 06:00 LPR (Rec: 09/04/17 06:00 LPR [id number]) Active=>Inactive Knowledge Deficit (Swing Bed) Start: 08/26/17 14: 45 Freq: Status: Active Protocol: Created 08/26/17 14:45 KMC (Rec: 08/26/17 14:45 KMC [id number]) Pain (Swing Bed) Start: 08/26/17 14: 45 Freq: Status: Active Protocol: Created 08/26/17 14:45 KMC (Rec: 08/26/17 14:45 KMC [id number]) Risk For Falls (Swing Bed) Start: 09/01/17 18: 30 Freq: Status: Complete Protocol: Created 09/01/17 18:30 MMT (Rec: 09/01/17 18:30 MMT [id number]) Edit Status 09/02/17 14:08 SAF (Rec: 09/02/17 14:08 SAF [id number]) Active=>Complete Skin Integrity, Impaired (Swing Bed) Start: 09/01/17 18: 30 Freq: Status: Active Protocol: Created 09/01/17 18:30 MMT (Rec: 09/01/17 18:30 MMT [id number]) - Subjective Detail Constitutional: Reports: Weakness. Denies: Chills, Fever Respiratory: Reports: Cough Endocrine: Reports: Fatigue Psychiatric: Reports: Anxiety, Other (increased confusion, more difficult to arrous ) General - Cognitive Patterns Speech: Halting (Pt often falls asleep during conversations, req painful stimuli to arouse at times), Limited Communication Skills Thought Process: Intact (wax/wane- when awake for longer periods of time is a& ox3), Circumstantial (more difficult to arous and hold conversation in the morning) Thought Content: Normal - Communication Select best description of speech pattern: Clear Speech Ability to express ideas and wants: Usually Understood Understanding verbal content: Usually Understands - Mood and Behavior Patterns Appearance: Well Groomed Mood: Irritable Mood Comment: Pt sometimes needs painful stimuli to arouse for sound sleep then irritable Attitude: Cooperative Attitude Comment: Wax/wane- refusing physical activity including PT Motor Activity: Lethargic Affect: Anxious Hallucinations: Visual Hallucinations Comment: Nursing staff reports some visual hallucinations at night - Physical Functioning Activity Level: Up with assist x3 Turning: With partial assist ROM Ability: Moves all extremities Assistive Devices: 2 Wheel Walker Activity Level Comment: Pt unable to assist with transfers, easy lift & urinal and bedside commode being utilized Ambulation Ability: Dependent Bed Mobility: Needs Assist Transfer Ability: Dependent Bathing Ability: Dependent Personal Hygiene: Needs Assist Dressing Ability: Needs Assist Eating (Feeding) Ability: Needs Assist Toileting Ability: Dependent Administer Own Medication: Needs Assist - Continence Bowel Pattern: Normal for Patient Bladder Pattern: Normal Urinary Incontinence: Functional Meds/Allergies - Allergies Allergies Allergy/AdvReac Type Severity Reaction Status Date / Time Milk Containing Products AdvReac PT UNSURE Verified 08/26/17 12:10 OF REACTION - Active Medications Current Medications Acetaminophen (Tylenol 500mg Tab) 1,000 mg PO Q8H PRN PRN Reason: Pain - General Last Admin: 09/04/17 22:15 Dose: 1,000 mg Albuterol/Ipratropium (Duoneb) 3 ml INH [facility] Last Admin: 09/05/17 09:37 Dose: 3 ml Aspirin (Ecotrin (Ec)) 81 mg PO DAILY [facility] Last Admin: 09/05/17 10:24 Dose: 81 mg Budesonide (Pulmicort) 0.5 mg INH BID [facility] Last Admin: 09/05/17 09:37 Dose: 0.5 mg Calcium Carbonate/Glycine (Tums) 1,000 mg PO QID PRN PRN Reason: Heartburn Last Admin: 09/01/17 20:39 Dose: 1,000 mg Ciprofloxacin (Cipro) 500 mg PO Q12HR [facility] Stop: 09/07/17 10:01 Last Admin: 09/05/17 10:24 Dose: 500 mg Cyclobenzaprine HCl (Flexeril) 5 mg PO TID PRN PRN Reason: MUSCLE SPASMS Last Admin: 09/03/17 22:41 Dose: 5 mg Donepezil HCl (Aricept) 10 mg PO QHS [facility] Last Admin: 09/04/17 21:55 Dose: 10 mg Enoxaparin Sodium (Lovenox) 40 mg SQ DAILY [facility] Last Admin: 09/05/17 10:24 Dose: 40 mg Famotidine (Pepcid) 20 mg PO BID [facility] Last Admin: 09/05/17 10:24 Dose: 20 mg Fluoxetine HCl (Prozac) 20 mg PO DAILY [facility] Last Admin: 09/05/17 10:23 Dose: 20 mg Glipizide (Glucotrol) 5 mg PO 0730,1630 [facility] Last Admin: 09/05/17 09:12 Dose: Not Given Lidocaine (Lidoderm) 1 each TOP DAILY [facility] Last Admin: 09/05/17 10:32 Dose: Not Given Loperamide HCl (Immodium) 2 mg PO Q4H PRN PRN Reason: DIARRHEA Lorazepam (Ativan) 0.5 mg PO DAILY [facility] Last Admin: 09/04/17 09:35 Dose: 0.5 mg Lorazepam (Ativan) 0.5 mg PO DAILY PRN PRN Reason: ANXIETY Ondansetron HCl (Zofran Odt) 4 mg SL Q8H PRN PRN Reason: NAUSEA/VOMITING Last Admin: 09/03/17 22:36 Dose: 4 mg Pantoprazole Sodium (Protonix) 40 mg PO BIDAC [facility] Last Admin: 09/05/17 06:41 Dose: 40 mg Risperidone (Risperdal) 0.5 mg PO BID PRN PRN Reason: Agitation Last Admin: 08/27/17 21:20 Dose: 0.5 mg Senna/Docusate Sodium (Senna Plus) 1 each PO DAILY [facility] Last Admin: 09/04/17 09:36 Dose: 1 each Simvastatin (Zocor) 40 mg PO QHS [facility] Last Admin: 09/04/17 21:55 Dose: 40 mg Temazepam (Restoril) 15 mg PO QHS PRN PRN Reason: INSOMNIA Last Admin: 09/04/17 00:31 Dose: 15 mg Vitamin D (Vitamin D3) 2,000 unit PO DAILY [facility] Last Admin: 09/05/17 10:23 Dose: 2,000 unit Objective - Vital Signs Vital Signs: Vital Signs - Last 24 Hrs Temp Pulse Pulse Pulse Resp BP BP 09/05/17 09:40 84 16 09/05/17 08:00 97.8 F 83 98/55 09/05/17 05:42 83 16 09/04/17 22:34 92 H 24 09/04/17 20:00 98.4 F 104 H 18 117/63 09/04/17 19:00 88 20 09/04/17 14:31 96 H 16 Pulse Ox 09/05/17 09:40 92 L 09/05/17 08:00 91 L 09/05/17 05:42 94 L 09/04/17 22:34 09/04/17 20:00 92 L 09/04/17 19:00 90 L 09/04/17 14:31 95 - General General Appearance: Alert, Oriented x3 Limitations: Altered mental status (wax/wane, potentially sundowning in combination with restoril at night) - Head Head exam: Normocephalic Head exam detail: Other (left eye absent) - Eye Eye exam: Other (right eye- scelera normal, pupil reactive to light) Pupils: Other (left eye absent) - ENT Ear exam: Normal external inspection Mouth exam: Other (dry MMM) Teeth exam: Other (upper dentures in place, lower dentures missing- pt reports they broke-not replaced) Throat exam: Normal inspection - Neck Neck exam: Normal inspection - Respiratory Respiratory exam: Decreased breath sounds, Rales, Rhonchi - Cardiovascular Cardiovascular Exam: Regular rate Peripheral Pulses: 1+: Dorsalis Pedis (R), Dorsalis Pedis (L), 2+: Radial (R), Radial (L) - GI/Abdominal GI/Abdominal exam: Soft, Normal bowel sounds - Rectal Rectal exam: Deferred - exam: Deferred - Extremities Extremities exam: Joint swelling, Tenderness, Other (decreased PROM and AROM. c/ o R hip pain starting [employer]. 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 with movement) - Back Back exam: Reports: Normal inspection - Neurological Neurological exam: Alert, Oriented X3 (wax/wane) - Psychiatric Psychiatric exam: Agitated (wax/wane) - Skin Skin exam: Dry Type of lesion: Other (PU stage 2- present [employer] sacrum x 2- dressed by nursing) H&P Results - Labs Result Diagrams: 08/27/17 09:03 08/27/17 09:03 Labs Last 24 Hours: Laboratory Results - last 24 hr 09/04/17 09/04/17 09/04/17 11:30 17:00 22:00 POC Glucose 125 H 107 163 H 09/05/17 07:35 POC Glucose 112 H Discharge Potential - Discharge Needs Community Services Used Prior to Admission: Occupational Therapy, Physical Therapy Patient Discharge Plan Description: Return Home, Alf Facility, AFC/ Assisted Living Community Services Needed at Discharge: Home Health Nurse, Occupational Therapy , Physical Therapy Plan - Swing Bed Certification Initial Certification Due: 08/26/17 14 Day Re-Cert Due: 09/09/17 44 Day Re-Cert Due: 10/09/17 74 Day Re-Cert Due: 11/08/17 - Detailed Diagnosis and Plan (1) Physical deconditioning Current Visit: Yes Status: Acute Base Code: R53.81 - OTHER MALAISE Priority: High Comment: 09/05/17 - patient remains too weak to participate in PT/OT (2) UTI (urinary tract infection) Current Visit: Yes Status: Acute Qualifiers: Urinary tract infection type: site unspecified Base Code: N39.0 - URINARY TRACT INFECTION, SITE NOT SPECIFIED Priority: High Onset Date: ~08/28/17 Comment: 09/05/17 - Complete Cipro 500mg BID 09/07/17 (3) Full code status Current Visit: No Status: Acute Base Code: Z78.9 - OTHER SPECIFIED HEALTH STATUS Comment: 09/05/17 Full code (4) Wound, open, buttock Current Visit: Yes Status: Acute Qualifiers: Encounter type: initial encounter Laterality: left Qualified Code(s): S31.829A - Unspecified open wound of left buttock, initial encounter Base Code: S31.809A - UNSPECIFIED OPEN WOUND OF UNSPECIFIED BUTTOCK, INIT ENCNTR Priority: Medium Onset Date: ~08/27/17 Comment: 09/05/17 - Pt arrived from [facility] [place] with stage II pressure ulcer. right and left sacrum, open with small amount of yellow/green serous drainage. -duoderm to site -keep clean and dry -change every 3 days or PRN - reposition Q2H (5) Chronic low back pain Current Visit: No Status: Acute Base Code: M54.5 - LOW BACK PAIN; G89.29 - OTHER CHRONIC PAIN Comment: 09/05/17 -continue tylenol PRN pain -Pt has hx of opiod intolerance and behavioral issues in addition to cognitive behavioral issues. No opiods ordered at this time. (6) Change in mental state Current Visit: Yes Status: Acute Base Code: R41.82 - ALTERED MENTAL STATUS, UNSPECIFIED Comment: 09/05/17- - patient more confused over the past 72 hours. worsening dementia vs. medication vs. other? - will obtain CBC, CMP and head CT - potential geriatric psych referral
[2017-09-05] MEDS: LORAZEPAM 0.5 MG TABLET PO SCH (11:14)
[2017-09-05 11:40] LABS: BASO % 0.2 % (0-6); EOS % 7.7 % (0-6); GRAN % 72.1 % (47-80); HEMATOCRIT 33.8 % (42.0-52.0); HEMOGLOBIN 10.6 gm/dl (14.0-18.0); MEAN CELL VOLUME 94.7 fl (81-97); MEAN CORPUSCULAR HGB CONC 31.4 g/dl (32-36); MEAN PLATELET VOLUME 9.3 fl (7.4-10.4); PLATELET COUNT 299 K/uL (130-400); RED BLOOD COUNT 3.57 M/uL (4.40-5.70); RED CELL DISTRIBUTION WIDTH 13.8 % (11.5-14.5); WHITE BLOOD COUNT W/O DIFF 10.6 K/uL (4.2-12.2)
[2017-09-05 11:42] LABS: MEAN CORPUSCULAR HEMOGLOBIN 29.6 pg (27-33)
[2017-09-05 11:55] LABS: ALBUMIN 2.8 g/dL (4.0-5.0); ALKALINE PHOSPHATASE 143 U/L (40-129); ALT/SGPT 42 U/L (<41); AST/SGOT 24 U/L (10.0-50.0); BLOOD UREA NITROGEN 23 mg/dL (8-23); EST GLOMERULAR FILTRATION RATE > 60 mL/min; GLUCOSE,RANDOM 121 mg/dL (74-109); TOTAL PROTEIN 5.7 g/dL (6.6-8.7)
--- NOTE | 2017-09-05 18:16 | Physical Therapy Tx Note ---
Physical Therapy Tx Note - Treatment Note Tolerated: Fair Total Time Spent With Patient: 15 Physical Therapy Tx Note: Detail (Pt asleep in bed upon arrival; alerted to greeting, but fell asleep again and did not respond to verbal stimulation or physical stimulation, including PROM to B LE's, with manual stretch to gastroc and hamstrings. Positioned R LE in extension without difficulty. Left in bed w /call light in reach; nrsg notified.) Physical Therapy Problem List: Detail (1) Level 8 lower back pain radiating into R LE. 2) Assistance with mobility and transfers 3) Non ambulatory 4) Decreased abililty to tolerate physical activity) Physical Therapy Goals: 1) Assess the patient's LE strength and AROM - MET. 2) The patient will be independent/supervision with bed mobility. 3) The patient will transfer with CG of 1. 4) The patient will ambulate with assistive device with CG of 1 household distances. Prognosis: Moderate Physical Therapy Plan: PT 1-2 times a day for pain management techniques including MTT and modalities, transfer training, bed mobility, gait training , LE AROM and strengthening exercises.
--- NOTE | 2017-09-05 18:20 | Physical Therapy Tx Note ---
Physical Therapy Tx Note - Treatment Note Tolerated: Fair Total Time Spent With Patient: 15 Physical Therapy Tx Note: Detail (Pt in bed asleep upon arrival, coughing forcefully. Shasha in room, states pt just got respiratory treatment. Pt coughed into tissue and acknowledged therapist, but promptly fell asleep. Responded "all right" to question about how he was doing, but did not open eyes or participate. Performed PROM to B LE's and did manual stretching to gastroc and hamstrings; pt had one muscle spasm during ROM to R LE, and he reached for lateral aspect of knee. Performed soft tissue mobilization to R IT band and distal quad, lateral gastroc w/no patient response. Left asleep in bed w/ in room, nrsg notified.) Physical Therapy Problem List: Detail (1) Level 8 lower back pain radiating into R LE. 2) Assistance with mobility and transfers 3) Non ambulatory 4) Decreased abililty to tolerate physical activity) Physical Therapy Goals: 1) Assess the patient's LE strength and AROM - MET. 2) The patient will be independent/supervision with bed mobility. 3) The patient will transfer with CG of 1. 4) The patient will ambulate with assistive device with CG of 1 household distances. Prognosis: Moderate Physical Therapy Plan: PT 1-2 times a day for pain management techniques including MTT and modalities, transfer training, bed mobility, gait training , LE AROM and strengthening exercises.
[2017-09-05] MEDS: ACETAMINOPHEN 500 MG TABLET PO PRN (20:09)
[2017-09-05] MEDS: CYCLOBENZAPRINE 10MG TABLET PO PRN (20:12)
[2017-09-05] MEDS: SENNOSIDES/DOCUSATE SODIUM UD CAPSULE PO SCH (20:15)
[2017-09-05] MEDS: SIMVASTATIN 20 MG TABLET PO SCH (21:44)
[2017-09-05] MEDS: DONEPEZIL HCL 5 MG TABLET PO SCH (21:44)
[2017-09-06] MEDS: IPRATROPIUM/ALBUTEROL (0.5MG/3MG) NEB INH SCH ×5 (05:59→21:45)
[2017-09-06] MEDS: PANTOPRAZOLE SODIUM 40 MG TABLET PO SCH ×2 (06:47→16:44)
--- NOTE | 2017-09-06 07:20 | CT SCAN REPORT ---
EXAM: EMERGENCY HEAD CT HISTORY: DECREASED LEVEL OF THE CONSCIOUSNESS, CHANGE IN MENTAL STATUS, NO INJURY. TECHNIQUE: Axial CT scan of the head was performed without IV contrast. Comparison: None. FINDINGS: No definite acute intracranial hemorrhage identified. No focal mass effect or midline shift evident. Moderate generalized atrophy with some chronic appearing deep white matter changes, nonspecific, but likely representing some chronic small vessel deep white matter ischemic disease. No definite acute infarct or intracranial mass lesion seen. There is an abnormal appearance of the globe within the left orbit which appears uniformly dense and small. This may represent some form of prosthesis. No depressed calvarial fracture evident. IMPRESSION: 1. 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 2. ABNORMAL APPEARANCE OF THE GLOBE IN THE LEFT ORBIT IS PRESUMABLY A PROSTHESIS AND CLINICAL CORRELATION IS SUGGESTED. 3. NO ACUTE INTRACRANIAL HEMORRHAGE OR FOCAL MASS EFFECT IDENTIFIED. JOB NUMBER: [id number] [facility]
--- NOTE | 2017-09-06 08:27 | Occupational Therapy Tx Note ---
Occupational Therapy Tx Note - Treatment Note Tolerated: Good Total Time Spent With Patient: 35 (ADL) Occupational Therapy Treatment Note: Detail (S: Pt in bed, using urinal with assist from nursing. O: Supine to sit with verbal cues and min assist to reach for bed rail and to scoot feet to EOB. Pt able to push self into sitting Indly. Pt doffed shirt and donned clean shirt with min assist to orient shirt due to decreased vision. Donned briefs and PJ bottoms with assist to start over [place] feet, pt able to pull briefs and bottoms up over lower and upper legs. Sit to stand with min to mod assist x 2 to walker, able to static stand while OT pulled briefs and pants over hips. Stand to sit with min assist. Donned slippers with min assist to lift ankles onto opposite knee and to start slippers over toes. He was able to pull slippers over feet and ankles Indly. Sit to stand from EOB to walker with min assist x 2 and pivot transferred to chair with mod assist. Pt is unable to take steps due to right hip/upper leg pain. Pt oriented to month, year, [place], "something [place]". Pt left up in chair with alarm on. A: Improved bed mobility this am, cont. with right hip/ upper leg pain, more alert and oriented) Occupational Therapy Problem List: Detail (1. Decreased orientation x 3. 2. Pt requiring total assist for all ADLs. 3. Max assist for functional mobility 4. Decreased UE strength/ROM/coordination) Occupational Therapy Goals: 1. Pt will be oriented x 3. 2. Pt will be Ind with total body dressing. 3. Pt will be Ind with showering 4. Pt will improve UE strength/ROM/coordination to allow safe and Ind self cares 5. Pt will be safe and Ind with bed mobility Prognosis: Good Occupational Therapy Plan: OT 2-4 days per week to address goals and problem list as above.
[2017-09-06] MEDS: GLIPIZIDE 5 MG TABLET PO SCH ×2 (08:58→16:44)
[2017-09-06] MEDS: CYCLOBENZAPRINE 10MG TABLET PO PRN ×2 (09:22→21:23)
[2017-09-06] MEDS: ACETAMINOPHEN 500 MG TABLET PO PRN ×2 (09:22→21:22)
[2017-09-06] MEDS: BUDESONIDE 0.5 MG/2 ML INH SCH ×2 (10:13→21:45)
[2017-09-06] MEDS: CIPROFLOXACIN HCL 500 MG TABLET PO SCH ×2 (10:27→21:24)
[2017-09-06] MEDS: CHOLECALCIFEROL 1,000 UNIT TABLET PO SCH (10:27)
[2017-09-06] MEDS: FAMOTIDINE 20MG TABLET PO SCH ×2 (10:27→21:22)
[2017-09-06] MEDS: FLUOXETINE HCL 20 MG CAPSULE PO SCH (10:27)
[2017-09-06] MEDS: LORAZEPAM 0.5 MG TABLET PO SCH (10:28)
[2017-09-06] MEDS: SENNOSIDES/DOCUSATE SODIUM UD CAPSULE PO SCH (10:28)
[2017-09-06] MEDS: ASPIRIN 81 MG TABEC PO SCH (10:28)
[2017-09-06] MEDS: ENOXAPARIN 40 MG/0.4 ML SYR SQ SCH (10:28)
[2017-09-06] MEDS: LIDOCAINE 5% PATCH TOP SCH (10:28)
--- NOTE | 2017-09-06 15:09 | Physical Therapy Tx Note ---
Physical Therapy Tx Note - Treatment Note Tolerated: Poor Total Time Spent With Patient: 30 Physical Therapy Tx Note: Detail (The patient was sitting in his chair upon arrival. The patient was unable to transfer from sit to stand with max. assist x 2, so EZ stand was used. The patient was unable to assist with set up for strapping the patient in for EZ Stand, so max. assist was required during this process as well. The patient was then transferred to the commode with use of EZ Stand. He required max. assist x2 and use of EZ stand to transfer back the chair. He was left in his chair with alarm reset and call light in reach.) Physical Therapy Problem List: Detail (1) Level 8 lower back pain radiating into R LE. 2) Assistance with mobility and transfers 3) Non ambulatory 4) Decreased abililty to tolerate physical activity) Physical Therapy Goals: 1) Assess the patient's LE strength and AROM - MET. 2) The patient will be independent/supervision with bed mobility. 3) The patient will transfer with CG of 1. 4) The patient will ambulate with assistive device with CG of 1 household distances. Prognosis: Moderate Physical Therapy Plan: PT 1-2 times a day for pain management techniques including MTT and modalities, transfer training, bed mobility, gait training , LE AROM and strengthening exercises.
[2017-09-06] MEDS: LORAZEPAM 0.5 MG TABLET PO PRN (16:44)
[2017-09-06] MEDS: DONEPEZIL HCL 5 MG TABLET PO SCH (21:23)
[2017-09-06] MEDS: SIMVASTATIN 20 MG TABLET PO SCH (21:25)
[2017-09-07] MEDS: IPRATROPIUM/ALBUTEROL (0.5MG/3MG) NEB INH SCH ×5 (06:22→21:41)
[2017-09-07] MEDS: PANTOPRAZOLE SODIUM 40 MG TABLET PO SCH ×2 (07:03→21:10)
[2017-09-07] MEDS: GLIPIZIDE 5 MG TABLET PO SCH ×2 (08:30→19:05)
[2017-09-07] MEDS: ACETAMINOPHEN 500 MG TABLET PO PRN ×2 (08:42→21:52)
[2017-09-07] MEDS: LORAZEPAM 0.5 MG TABLET PO SCH (09:04)
[2017-09-07] MEDS: CHOLECALCIFEROL 1,000 UNIT TABLET PO SCH (09:04)
[2017-09-07] MEDS: ASPIRIN 81 MG TABEC PO SCH (09:05)
[2017-09-07] MEDS: FAMOTIDINE 20MG TABLET PO SCH ×2 (09:05→21:10)
[2017-09-07] MEDS: SENNOSIDES/DOCUSATE SODIUM UD CAPSULE PO SCH (09:05)
[2017-09-07] MEDS: CIPROFLOXACIN HCL 500 MG TABLET PO SCH (09:05)
[2017-09-07] MEDS: FLUOXETINE HCL 20 MG CAPSULE PO SCH (09:05)
[2017-09-07] MEDS: ENOXAPARIN 40 MG/0.4 ML SYR SQ SCH (09:05)
[2017-09-07] MEDS: LIDOCAINE 5% PATCH TOP SCH (09:06)
[2017-09-07] MEDS: BUDESONIDE 0.5 MG/2 ML INH SCH ×2 (10:07→21:41)
[2017-09-07] MEDS: CYCLOBENZAPRINE 10MG TABLET PO PRN (10:51)
[2017-09-07] MEDS: LORAZEPAM 0.5 MG TABLET PO PRN (15:39)
[2017-09-07 16:33] LABS: ALB/GLOB RATIO 0.9 (1.1-1.8); ALBUMIN 2.6 g/dL (4.0-5.0); ALKALINE PHOSPHATASE 145 U/L (40-129); ALT/SGPT 27 U/L (<41); AST/SGOT 12 U/L (10.0-50.0); BLOOD UREA NITROGEN 17 mg/dL (8-23); EST GLOMERULAR FILTRATION RATE > 60 mL/min; GLUCOSE,RANDOM 105 mg/dL (74-109); TOTAL PROTEIN 5.6 g/dL (6.6-8.7)
[2017-09-07] MEDS: DONEPEZIL HCL 5 MG TABLET PO SCH (21:10)
[2017-09-07] MEDS: CYCLOBENZAPRINE 10MG TABLET PO SCH (21:11)
[2017-09-07] MEDS: SIMVASTATIN 20 MG TABLET PO SCH (21:12)
[2017-09-08] MEDS: IPRATROPIUM/ALBUTEROL (0.5MG/3MG) NEB INH SCH ×5 (05:55→22:19)
[2017-09-08] MEDS: PANTOPRAZOLE SODIUM 40 MG TABLET PO SCH ×2 (06:07→18:14)
[2017-09-08] MEDS: CYCLOBENZAPRINE 10MG TABLET PO SCH ×2 (06:07→22:22)
[2017-09-08] MEDS: GLIPIZIDE 5 MG TABLET PO SCH ×2 (08:36→18:15)
[2017-09-08] MEDS: BUDESONIDE 0.5 MG/2 ML INH SCH ×2 (10:08→22:19)
[2017-09-08] MEDS: SENNOSIDES/DOCUSATE SODIUM UD CAPSULE PO SCH (10:23)
[2017-09-08] MEDS: CHOLECALCIFEROL 1,000 UNIT TABLET PO SCH (10:24)
[2017-09-08] MEDS: ENOXAPARIN 40 MG/0.4 ML SYR SQ SCH (10:24)
[2017-09-08] MEDS: ASPIRIN 81 MG TABEC PO SCH (10:24)
[2017-09-08] MEDS: LORAZEPAM 0.5 MG TABLET PO SCH (10:24)
[2017-09-08] MEDS: LIDOCAINE 5% PATCH TOP SCH (10:24)
[2017-09-08] MEDS: FAMOTIDINE 20MG TABLET PO SCH ×2 (10:24→22:19)
[2017-09-08] MEDS: ACETAMINOPHEN 500 MG TABLET PO PRN ×2 (10:24→22:19)
[2017-09-08] MEDS: FLUOXETINE HCL 20 MG CAPSULE PO SCH (10:24)
[2017-09-08] MEDS ORDERED: CYCLOBENZAPRINE 10MG TABLET PO ONE (12:39)
[2017-09-08] MEDS ORDERED: DONEPEZIL HCL 5 MG TABLET PO SCH (22:00)
[2017-09-08] MEDS ORDERED: CYCLOBENZAPRINE 10MG TABLET PO SCH (22:00)
[2017-09-08] MEDS: SIMVASTATIN 20 MG TABLET PO SCH (22:21)
[2017-09-08] MEDS: DONEPEZIL HCL 5 MG TABLET PO SCH (22:22)
[2017-09-09] MEDS: IPRATROPIUM/ALBUTEROL (0.5MG/3MG) NEB INH SCH ×5 (06:07→21:15)
[2017-09-09] MEDS: SENNOSIDES/DOCUSATE SODIUM UD CAPSULE PO SCH ×2 (08:02→10:54)
[2017-09-09] MEDS: GLIPIZIDE 5 MG TABLET PO SCH ×2 (08:02→17:30)
[2017-09-09] MEDS: PANTOPRAZOLE SODIUM 40 MG TABLET PO SCH ×2 (08:02→17:30)
[2017-09-09] MEDS: CYCLOBENZAPRINE 10MG TABLET PO SCH ×4 (08:06→21:56)
--- NOTE | 2017-09-09 08:10 | Occupational Therapy Tx Note ---
Occupational Therapy Tx Note - Treatment Note Tolerated: Poor Total Time Spent With Patient: 40 (ADL) Occupational Therapy Treatment Note: Detail (S: Pt sidelying in bed, c/o right sided low back and hip pain. O: Supine to sit with multiple attempts due to pain, he was able to move legs to EOB and required mod assist for lifting upper body into sitting. Pt able to doff shirt and don clean shirt with set up to orient shirt. Doffed briefs and donned clean briefs and pants with max assist. Pt unable to bend forward due to increased pain this am. Required max assist to don slippers. Sit to stand with max assist x 2 to walker and pants were pulled over hips with max assist. Pt reported he needed to use the commode. Stand pivot transfer to commode with max assist, pants pulled down with max assist. Pt unable to have BM. Sit to stand with walker and max assist x 2, pants pulled up per nursing. Pivot transfer to chair with max assist x 2. Pt not oriented to place, more agitated possibly due to pain. A: Decreased Ind with functional mobility and dressing today.) Occupational Therapy Problem List: Detail (1. Decreased orientation x 3. 2. Pt requiring total assist for all ADLs. 3. Max assist for functional mobility 4. Decreased UE strength/ROM/coordination) Occupational Therapy Goals: 1. Pt will be oriented x 3. 2. Pt will be Ind with total body dressing. 3. Pt will be Ind with showering 4. Pt will improve UE strength/ROM/coordination to allow safe and Ind self cares 5. Pt will be safe and Ind with bed mobility Prognosis: Moderate Occupational Therapy Plan: OT 2-4 days per week to address goals and problem list as above.
[2017-09-09] MEDS ORDERED: MAGNESIUM HYDROXIDE 30 ML UDC PO ONE (08:35)
[2017-09-09] MEDS: ACETAMINOPHEN 500 MG TABLET PO PRN ×2 (09:30→21:55)
[2017-09-09] MEDS: BUDESONIDE 0.5 MG/2 ML INH SCH ×2 (10:18→21:15)
[2017-09-09] MEDS: ASPIRIN 81 MG TABEC PO SCH (10:29)
[2017-09-09] MEDS: ENOXAPARIN 40 MG/0.4 ML SYR SQ SCH (10:29)
[2017-09-09] MEDS: FLUOXETINE HCL 20 MG CAPSULE PO SCH (10:30)
[2017-09-09] MEDS: CHOLECALCIFEROL 1,000 UNIT TABLET PO SCH (10:30)
[2017-09-09] MEDS: FAMOTIDINE 20MG TABLET PO SCH ×2 (10:30→21:57)
[2017-09-09] MEDS: LIDOCAINE 5% PATCH TOP SCH (10:31)
[2017-09-09] MEDS: LORAZEPAM 0.5 MG TABLET PO SCH (10:31)
--- NOTE | 2017-09-09 11:44 | Physical Therapy Tx Note ---
Physical Therapy Tx Note - Treatment Note Tolerated: Good Total Time Spent With Patient: 30 Physical Therapy Tx Note: Detail (The patient was sitting in his chair upon arrival. The patient showed independence with UE weight shifting in his chair. The patient was then transferred to a wheelchair. The patient required a max. assist x 1 with a standing pivot transfer and min. assist x 1. He was then able to self propel independently with mainly UEs, and some LEs from his room to the Chapel and back (about 180 feet total). He required rest breaks throughout, but was able to complete the distance independently. He also required some verbal cues to attempt to use the LEs with propulsion, but the patient preferred to use the UEs. He was then transferred back to his chair in the room with a standing pivot transfer with max. assist x 1. He was left in his chair with his call light in reach and chair alarm reset.) Physical Therapy Problem List: Detail (1) Level 8 lower back pain radiating into R LE. 2) Assistance with mobility and transfers 3) Non ambulatory 4) Decreased abililty to tolerate physical activity) Physical Therapy Goals: 1) Assess the patient's LE strength and AROM - MET. 2) The patient will be independent/supervision with bed mobility. 3) The patient will transfer with CG of 1. 4) The patient will ambulate with assistive device with CG of 1 household distances. Prognosis: Moderate Physical Therapy Plan: PT 1-2 times a day for pain management techniques including MTT and modalities, transfer training, bed mobility, gait training , LE AROM and strengthening exercises.
[2017-09-09] MEDS: DONEPEZIL HCL 5 MG TABLET PO SCH (21:54)
[2017-09-09] MEDS: SIMVASTATIN 20 MG TABLET PO SCH (21:55)
[2017-09-09] MEDS ORDERED: DONEPEZIL HCL 5 MG TABLET PO SCH (22:00)
[2017-09-10] MEDS: IPRATROPIUM/ALBUTEROL (0.5MG/3MG) NEB INH SCH ×5 (05:58→21:00)
[2017-09-10] MEDS: PANTOPRAZOLE SODIUM 40 MG TABLET PO SCH ×2 (08:37→17:17)
[2017-09-10] MEDS: GLIPIZIDE 5 MG TABLET PO SCH ×2 (09:20→17:18)
[2017-09-10] MEDS: CHOLECALCIFEROL 1,000 UNIT TABLET PO SCH (09:54)
[2017-09-10] MEDS: FLUOXETINE HCL 20 MG CAPSULE PO SCH (09:54)
[2017-09-10] MEDS: FAMOTIDINE 20MG TABLET PO SCH ×2 (09:55→22:14)
[2017-09-10] MEDS: SENNOSIDES/DOCUSATE SODIUM UD CAPSULE PO SCH ×2 (09:56→22:14)
[2017-09-10] MEDS: ASPIRIN 81 MG TABEC PO SCH (09:57)
[2017-09-10] MEDS: LORAZEPAM 0.5 MG TABLET PO SCH (09:58)
[2017-09-10] MEDS: CYCLOBENZAPRINE 10MG TABLET PO SCH ×4 (10:00→22:14)
[2017-09-10] MEDS: LIDOCAINE 5% PATCH TOP SCH (10:01)
[2017-09-10] MEDS: ENOXAPARIN 40 MG/0.4 ML SYR SQ SCH (10:01)
[2017-09-10] MEDS: BUDESONIDE 0.5 MG/2 ML INH SCH ×2 (10:32→21:00)
--- NOTE | 2017-09-10 11:49 | Occupational Therapy Tx Note ---
Occupational Therapy Tx Note - Treatment Note Tolerated: Fair Total Time Spent With Patient: 45 (ADL) Occupational Therapy Treatment Note: Detail (S: Pt up in chair, in poor spirits. O: Pt agreeable to attempting shower. Sit to stand with walker and max assist x 2, pivot transfer to wheelchair with max assist x 2. Transported to bathroom via wheelchair and attempted transfer to shower seat/commode, pt unable. Pt decided to complete sponge bathing instead of showering. Pt doffed shirt Indly, completed upper body sponge bathing after set up with min assist for soap. Pt doffed left slipper with assist to lift foot onto opposite knee. Right slipper doffed with total assist. Pt washed legs and right foot with assist to hold foot on knee. Slippers donned per OT. Pt donned shirt with min assist and set up. Sit to stand x 3 ith walker and max assist x 2 while nursing completed toileting hygiene. Donned briefs and pants with max assist. Pt left up in wheelchair. A: Pt very fatigued after ADLs, max assist x 2 for sit to stand, min assist for UE dressing, max assist for LE dressing.) Occupational Therapy Problem List: Detail (1. Decreased orientation x 3. 2. Pt requiring total assist for all ADLs. 3. Max assist for functional mobility 4. Decreased UE strength/ROM/coordination) Occupational Therapy Goals: 1. Pt will be oriented x 3. 2. Pt will be Ind with total body dressing. 3. Pt will be Ind with showering 4. Pt will improve UE strength/ROM/coordination to allow safe and Ind self cares 5. Pt will be safe and Ind with bed mobility Prognosis: Moderate Occupational Therapy Plan: OT 2-4 days per week to address goals and problem list as above.
[2017-09-10] MEDS: ACETAMINOPHEN 500 MG TABLET PO PRN ×2 (12:10→22:13)
--- NOTE | 2017-09-10 13:22 | Physical Therapy Tx Note ---
Physical Therapy Tx Note - Treatment Note Tolerated: Good Total Time Spent With Patient: 15 Physical Therapy Tx Note: Detail (The patient was sitting in his chair upon arrival. The patient requested to go back to bed due to increased pain in the right hip. The patient required max. assist x 1 and min. assist x 1 to complete standing pivot transfer into sitting at the bedside. He then required min. assist x 2 to transfer from sit to supine. He required max. assist x 2 to scoot up to the head of the bed, and to the middle of the bed. The patient stated that being supine helped to decrease the pain that he was feeling in the hip. The patient was left in supine with call light in reach and his present.) Physical Therapy Problem List: Detail (1) Level 8 lower back pain radiating into R LE. 2) Assistance with mobility and transfers 3) Non ambulatory 4) Decreased abililty to tolerate physical activity) Physical Therapy Goals: 1) Assess the patient's LE strength and AROM - MET. 2) The patient will be independent/supervision with bed mobility. 3) The patient will transfer with CG of 1. 4) The patient will ambulate with assistive device with CG of 1 household distances. Prognosis: Moderate Physical Therapy Plan: PT 1-2 times a day for pain management techniques including MTT and modalities, transfer training, bed mobility, gait training , LE AROM and strengthening exercises.
[2017-09-10] MEDS ORDERED: CYCLOBENZAPRINE 10MG TABLET PO ONE (13:34)
--- NOTE | 2017-09-10 14:00 | Discharge Summary ---
Providers Discharge Summary Date: 09/12/17 Date of admission: 08/26/17 12:54 Expected Date of Discharge: 09/12/17 Attending physician: CHAY GOMEZ Primary care physician: JAGJIT HYLTON D.O. Physical Exam - Vital Signs Vital Signs: Vital Signs - Last 24 Hrs Temp Pulse Pulse Pulse Resp BP BP 09/10/17 10:39 72 18 09/10/17 08:05 77 09/10/17 07:57 75 16 110/58 09/10/17 05:58 70 16 09/09/17 21:15 86 16 09/09/17 20:00 98.2 F 92 H 20 110/81 09/09/17 14:52 87 18 09/09/17 14:00 98 F 99/51 Pulse Ox 09/10/17 10:39 09/10/17 08:05 09/10/17 07:57 96 09/10/17 05:58 98 09/09/17 21:15 100 09/09/17 20:00 97 09/09/17 14:52 95 09/09/17 14:00 - General General Appearance: Alert, Oriented x3 Limitations: Altered mental status (wax/wane, potentially sundowning in combination with restoril at night) - Head Head exam: Normocephalic Head exam detail: Other (left eye absent) - Eye Eye exam: Other (right eye- scelera normal, pupil reactive to light) Pupils: Other (left eye absent) - ENT Ear exam: Normal external inspection Mouth exam: Other (dry MMM) Teeth exam: Other (upper dentures in place, lower dentures missing- pt reports they broke-not replaced) Throat exam: Normal inspection - Neck Neck exam: Normal inspection - Respiratory Respiratory exam: Decreased breath sounds, Rales, Rhonchi - Cardiovascular Cardiovascular Exam: Regular rate Peripheral Pulses: 1+: Dorsalis Pedis (R), Dorsalis Pedis (L), 2+: Radial (R), Radial (L) - GI/Abdominal GI/Abdominal exam: Soft, Normal bowel sounds - Rectal Rectal exam: Deferred - exam: Deferred - Extremities Extremities exam: Joint swelling, Tenderness, Other (decreased PROM and AROM. 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 sacrum x 2- dressed by nursing) Hospitalization - Hospitalization Admission Diagnosis: Deconditioning d/t degenerative disc disease - Problem List (1) Physical deconditioning Current Visit: Yes Status: Chronic Base Code: R53.81 - OTHER MALAISE Comment: 09/05/17 - patient remains too weak to participate in PT/OT 09/12/17 -pt remains too weak to participate in PT/OT -transfer to terminal operator care today (2) Chronic low back pain Current Visit: No Status: Chronic Base Code: M54.5 - LOW BACK PAIN; G89.29 - OTHER CHRONIC PAIN Comment: 09/05/17 -continue tylenol PRN pain -Pt has hx of opiod intolerance and behavioral issues in addition to cognitive behavioral issues. No opiods ordered at this time. 09/12/17 -continue tylenol and scheduled flexeril -avoiding opiods as pt has intolerance and behavior issues when taking opiods. -lidoderm patch orders continued (3) Wound, open, buttock Current Visit: Yes Status: Acute Discharge Diagnosis: Encounter type: initial encounter Laterality: left Qualified Code(s): S31.829A - Unspecified open wound of left buttock, initial encounter Base Code: S31.809A - UNSPECIFIED OPEN WOUND OF UNSPECIFIED BUTTOCK, INIT ENCNTR Onset Date: ~08/27/17 Comment: 09/05/17 - Pt arrived [facility] with stage II pressure ulcer. right and left sacrum, open with small amount of yellow/green serous drainage. -duoderm to site -keep clean and dry 09/12/17 -continue duroderm to site -keep clean and dry -pt transfering to terminal operator care, facility to take over wound care -change every 3 days or PRN - reposition Q2H (4) Full code status Current Visit: No Status: Acute Base Code: Z78.9 - OTHER SPECIFIED HEALTH STATUS Comment: 09/05/17 Full code (5) UTI (urinary tract infection) Current Visit: Yes Status: Resolved Discharge Diagnosis: Urinary tract infection type: site unspecified Base Code: N39.0 - URINARY TRACT INFECTION, SITE NOT SPECIFIED Onset Date: ~ Comment: 09/05/17 - Complete Cipro 500mg BID 09/07/17 09/12/17 -tx completed - Hospitalization Course Disposition: [facility] Facility Reason For Discharge/Transfer: Medical Stability, Patient's care needs cannot be met at [facility] Procedures: Imaging and X-Rays 08/27/17 08:38 ABDOMEN 2 VIEW [RAD] Stat CXR [CHEST 2 VIEWS] [RAD] Stat 09/03/17 11:45 HIP,UNILAT, 2-3 VIEW RIGHT [RAD] Urgent 09/05/17 10:48 HEAD WO CONTRAST [CT] Stat Abnormal Labs: Abnormal Lab Results 08/26/17 08/26/17 08/27/17 Range/Units 12:55 17:15 07:30 RBC (4.40-5.70) M/uL Hgb (14.0-18.0) gm/dl Hct (42.0-52.0) % MCHC (32-36) g/dl Lymphocytes % (16-45) % Monocytes % (0-9) % Eosinophils % (0-6) % Lymphocytes (16-45) % Eosinophil Count (0-6) % POC Glucose 168 H 120 H 189 H (70-110) mg/dL Random Glucose (74-109) mg/dL Calcium (8.8-10.2) mg/dL ALT (<41) U/L Alkaline Phosphatase (40-129) U/L Total Protein (6.6-8.7) g/dL Albumin (4.0-5.0) g/dL Albumin/Globulin Ratio (1.1-1.8) Urine Glucose (UA) (NEGATIVE) Urine Nitrite (NEGATIVE) Ur Leukocyte Esterase (NEGATIVE) 08/27/17 08/27/17 08/27/17 Range/Units 09:03 09:03 16:55 RBC 3.98 L (4.40-5.70) M/uL Hgb 12.0 L (14.0-18.0) gm/dl Hct 37.2 L (42.0-52.0) % MCHC (32-36) g/dl Lymphocytes % (16-45) % Monocytes % (0-9) % Eosinophils % (0-6) % Lymphocytes 15.0 L (16-45) % Eosinophil Count 14.0 H (0-6) % POC Glucose (70-110) mg/dL Random Glucose 251 H (74-109) mg/dL Calcium (8.8-10.2) mg/dL ALT (<41) U/L Alkaline Phosphatase 173 H (40-129) U/L Total Protein (6.6-8.7) g/dL Albumin 3.2 L (4.0-5.0) g/dL Albumin/Globulin Ratio 0.9 L (1.1-1.8) Urine Glucose (UA) 100 mg/dl H (NEGATIVE) Urine Nitrite Positive H (NEGATIVE) Ur Leukocyte Esterase Moderate H (NEGATIVE) 08/29/17 08/29/17 08/29/17 Range/Units 07:32 12:06 21:56 RBC (4.40-5.70) M/uL Hgb (14.0-18.0) gm/dl Hct (42.0-52.0) % MCHC (32-36) g/dl Lymphocytes % (16-45) % Monocytes % (0-9) % Eosinophils % (0-6) % Lymphocytes (16-45) % Eosinophil Count (0-6) % POC Glucose 144 H 248 H 129 H (70-110) mg/dL Random Glucose (74-109) mg/dL Calcium (8.8-10.2) mg/dL ALT (<41) U/L Alkaline Phosphatase (40-129) U/L Total Protein (6.6-8.7) g/dL Albumin (4.0-5.0) g/dL Albumin/Globulin Ratio (1.1-1.8) Urine Glucose (UA) (NEGATIVE) Urine Nitrite (NEGATIVE) Ur Leukocyte Esterase (NEGATIVE) 08/30/17 08/30/17 08/30/17 Range/Units 11:30 11:49 17:00 RBC (4.40-5.70) M/uL Hgb (14.0-18.0) gm/dl Hct (42.0-52.0) % MCHC (32-36) g/dl Lymphocytes % (16-45) % Monocytes % (0-9) % Eosinophils % (0-6) % Lymphocytes (16-45) % Eosinophil Count (0-6) % POC Glucose 119 H 270 H 119 H (70-110) mg/dL Random Glucose (74-109) mg/dL Calcium (8.8-10.2) mg/dL ALT (<41) U/L Alkaline Phosphatase (40-129) U/L Total Protein (6.6-8.7) g/dL Albumin (4.0-5.0) g/dL Albumin/Globulin Ratio (1.1-1.8) Urine Glucose (UA) (NEGATIVE) Urine Nitrite (NEGATIVE) Ur Leukocyte Esterase (NEGATIVE) 08/30/17 08/31/17 08/31/17 Range/Units 22:00 03:26 07:20 RBC (4.40-5.70) M/uL Hgb (14.0-18.0) gm/dl Hct (42.0-52.0) % MCHC (32-36) g/dl Lymphocytes % (16-45) % Monocytes % (0-9) % Eosinophils % (0-6) % Lymphocytes (16-45) % Eosinophil Count (0-6) % POC Glucose 119 H 145 H 112 H (70-110) mg/dL Random Glucose (74-109) mg/dL Calcium (8.8-10.2) mg/dL ALT (<41) U/L Alkaline Phosphatase (40-129) U/L Total Protein (6.6-8.7) g/dL Albumin (4.0-5.0) g/dL Albumin/Globulin Ratio (1.1-1.8) Urine Glucose (UA) (NEGATIVE) Urine Nitrite (NEGATIVE) Ur Leukocyte Esterase (NEGATIVE) 08/31/17 08/31/17 09/01/17 Range/Units 16:40 21:55 00:43 RBC (4.40-5.70) M/uL Hgb (14.0-18.0) gm/dl Hct (42.0-52.0) % MCHC (32-36) g/dl Lymphocytes % (16-45) % Monocytes % (0-9) % Eosinophils % (0-6) % Lymphocytes (16-45) % Eosinophil Count (0-6) % POC Glucose 153 H 151 H 151 H (70-110) mg/dL Random Glucose (74-109) mg/dL Calcium (8.8-10.2) mg/dL ALT (<41) U/L Alkaline Phosphatase (40-129) U/L Total Protein (6.6-8.7) g/dL Albumin (4.0-5.0) g/dL Albumin/Globulin Ratio (1.1-1.8) Urine Glucose (UA) (NEGATIVE) Urine Nitrite (NEGATIVE) Ur Leukocyte Esterase (NEGATIVE) 09/01/17 09/01/17 09/01/17 Range/Units 07:43 13:10 17:34 RBC (4.40-5.70) M/uL Hgb (14.0-18.0) gm/dl Hct (42.0-52.0) % MCHC (32-36) g/dl Lymphocytes % (16-45) % Monocytes % (0-9) % Eosinophils % (0-6) % Lymphocytes (16-45) % Eosinophil Count (0-6) % POC Glucose 134 H 156 H 111 H (70-110) mg/dL Random Glucose (74-109) mg/dL Calcium (8.8-10.2) mg/dL ALT (<41) U/L Alkaline Phosphatase (40-129) U/L Total Protein (6.6-8.7) g/dL Albumin (4.0-5.0) g/dL Albumin/Globulin Ratio (1.1-1.8) Urine Glucose (UA) (NEGATIVE) Urine Nitrite (NEGATIVE) Ur Leukocyte Esterase (NEGATIVE) 09/02/17 09/02/17 09/03/17 Range/Units 13:19 17:00 11:30 RBC (4.40-5.70) M/uL Hgb (14.0-18.0) gm/dl Hct (42.0-52.0) % MCHC (32-36) g/dl Lymphocytes % (16-45) % Monocytes % (0-9) % Eosinophils % (0-6) % Lymphocytes (16-45) % Eosinophil Count (0-6) % POC Glucose 124 H 124 H 114 H (70-110) mg/dL Random Glucose (74-109) mg/dL Calcium (8.8-10.2) mg/dL ALT (<41) U/L Alkaline Phosphatase (40-129) U/L Total Protein (6.6-8.7) g/dL Albumin (4.0-5.0) g/dL Albumin/Globulin Ratio (1.1-1.8) Urine Glucose (UA) (NEGATIVE) Urine Nitrite (NEGATIVE) Ur Leukocyte Esterase (NEGATIVE) 09/03/17 09/04/17 09/04/17 Range/Units 22:17 11:30 22:00 RBC (4.40-5.70) M/uL Hgb (14.0-18.0) gm/dl Hct (42.0-52.0) % MCHC (32-36) g/dl Lymphocytes % (16-45) % Monocytes % (0-9) % Eosinophils % (0-6) % Lymphocytes (16-45) % Eosinophil Count (0-6) % POC Glucose 115 H 125 H 163 H (70-110) mg/dL Random Glucose (74-109) mg/dL Calcium (8.8-10.2) mg/dL ALT (<41) U/L Alkaline Phosphatase (40-129) U/L Total Protein (6.6-8.7) g/dL Albumin (4.0-5.0) g/dL Albumin/Globulin Ratio (1.1-1.8) Urine Glucose (UA) (NEGATIVE) Urine Nitrite (NEGATIVE) Ur Leukocyte Esterase (NEGATIVE) 09/05/17 09/05/17 09/05/17 Range/Units 07:35 11:30 11:38 RBC 3.57 L (4.40-5.70) M/uL Hgb 10.6 L (14.0-18.0) gm/dl Hct 33.8 L (42.0-52.0) % MCHC 31.4 L (32-36) g/dl Lymphocytes % 8.0 L (16-45) % Monocytes % 12.0 H (0-9) % Eosinophils % 7.7 H (0-6) % Lymphocytes (16-45) % Eosinophil Count (0-6) % POC Glucose 112 H 114 H (70-110) mg/dL Random Glucose (74-109) mg/dL Calcium (8.8-10.2) mg/dL ALT (<41) U/L Alkaline Phosphatase (40-129) U/L Total Protein (6.6-8.7) g/dL Albumin (4.0-5.0) g/dL Albumin/Globulin Ratio (1.1-1.8) Urine Glucose (UA) (NEGATIVE) Urine Nitrite (NEGATIVE) Ur Leukocyte Esterase (NEGATIVE) 09/05/17 09/05/17 09/05/17 Range/Units 11:38 17:00 22:03 RBC (4.40-5.70) M/uL Hgb (14.0-18.0) gm/dl Hct (42.0-52.0) % MCHC (32-36) g/dl Lymphocytes % (16-45) % Monocytes % (0-9) % Eosinophils % (0-6) % Lymphocytes (16-45) % Eosinophil Count (0-6) % POC Glucose 124 H 156 H (70-110) mg/dL Random Glucose 121 H (74-109) mg/dL Calcium (8.8-10.2) mg/dL ALT 42 H (<41) U/L Alkaline Phosphatase 143 H (40-129) U/L Total Protein 5.7 L (6.6-8.7) g/dL Albumin 2.8 L (4.0-5.0) g/dL Albumin/Globulin Ratio 1.0 L (1.1-1.8) Urine Glucose (UA) (NEGATIVE) Urine Nitrite (NEGATIVE) Ur Leukocyte Esterase (NEGATIVE) 09/06/17 09/06/17 09/07/17 Range/Units 11:30 17:00 16:10 RBC (4.40-5.70) M/uL Hgb (14.0-18.0) gm/dl Hct (42.0-52.0) % MCHC (32-36) g/dl Lymphocytes % (16-45) % Monocytes % (0-9) % Eosinophils % (0-6) % Lymphocytes (16-45) % Eosinophil Count (0-6) % POC Glucose 136 H 147 H (70-110) mg/dL Random Glucose (74-109) mg/dL Calcium 8.5 L (8.8-10.2) mg/dL ALT (<41) U/L Alkaline Phosphatase 145 H (40-129) U/L Total Protein 5.6 L (6.6-8.7) g/dL Albumin 2.6 L (4.0-5.0) g/dL Albumin/Globulin Ratio 0.9 L (1.1-1.8) Urine Glucose (UA) (NEGATIVE) Urine Nitrite (NEGATIVE) Ur Leukocyte Esterase (NEGATIVE) 09/08/17 09/09/17 09/09/17 Range/Units 11:30 11:30 22:00 RBC (4.40-5.70) M/uL Hgb (14.0-18.0) gm/dl Hct (42.0-52.0) % MCHC (32-36) g/dl Lymphocytes % (16-45) % Monocytes % (0-9) % Eosinophils % (0-6) % Lymphocytes (16-45) % Eosinophil Count (0-6) % POC Glucose 120 H 198 H 156 H (70-110) mg/dL Random Glucose (74-109) mg/dL Calcium (8.8-10.2) mg/dL ALT (<41) U/L Alkaline Phosphatase (40-129) U/L Total Protein (6.6-8.7) g/dL Albumin (4.0-5.0) g/dL Albumin/Globulin Ratio (1.1-1.8) Urine Glucose (UA) (NEGATIVE) Urine Nitrite (NEGATIVE) Ur Leukocyte Esterase (NEGATIVE) 09/10/17 09/10/17 Range/Units 07:30 08:30 RBC (4.40-5.70) M/uL Hgb (14.0-18.0) gm/dl Hct (42.0-52.0) % MCHC (32-36) g/dl Lymphocytes % (16-45) % Monocytes % (0-9) % Eosinophils % (0-6) % Lymphocytes (16-45) % Eosinophil Count (0-6) % POC Glucose 149 H 149 H (70-110) mg/dL Random Glucose (74-109) mg/dL Calcium (8.8-10.2) mg/dL ALT (<41) U/L Alkaline Phosphatase (40-129) U/L Total Protein (6.6-8.7) g/dL Albumin (4.0-5.0) g/dL Albumin/Globulin Ratio (1.1-1.8) Urine Glucose (UA) (NEGATIVE) Urine Nitrite (NEGATIVE) Ur Leukocyte Esterase (NEGATIVE) Condition at Discharge: (2) Stable Discharge Diagnosis: Dementia, deconditioning, DDD Discharge Medications - Discharge Medications Home Medications: Ambulatory Orders Aspirin Chewable 81 mg PO DAILY 12/11/16 [Last Taken Unknown] Cholecalciferol (Vitamin D3) [Vitamin D3] 2,000 unit PO DAILY 12/11/16 [Last Taken Unknown] Fluoxetine HCl 20 mg PO DAILY 12/11/16 [Last Taken Unknown] Glipizide [Glucotrol] 5 mg PO BIDAC 12/11/16 [Last Taken Unknown] Lorazepam [Ativan] 0.5 mg PO DAILY 12/11/16 [Last Taken Unknown] Omeprazole 20 mg PO BIDAC 12/11/16 [Last Taken Unknown] Simvastatin 40 mg PO QHS 12/11/16 [Last Taken Unknown] Tramadol HCl [Ultram] 50 mg PO DAILY PRN #15 tab 12/31/16 [Last Taken Unknown] Acetaminophen [Tylenol 500Mg Tab] 1,000 mg PO Q8H PRN tablet 09/10/17 [Last Taken Unknown] Aspirin Enteric-Coated [Ecotrin (EC)] 81 mg PO DAILY tabec 09/10/17 [Last Taken Unknown] Budesonide [Pulmicort] 0.5 mg INH BID ml 09/10/17 [Last Taken Unknown] Calcium Carbonate [Tums] 1,000 mg PO QID PRN tab.chew 09/10/17 [Last Taken Unknown] Cyclobenzaprine HCl [Flexeril] 5 mg PO 0800 tablet 09/10/17 [Last Taken Unknown ] Cyclobenzaprine HCl [Flexeril] 5 mg PO 1300 tablet 09/10/17 [Last Taken Unknown ] Cyclobenzaprine HCl [Flexeril] 10 mg PO QHS tablet 09/10/17 [Last Taken Unknown ] Donepezil HCl [Aricept] 10 mg PO QHS tablet 09/10/17 [Last Taken Unknown] Glipizide [Glucotrol] 5 mg PO 0730,1630 tablet 09/10/17 [Last Taken Unknown] Ipratropium/Albuterol [Duoneb] 3 ml INH RESP.Q4H.WA ampul.neb 09/10/17 [Last Taken Unknown] Lidocaine Patch [Lidoderm] 1 each TOP DAILY patch 09/10/17 [Last Taken Unknown] Lorazepam [Ativan] 0.5 mg PO DAILY PRN tablet 09/10/17 [Last Taken Unknown] Ondansetron [Zofran Odt] 4 mg SL Q8H PRN tab.rapdis 09/10/17 [Last Taken Unknown] Pantoprazole Sodium [Protonix] 40 mg PO BIDAC tablet. 09/10/17 [Last Taken Unknown] Risperidone [Risperdal] 0.5 mg PO BID PRN tablet 09/10/17 [Last Taken Unknown] Sennosides/Docusate Sodium [Senna Plus] 1 each PO BID capsule 09/10/17 [Last Taken Unknown] Fluoxetine HCl [Prozac] 20 mg PO DAILY capsule 09/11/17 [Last Taken Unknown] Lorazepam [Ativan] 0.5 mg PO DAILY tablet 09/11/17 [Last Taken Unknown] Simvastatin [Zocor] 40 mg PO QHS tablet 09/11/17 [Last Taken Unknown] Discharge Plan - Discharge Instructions Activity at Discharge: As Per Physical Therapy Diet at Discharge: Regular Diet Wound Primary Dressing Type: duoderm Dressing Change: Other (q 3 days and PRN for soiling) Additional Instructions: Pt to residential facility Current medication list sent to facility and facility providers to take over medication management after transfer. Facility to manage wounds after transfer. Quality Measures - Quality Measures Quality Measures: Advance Directives, Documentation of Current Medications in Medical Record, Elder Maltreatment Screen and Follow-Up Plan, Screening for High Blood Pressure and F/U Documented - Current Medications Quality Measure: Measure #130: Documentation of Current Medications Documentation of Current Medications: <Current Medications Documented/Reviewed> [G8480] - Blood Pressure Screening Quality Measure: Screening for High Blood Pressure and Follow-Up Documented Does Patient Have Any of the Following: Active Dx of HTN Blood Pressure Classification: Normal BP Reading Systolic Measurement: 99 Diastolic Measurement: 51 Screening for High Blood Pressure: Patient Exclusion, Hx of HTN [G9744] - Advance Directives Quality Measure: Measure #47: Care Plan Advance Directives Established: Yes Advance Directives Information Provided To Patient: Already Provided Advance Directives on File: Yes Living Will: Yes Power of Eye Clinic Manager: Yes Power of Eye Clinic Manager Name: JOIE PAUL Advance Care Planning: <Care Plan/Decision Maker Not Decided; Discussed & Documented> [112F] - Elder Abuse Suspicion Index Screening: Elder Abuse Suspicion Index Screening Rely on people for bathing, dressing, shopping, banking, etc: No Prevented from getting food, clothes, medication, etc: No Made to feel shamed or threatened by someone: No Forced to sign papers or use money against will: No Feel afraid, touched in ways not wanted or hurt physically: No Poor eye contact, withdrawn, malnourished, cuts or bruises: No Screening Result: Negative result EASI Reference Information: Leona VIRAMONTES, Rommel C, Danitza Huddleston, Jacinto Nieto.Development and validation of a tool to assist physicians identification of elder abuse: The Elder Abuse Suspicion Index (EASI ). Journal of Elder Abuse and Neglect, 2008; 20 (3): 276-300. - Elder Maltreatment Screen Quality Measures: Elder Maltreatment Screen and Follow-Up Plan Elder Maltreatment Screen: <Negative, No Follow-Up Plan Required> [G8734]
[2017-09-10] MEDS: DONEPEZIL HCL 5 MG TABLET PO SCH (22:13)
[2017-09-10] MEDS: SIMVASTATIN 20 MG TABLET PO SCH (22:15)
[2017-09-11] MEDS: ACETAMINOPHEN 500 MG TABLET PO PRN ×2 (06:39→13:12)
[2017-09-11] MEDS: PANTOPRAZOLE SODIUM 40 MG TABLET PO SCH ×2 (06:39→18:04)
[2017-09-11] MEDS: IPRATROPIUM/ALBUTEROL (0.5MG/3MG) NEB INH SCH ×5 (06:40→21:48)
[2017-09-11] MEDS: CYCLOBENZAPRINE 10MG TABLET PO SCH ×3 (07:37→21:47)
[2017-09-11] MEDS: GLIPIZIDE 5 MG TABLET PO SCH ×2 (07:37→18:04)
[2017-09-11] MEDS: BUDESONIDE 0.5 MG/2 ML INH SCH ×2 (10:30→21:48)
[2017-09-11] MEDS: ASPIRIN 81 MG TABEC PO SCH (10:48)
[2017-09-11] MEDS: LORAZEPAM 0.5 MG TABLET PO SCH (10:48)
[2017-09-11] MEDS: ENOXAPARIN 40 MG/0.4 ML SYR SQ SCH (10:48)
[2017-09-11] MEDS: CHOLECALCIFEROL 1,000 UNIT TABLET PO SCH (10:48)
[2017-09-11] MEDS: FAMOTIDINE 20MG TABLET PO SCH ×2 (10:49→21:47)
[2017-09-11] MEDS: LIDOCAINE 5% PATCH TOP SCH (10:49)
[2017-09-11] MEDS: FLUOXETINE HCL 20 MG CAPSULE PO SCH (10:49)
[2017-09-11] MEDS: SENNOSIDES/DOCUSATE SODIUM UD CAPSULE PO SCH ×2 (10:49→21:48)
--- NOTE | 2017-09-11 12:01 | Physical Therapy Tx Note ---
Physical Therapy Tx Note - Treatment Note Tolerated: Good Total Time Spent With Patient: 30 Physical Therapy Tx Note: Detail (The patient was sitting in his chair upon arrival. The patient required max assist x 1 to transfer into a wheelchair. Once in wheelchair, the patient was able to propel himself independently with use of UE from his room to the Chapel and back (a total of 180 feet). He then required max. assist x 1 to transfer from the wheelchair and back to his chair. He was left seated in his chair with call light in reach and chair alarm reset.) Physical Therapy Problem List: Detail (1) Level 8 lower back pain radiating into R LE. 2) Assistance with mobility and transfers 3) Non ambulatory 4) Decreased abililty to tolerate physical activity) Physical Therapy Goals: 1) Assess the patient's LE strength and AROM - MET. 2) The patient will be independent/supervision with bed mobility. 3) The patient will transfer with CG of 1. 4) The patient will ambulate with assistive device with CG of 1 household distances. Prognosis: Moderate Physical Therapy Plan: PT 1-2 times a day for pain management techniques including MTT and modalities, transfer training, bed mobility, gait training , LE AROM and strengthening exercises.
--- NOTE | 2017-09-11 14:18 | Rehab Discharge Summary ---
Patient Information - Patient Information Diagnosis: Deconditioning due to degenerative disc disease Ordered Treatment: PT Evaluate and Treat Surgery: No History: Detail (The patient was hospitalized in [facility] due inability to move his legs and LE pain on the R per patient's spouse. The patient was transferred to [facility] for Rehab x 1 month and has now been transferred to [facility] for further Rehab per spouse's request.) Past Medical/Surgical Hx: PAST MEDICAL/SURGICAL HISTORY Past Surgical History left eye surgery rt groin stent attempt TURP Colonoscopy Right hand surgery PMH - Respiratory Hx Respiratory Disorders Yes Hx Bronchitis Yes Hx Chronic Obstructive Yes Pulmonary Disease (COPD) Hx Pneumonia Yes PMH - Cardiovascular Hx Hypertension Yes PMH - Neuro Hx Neurological Disorders Yes Hx Dementia Yes Hx Neuropathy Yes Hx Seizures No Hx Syncope Yes Hx Weakness Yes Comment: occasional stutter PMH - GI Hx Gastrointestinal Disorders Yes Hx Abdominal Pain Yes Hx Gastroesophageal Reflux Yes PMH - Hx Genitourinary Disorders Yes Hx Prostate Problems Yes PMH - Endocrine Hx Endocrine Disorders Yes Hx Diabetes Yes PMH - Musculoskeletal Hx Musculoskeletal Disorders Yes Hx Arthritis Yes Hx Back Injury Yes Hx Musculoskeletal Disease Yes PMH - Psych Hx Psychiatric Problems Yes Hx Depression Yes PMH - Hematology/Oncology Hx Hematology/Oncology Yes Disorders Hx Cancer Yes: lung Premorbid Status: Detail (The patient lives with spouse, Shasha in a one story house with a basement, although he stays on the first floor. His home has a ramp at the entrance. His bathroom is equipped with a tub/shower combination.) Social History: Detail Precautions: [place], Fall - Time With Patient Total Time Spent With Patient (Min): 20 Subjective Information - Subjective Information Per Patient (The patient is still having complaints of shooting pain in the right hip. He says that he starts in the hip and travels down the leg to the knee area.) Objective Data - Pain Pain Present: Yes Pain Intensity: 5 Pain Scale Used: Numeric (1 - 10) - Mental Status Patient Orientation: Person (Patient's mental status varied each day. The patient was oriented to himself consistently, but was still confused with place and time frequently.) - ROM Not within normal limits (L LE suffered ROM limitations due to shortening of hamstrings - was not able to achieve full knee extension ROM. Other joints of L side were not formally assessed. R LE was frequently painful and had some ROM limitations as the L LE. Pain frequently caused the patient to keep the knee/LE in a flexed position at the hip and knee.) - Strength/Tone Not within normal limits (R LE not assessed due to pain. L Hip Flexion 3+/5, Hip Abduction 3+/5, Adduction 4-/5, Knee Flexion 4/5, Knee Extension 4-/5, Ankle Plantar/Dorsiflexion 4-/5) - Bed Mobility Needs Assist (The patient required mod. assist x 1 to transfer LEs into the bed , but was able to lower his upper body down to the surface independently. Was able to complete half roll to L side with use of bed rails.) - Transfers Needs Assist (The patient required max. assist. x 1 to transfer from sit to stand and stand to sit. The patient was max. assist x 1 and min. assist x 1 to transfer to bedside commode.) - Balance Balance Sitting: Fair (No LOB with sitting in chair, but had lateral lean to offload buttock area due to skin breakdown.) Balance Standing: Poor (The patient was unable to maintain standing position due to lack of LE support. He required max. assist x 1 to maintain upright position with standing pivot transfer. Unable to support with LEs with use of EZ Stand.) - Gait Detail (Non-ambulatory at time of discharge. The patient is able to self-propel wheelchair with UEs for household distances, but required max. assist to transfer into wheelchair. The patient would benefit from continued use of wheelchair for mobility activities at current status.) Therapy Assessment - Therapy Assessment Detail (The patient required max. assist with transfers, and was unable to ambulate with assistive device. The patient's R Hip/LE pain inhibits his ability to participate in activities. Further therapy should focus on bed mobility and transfer training. The patient has been using a wheelchair for mobility, but would benefit from continued attempts at ambulation.) Problem List - Problem List Physical Therapy Problem List: Detail (1) Level 5 lower back pain radiating into R LE. 2) Assistance with mobility and transfers 3) Non ambulatory 4) Decreased abililty to tolerate physical activity) Occupational Therapy Problem List: Detail (1. Decreased orientation x 3. 2. Pt requiring total assist for all ADLs. 3. Max assist for functional mobility 4. Decreased UE strength/ROM/coordination) Goals - Goals Physical Therapy Goals: 1) Assess the patient's LE strength and AROM - MET. 2) The patient will be independent/supervision with bed mobility - Partially Met - Modified independent with rolling to L. Still required assist for sit to supine. 3) The patient will transfer with CG of 1 -NOT MET. 4) The patient will ambulate with assistive device with CG of 1 household distances.-NOT MET Occupational Therapy Goals: 1. Pt will be oriented x 3. 2. Pt will be Ind with total body dressing. 3. Pt will be Ind with showering 4. Pt will improve UE strength/ROM/coordination to allow safe and Ind self cares 5. Pt will be safe and Ind with bed mobility Prognosis - Prognosis Moderate Plan - Plan Physical Therapy Plan: The patient is being discharged to assisted living facility. Further PT is recommended for continued transfer training, bed mobility, gait training, and ROM/Strengthening activities. Occupational Therapy Plan: OT 2-4 days per week to address goals and problem list as above.
--- NOTE | 2017-09-11 14:35 | Occupational Therapy Tx Note ---
Occupational Therapy Tx Note - Treatment Note Tolerated: Fair Total Time Spent With Patient: 30 (ther activity) Occupational Therapy Treatment Note: Detail (S: Pt up in chair, reports he cont. to have right hip pain. O: Pt completed UE reaching, endurance activity with graded clothespins while sitting in chair. Pt required verbal cueing due to slight confusion. Pt not oriented to place. Pt had intermittent right hip spasms during OT session. A: Confusion continues, good UE strength and ROM during reaching activity) Occupational Therapy Problem List: Detail (1. Decreased orientation x 3. 2. Pt requiring total assist for all ADLs. 3. Max assist for functional mobility 4. Decreased UE strength/ROM/coordination) Occupational Therapy Goals: 1. Pt will be oriented x 3. 2. Pt will be Ind with total body dressing. 3. Pt will be Ind with showering 4. Pt will improve UE strength/ROM/coordination to allow safe and Ind self cares 5. Pt will be safe and Ind with bed mobility Prognosis: Moderate Occupational Therapy Plan: OT 2-4 days per week to address goals and problem list as above.
--- NOTE | 2017-09-11 14:40 | Rehab Discharge Summary ---
Patient Information - Patient Information Diagnosis: Deconditioning due to degenerative disc disease Ordered Treatment: OT Evaluate and Treat Surgery: No History: Detail (The patient was hospitalized in [facility] due inability to move his legs and LE pain on the R per patient's spouse. The patient was transferred to [facility] for Rehab x 1 month and has now been transferred to [facility] for further Rehab per spouse's request.) Past Medical/Surgical Hx: PAST MEDICAL/SURGICAL HISTORY Past Surgical History left eye surgery rt groin stent attempt TURP Colonoscopy Right hand surgery PMH - Respiratory Hx Respiratory Disorders Yes Hx Bronchitis Yes Hx Chronic Obstructive Yes Pulmonary Disease (COPD) Hx Pneumonia Yes PMH - Cardiovascular Hx Hypertension Yes PMH - Neuro Hx Neurological Disorders Yes Hx Dementia Yes Hx Neuropathy Yes Hx Seizures No Hx Syncope Yes Hx Weakness Yes Comment: occasional stutter PMH - GI Hx Gastrointestinal Disorders Yes Hx Abdominal Pain Yes Hx Gastroesophageal Reflux Yes PMH - Hx Genitourinary Disorders Yes Hx Prostate Problems Yes PMH - Endocrine Hx Endocrine Disorders Yes Hx Diabetes Yes PMH - Musculoskeletal Hx Musculoskeletal Disorders Yes Hx Arthritis Yes Hx Back Injury Yes Hx Musculoskeletal Disease Yes PMH - Psych Hx Psychiatric Problems Yes Hx Depression Yes PMH - Hematology/Oncology Hx Hematology/Oncology Yes Disorders Hx Cancer Yes: lung Premorbid Status: Detail (The patient lives with spouse, Shasha in a one story house with a basement, although he stays on the first floor. His home has a ramp at the entrance. His bathroom is equipped with a tub/shower combination.) Social History: Detail Precautions: [place], Fall Subjective Information - Subjective Information Per Patient Objective Data - Pain Pain Present: Yes (variable right hip pain) - Mental Status Patient Orientation: Person (Pt inconsistently oriented to location, month and year.) - Visual Perception Deficit (Pt is blind in the left eye) - ROM Not within normal limits (Vidal UE AROM WNL with exception of vidal shoulder flexion which is limited to approx. 120 degrees.) - Strength/Tone Within normal limits ([place] UE MMT 4+/5 within AROM limitations.) - Coordination Appears within normal limits for therapeutic activities - Bed Mobility Needs Assist (Pt fluxuates from min assist to max assist for supine to sit and sit to supine.) - Transfers Dependent (Pt fluxuates from mod assist x 1 to max assist x 2 for sit to stand and pivot transfers.) - Balance Balance Sitting: Good Balance Standing: Poor - Sensation Intact - Gait Detail (Pt has not been able to ambulate with OT this admission.) - ADL's/IADL's Detail (Pt able to complete partial grooming/hygiene tasks with set up and min assist, able to doff and don shirt with set up to orient shirt due to decreased vision, pt requires max assist for LE dressing as well as toileting. He was able to complete partial sponge bathing with set up and verbal cues.) Therapy Assessment - Therapy Assessment Detail (Pt requires mod to max assist with self cares and mobility on most days. He is oriented to self only on a consistent basis. UE ROM and strength are functional for ADLs.) Problem List - Problem List Physical Therapy Problem List: Detail (1) Level 5 lower back pain radiating into R LE. 2) Assistance with mobility and transfers 3) Non ambulatory 4) Decreased abililty to tolerate physical activity) Occupational Therapy Problem List: Detail (1. Decreased orientation x 3. 2. Pt requiring total assist for all ADLs. 3. Max assist for functional mobility 4. Decreased UE strength/ROM/coordination) Goals - Goals Physical Therapy Goals: 1) Assess the patient's LE strength and AROM - MET. 2) The patient will be independent/supervision with bed mobility - Partially Met - Modified independent with rolling to L. Still required assist for sit to supine. 3) The patient will transfer with CG of 1. 4) The patient will ambulate with assistive device with CG of 1 household distances. Occupational Therapy Goals: Goals not met: 1. Pt will be oriented x 3. 2. Pt will be Ind with total body dressing. 3. Pt will be Ind with showering. Goals partially met: 4. Pt will improve UE strength/ROM/coordination to allow safe and Ind self cares 5. Pt will be safe and Ind with bed mobility Prognosis - Prognosis Moderate Plan - Plan Physical Therapy Plan: The patient is being discharged to assisted living facility. Further PT is recommended for continued transfer training, bed mobility, gait training, and ROM/Strengthening activities. Occupational Therapy Plan: Pt is discharging to assisted living situation. Recommend continued OT to maximize safety and Ind with self cares and functional mobility.
[2017-09-11] MEDS: DONEPEZIL HCL 5 MG TABLET PO SCH (21:47)
[2017-09-11] MEDS: SIMVASTATIN 20 MG TABLET PO SCH (21:47)
[2017-09-12] MEDS: PANTOPRAZOLE SODIUM 40 MG TABLET PO SCH (08:55)
[2017-09-12] MEDS: CYCLOBENZAPRINE 10MG TABLET PO SCH ×2 (08:56→13:52)
[2017-09-12] MEDS: GLIPIZIDE 5 MG TABLET PO SCH (08:56)
[2017-09-12] MEDS: ASPIRIN 81 MG TABEC PO SCH (11:06)
[2017-09-12] MEDS: ACETAMINOPHEN 500 MG TABLET PO PRN (11:06)
[2017-09-12] MEDS: FLUOXETINE HCL 20 MG CAPSULE PO SCH (11:07)
[2017-09-12] MEDS: FAMOTIDINE 20MG TABLET PO SCH (11:07)
[2017-09-12] MEDS: LORAZEPAM 0.5 MG TABLET PO SCH (11:07)
[2017-09-12] MEDS: CHOLECALCIFEROL 1,000 UNIT TABLET PO SCH (11:08)
[2017-09-12] MEDS: ENOXAPARIN 40 MG/0.4 ML SYR SQ SCH (11:08)
[2017-09-12] MEDS: SENNOSIDES/DOCUSATE SODIUM UD CAPSULE PO SCH (11:08)
[2017-09-12] MEDS: BUDESONIDE 0.5 MG/2 ML INH SCH (11:08)
[2017-09-12] MEDS: IPRATROPIUM/ALBUTEROL (0.5MG/3MG) NEB INH SCH ×3 (11:09→14:39)
[2017-09-12] MEDS: LIDOCAINE 5% PATCH TOP SCH (11:09)
== END 2017-09-12 15:15 | DRG 552 ==
LOC: MEDSURG 12:54
PROVIDERS: ADMIT Internal Medicine; ATTEND Internal Medicine
DX: M51.36 Other intervertebral disc degeneration, lumbar region (principal); N39.0 Urinary tract infection, site not specified; R41.82 Altered mental status, unspecified; M54.5 Low back pain; G89.29 Other chronic pain; S31.829A Unspecified open wound of left buttock, initial encounter; J44.9 Chronic obstructive pulmonary disease, unspecified; F03.90 Unspecified dementia, unspecified severity, without behavioral disturbance, psychotic disturbance, mood disturbance, and anxiety; E11.9 Type 2 diabetes mellitus without complications; Z79.84 Long term (current) use of oral hypoglycemic drugs; M19.90 Unspecified osteoarthritis, unspecified site; Z85.118 Personal history of other malignant neoplasm of bronchus and lung; Z87.891 Personal history of nicotine dependence
CPT/HCPCS: 36416; 70450; 71046; 74019; 80053; 81001; 82310; 82948; 83735; 85025; 85027; 94640; 94760; 97110; 97140; 97530; 97535; 99306; 99310; 99316; J1650